=== PATIENT | male | born 1960 | race Caucasian/White ===

== ENCOUNTER 2016-10-03 15:26 | Observation (INO) | payer SELFPAY ==
[~2016-10-03] VITALS: Ht 170.2 cm; Wt 111.1 kg
[~2016-10-03 15:26] MED LIST: ACET160E5 PO; AMIO200T PO; AMIO200T2 PO; ASPI325T11 PO; ASPI325T70 PO; ATEN-56 PO; ATEN25TA PO; ATEN50TA PO; CLON0.1T PO; CYCL10TA2 PO; DIAZ5TAB4 PO; DIGO250T17 PO; DILT120C97 PO; FLUT1DIS IH; HYDR-2666 PO; HYDR-2678 PO; HYDR25TA9 PO; IBUP-1027 PO; LISI10TA PO; LISI20TA PO; METH-37 PO; METO25TA2 PO; NAPR250T2 PO; NITR0.4T6 SL; OXYC-244 PO; OXYC5TAB PO; Oxycodone Hcl/Acetaminophen PO; SAVAYSA; SULF1TAB24 PO; TAMS0.4C97 PO; TIOT18CA IH; VALIUM10 MG PO
[2016-10-03] MEDS ORDERED: IV NORMAL SALINE 1000ML BAG 1,000 ML IV SCH (17:01)
[2016-10-03] MEDS ORDERED: ONDANSETRON PF 4 MG/2 ML VIAL. IV ONE (17:15)
[2016-10-03 17:16] LABS: BASO # 0.1 x10^3/uL (0.0-0.2); BASO % 1 % (0-3); BILIRUBIN,URINE NEGATIVE (NEG); EOS % 3 % (0-3); GLUCOSE,URINE NEGATIVE (NEG); HEMOGLOBIN 15.3 g/dL (13.0-17.5); LYMPH % 35 % (24-48); MEAN CORPUSCULAR HEMOGLOBIN 31 pg (25-35); MEAN CORPUSCULAR HGB CONC 33 g/dL (31-37); MEAN CORPUSCULAR VOLUME 94 fL (79-100); MONO % 13 % (0-9); NEUT % 49 % (31-73); NITRITE,URINE NEGATIVE (NEG); PH,URINE 5.5; PLATELET COUNT 220 x10^3/uL (140-400); PROTEIN,URINE NEGATIVE (NEG-TRACE); RED BLOOD COUNT 4.89 x10^6/uL (4.30-5.70); RED CELL DISTRIBUTION WIDTH 13.7 % (11.5-14.5); UROBILINOGEN,URINE 0.2 mg/dL (0.2 mg/dL); WHITE BLOOD COUNT 8.7 x10^3/uL (4.0-11.0)
--- NOTE | 2016-10-03 17:23 | EKG ---
[facility] [address] [place] [address] Test Date: 2016-10-03 Test Time: 15:56:25 Pat Name: ALYSSA PABLO Department: Room: Gender: M Ems Director: : 1960 Requested By: VINCENT TINOCO Order Number: [id number] Reading MD: Iza Harris Measurements Intervals Howard Rate: 92 P: 53 LA: 214 QRS: 12 QRSD: 176 T: 46 QT: 402 QTc: 503 Interpretive Statements ELECTRONIC PACEMAKER. A SENSE AND V PACED Electronically Signed On 10-09-2016 14:22:34 GREEN [employer] ADDED ASSESSOR by Iza Harris
--- NOTE | 2016-10-03 17:27 | PHYS DOC ---
Past Medical History Past Medical History: A-Fib, Alcoholism, Anxiety, High Cholesterol, Heart Disease, Hypertension, MT, Other Additional Past Medical Histor: Vtach, back pain, HERNIA, HEPATITIS, bradycardia Past Surgical History: Cholecystectomy, Knee Replacement, Pacemaker, Other Additional Past Surgical Histo: intestinal and hernia, lumbar fusion, shoulder , ABLATION , AV pacemaker Alcohol Use: Heavy Drug Use: Heroin, Methamphetamine, Other Adult General Chief Complaint Chief Complaint: DIZZY/LIGHT HEADED HPI HPI Patient is a 55 year old male who presents with complaint of chest pain and lightheadedness. Patient states his symptoms started earlier this morning around 10:00. Patient states his symptoms have been persistent. Patient has history of atrial fibrillation and history of myocardial infarction. The patient was brought to the emergency department by EMS from [facility] after he had presented there for evaluation. Patient denies any fever or cough. Patient states his pain currently is 10 out of 10. Patient states it feels like pressure in his in the middle of his chest. The patient also states that he is having pain associated with chronic left sciatica. The patient has had multiple visits to the hospital in the past and has been known to have history of noncompliance. Patient has followed with Dr. Francis of cardiology in the past but has not seen him in clinic for several months. Patient has not taken any medications to help with his symptoms. Review of Systems Review of Systems Constitutional: Lightheadedness, Denies fever or chills [] Eyes: Denies change in visual acuity, redness, or eye pain [] HENT: Denies nasal congestion or sore throat [] Respiratory: Denies cough or shortness of breath [] Cardiovascular: Chest pain [] GI: Denies abdominal pain, nausea, vomiting, bloody stools or diarrhea [] : Denies dysuria or hematuria [] Musculoskeletal: Left-sided low back pain with radiculopathy [] Integument: Denies rash or skin lesions [] Neurologic: Denies headache, focal weakness or sensory changes [] Current Medications Current Medications Current Medications Medications (Trade) Dose Ordered Sig/Alan Start Time Stop Time Status Last Admin Dose Admin Hydromorphone HCl 1 mg 1 mg PRN Q15MIN PRN 10/03/16 17:15 10/04/16 17:14 10/03/16 19:24 1 MG Ondansetron HCl (Zofran) 4 mg 1X ONCE 10/03/16 17:15 10/03/16 17:16 DC 10/03/16 18:25 4 MG Sodium Chloride (Iv Sodium Chloride 0.9% 1000ml Bag) 1,000 ml @ 1,000 mls/hr Q1H 10/03/16 17:01 10/03/16 18:00 DC 10/03/16 18:22 1,000 MLS/HR Allergies Allergies Allergies Coded Allergies Type Severity Reaction Last Updated Verified alprazolam Allergy Intermediate 07/19/16 Yes diltiazem Allergy Intermediate HIVES, INTERMITTENTLY 07/19/16 Yes lorazepam Allergy Intermediate halucinations 07/19/16 Yes morphine Allergy Intermediate HIVES, INTERMITTENTLY 07/19/16 Yes Haloperidol Lactate Adverse Reaction Intermediate dystonic reaction 07/19/16 Yes haloperidol Adverse Reaction Intermediate dystonic reaction 07/19/16 Yes tramadol Adverse Reaction Intermediate Hallucinationsper nurse 07/19/16 Yes Physical Exam Physical Exam Constitutional: Alert, afebrile, appears in moderate discomfort. [] HENT: Normocephalic, atraumatic, bilateral external ears normal, oropharynx moist, no oral exudates, nose normal. [] Eyes: PERRLA, EOMI, conjunctiva normal, no discharge. [] Neck: Normal range of motion, no tenderness, supple, no stridor. [] Cardiovascular: Tachycardia, irregular rhythm, no murmur [] Lungs & Thorax: Bilateral breath sounds clear to auscultation [] Abdomen: Bowel sounds normal, soft, no tenderness, no masses, no pulsatile masses. [] Skin: Warm, dry, no erythema, no rash. [] Back: Left lower lumbar paraspinous muscle tenderness to palpation, no midline tenderness, positive straight leg test in left lower extremity. [] Extremities: No tenderness, no cyanosis, no clubbing, ROM intact, trace pedal edema bilaterally. [] Neurologic: Alert and oriented X 3, normal motor function, normal sensory function, no focal deficits noted. [] Current Patient Data Vital Signs Vital Signs Date Time Temp Pulse Resp B/P Pulse Ox O2 Delivery O2 Flow Rate FiO2 10/03/16 18:30 92 116/89 96 Room Air 10/03/16 18:28 20 10/03/16 15:30 99.1 99.1 Lab Values Laboratory Tests Test 10/03/16 15:40 10/03/16 18:00 White Blood Count 8.7x10^3/uL (4.0-11.0) Red Blood Count 4.89x10^6/uL (4.30-5.70) Hemoglobin 15.3g/dL (13.0-17.5) Hematocrit 46.0% (39.0-53.0) Mean Corpuscular Volume 94fL (79-100) Mean Corpuscular Hemoglobin 31pg (25-35) Mean Corpuscular Hemoglobin Concent 33g/dL (31-37) Red Cell Distribution Width 13.7% (11.5-14.5) Platelet Count 220x10^3/uL (140-400) Neutrophils (%) (Auto) 49% (31-73) Lymphocytes (%) (Auto) 35% (24-48) Monocytes (%) (Auto) 13% (0-9) H Eosinophils (%) (Auto) 3% (0-3) Basophils (%) (Auto) 1% (0-3) Neutrophils # (Auto) 4.3x10^3uL (1.8-7.7) Lymphocytes # (Auto) 3.0x10^3/uL (1.0-4.8) Monocytes # (Auto) 1.1x10^3/uL (0.0-1.1) Eosinophils # (Auto) 0.2x10^3/uL (0.0-0.7) Basophils # (Auto) 0.1x10^3/uL (0.0-0.2) Urine Collection Type Unknown Urine Color Yellow Urine Clarity Clear Urine pH 5.5 Urine Specific [place] 1.010 Urine Protein Negativemg/dL (NEG-TRACE) Urine Glucose (UA) Negativemg/dL (NEG) Urine Ketones (Stick) Negativemg/dL (NEG) Urine Blood Negative (NEG) Urine Nitrite Negative (NEG) Urine Bilirubin Negative (NEG) Urine Urobilinogen Dipstick 0.2mg/dL (0.2 mg/dL) Urine Leukocyte Esterase Negative (NEG) Urine RBC 0/HPF (0-2) Urine WBC 1-4/HPF (0-4) Urine Squamous Epithelial Cells Occ/LPF Urine Bacteria Few/HPF (0-FEW) Sodium Level 138mmol/L (136-145) Potassium Level 4.0mmol/L (3.5-5.1) Chloride Level 102mmol/L (98-107) Carbon Dioxide Level 24mmol/L (21-32) Anion Gap 12 (6-14) Blood Urea Nitrogen 18mg/dL (8-26) Creatinine 1.4mg/dL (0.7-1.3) H Estimated GFR (Cockcroft-Gault) 52.6 Glucose Level 111mg/dL (70-99) H Calcium Level 9.4mg/dL (8.5-10.1) Magnesium Level 1.7mg/dL (1.8-2.4) L Creatine Kinase 492U/L (39-308) H Creatine Kinase MB (Mass) 9.6ng/mL (0.0-3.6) H Creatine Kinase MB Relative Index 2.0% (0-4) Troponin I Quantitative < 0.017ng/mL (0.000-0.055) NH-Whj-N-Type Natriuretic Peptide 368pg/mL (0-124) H Laboratory Tests 10/03/16 15:40 Laboratory Tests 10/03/16 18:00 EKG EKG Interpreted by me: Heart rate 92, ventricularly paced rhythm, no acute ST elevations or depressions [] Radiology/Procedures Radiology/Procedures [facility] [address] [place] [address] IMAGING REPORT Signed PATIENT: ALYSSA PABLO ACCOUNT: [id number] : 1960 LOCATION: ER AGE: 55 SEX: M EXAM STATUS: PRE ER ORD. PHYSICIAN: VINCENT TINOCO MD REASON: chest pain PROCEDURE: PORTABLE CHEST 1V Portable chest, 10/03/2016: History: Chest pain, shortness of breath Comparison is made to a study from 05/05/2016. A right-sided transvenous pacemaker remains in place with 2 leads extending into the right heart. The heart is at the upper limits of normal in size. There is tortuosity of the thoracic aorta. The pulmonary vascularity is normal. No pulmonary infiltrates are seen. There is no evidence of pleural fluid. IMPRESSION: No acute cardiopulmonary abnormality is detected with no significant change since 05/05/2016. DICTATED and SIGNED BY: DANIELLE CM MD DATE: 10/03/16 3726 CC: VINCENT TINOCO MD; NO PCP ~ [] Course & Med Decision Making Course & Med Decision Making Pertinent Labs and Imaging studies reviewed. (See chart for details) Patient was treated with Dilaudid for pain. Patient given full strength aspirin in the emergency department. Patient's initial cardiac enzymes were negative. Due to cardiac history and risk factors, I spoke with Dr. Francis. He agreed to consult on patient in hospital for rule out of myocardial infarction and will have pacemaker interrogated well in hospital. Patient was admitted to Dr. Harding. Dragon Disclaimer Leonard Disclaimer This electronic medical record was generated, in whole or in part, using a voice recognition dictation system. Departure Departure Impression: Primary Impression: Chest pain Additional Impressions: Essential hypertension Atrial fibrillation Noncompliance with medication regimen Sciatica Disposition: ADMITTED INPATIENT Admitting Physician: Serafin Harding Condition: STABLE Referrals: NO PCP (PCP) Problem Qualifiers Primary Impression: Chest pain Chest pain type: unspecified Qualified Code: R07.9 - Chest pain, unspecified Additional Impressions: Atrial fibrillation Atrial fibrillation type: chronic Qualified Code: I48.2 - Chronic atrial fibrillation Sciatica Laterality: left Qualified Code: M54.32 - Sciatica, left side VINCENT TINOCO MD Oct 03, 2016 17:27
--- NOTE | 2016-10-03 17:43 | RAD ---
Portable chest, 10/03/2016: History: Chest pain, shortness of breath Comparison is made to a study from 05/05/2016. A right-sided transvenous pacemaker remains in place with 2 leads extending into the right heart. The heart is at the upper limits of normal in size. There is tortuosity of the thoracic aorta. The pulmonary vascularity is normal. No pulmonary infiltrates are seen. There is no evidence of pleural fluid. IMPRESSION: No acute cardiopulmonary abnormality is detected with no significant change since 05/05/2016.
[2016-10-03 18:23] LABS: BACTERIA,URINE FEW /HPF (0-FEW); RBC,URINE 0 /HPF (0-2)
[2016-10-03 18:24] LABS: SQUAMOUS EPITHELIAL CELL,UR OCC /LPF
[2016-10-03] MEDS: HYDROMORPHONE 2 MG/ML VIAL. IV/SQ PRN ×2 (18:28→19:24)
[2016-10-03 18:48] LABS: CALCIUM 9.4 mg/dL (8.5-10.1); CREATININE 1.4 mg/dL (0.7-1.3); GFR 52.6; MAGNESIUM 1.7 mg/dL (1.8-2.4)
[2016-10-03 19:13] LABS: CKMB MASS 9.6 ng/mL (0.0-3.6)
[2016-10-03] MEDS: IV NORMAL SALINE 1000ML BAG 1,000 ML IV SCH (19:29)
[2016-10-03] MEDS ORDERED: ONDANSETRON PF 4 MG/2 ML VIAL. IV PRN (19:30)
[2016-10-03] MEDS ORDERED: ASPIRIN 81 MG TAB.CHEW PO ONE (19:30)
[2016-10-03 22:00] VITALS: BP 173/143
[2016-10-03] MEDS: FENTANYL PF 100 MCG/2 ML VIAL. IV PRN (22:21)
[2016-10-03] MEDS ORDERED: LORAZEPAM 1 MG TABLET. PO PRN (22:45)
--- NOTE | 2016-10-04 00:33 | HP ---
ADMIT DATE: 10/03/2016 CHIEF COMPLAINT: Chest pain. HISTORY OF PRESENT ILLNESS: The patient is a pleasant 55-year-old male well known to our service. He is very noncompliant, but has multiple medical issues as well as, presents to the ER today with chest pain, rates it at 9 out 10. He has associated weakness and shortness of breath. He is very anxious. I have discussed the case with the ER physician. We are going to admit the patient and consult Cardiology. PAST MEDICAL HISTORY: AFib, alcohol issues, anxiety, hypertension, hyperlipidemia, noncompliance, myocardial infarction, chronic pain, V-tach, hernia repair, hepatitis, bradycardia, cholecystectomy, knee replacement, pacemaker, intestinal hernia, lumbar fusion, shoulder surgery, ablation and AV pacemaker. ALLERGIES: HALDOL, ALPRAZOLAM, DIAZEPAM, HALOPERIDOL, LORAZEPAM, MORPHINE AND ULTRAM. FAMILY HISTORY: Coronary artery disease. SOCIAL HISTORY: He quit drinking, smoking and doing drugs. MEDICATIONS: Reviewed. Please refer to the MRAD. REVIEW OF SYSTEMS: GENERAL: No history of weight change, weakness or fevers. SKIN: No bruising, hair changes or rashes. EYES: No blurred, double or loss of vision. NOSE AND THROAT: No history of nosebleeds, hoarseness or sore throat. HEART: He complains of chest pain. LUNGS: He complains of shortness of breath. GASTROINTESTINAL: Denies changes in appetite, nausea, vomiting, diarrhea or constipation. GENITOURINARY: No history of frequency, urgency, hesitancy or nocturia. NEUROLOGIC: Denies history of numbness, tingling, tremor or weakness. PSYCHIATRIC: No history of panic, anxiety or depression. ENDOCRINE: No history of heat or cold intolerance, polyuria or polydipsia. EXTREMITIES: Denies muscle weakness, joint pain, pain on walking or stiffness. PHYSICAL EXAMINATION: VITAL SIGNS: Temperature afebrile, pulse 97, respirations 18, blood pressure 114/70, O2 sat 96% on room air. GENERAL: He is alert, cooperative, very anxious, that is his baseline. HEART: Normal S1, S2 with a soft S3. LUNGS: Slight crackles. ABDOMEN: Soft, positive bowel sounds, he has got an umbilical hernia. ENDOCRINE: No thyromegaly. LYMPHATICS: No cervical nodes. HEMATOPOIETIC: No bruising. LABORATORY DATA: Hematology normal. Electrolytes normal other than creatinine of 1.4 and a magnesium 1.7. CPK is little high at 492. Troponin is 0. BNP 368. Urinalysis negative. ASSESSMENT AND PLAN: Chest pain in a middle-aged male with multiple comorbidities including known coronary artery disease. The patient has been admitted. We will check serial enzymes, serial EKGs, cardiac monitoring. Consult Cardiology, daily aspirin. Continue home medicines, p.r.n. benzos for anxiety, p.r.n. Percocet for pain. PROGNOSIS: Guarded. TREVOR BELLE DO DR: YVETTE/shauna JOB#: [id number] / [id number]
[2016-10-04] MEDS: FENTANYL PF 100 MCG/2 ML VIAL. IV PRN (01:16)
[2016-10-04] MEDS: DIPHENHYDRAMINE HCL 25 MG CAPSULE PO PRN ×2 (01:18→08:27)
[2016-10-04] MEDS: DIAZEPAM 5 MG TABLET PO PRN ×5 (01:21→22:57)
[2016-10-04 03:00] VITALS: BP 200/167
[2016-10-04] MEDS ORDERED: ALBUTEROL SULFATE 2.5 MG/3 ML NEBU. NEB PRN (03:45)
[2016-10-04] MEDS: CLONIDINE HCL 0.2 MG TABLET PO SCH ×4 (04:14→20:26)
[2016-10-04] MEDS: OXYCODONE/APAP 5/325 TABLET. PO PRN ×3 (04:14→20:26)
[2016-10-04] MEDS: IV NORMAL SALINE 1000ML BAG 1,000 ML IV SCH ×2 (05:29→15:29)
[2016-10-04 05:30] LABS: BARBITURATES NEG (NEG); BENZODIAZEPINES NEG (NEG); CANNABINOIDS NEG (NEG); COCAINE NEG (NEG); METHADONE NEG (NEG); OPIATES POS (NEG); PHENCYCLIDINE NEG (NEG)
[2016-10-04 05:33] LABS: ETHANOL, URINE NEG (NEG)
[2016-10-04 07:00] VITALS: BP 107/74
[2016-10-04 07:49] LABS: BASO % 0 % (0-3); EOS % 2 % (0-3); HEMATOCRIT 42.1 % (39.0-53.0); HEMOGLOBIN 14.2 g/dL (13.0-17.5); LYMPH # 2.1 x10^3/uL (1.0-4.8); LYMPH % 23 % (24-48); MEAN CORPUSCULAR HEMOGLOBIN 31 pg (25-35); MEAN CORPUSCULAR HGB CONC 34 g/dL (31-37); MEAN CORPUSCULAR VOLUME 94 fL (79-100); MONO % 15 % (0-9); NEUT % 60 % (31-73); PLATELET COUNT 177 x10^3/uL (140-400); RED CELL DISTRIBUTION WIDTH 13.4 % (11.5-14.5); WHITE BLOOD COUNT 9.1 x10^3/uL (4.0-11.0)
[2016-10-04 08:00] LABS: CALCIUM 10.1 mg/dL (8.5-10.1); CREATININE 1.1 mg/dL (0.7-1.3); GFR 69.5; POTASSIUM 4.3 mmol/L (3.5-5.1)
--- NOTE | 2016-10-04 10:11 | PDOC2 ---
CONSULT Date of Consult Date of Consult DATE: 10/04/16 TIME: 09:58 Reason for Consult Reason for Consult: Chest pain Referring Physician Referring Physician: Dr Harding Identification/Chief Complaint Chief Complaint Back pain and chest pain History of Present Illness Reason for Visit: Pt is complaining of back pain and chest pain. Pt stated his back pain is a chronic issue and he rated his pain at a 9 or 10 on a 1-10 scale. Pt described his chest pain as pressure in his chest that is focal and rated the pain at a 6- 7 on a 1-10 scale. Pt stated his chest pain hurts more when he breathes. Pt also complained of shortness of breath. Pt walked back from the restroom and was out of breath. Pt is more worried about his back pain than his chest pain. Pt also stated he has become more confused than normal and is worried about dementia. He stated his children have also noted his memory not be like it used to be. Past Medical History Cardiovascular: AFIB, HTN Pulmonary: Asthma, COPD GI: GERD Heme/Onc: Other Psych: Anxiety, Addictions, Depression Musculoskeletal: low back pain, Osteoarthritis Renal/: Benign prostatic enlarg. Past Surgical History Past Surgical History: Pacemaker, Appendectomy, Cholecystectomy, Hernia Repair , Total knee replacement Family History Family History: Cancer, Heart Disease, Hepatitis, Hypertension Social History ALCOHOL: heavy Drugs: Crystal meth Current Problem List Problem List Problems Medical Problems: (1) Atrial fibrillation Status: Acute (2) Chest pain Status: Acute (3) Chest pain Status: Acute (4) Essential hypertension Status: Acute (5) Noncompliance with medication regimen Status: Acute (6) Sciatica Status: Acute Current Medications Current Medications Current Medications Hydromorphone HCl 1 mg 1 mg PRN Q15MIN PRN IV/SQ PAIN GREATER THAN 3/10 Last administered on 10/03/16 19:24; Start 10/03/16 at 17:15; Stop 10/04/16 at 17:14 Sodium Chloride (Iv Sodium Chloride 0.9% 1000ml Bag) 1,000 ml @ 1,000 mls/hr Q1H IV Last administered on 10/03/16 18:22; Start 10/03/16 at 17:01; Stop at 18:00; Status DC Ondansetron HCl (Zofran) 4 mg 1X ONCE IV Last administered on 10/03/16 18:25; Start 10/03/16 at 17:15; Stop 10/03/16 at 17:16; Status DC Ondansetron HCl (Zofran) 4 mg PRN Q8HRS PRN IV NAUSEA/VOMITING; Start 10/03/16 at 19:30; Stop 10/04/16 at 19:29 Fentanyl Citrate 50 mcg 50 mcg PRN Q2HR PRN IV PAIN Last administered on 01:16; Start 10/03/16 at 19:30; Stop 10/04/16 at 19:29 Sodium Chloride (Iv Sodium Chloride 0.9% 1000ml Bag) 1,000 ml @ 100 mls/hr Q10H IV ; Start 10/03/16 at 19:29; Stop 10/04/16 at 19:28 Aspirin (Children'S Aspirin) 324 mg 1X ONCE PO Last administered on 10/03/16 20:06; Start 10/03/16 at 19:30; Stop 10/03/16 at 19:32; Status DC Oxycodone/ Acetaminophen (Percocet 5/325) 1 tab PRN Q4HRS PRN PO SEVERE PAIN Last administered on 10/04/16 08:28; Start 10/03/16 at 22:45 Lorazepam (Ativan) 1 mg Q4HRS PRN PO ANXIETY / AGITATION; Start 10/03/16 at 22: 45; Status UNV Diazepam (Valium) 5 mg PRN Q4HRS PRN PO ANXIETY Last administered on 10/04/16 08:27; Start 10/03/16 at 23:30 Diphenhydramine HCl (Benadryl) 25 mg PRN Q6HRS PRN PO ITCHING Last administered on 10/04/16 08:27; Start 10/03/16 at 23:30 Albuterol Sulfate (Ventolin Neb Soln) 2.5 mg PRN Q4HRS PRN NEB SHORTNESS OF BREATH; Start 10/04/16 at 03:45 Clonidine HCl (Catapres) 0.2 mg TID PO Last administered on 10/04/16 04:14; Start 10/04/16 at 04:00 Active Scripts Active Clonidine Hcl 0.1 Mg Tablet 0.1 Mg PO BID Hydrochlorothiazide Tablet (Hydrochlorothiazide) 25 Mg Tablet 1 Tab PO DAILY Naproxen 250 Mg Tablet 250 Mg PO BID PRN Cyclobenzaprine Hcl 10 Mg Tablet 10 Mg PO TID PRN Naproxen 250 Mg Tablet 250 Mg PO BID PRN Cyclobenzaprine Hcl 10 Mg Tablet 10 Mg PO TID PRN Diazepam 5 Mg Tablet 5 Mg PO Q6HRS PRN Oxycodone Hcl 5 Mg Tablet 1-2 Tab PO QID PRN Reported NITROGLYCERIN SubLingual (Nitroglycerin) 0.4 Mg Tab.subl 0.4 Mg SL PRN Q5MIN PRN NITROGLYCERIN SubLingual (Nitroglycerin) 0.4 Mg Tab.subl 0.4 Mg SL PRN Q5MIN PRN Allergies Allergies: Coded Allergies: alprazolam (Verified Allergy, Intermediate, 07/19/16) HALUCINATIONS diltiazem (Verified Allergy, Intermediate, HIVES, INTERMITTENTLY, 07/19/16 ) lorazepam (Verified Allergy, Intermediate, halucinations, 07/19/16) patients states has tolerated valium in the past morphine (Verified Allergy, Intermediate, HIVES, INTERMITTENTLY, 07/19/16) takes LORTAB at home, tolerates DILAUDID also. Haloperidol Lactate (Verified Adverse Reaction, Intermediate, dystonic reaction, 07/19/16) "Jaw comes out of socket" haloperidol (Verified Adverse Reaction, Intermediate, dystonic reaction, 07/19/16) "Jaw comes out of socket" tramadol (Verified Adverse Reaction, Intermediate, Hallucinationsper nurse , 07/19/16) Physical Exam General: Alert, No acute distress HEENT: Atraumatic, EOMI Lungs: Normal air movement Heart: Regular rate, Normal S1, Normal S2 Extremities: No clubbing, No cyanosis, No edema Vitals VITALS Vital Signs Date Time Temp Pulse Resp B/P Pulse Ox O2 Delivery O2 Flow Rate FiO2 10/04/16 08:28 98 107/74 10/04/16 08:28 Room Air 10/04/16 07:00 97.9 18 97 97.9 Labs Labs Laboratory Tests Test 10/03/16 15:40 10/03/16 18:00 10/04/16 04:00 10/04/16 07:22 White Blood Count 8.7x10^3/uL (4.0-11.0) Red Blood Count 4.89x10^6/uL (4.30-5.70) Hemoglobin 15.3g/dL (13.0-17.5) Hematocrit 46.0% (39.0-53.0) Mean Corpuscular Volume 94fL (79-100) Mean Corpuscular Hemoglobin 31pg (25-35) Mean Corpuscular Hemoglobin Concent 33g/dL (31-37) Red Cell Distribution Width 13.7% (11.5-14.5) Platelet Count 220x10^3/uL (140-400) Neutrophils (%) (Auto) 49% (31-73) Lymphocytes (%) (Auto) 35% (24-48) Monocytes (%) (Auto) 13% (0-9) Eosinophils (%) (Auto) 3% (0-3) Basophils (%) (Auto) 1% (0-3) Neutrophils # (Auto) 4.3x10^3uL (1.8-7.7) Lymphocytes # (Auto) 3.0x10^3/uL (1.0-4.8) Monocytes # (Auto) 1.1x10^3/uL (0.0-1.1) Eosinophils # (Auto) 0.2x10^3/uL (0.0-0.7) Basophils # (Auto) 0.1x10^3/uL (0.0-0.2) Urine Collection Type Unknown Urine Color Yellow Urine Clarity Clear Urine pH 5.5 Urine Specific [place] 1.010 Urine Protein Negativemg/dL (NEG-TRACE) Urine Glucose (UA) Negativemg/dL (NEG) Urine Ketones (Stick) Negativemg/dL (NEG) Urine Blood Negative (NEG) Urine Nitrite Negative (NEG) Urine Bilirubin Negative (NEG) Urine Urobilinogen Dipstick 0.2mg/dL (0.2 mg/dL) Urine Leukocyte Esterase Negative (NEG) Urine RBC 0/HPF (0-2) Urine WBC 1-4/HPF (0-4) Urine Squamous Epithelial Cells Occ/LPF Urine Bacteria Few/HPF (0-FEW) Sodium Level 138mmol/L (136-145) 136mmol/L (136-145) Potassium Level 4.0mmol/L (3.5-5.1) 4.3mmol/L (3.5-5.1) Chloride Level 102mmol/L (98-107) 103mmol/L (98-107) Carbon Dioxide Level 24mmol/L (21-32) 24mmol/L (21-32) Anion Gap 12 (6-14) 9 (6-14) Blood Urea Nitrogen 18mg/dL (8-26) 23mg/dL (8-26) Creatinine 1.4mg/dL (0.7-1.3) 1.1mg/dL (0.7-1.3) Estimated GFR (Cockcroft-Gault) 52.6 69.5 Glucose Level 111mg/dL (70-99) 125mg/dL (70-99) Calcium Level 9.4mg/dL (8.5-10.1) 10.1mg/dL (8.5-10.1) Magnesium Level 1.7mg/dL (1.8-2.4) Creatine Kinase 492U/L (39-308) Creatine Kinase MB (Mass) 9.6ng/mL (0.0-3.6) Creatine Kinase MB Relative Index 2.0% (0-4) Troponin I Quantitative < 0.017ng/mL (0.000-0.055) 0.021ng/mL (0.000-0.055) SH-Rfi-M-Type Natriuretic Peptide 368pg/mL (0-124) Urine Opiates Screen Pos (NEG) Urine Methadone Screen Neg (NEG) Urine Barbiturates Neg (NEG) Urine Phencyclidine Screen Neg (NEG) Urine Amphetamine/Methamphetamine Neg (NEG) Urine Benzodiazepines Screen Neg (NEG) Urine Cocaine Screen Neg (NEG) Urine Cannabinoids Screen Neg (NEG) Urine Ethyl Alcohol Neg (NEG) Test 10/04/16 07:27 White Blood Count 9.1x10^3/uL (4.0-11.0) Red Blood Count 4.50x10^6/uL (4.30-5.70) Hemoglobin 14.2g/dL (13.0-17.5) Hematocrit 42.1% (39.0-53.0) Mean Corpuscular Volume 94fL (79-100) Mean Corpuscular Hemoglobin 31pg (25-35) Mean Corpuscular Hemoglobin Concent 34g/dL (31-37) Red Cell Distribution Width 13.4% (11.5-14.5) Platelet Count 177x10^3/uL (140-400) Neutrophils (%) (Auto) 60% (31-73) Lymphocytes (%) (Auto) 23% (24-48) Monocytes (%) (Auto) 15% (0-9) Eosinophils (%) (Auto) 2% (0-3) Basophils (%) (Auto) 0% (0-3) Neutrophils # (Auto) 5.5x10^3uL (1.8-7.7) Lymphocytes # (Auto) 2.1x10^3/uL (1.0-4.8) Monocytes # (Auto) 1.4x10^3/uL (0.0-1.1) Eosinophils # (Auto) 0.2x10^3/uL (0.0-0.7) Basophils # (Auto) 0.0x10^3/uL (0.0-0.2) Laboratory Tests Test 10/03/16 15:40 10/03/16 18:00 10/04/16 04:00 10/04/16 07:22 White Blood Count 8.7x10^3/uL (4.0-11.0) Red Blood Count 4.89x10^6/uL (4.30-5.70) Hemoglobin 15.3g/dL (13.0-17.5) Hematocrit 46.0% (39.0-53.0) Mean Corpuscular Volume 94fL (79-100) Mean Corpuscular Hemoglobin 31pg (25-35) Mean Corpuscular Hemoglobin Concent 33g/dL (31-37) Red Cell Distribution Width 13.7% (11.5-14.5) Platelet Count 220x10^3/uL (140-400) Neutrophils (%) (Auto) 49% (31-73) Lymphocytes (%) (Auto) 35% (24-48) Monocytes (%) (Auto) 13% (0-9) Eosinophils (%) (Auto) 3% (0-3) Basophils (%) (Auto) 1% (0-3) Neutrophils # (Auto) 4.3x10^3uL (1.8-7.7) Lymphocytes # (Auto) 3.0x10^3/uL (1.0-4.8) Monocytes # (Auto) 1.1x10^3/uL (0.0-1.1) Eosinophils # (Auto) 0.2x10^3/uL (0.0-0.7) Basophils # (Auto) 0.1x10^3/uL (0.0-0.2) Urine Collection Type Unknown Urine Color Yellow Urine Clarity Clear Urine pH 5.5 Urine Specific [place] 1.010 Urine Protein Negativemg/dL (NEG-TRACE) Urine Glucose (UA) Negativemg/dL (NEG) Urine Ketones (Stick) Negativemg/dL (NEG) Urine Blood Negative (NEG) Urine Nitrite Negative (NEG) Urine Bilirubin Negative (NEG) Urine Urobilinogen Dipstick 0.2mg/dL (0.2 mg/dL) Urine Leukocyte Esterase Negative (NEG) Urine RBC 0/HPF (0-2) Urine WBC 1-4/HPF (0-4) Urine Squamous Epithelial Cells Occ/LPF Urine Bacteria Few/HPF (0-FEW) Sodium Level 138mmol/L (136-145) 136mmol/L (136-145) Potassium Level 4.0mmol/L (3.5-5.1) 4.3mmol/L (3.5-5.1) Chloride Level 102mmol/L (98-107) 103mmol/L (98-107) Carbon Dioxide Level 24mmol/L (21-32) 24mmol/L (21-32) Anion Gap 12 (6-14) 9 (6-14) Blood Urea Nitrogen 18mg/dL (8-26) 23mg/dL (8-26) Creatinine 1.4mg/dL (0.7-1.3) 1.1mg/dL (0.7-1.3) Estimated GFR (Cockcroft-Gault) 52.6 69.5 Glucose Level 111mg/dL (70-99) 125mg/dL (70-99) Calcium Level 9.4mg/dL (8.5-10.1) 10.1mg/dL (8.5-10.1) Magnesium Level 1.7mg/dL (1.8-2.4) Creatine Kinase 492U/L (39-308) Creatine Kinase MB (Mass) 9.6ng/mL (0.0-3.6) Creatine Kinase MB Relative Index 2.0% (0-4) Troponin I Quantitative < 0.017ng/mL (0.000-0.055) 0.021ng/mL (0.000-0.055) GU-Ect-D-Type Natriuretic Peptide 368pg/mL (0-124) Urine Opiates Screen Pos (NEG) Urine Methadone Screen Neg (NEG) Urine Barbiturates Neg (NEG) Urine Phencyclidine Screen Neg (NEG) Urine Amphetamine/Methamphetamine Neg (NEG) Urine Benzodiazepines Screen Neg (NEG) Urine Cocaine Screen Neg (NEG) Urine Cannabinoids Screen Neg (NEG) Urine Ethyl Alcohol Neg (NEG) Test 10/04/16 07:27 White Blood Count 9.1x10^3/uL (4.0-11.0) Red Blood Count 4.50x10^6/uL (4.30-5.70) Hemoglobin 14.2g/dL (13.0-17.5) Hematocrit 42.1% (39.0-53.0) Mean Corpuscular Volume 94fL (79-100) Mean Corpuscular Hemoglobin 31pg (25-35) Mean Corpuscular Hemoglobin Concent 34g/dL (31-37) Red Cell Distribution Width 13.4% (11.5-14.5) Platelet Count 177x10^3/uL (140-400) Neutrophils (%) (Auto) 60% (31-73) Lymphocytes (%) (Auto) 23% (24-48) Monocytes (%) (Auto) 15% (0-9) Eosinophils (%) (Auto) 2% (0-3) Basophils (%) (Auto) 0% (0-3) Neutrophils # (Auto) 5.5x10^3uL (1.8-7.7) Lymphocytes # (Auto) 2.1x10^3/uL (1.0-4.8) Monocytes # (Auto) 1.4x10^3/uL (0.0-1.1) Eosinophils # (Auto) 0.2x10^3/uL (0.0-0.7) Basophils # (Auto) 0.0x10^3/uL (0.0-0.2) Assessment/Plan Assessment/Plan This patient is noncompliant and goes to multiple hospitals as well. He usually comes in complaining of chest pains but by the time that I see him he is complaining of back pain. This is not the first time he has done this. He is complaining of the severe excruciating back pain now. He is noncompliant with treatment as well as follow-up. Since he came in he continues to ask for pain medication. I am concerned that this is mostly a drug-seeking behavior and if he has a problem with his back then may need to consider either a neurosurgery consult or referral back to for further care. He may have coronary artery disease but I do not think that any of the pains that he is having at this time are angina. Thank you very much for asking me to participate in the care of this patient PRISCILLA WILLINGHAM MD Oct 04, 2016 10:11
[2016-10-04 10:59] VITALS: BP 125/99
[2016-10-04] MEDS ORDERED: KETOROLAC 15 MG/ML VIAL. IV PRN (12:15)
[2016-10-04] MEDS ORDERED: MORPHINE ER 15 MG TABLET.ER PO SCH (12:15)
[2016-10-04] MEDS: HYDROMORPHONE 2 MG TABLET. PO PRN ×3 (12:43→22:57)
[2016-10-04] MEDS ORDERED: DIPHENHYDRAMINE 50 MG/ML VIAL IVP PRN (12:45)
[2016-10-04] MEDS: LIDO:MAALOX:DONNATAL 1:1:1 15 ML SINGLE DOSE SWSW PRN ×2 (12:58→18:02)
[2016-10-04] MEDS ORDERED: DOCUSATE SODIUM 100 MG CAPSULE PO PRN (13:00)
[2016-10-04] MEDS ORDERED: POLYETHYLENE GLYCOL 3350 17 GM PACKET. PO PRN (13:00)
[2016-10-04 15:00] VITALS: BP 144/92
--- NOTE | 2016-10-04 15:28 | PDOC ---
PROGRESS NOTES Chief Complaint Chief Complaint back pain chest pain, acute on chronic, costochondritis, subsatnce abuse, prior sciatica throat pain, dysphagia, History of Present Illness History of Present Illness [place] neg well known to this service symptom management r.o ACS resume home meds as able try to DC soon Vitals Vitals Vital Signs Date Time Temp Pulse Resp B/P Pulse Ox O2 Delivery O2 Flow Rate FiO2 10/04/16 14:00 86 125/99 10/04/16 13:43 Room Air 10/04/16 10:59 97.8 18 94 97.8 Physical Exam General: Alert, No acute distress Heart: Regular rate, Normal S1, Normal S2 Lungs: Clear Extremities: No clubbing, No cyanosis, No edema Labs LABS Laboratory Tests Test 10/03/16 15:40 10/03/16 18:00 10/04/16 04:00 10/04/16 07:22 White Blood Count 8.7x10^3/uL (4.0-11.0) Red Blood Count 4.89x10^6/uL (4.30-5.70) Hemoglobin 15.3g/dL (13.0-17.5) Hematocrit 46.0% (39.0-53.0) Mean Corpuscular Volume 94fL (79-100) Mean Corpuscular Hemoglobin 31pg (25-35) Mean Corpuscular Hemoglobin Concent 33g/dL (31-37) Red Cell Distribution Width 13.7% (11.5-14.5) Platelet Count 220x10^3/uL (140-400) Neutrophils (%) (Auto) 49% (31-73) Lymphocytes (%) (Auto) 35% (24-48) Monocytes (%) (Auto) 13% (0-9) Eosinophils (%) (Auto) 3% (0-3) Basophils (%) (Auto) 1% (0-3) Neutrophils # (Auto) 4.3x10^3uL (1.8-7.7) Lymphocytes # (Auto) 3.0x10^3/uL (1.0-4.8) Monocytes # (Auto) 1.1x10^3/uL (0.0-1.1) Eosinophils # (Auto) 0.2x10^3/uL (0.0-0.7) Basophils # (Auto) 0.1x10^3/uL (0.0-0.2) Urine Collection Type Unknown Urine Color Yellow Urine Clarity Clear Urine pH 5.5 Urine Specific [place] 1.010 Urine Protein Negativemg/dL (NEG-TRACE) Urine Glucose (UA) Negativemg/dL (NEG) Urine Ketones (Stick) Negativemg/dL (NEG) Urine Blood Negative (NEG) Urine Nitrite Negative (NEG) Urine Bilirubin Negative (NEG) Urine Urobilinogen Dipstick 0.2mg/dL (0.2 mg/dL) Urine Leukocyte Esterase Negative (NEG) Urine RBC 0/HPF (0-2) Urine WBC 1-4/HPF (0-4) Urine Squamous Epithelial Cells Occ/LPF Urine Bacteria Few/HPF (0-FEW) Sodium Level 138mmol/L (136-145) 136mmol/L (136-145) Potassium Level 4.0mmol/L (3.5-5.1) 4.3mmol/L (3.5-5.1) Chloride Level 102mmol/L (98-107) 103mmol/L (98-107) Carbon Dioxide Level 24mmol/L (21-32) 24mmol/L (21-32) Anion Gap 12 (6-14) 9 (6-14) Blood Urea Nitrogen 18mg/dL (8-26) 23mg/dL (8-26) Creatinine 1.4mg/dL (0.7-1.3) 1.1mg/dL (0.7-1.3) Estimated GFR (Cockcroft-Gault) 52.6 69.5 Glucose Level 111mg/dL (70-99) 125mg/dL (70-99) Calcium Level 9.4mg/dL (8.5-10.1) 10.1mg/dL (8.5-10.1) Magnesium Level 1.7mg/dL (1.8-2.4) Creatine Kinase 492U/L (39-308) Creatine Kinase MB (Mass) 9.6ng/mL (0.0-3.6) Creatine Kinase MB Relative Index 2.0% (0-4) Troponin I Quantitative < 0.017ng/mL (0.000-0.055) 0.021ng/mL (0.000-0.055) ZM-[id number]-Type Natriuretic Peptide 368pg/mL (0-124) Urine Opiates Screen Pos (NEG) Urine Methadone Screen Neg (NEG) Urine Barbiturates Neg (NEG) Urine Phencyclidine Screen Neg (NEG) Urine Amphetamine/Methamphetamine Neg (NEG) Urine Benzodiazepines Screen Neg (NEG) Urine Cocaine Screen Neg (NEG) Urine Cannabinoids Screen Neg (NEG) Urine Ethyl Alcohol Neg (NEG) Test 10/04/16 07:27 White Blood Count 9.1x10^3/uL (4.0-11.0) Red Blood Count 4.50x10^6/uL (4.30-5.70) Hemoglobin 14.2g/dL (13.0-17.5) Hematocrit 42.1% (39.0-53.0) Mean Corpuscular Volume 94fL (79-100) Mean Corpuscular Hemoglobin 31pg (25-35) Mean Corpuscular Hemoglobin Concent 34g/dL (31-37) Red Cell Distribution Width 13.4% (11.5-14.5) Platelet Count 177x10^3/uL (140-400) Neutrophils (%) (Auto) 60% (31-73) Lymphocytes (%) (Auto) 23% (24-48) Monocytes (%) (Auto) 15% (0-9) Eosinophils (%) (Auto) 2% (0-3) Basophils (%) (Auto) 0% (0-3) Neutrophils # (Auto) 5.5x10^3uL (1.8-7.7) Lymphocytes # (Auto) 2.1x10^3/uL (1.0-4.8) Monocytes # (Auto) 1.4x10^3/uL (0.0-1.1) Eosinophils # (Auto) 0.2x10^3/uL (0.0-0.7) Basophils # (Auto) 0.0x10^3/uL (0.0-0.2) Assessment and Plan Assessmemt and Plan Problems Medical Problems: (1) Atrial fibrillation Status: Acute (2) Chest pain Status: Acute (3) Chest pain Status: Acute (4) Essential hypertension Status: Acute (5) Noncompliance with medication regimen Status: Acute (6) Sciatica Status: Acute Problems: Comment Review of Relevant I have reviewed the following items mercedez (where applicable) has been applied. Labs Laboratory Tests Test 10/03/16 15:40 10/03/16 18:00 10/04/16 04:00 10/04/16 07:22 White Blood Count 8.7x10^3/uL (4.0-11.0) Red Blood Count 4.89x10^6/uL (4.30-5.70) Hemoglobin 15.3g/dL (13.0-17.5) Hematocrit 46.0% (39.0-53.0) Mean Corpuscular Volume 94fL (79-100) Mean Corpuscular Hemoglobin 31pg (25-35) Mean Corpuscular Hemoglobin Concent 33g/dL (31-37) Red Cell Distribution Width 13.7% (11.5-14.5) Platelet Count 220x10^3/uL (140-400) Neutrophils (%) (Auto) 49% (31-73) Lymphocytes (%) (Auto) 35% (24-48) Monocytes (%) (Auto) 13% (0-9) Eosinophils (%) (Auto) 3% (0-3) Basophils (%) (Auto) 1% (0-3) Neutrophils # (Auto) 4.3x10^3uL (1.8-7.7) Lymphocytes # (Auto) 3.0x10^3/uL (1.0-4.8) Monocytes # (Auto) 1.1x10^3/uL (0.0-1.1) Eosinophils # (Auto) 0.2x10^3/uL (0.0-0.7) Basophils # (Auto) 0.1x10^3/uL (0.0-0.2) Urine Collection Type Unknown Urine Color Yellow Urine Clarity Clear Urine pH 5.5 Urine Specific [place] 1.010 Urine Protein Negativemg/dL (NEG-TRACE) Urine Glucose (UA) Negativemg/dL (NEG) Urine Ketones (Stick) Negativemg/dL (NEG) Urine Blood Negative (NEG) Urine Nitrite Negative (NEG) Urine Bilirubin Negative (NEG) Urine Urobilinogen Dipstick 0.2mg/dL (0.2 mg/dL) Urine Leukocyte Esterase Negative (NEG) Urine RBC 0/HPF (0-2) Urine WBC 1-4/HPF (0-4) Urine Squamous Epithelial Cells Occ/LPF Urine Bacteria Few/HPF (0-FEW) Sodium Level 138mmol/L (136-145) 136mmol/L (136-145) Potassium Level 4.0mmol/L (3.5-5.1) 4.3mmol/L (3.5-5.1) Chloride Level 102mmol/L (98-107) 103mmol/L (98-107) Carbon Dioxide Level 24mmol/L (21-32) 24mmol/L (21-32) Anion Gap 12 (6-14) 9 (6-14) Blood Urea Nitrogen 18mg/dL (8-26) 23mg/dL (8-26) Creatinine 1.4mg/dL (0.7-1.3) 1.1mg/dL (0.7-1.3) Estimated GFR (Cockcroft-Gault) 52.6 69.5 Glucose Level 111mg/dL (70-99) 125mg/dL (70-99) Calcium Level 9.4mg/dL (8.5-10.1) 10.1mg/dL (8.5-10.1) Magnesium Level 1.7mg/dL (1.8-2.4) Creatine Kinase 492U/L (39-308) Creatine Kinase MB (Mass) 9.6ng/mL (0.0-3.6) Creatine Kinase MB Relative Index 2.0% (0-4) Troponin I Quantitative < 0.017ng/mL (0.000-0.055) 0.021ng/mL (0.000-0.055) HA-Bpz-B-Type Natriuretic Peptide 368pg/mL (0-124) Urine Opiates Screen Pos (NEG) Urine Methadone Screen Neg (NEG) Urine Barbiturates Neg (NEG) Urine Phencyclidine Screen Neg (NEG) Urine Amphetamine/Methamphetamine Neg (NEG) Urine Benzodiazepines Screen Neg (NEG) Urine Cocaine Screen Neg (NEG) Urine Cannabinoids Screen Neg (NEG) Urine Ethyl Alcohol Neg (NEG) Test 10/04/16 07:27 White Blood Count 9.1x10^3/uL (4.0-11.0) Red Blood Count 4.50x10^6/uL (4.30-5.70) Hemoglobin 14.2g/dL (13.0-17.5) Hematocrit 42.1% (39.0-53.0) Mean Corpuscular Volume 94fL (79-100) Mean Corpuscular Hemoglobin 31pg (25-35) Mean Corpuscular Hemoglobin Concent 34g/dL (31-37) Red Cell Distribution Width 13.4% (11.5-14.5) Platelet Count 177x10^3/uL (140-400) Neutrophils (%) (Auto) 60% (31-73) Lymphocytes (%) (Auto) 23% (24-48) Monocytes (%) (Auto) 15% (0-9) Eosinophils (%) (Auto) 2% (0-3) Basophils (%) (Auto) 0% (0-3) Neutrophils # (Auto) 5.5x10^3uL (1.8-7.7) Lymphocytes # (Auto) 2.1x10^3/uL (1.0-4.8) Monocytes # (Auto) 1.4x10^3/uL (0.0-1.1) Eosinophils # (Auto) 0.2x10^3/uL (0.0-0.7) Basophils # (Auto) 0.0x10^3/uL (0.0-0.2) Laboratory Tests Test 10/03/16 15:40 10/03/16 18:00 10/04/16 04:00 10/04/16 07:22 White Blood Count 8.7x10^3/uL (4.0-11.0) Red Blood Count 4.89x10^6/uL (4.30-5.70) Hemoglobin 15.3g/dL (13.0-17.5) Hematocrit 46.0% (39.0-53.0) Mean Corpuscular Volume 94fL (79-100) Mean Corpuscular Hemoglobin 31pg (25-35) Mean Corpuscular Hemoglobin Concent 33g/dL (31-37) Red Cell Distribution Width 13.7% (11.5-14.5) Platelet Count 220x10^3/uL (140-400) Neutrophils (%) (Auto) 49% (31-73) Lymphocytes (%) (Auto) 35% (24-48) Monocytes (%) (Auto) 13% (0-9) Eosinophils (%) (Auto) 3% (0-3) Basophils (%) (Auto) 1% (0-3) Neutrophils # (Auto) 4.3x10^3uL (1.8-7.7) Lymphocytes # (Auto) 3.0x10^3/uL (1.0-4.8) Monocytes # (Auto) 1.1x10^3/uL (0.0-1.1) Eosinophils # (Auto) 0.2x10^3/uL (0.0-0.7) Basophils # (Auto) 0.1x10^3/uL (0.0-0.2) Urine Collection Type Unknown Urine Color Yellow Urine Clarity Clear Urine pH 5.5 Urine Specific [place] 1.010 Urine Protein Negativemg/dL (NEG-TRACE) Urine Glucose (UA) Negativemg/dL (NEG) Urine Ketones (Stick) Negativemg/dL (NEG) Urine Blood Negative (NEG) Urine Nitrite Negative (NEG) Urine Bilirubin Negative (NEG) Urine Urobilinogen Dipstick 0.2mg/dL (0.2 mg/dL) Urine Leukocyte Esterase Negative (NEG) Urine RBC 0/HPF (0-2) Urine WBC 1-4/HPF (0-4) Urine Squamous Epithelial Cells Occ/LPF Urine Bacteria Few/HPF (0-FEW) Sodium Level 138mmol/L (136-145) 136mmol/L (136-145) Potassium Level 4.0mmol/L (3.5-5.1) 4.3mmol/L (3.5-5.1) Chloride Level 102mmol/L (98-107) 103mmol/L (98-107) Carbon Dioxide Level 24mmol/L (21-32) 24mmol/L (21-32) Anion Gap 12 (6-14) 9 (6-14) Blood Urea Nitrogen 18mg/dL (8-26) 23mg/dL (8-26) Creatinine 1.4mg/dL (0.7-1.3) 1.1mg/dL (0.7-1.3) Estimated GFR (Cockcroft-Gault) 52.6 69.5 Glucose Level 111mg/dL (70-99) 125mg/dL (70-99) Calcium Level 9.4mg/dL (8.5-10.1) 10.1mg/dL (8.5-10.1) Magnesium Level 1.7mg/dL (1.8-2.4) Creatine Kinase 492U/L (39-308) Creatine Kinase MB (Mass) 9.6ng/mL (0.0-3.6) Creatine Kinase MB Relative Index 2.0% (0-4) Troponin I Quantitative < 0.017ng/mL (0.000-0.055) 0.021ng/mL (0.000-0.055) KH-Vpq-V-Type Natriuretic Peptide 368pg/mL (0-124) Urine Opiates Screen Pos (NEG) Urine Methadone Screen Neg (NEG) Urine Barbiturates Neg (NEG) Urine Phencyclidine Screen Neg (NEG) Urine Amphetamine/Methamphetamine Neg (NEG) Urine Benzodiazepines Screen Neg (NEG) Urine Cocaine Screen Neg (NEG) Urine Cannabinoids Screen Neg (NEG) Urine Ethyl Alcohol Neg (NEG) Test 10/04/16 07:27 White Blood Count 9.1x10^3/uL (4.0-11.0) Red Blood Count 4.50x10^6/uL (4.30-5.70) Hemoglobin 14.2g/dL (13.0-17.5) Hematocrit 42.1% (39.0-53.0) Mean Corpuscular Volume 94fL (79-100) Mean Corpuscular Hemoglobin 31pg (25-35) Mean Corpuscular Hemoglobin Concent 34g/dL (31-37) Red Cell Distribution Width 13.4% (11.5-14.5) Platelet Count 177x10^3/uL (140-400) Neutrophils (%) (Auto) 60% (31-73) Lymphocytes (%) (Auto) 23% (24-48) Monocytes (%) (Auto) 15% (0-9) Eosinophils (%) (Auto) 2% (0-3) Basophils (%) (Auto) 0% (0-3) Neutrophils # (Auto) 5.5x10^3uL (1.8-7.7) Lymphocytes # (Auto) 2.1x10^3/uL (1.0-4.8) Monocytes # (Auto) 1.4x10^3/uL (0.0-1.1) Eosinophils # (Auto) 0.2x10^3/uL (0.0-0.7) Basophils # (Auto) 0.0x10^3/uL (0.0-0.2) Medications Current Medications Hydromorphone HCl 1 mg 1 mg PRN Q15MIN PRN IV/SQ PAIN GREATER THAN 3/10 Last administered on 10/03/16 19:24; Start 10/03/16 at 17:15; Stop 10/04/16 at 17:14 Sodium Chloride (Iv Sodium Chloride 0.9% 1000ml Bag) 1,000 ml @ 1,000 mls/hr Q1H IV Last administered on 10/03/16 18:22; Start 10/03/16 at 17:01; Stop at 18:00; Status DC Ondansetron HCl (Zofran) 4 mg 1X ONCE IV Last administered on 10/03/16 18:25; Start 10/03/16 at 17:15; Stop 10/03/16 at 17:16; Status DC Ondansetron HCl (Zofran) 4 mg PRN Q8HRS PRN IV NAUSEA/VOMITING; Start 10/03/16 at 19:30; Stop 10/04/16 at 19:29 Fentanyl Citrate 50 mcg 50 mcg PRN Q2HR PRN IV PAIN Last administered on 01:16; Start 10/03/16 at 19:30; Stop 10/04/16 at 19:29 Sodium Chloride (Iv Sodium Chloride 0.9% 1000ml Bag) 1,000 ml @ 100 mls/hr Q10H IV ; Start 10/03/16 at 19:29; Stop 10/04/16 at 19:28 Aspirin (Children'S Aspirin) 324 mg 1X ONCE PO Last administered on 10/03/16 20:06; Start 10/03/16 at 19:30; Stop 10/03/16 at 19:32; Status DC Oxycodone/ Acetaminophen (Percocet 5/325) 1 tab PRN Q4HRS PRN PO SEVERE PAIN Last administered on 10/04/16 08:28; Start 10/03/16 at 22:45 Lorazepam (Ativan) 1 mg Q4HRS PRN PO ANXIETY / AGITATION; Start 10/03/16 at 22: 45; Status UNV Diazepam (Valium) 5 mg PRN Q4HRS PRN PO ANXIETY Last administered on 10/04/16 12:58; Start 10/03/16 at 23:30 Diphenhydramine HCl (Benadryl) 25 mg PRN Q6HRS PRN PO ITCHING Last administered on 10/04/16 08:27; Start 10/03/16 at 23:30 Albuterol Sulfate (Ventolin Neb Soln) 2.5 mg PRN Q4HRS PRN NEB SHORTNESS OF BREATH; Start 10/04/16 at 03:45 Clonidine HCl (Catapres) 0.2 mg TID PO Last administered on 10/04/16 14:00; Start 10/04/16 at 04:00 Hydromorphone HCl (Dilaudid) 2 mg PRN Q4HRS PRN PO PAIN Last administered on 12:43; Start 10/04/16 at 12:15 Morphine Sulfate (Ms Contin) 15 mg BID PO ; Start 10/04/16 at 12:15; Stop at 13:38; Status DC Ketorolac Tromethamine (Toradol) 15 mg PRN Q6HRS PRN IV PAIN; Start 10/04/16 at 12:15; Stop 10/09/16 at 12:14 Diphenhydramine HCl (Benadryl) 25 mg PRN Q6HRS PRN IVP ITCHING; Start 10/04/16 at 12:45 Multi-Ingredient Mouthwash/Gargle (Gi Cocktail Single Dose) 15 ml PRN 1X PRN SWSW CHEST PAIN Last administered on 10/04/16 12:58; Start 10/04/16 at 12:45 Nicotine (Nicoderm Cq 14mg) 1 patch PRN DAILY PRN TD SMOKING CESSATION; Start 10/04/16 at 13:00 Nicotine Polacrilex (Nicorette Gum) 1 each PRN Q1HR PRN BC SMOKING CESSATION; Start 10/04/16 at 13:00 Polyethylene Glycol (miraLAX PACKET) 17 gm PRN DAILY PRN PO CONSTIPATION; Start 10/04/16 at 13:00 Docusate Sodium (Colace) 100 mg PRN DAILY PRN PO CONSTIPATION; Start 10/04/16 at 13:00 Docusate Sodium (Colace) 100 mg DAILY PO ; Start 10/05/16 at 09:00 Active Scripts Active Clonidine Hcl 0.1 Mg Tablet 0.1 Mg PO BID Hydrochlorothiazide Tablet (Hydrochlorothiazide) 25 Mg Tablet 1 Tab PO DAILY Naproxen 250 Mg Tablet 250 Mg PO BID PRN Cyclobenzaprine Hcl 10 Mg Tablet 10 Mg PO TID PRN Naproxen 250 Mg Tablet 250 Mg PO BID PRN Cyclobenzaprine Hcl 10 Mg Tablet 10 Mg PO TID PRN Diazepam 5 Mg Tablet 5 Mg PO Q6HRS PRN Oxycodone Hcl 5 Mg Tablet 1-2 Tab PO QID PRN Reported NITROGLYCERIN SubLingual (Nitroglycerin) 0.4 Mg Tab.subl 0.4 Mg SL PRN Q5MIN PRN NITROGLYCERIN SubLingual (Nitroglycerin) 0.4 Mg Tab.subl 0.4 Mg SL PRN Q5MIN PRN Vitals/I & O Vital Sign - Last 24 Hours 10/03/16 10/03/16 10/03/16 10/03/16 15:30 16:30 17:00 17:30 Temp 99.1 99.1 Pulse 91 86 86 100 Resp 14 19 55 B/P 134/100 134/91 109/95 114/104 Pulse Ox 97 95 95 96 O2 Delivery Room Air Room Air Room Air Room Air 10/03/16 10/03/16 10/03/16 10/03/16 18:28 18:30 21:00 22:00 Temp 99.0 99.0 Pulse 92 93 100 Resp 20 24 B/P 116/89 139/84 173/143 Pulse Ox 96 96 90 O2 Delivery Room Air Room Air Room Air 10/04/16 10/04/16 10/04/16 10/04/16 01:16 01:46 03:00 04:07 Temp 97.4 97.4 Pulse 98 Resp 18 B/P 200/167 Pulse Ox 95 95 O2 Delivery Room Air Room Air Room Air Room Air 10/04/16 10/04/16 10/04/16 10/04/16 04:14 04:14 06:27 07:00 Temp 97.9 97.9 Pulse 100 57 Resp 18 B/P 173/143 107/74 Pulse Ox 97 O2 Delivery Room Air Room Air Room Air 10/04/16 10/04/16 10/04/16 10/04/16 08:00 08:28 08:28 09:28 Pulse 98 B/P 107/74 O2 Delivery Room Air Room Air Room Air 10/04/16 10/04/16 10/04/16 10/04/16 10:59 12:43 13:43 14:00 Temp 97.8 97.8 Pulse 86 86 Resp 18 B/P 125/99 125/99 Pulse Ox 94 O2 Delivery Room Air Room Air Room Air Intake and Output 10/03/16 10/03/16 10/04/16 15:00 23:00 07:00 Intake Total 1000 ml Balance 1000 ml DUDLEY BELLAMY MD Oct 04, 2016 15:28
[2016-10-04] MEDS ORDERED: LIDO:MAALOX:DONNATAL 1:1:1 15 ML SINGLE DOSE SWSW PRN (16:15)
[2016-10-04] MEDS: NICOTINE 14MG PATCH. TD PRN (18:03)
[2016-10-04] MEDS: NICOTINE POLACRILEX 2MG GUM PACKAGE of 12. BC PRN ×2 (18:24→23:07)
[2016-10-04 19:00] VITALS: BP 155/83
[2016-10-04 23:00] VITALS: BP 148/93
[2016-10-05] MEDS: LIDO:MAALOX:DONNATAL 1:1:1 15 ML SINGLE DOSE SWSW PRN (00:21)
[2016-10-05 03:00] VITALS: BP 135/114
[2016-10-05] MEDS: HYDROMORPHONE 2 MG TABLET. PO PRN ×3 (03:04→12:36)
[2016-10-05] MEDS: NICOTINE POLACRILEX 2MG GUM PACKAGE of 12. BC PRN ×4 (03:05→14:13)
[2016-10-05] MEDS: OXYCODONE/APAP 5/325 TABLET. PO PRN ×2 (05:39→11:02)
[2016-10-05 07:00] VITALS: BP 141/102
[2016-10-05] MEDS: CLONIDINE HCL 0.2 MG TABLET PO SCH ×2 (08:32→14:13)
[2016-10-05] MEDS: DIAZEPAM 5 MG TABLET PO PRN ×2 (08:33→12:36)
[2016-10-05] MEDS: NICOTINE 14MG PATCH. TD PRN (08:34)
[2016-10-05] MEDS: DIPHENHYDRAMINE HCL 25 MG CAPSULE PO PRN (08:36)
[2016-10-05] MEDS ORDERED: DOCUSATE SODIUM 100 MG CAPSULE PO SCH (09:00)
[2016-10-05] MEDS ORDERED: OXYC5TAB PO (09:48)
--- NOTE | 2016-10-05 10:02 | PDOC ---
PROGRESS NOTES Subjective Subjective Pt resting comfortably in bed this morning. Pt denied chest pain, n/v, diaphoresis. Pt did complain of SOB with exertion and dizziness with exertion. Objective Objective No change in cardiac exam Vital Signs Date Time Temp Pulse Resp B/P Pulse Ox O2 Delivery O2 Flow Rate FiO2 10/05/16 08:32 74 135/114 10/05/16 07:46 95 Room Air 10/05/16 07:00 97.5 18 97.5 Intake and Output 10/05/16 07:00 Intake Total 2500 ml Balance 2500 ml Intake Oral 2500 ml # Voids 3 Physical Exam Heart: Regular rate, Normal S1, Normal S2 Extremities: No cyanosis, No edema General: Alert, No acute distress HEENT: Atraumatic, EOMI Lungs: Normal air movement Assessment Assessment Problems Medical Problems: (1) Atrial fibrillation Status: Acute (2) Chest pain Status: Acute (3) Chest pain Status: Acute (4) Essential hypertension Status: Acute (5) Noncompliance with medication regimen Status: Acute (6) Sciatica Status: Acute Plan Plan of Care Noncompliant patient Continue current treatment plan Stable from cardiac perspective Comment Review of Relevant I have reviewed the following items mercedez (where applicable) has been applied. Labs Laboratory Tests Test 10/03/16 15:40 10/03/16 18:00 10/04/16 02:27 10/04/16 04:00 White Blood Count 8.7x10^3/uL (4.0-11.0) Red Blood Count 4.89x10^6/uL (4.30-5.70) Hemoglobin 15.3g/dL (13.0-17.5) Hematocrit 46.0% (39.0-53.0) Mean Corpuscular Volume 94fL (79-100) Mean Corpuscular Hemoglobin 31pg (25-35) Mean Corpuscular Hemoglobin Concent 33g/dL (31-37) Red Cell Distribution Width 13.7% (11.5-14.5) Platelet Count 220x10^3/uL (140-400) Neutrophils (%) (Auto) 49% (31-73) Lymphocytes (%) (Auto) 35% (24-48) Monocytes (%) (Auto) 13% (0-9) Eosinophils (%) (Auto) 3% (0-3) Basophils (%) (Auto) 1% (0-3) Neutrophils # (Auto) 4.3x10^3uL (1.8-7.7) Lymphocytes # (Auto) 3.0x10^3/uL (1.0-4.8) Monocytes # (Auto) 1.1x10^3/uL (0.0-1.1) Eosinophils # (Auto) 0.2x10^3/uL (0.0-0.7) Basophils # (Auto) 0.1x10^3/uL (0.0-0.2) Urine Collection Type Unknown Urine Color Yellow Urine Clarity Clear Urine pH 5.5 Urine Specific [place] 1.010 Urine Protein Negativemg/dL (NEG-TRACE) Urine Glucose (UA) Negativemg/dL (NEG) Urine Ketones (Stick) Negativemg/dL (NEG) Urine Blood Negative (NEG) Urine Nitrite Negative (NEG) Urine Bilirubin Negative (NEG) Urine Urobilinogen Dipstick 0.2mg/dL (0.2 mg/dL) Urine Leukocyte Esterase Negative (NEG) Urine RBC 0/HPF (0-2) Urine WBC 1-4/HPF (0-4) Urine Squamous Epithelial Cells Occ/LPF Urine Bacteria Few/HPF (0-FEW) Sodium Level 138mmol/L (136-145) Potassium Level 4.0mmol/L (3.5-5.1) Chloride Level 102mmol/L (98-107) Carbon Dioxide Level 24mmol/L (21-32) Anion Gap 12 (6-14) Blood Urea Nitrogen 18mg/dL (8-26) Creatinine 1.4mg/dL (0.7-1.3) Estimated GFR (Cockcroft-Gault) 52.6 Glucose Level 111mg/dL (70-99) Calcium Level 9.4mg/dL (8.5-10.1) Magnesium Level 1.7mg/dL (1.8-2.4) Creatine Kinase 492U/L (39-308) Creatine Kinase MB (Mass) 9.6ng/mL (0.0-3.6) Creatine Kinase MB Relative Index 2.0% (0-4) Troponin I Quantitative < 0.017ng/mL (0.000-0.055) RM-Ifx-S-Type Natriuretic Peptide 368pg/mL (0-124) Nasal Screen MRSA (PCR) Negative (Negative) Urine Opiates Screen Pos (NEG) Urine Methadone Screen Neg (NEG) Urine Barbiturates Neg (NEG) Urine Phencyclidine Screen Neg (NEG) Urine Amphetamine/Methamphetamine Neg (NEG) Urine Benzodiazepines Screen Neg (NEG) Urine Cocaine Screen Neg (NEG) Urine Cannabinoids Screen Neg (NEG) Urine Ethyl Alcohol Neg (NEG) Test 10/04/16 07:22 10/04/16 07:27 Sodium Level 136mmol/L (136-145) Potassium Level 4.3mmol/L (3.5-5.1) Chloride Level 103mmol/L (98-107) Carbon Dioxide Level 24mmol/L (21-32) Anion Gap 9 (6-14) Blood Urea Nitrogen 23mg/dL (8-26) Creatinine 1.1mg/dL (0.7-1.3) Estimated GFR (Cockcroft-Gault) 69.5 Glucose Level 125mg/dL (70-99) Calcium Level 10.1mg/dL (8.5-10.1) Troponin I Quantitative 0.021ng/mL (0.000-0.055) White Blood Count 9.1x10^3/uL (4.0-11.0) Red Blood Count 4.50x10^6/uL (4.30-5.70) Hemoglobin 14.2g/dL (13.0-17.5) Hematocrit 42.1% (39.0-53.0) Mean Corpuscular Volume 94fL (79-100) Mean Corpuscular Hemoglobin 31pg (25-35) Mean Corpuscular Hemoglobin Concent 34g/dL (31-37) Red Cell Distribution Width 13.4% (11.5-14.5) Platelet Count 177x10^3/uL (140-400) Neutrophils (%) (Auto) 60% (31-73) Lymphocytes (%) (Auto) 23% (24-48) Monocytes (%) (Auto) 15% (0-9) Eosinophils (%) (Auto) 2% (0-3) Basophils (%) (Auto) 0% (0-3) Neutrophils # (Auto) 5.5x10^3uL (1.8-7.7) Lymphocytes # (Auto) 2.1x10^3/uL (1.0-4.8) Monocytes # (Auto) 1.4x10^3/uL (0.0-1.1) Eosinophils # (Auto) 0.2x10^3/uL (0.0-0.7) Basophils # (Auto) 0.0x10^3/uL (0.0-0.2) Medications Current Medications Hydromorphone HCl 1 mg 1 mg PRN Q15MIN PRN IV/SQ PAIN GREATER THAN 3/10 Last administered on 10/03/16 19:24; Start 10/03/16 at 17:15; Stop 10/04/16 at 17:14; Status DC Sodium Chloride (Iv Sodium Chloride 0.9% 1000ml Bag) 1,000 ml @ 1,000 mls/hr Q1H IV Last administered on 10/03/16 18:22; Start 10/03/16 at 17:01; Stop at 18:00; Status DC Ondansetron HCl (Zofran) 4 mg 1X ONCE IV Last administered on 10/03/16 18:25; Start 10/03/16 at 17:15; Stop 10/03/16 at 17:16; Status DC Ondansetron HCl (Zofran) 4 mg PRN Q8HRS PRN IV NAUSEA/VOMITING; Start 10/03/16 at 19:30; Stop 10/04/16 at 19:29; Status DC Fentanyl Citrate 50 mcg 50 mcg PRN Q2HR PRN IV PAIN Last administered on 01:16; Start 10/03/16 at 19:30; Stop 10/04/16 at 19:29; Status DC Sodium Chloride (Iv Sodium Chloride 0.9% 1000ml Bag) 1,000 ml @ 100 mls/hr Q10H IV ; Start 10/03/16 at 19:29; Stop 10/04/16 at 19:28; Status DC Aspirin (Children'S Aspirin) 324 mg 1X ONCE PO Last administered on 10/03/16 20:06; Start 10/03/16 at 19:30; Stop 10/03/16 at 19:32; Status DC Oxycodone/ Acetaminophen (Percocet 5/325) 1 tab PRN Q4HRS PRN PO SEVERE PAIN Last administered on 10/05/16 05:39; Start 10/03/16 at 22:45 Lorazepam (Ativan) 1 mg Q4HRS PRN PO ANXIETY / AGITATION; Start 10/03/16 at 22: 45; Status UNV Diazepam (Valium) 5 mg PRN Q4HRS PRN PO ANXIETY Last administered on 10/05/16 08:33; Start 10/03/16 at 23:30 Diphenhydramine HCl (Benadryl) 25 mg PRN Q6HRS PRN PO ITCHING Last administered on 10/05/16 08:36; Start 10/03/16 at 23:30 Albuterol Sulfate (Ventolin Neb Soln) 2.5 mg PRN Q4HRS PRN NEB SHORTNESS OF BREATH Last administered on 10/05/16 07:45; Start 10/04/16 at 03:45 Clonidine HCl (Catapres) 0.2 mg TID PO Last administered on 10/05/16 08:32; Start 10/04/16 at 04:00 Hydromorphone HCl (Dilaudid) 2 mg PRN Q4HRS PRN PO PAIN Last administered on 08:33; Start 10/04/16 at 12:15 Morphine Sulfate (Ms Contin) 15 mg BID PO ; Start 10/04/16 at 12:15; Stop at 13:38; Status DC Ketorolac Tromethamine (Toradol) 15 mg PRN Q6HRS PRN IV PAIN; Start 10/04/16 at 12:15; Stop 10/09/16 at 12:14 Diphenhydramine HCl (Benadryl) 25 mg PRN Q6HRS PRN IVP ITCHING; Start 10/04/16 at 12:45 Multi-Ingredient Mouthwash/Gargle (Gi Cocktail Single Dose) 15 ml PRN 1X PRN SWSW CHEST PAIN Last administered on 10/05/16 00:21; Start 10/04/16 at 12:45 Nicotine (Nicoderm Cq 14mg) 1 patch PRN DAILY PRN TD SMOKING CESSATION Last administered on 10/05/16 08:34; Start 10/04/16 at 13:00 Nicotine Polacrilex (Nicorette Gum) 1 each PRN Q1HR PRN BC SMOKING CESSATION Last administered on 10/05/16 03:05; Start 10/04/16 at 13:00 Polyethylene Glycol (miraLAX PACKET) 17 gm PRN DAILY PRN PO CONSTIPATION; Start 10/04/16 at 13:00 Docusate Sodium (Colace) 100 mg PRN DAILY PRN PO CONSTIPATION; Start 10/04/16 at 13:00 Docusate Sodium (Colace) 100 mg DAILY PO Last administered on 10/05/16 08:32; Start 10/05/16 at 09:00 Multi-Ingredient Mouthwash/Gargle (Gi Cocktail Single Dose) 15 ml PRN Q6HRS PRN SWSW CHEST PAIN; Start 10/04/16 at 16:15 Active Scripts Active Oxycodone Hcl 5 Mg Tablet 1 Tab PO QID PRN Clonidine Hcl 0.1 Mg Tablet 0.1 Mg PO BID Hydrochlorothiazide Tablet (Hydrochlorothiazide) 25 Mg Tablet 1 Tab PO DAILY Naproxen 250 Mg Tablet 250 Mg PO BID PRN Cyclobenzaprine Hcl 10 Mg Tablet 10 Mg PO TID PRN Naproxen 250 Mg Tablet 250 Mg PO BID PRN Cyclobenzaprine Hcl 10 Mg Tablet 10 Mg PO TID PRN Diazepam 5 Mg Tablet 5 Mg PO Q6HRS PRN Reported NITROGLYCERIN SubLingual (Nitroglycerin) 0.4 Mg Tab.subl 0.4 Mg SL PRN Q5MIN PRN NITROGLYCERIN SubLingual (Nitroglycerin) 0.4 Mg Tab.subl 0.4 Mg SL PRN Q5MIN PRN Vitals/I & O Vital Sign - Last 24 Hours 10/04/16 10/04/16 10/04/16 10/04/16 10:59 12:43 14:00 15:00 Temp 97.8 97.6 97.8 97.6 Pulse 86 86 78 Resp 18 18 B/P 125/99 125/99 144/92 Pulse Ox 94 96 O2 Delivery Room Air Room Air Room Air 10/04/16 10/04/16 10/04/16 10/04/16 19:00 20:00 20:26 20:26 Temp 99.3 99.3 Pulse 75 75 Resp 20 B/P 155/83 155/83 Pulse Ox 95 96 O2 Delivery Room Air Room Air Room Air 10/04/16 10/04/16 10/05/16 10/05/16 22:57 23:00 03:00 03:04 Temp 96.1 97.9 96.1 97.9 Pulse 82 74 Resp 20 20 B/P 148/93 135/114 Pulse Ox 96 92 97 92 O2 Delivery Room Air Room Air Room Air Room Air 10/05/16 10/05/16 10/05/16 10/05/16 04:04 06:39 07:00 07:46 Temp 97.5 97.5 Pulse 78 Resp 18 B/P 141/102 Pulse Ox 92 92 94 95 O2 Delivery Room Air Room Air Room Air Room Air 10/05/16 08:32 Pulse 74 B/P 135/114 Intake and Output 10/04/16 10/04/16 10/05/16 15:00 23:00 07:00 Intake Total 550 ml 1250 ml 700 ml Balance 550 ml 1250 ml 700 ml PRISCILLA WILLINGHAM MD Oct 05, 2016 10:01
[2016-10-05 11:32] VITALS: BP 163/100
[2016-10-05 14:13] VITALS: BP 163/100
== END 2016-10-05 15:40 | disposition home or self-care (01) ==
LOC: ER 15:26 → 5 NORTH 19:26
PROVIDERS: ADMIT Internal Medicine; ATTEND Internal Medicine
DX: I25.10 Atherosclerotic heart disease of native coronary artery without angina pectoris (principal); F41.9 Anxiety disorder, unspecified; E78.00 Pure hypercholesterolemia, unspecified; E78.5 Hyperlipidemia, unspecified; G89.29 Other chronic pain; I25.2 Old myocardial infarction; I48.91 Unspecified atrial fibrillation; J44.9 Chronic obstructive pulmonary disease, unspecified; I11.9 Hypertensive heart disease without heart failure; J45.909 Unspecified asthma, uncomplicated; K21.9 Gastro-esophageal reflux disease without esophagitis; M54.30 Sciatica, unspecified side; M94.0 Chondrocostal junction syndrome [Tietze]; R13.10 Dysphagia, unspecified; Z91.14 Patient's other noncompliance with medication regimen; Z91.19 Patient's noncompliance with other medical treatment and regimen; Z96.659 Presence of unspecified artificial knee joint
CPT/HCPCS: 36415; 71010; 80048; 81001; 82553; 83735; 83880; 84484; 85027; 87641; 93005; 94640; 96361; 96374; 96375; 96376; 99285; G0378; G0481; J1170; J2405; J3010; J7030; Q0163; G0379

== ENCOUNTER 2016-10-06 15:03 | Emergency (ER) | payer SELFPAY ==
[2016-10-06] MEDS ORDERED: NITROGLYCERIN SUBLINGUAL 0.4 MG BOTTLE OF 25. SL PRN (15:45)
--- NOTE | 2016-10-06 16:05 | RAD ---
Indication inhaled toxic agent. Chest pain and shortness of air. A single view of the chest was obtained. Comparison is made to a study 3 days earlier. Heart size and pulmonary vessels are normal. The lungs are clear of acute infiltrates. Somewhat tortuous thoracic aorta is noted. A significant change in the appearance of the chest is not seen. Bipolar cardiac pacing device is noted. IMPRESSION: No acute finding. No significant change
[2016-10-06] MEDS ORDERED: DIPHENHYDRAMINE HCL 25 MG CAPSULE PO ONE (16:15)
[2016-10-06 16:21] VITALS: BP 210/150
[2016-10-06] MEDS ORDERED: NAPROXEN 250 MG TABLET PO ONE (16:30)
[2016-10-06] MEDS ORDERED: DEXAMETHASONE SOD PHOS 4 MG/ML VIAL PO ONE (16:30)
--- NOTE | 2016-10-06 18:48 | EKG ---
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
--- NOTE | 2016-10-06 23:23 | ED.ADGEN ---
Past Medical History Past Medical History: A-Fib, Alcoholism, Anxiety, High Cholesterol, Heart Disease, Hypertension, [place], Other Additional Past Medical Histor: Vtach, back pain, HERNIA, HEPATITIS, bradycardia Past Surgical History: Cholecystectomy, Knee Replacement, Pacemaker, Other Additional Past Surgical Histo: intestinal and hernia, lumbar fusion, shoulder , ABLATION , AV pacemaker Alcohol Use: Heavy Drug Use: Heroin, Methamphetamine, Other Adult General Chief Complaint Chief Complaint: CHEST PAIN HPI HPI Patient is a 55 year old man, with history of CAD, hypertension, atrial fibrillation, who presents the emergency department with a complaint of all over body itching. Patient states that he saw roaches in his home, and did release a yi bomb in his house earlier today, he states that he was present when the yi spray and bomb is released. He denies any shortness of breath, did initially complain of chest pain denying chest pain at this time. Patient is scratching vigorously in the emergency department, has excoriations noted on his arms and legs. He is not cooperating with the nurses attempts to obtain an EKG or other studies at this time. He states that he has been taking Benadryl home today, without relief. Denies any fevers or chills, any other rashes, any weakness, numbness or tingling, is complaining of his chronic lower back pain. Review of Systems Review of Systems Constitutional: Denies fever or chills. [] Eyes: Denies change in visual acuity. [] HENT: Denies nasal congestion or sore throat. [] Respiratory: Denies cough or shortness of breath. [] Cardiovascular: Denies chest pain or edema. [] GI: Denies abdominal pain, nausea, vomiting, bloody stools or diarrhea. [] : Denies dysuria. [] Musculoskeletal: Chronic low back pain. Integument: All over itching, with urticaria. Neurologic: Denies headache, focal weakness or sensory changes. [] Endocrine: Denies polyuria or polydipsia. [] Lymphatic: Denies swollen glands. [] Psychiatric: Denies depression or anxiety. [] Current Medications Current Medications Current Medications Medications (Trade) Dose Ordered Sig/Alan Start Time Stop Time Status Last Admin Dose Admin Dexamethasone Sodium Phosphate (Decadron) 6 mg 1X ONCE 10/06/16 16:30 10/06/16 16:31 DC 10/06/16 16:54 6 MG Diphenhydramine HCl (Benadryl) 50 mg 1X ONCE 10/06/16 16:15 10/06/16 16:17 DC 10/06/16 16:22 50 MG Naproxen (Naprosyn) 250 mg 1X ONCE 10/06/16 16:30 10/06/16 16:31 DC 10/06/16 16:53 250 MG Nitroglycerin (Nitrostat) 0.4 mg PRN Q5MIN PRN 10/06/16 15:45 10/07/16 15:44 10/06/16 16:21 0.4 MG Allergies Allergies Allergies Coded Allergies Type Severity Reaction Last Updated Verified alprazolam Allergy Intermediate 07/19/16 Yes diltiazem Allergy Intermediate HIVES, INTERMITTENTLY 07/19/16 Yes lorazepam Allergy Intermediate halucinations 07/19/16 Yes morphine Allergy Intermediate HIVES, INTERMITTENTLY 07/19/16 Yes Haloperidol Lactate Adverse Reaction Intermediate dystonic reaction 07/19/16 Yes haloperidol Adverse Reaction Intermediate dystonic reaction 07/19/16 Yes tramadol Adverse Reaction Intermediate Hallucinationsper nurse 07/19/16 Yes Physical Exam Physical Exam Constitutional: Well developed, well nourished, no acute distress, non-toxic appearance. [] HENT: Normocephalic, atraumatic, bilateral external ears normal, oropharynx moist, no oral exudates, nose normal. [] Eyes: PERRLA, EOMI, conjunctiva normal, no discharge. [] Neck: Normal range of motion, no tenderness, supple, no stridor. [] Cardiovascular:Heart rate regular rhythm, no murmur [] Lungs & Thorax: Bilateral breath sounds clear to auscultation [] Abdomen: Bowel sounds normal, soft, no tenderness, no masses, no pulsatile masses. [] Skin: Warm, dry, patient with diffuse red rash noted across his extremities trunk and back, no urticaria noted, excoriations noted on forearms and shins, with some bleeding, no evidence of infection or induration, no evidence of scabies or other rash. Back: No tenderness, no CVA tenderness. [] Extremities: No tenderness, no cyanosis, no clubbing, ROM intact, no edema. [] Neurologic: Alert and oriented X 3, normal motor function, normal sensory function, no focal deficits noted. [] Psychologic: Affect normal, judgement normal, mood normal. [] Current Patient Data Vital Signs Vital Signs Date Time Temp Pulse Resp B/P Pulse Ox O2 Delivery O2 Flow Rate FiO2 10/06/16 16:21 210/150 10/06/16 15:17 99.1 62 22 89 Room Air 99.1 Lab Values Laboratory Tests Test 10/06/16 16:45 Troponin I Quantitative < 0.017ng/mL (0.000-0.055) RA-Nfl-T-Type Natriuretic Peptide 972pg/mL (0-124) H Lipase 65U/L (73-393) L EKG EKG ECG: Attempted to obtain several times, unable to obtain secondary to patient motion. [] Radiology/Procedures Radiology/Procedures [] [facility] [address] [place] [address] IMAGING REPORT Signed PATIENT: ALYSSA PABLO ACCOUNT: [id number] : 1960 LOCATION: ER AGE: 55 SEX: M EXAM STATUS: PRE ER ORD. PHYSICIAN: MARCUS VALLES DO REASON: CP PROCEDURE: PORTABLE CHEST 1V Indication inhaled toxic agent. Chest pain and shortness of air. A single view of the chest was obtained. Comparison is made to a study 3 days earlier. Heart size and pulmonary vessels are normal. The lungs are clear of acute infiltrates. Somewhat tortuous thoracic aorta is noted. A significant change in the appearance of the chest is not seen. Bipolar cardiac pacing device is noted. IMPRESSION: No acute finding. No significant change DICTATED and SIGNED BY: MIRYAM SNOWDEN MD DATE: 10/06/16 1601 CC: MARCUS VALLES DO; NO PCP ~ Course & Med Decision Making Course & Med Decision Making Pertinent Labs and Imaging studies reviewed. (See chart for details) Patient initially complaining of chest pain, during my evaluation the patient denied chest pain, was complaining of all over body itching, had a recent exposure to Yi spray. He denies any other exposures or contacts, is noted to have a red blanching rash across his entire abdomen trunk and extremities, with excoriations on his arms and legs, also in his back. Denies any new injuries, or change in his chronic lower back pain. Unable to obtain ECG due to patient motion, he states he has taken Benadryl at home, he is noted to be in sinus rhythm on the monitor in the 80s. Patient received a dose of oral Decadron in the ED, also an additional dose of Benadryl, and naproxen for his chronic back pain. Was given a shower in the emergency department, as stated has no signs of scabies, or other concerning examination abnormality, no airway involvement, no shortness of breath, breath sounds are clear bilaterally. Patient did decline additional laboratory studies and evaluation in the ED based on his initial complaints, after discussion with nursing staff and myself, patient signed out AGAINST MEDICAL ADVICE stating that he "needed to catch my bus". Patient ambulating without difficulty upon exiting the ED. Dragon Disclaimer Dragon Disclaimer This electronic medical record was generated, in whole or in part, using a voice recognition dictation system. Departure Impression: Primary Impression: Generalized pruritus Additional Impression: Left against medical advice Disposition: 07 AGAINST MEDICAL ADVICE Condition: STABLE Problem Qualifiers MARCUS VALLES DO Oct 06, 2016 23:24
== END 2016-10-06 18:20 | disposition left against medical advice (07) ==
LOC: ER 15:03
DX: L29.8 Other pruritus (principal); F42.4 Excoriation (skin-picking) disorder; I48.91 Unspecified atrial fibrillation; E78.00 Pure hypercholesterolemia, unspecified; I11.9 Hypertensive heart disease without heart failure; I25.2 Old myocardial infarction; Z86.19 Personal history of other infectious and parasitic diseases; Z95.0 Presence of cardiac pacemaker; Z96.659 Presence of unspecified artificial knee joint; F11.10 Opioid abuse, uncomplicated; F10.10 Alcohol abuse, uncomplicated; F15.10 Other stimulant abuse, uncomplicated; Z88.6 Allergy status to analgesic agent; Z88.8 Allergy status to other drugs, medicaments and biological substances; Z88.5 Allergy status to narcotic agent
CPT/HCPCS: 36415; 71010; 83690; 83880; 84484; 93005; 99285; J1100; Q0163

== ENCOUNTER 2017-01-06 05:08 | Emergency (ER) | payer SELFPAY ==
[~2017-01-06] VITALS: Ht 170.2 cm; Wt 122.5 kg
[2017-01-06] MEDS ORDERED: IV NORMAL SALINE 1000ML BAG 1,000 ML IV ONE (06:00)
[2017-01-06] MEDS ORDERED: fentaNYL PF VIAL 100 MCG/2 ML VIAL IV ONE (06:00)
--- NOTE | 2017-01-06 06:07 | EKG ---
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
--- NOTE | 2017-01-06 06:11 | PHYS DOC ---
Past Medical History Past Medical History: A-Fib, Alcoholism, Anxiety, High Cholesterol, Heart Disease, Hypertension, [place], Other Additional Past Medical Histor: Vtach, back pain, HERNIA, HEPATITIS, bradycardia Past Surgical History: Cholecystectomy, Knee Replacement, Pacemaker, Other Additional Past Surgical Histo: intestinal and hernia, lumbar fusion, shoulder , ABLATION , AV pacemaker Alcohol Use: Heavy Drug Use: Heroin, Methamphetamine, Other Adult General Chief Complaint Chief Complaint: BACK PAIN - NO INJURY HPI HPI 56-year-old male who is presenting with acute onset of low lumbar back pain that he states occurred yesterday while trying to sit forward in his bed. He denies any significant fever or chills. He does state he has some mild dysuria type symptoms. 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 He is in significant pain upon my initial evaluation. He is nontoxic and afebrile in appearance. He denies any abdominal pain. He denies any nausea or vomiting. He states he has history of lumbar fusion but states this is different than his usual low back pain. Review of Systems Review of Systems Constitutional: Denies fever or chills [] Eyes: Denies change in visual acuity, redness, or eye pain [] HENT: Denies nasal congestion or sore throat [] Respiratory: Denies cough or shortness of breath [] Cardiovascular: No additional information not addressed in HPI [] GI: Denies abdominal pain, nausea, vomiting, bloody stools or diarrhea [] : Denies dysuria or hematuria [] Musculoskeletal: Has back pain, denies joint pain [] Integument: Denies rash or skin lesions [] Neurologic: Denies headache, focal weakness or sensory changes [] Endocrine: Denies polyuria or polydipsia [] Current Medications Current Medications Current Medications Medications (Trade) Dose Ordered Sig/[facility] Start Time Stop Time Status Last Admin Dose Admin Fentanyl Citrate (Fentanyl 2ml Vial) 50 mcg 1X ONCE 01/06/17 06:00 01/06/17 06:01 DC 01/06/17 05:46 50 MCG Hydromorphone HCl (Dilaudid) 1 mg 1X ONCE 01/06/17 06:30 01/06/17 06:31 01/06/17 06:11 1 MG Sodium Chloride 1,000 ml @ 1,000 mls/hr 1X ONCE 01/06/17 06:00 01/06/17 06:59 01/06/17 05:46 1,000 MLS/HR Allergies Allergies Allergies Coded Allergies Type Severity Reaction Last Updated Verified alprazolam Allergy Intermediate 07/19/16 Yes diltiazem Allergy Intermediate HIVES, INTERMITTENTLY 07/19/16 Yes lorazepam Allergy Intermediate halucinations 07/19/16 Yes morphine Allergy Intermediate HIVES, INTERMITTENTLY 07/19/16 Yes Haloperidol Lactate Adverse Reaction Intermediate dystonic reaction 07/19/16 Yes haloperidol Adverse Reaction Intermediate dystonic reaction 07/19/16 Yes tramadol Adverse Reaction Intermediate Hallucinationsper nurse 07/19/16 Yes Physical Exam Physical Exam Constitutional: Well developed, well nourished, mild distress, non-toxic appearance. [] HENT: Normocephalic, atraumatic, bilateral external ears normal, oropharynx moist, no oral exudates, nose normal. [] Eyes: PERRLA, EOMI, conjunctiva normal, no discharge. [] Neck: Normal range of motion, no tenderness, supple, no stridor. [] Cardiovascular:Heart rate regular rhythm, no murmur [] Lungs & Thorax: Bilateral breath sounds clear to auscultation [] Abdomen: Bowel sounds normal, soft, no tenderness, no masses, no pulsatile masses. [] Skin: Warm, dry, no erythema, no rash. [] Back: Moderate lumbar tenderness, right CVA tenderness. [] Extremities: No tenderness, no cyanosis, no clubbing, ROM intact, no edema. [] Neurologic: Alert and oriented X 3, normal motor function, normal sensory function, no focal deficits noted. [] Psychologic: Affect normal, judgement normal, mood normal. [] Current Patient Data Vital Signs Vital Signs Date Time Temp Pulse Resp B/P (MAP) Pulse Ox O2 Delivery O2 Flow Rate FiO2 01/06/17 05:14 99.5 92 22 170/79 (109) 100 Room Air 99.5 EKG EKG [] Radiology/Procedures Radiology/Procedures [] Course & Med Decision Making Course & Med Decision Making Pertinent Labs and Imaging studies reviewed. (See chart for details) This 56-year-old male with acute onset of atraumatic low back pain will have CT imaging performed to rule out any acute cause to his symptoms. Laboratory workup is pending at this time. IV dose of fentanyl was unsuccessful treatment patient's pain. I will order the patient a dose of IV Dilaudid. I will be signing out care to this patient to Dr. Milligan. If his imaging is negative, his symptoms are likely musculoskeletal in etiology. Dragon Disclaimer Dragon Disclaimer This electronic medical record was generated, in whole or in part, using a voice recognition dictation system. Departure Departure Impression: Primary Impression: Acute exacerbation of chronic low back pain Referrals: NO PCP (PCP) JD JARAMILLO DO January 06, 2017 06:11
[2017-01-06 06:16] LABS: BASO % 0 % (0-3); EOS % 1 % (0-3); HEMATOCRIT 49.5 % (39.0-53.0); LYMPH # 2.1 x10^3/uL (1.0-4.8); LYMPH % 22 % (24-48); MEAN CORPUSCULAR HEMOGLOBIN 33 pg (25-35); MEAN CORPUSCULAR HGB CONC 34 g/dL (31-37); MEAN CORPUSCULAR VOLUME 97 fL (79-100); MONO % 10 % (0-9); NEUT % 67 % (31-73); PLATELET COUNT 186 x10^3/uL (140-400); WHITE BLOOD COUNT 9.7 x10^3/uL (4.0-11.0)
[2017-01-06 06:24] LABS: CALCIUM 9.3 mg/dL (8.5-10.1); GFR 77.3; POTASSIUM 3.8 mmol/L (3.5-5.1)
[2017-01-06] MEDS ORDERED: HYDROmorphone 2 MG/ML VIAL IV ONE (06:30)
[2017-01-06] MEDS ORDERED: CONTRAST GIVEN MC PRN (07:00)
[2017-01-06] MEDS ORDERED: IOHEXOL 350 MG/ML 100 ML VIAL. IV ONE (07:30)
[2017-01-06] MEDS ORDERED: IOHEXOL 300 MG/ML 75 ML VIAL IV ONE (07:30)
--- NOTE | 2017-01-06 08:56 | RAD ---
Exam performed: CT angiogram abdomen and pelvis. History: Low back pain radiating to the sides, difficulty urinating. Date of service: 01/06/17. Comparison: CT abdomen pelvis from 01/13/16. Technique: Contiguous helical acquisitions are obtained through the abdomen and pelvis during intravenous administration of 90 cc of Omnipaque 350 using the angiogram protocol. Sagittal and coronal MIP images are obtained and reviewed. Findings: Ectatic tortuous aorta with mild atheromatous calcification. No aneurysm. Normal origin of the celiac axis demonstrating minimal calcification at the origin, no stenosis. Normal origin of the superior and inferior mesenteric artery. Normal bilateral renal arteries. Normal aortic bifurcation into both common iliac arteries demonstrating scattered atheromatous plaquing. Normal external iliac artery courses towards the groin without areas of focal stenosis. The lung bases are essentially clear. The visualized heart appears grossly normal. Although the study is not protocoled for evaluation of abdominal viscera, however the liver, spleen appear normal. Diffuse steatosis of the pancreas. Cholecystectomy. Both adrenal glands and bilateral kidneys are normal in size with symmetric excretion of contrast via both kidneys. There is a tiny 2 mm nonobstructing right inferior renal pole calculus. No retroperitoneal or mesenteric lymphadenopathy seen. The small and large bowel loops are nondilated and unremarkable. Small ventral abdominal wall defect measuring 2.0 cm containing omental fat. The urinary bladder is partially decompressed. The prostate gland, seminal vesicles and the rectum appear normal. Sigmoid diverticulosis without acute diverticulitis. Interrogation of bone windows demonstrates spondylotic changes. Posterior spinal fusion involving L3-L5 with mild spondylotic changes. Impression: 1. No convincing evidence of aortic aneurysm or dissection seen. No evidence of significant vascular stenosis seen in the visceral or renal vessels. 2. Nonobstructing 2 mm right inferior renal pole calculus 3. Status post cholecystectomy. 4. Sigmoid diverticulosis without acute diverticulitis. 5. Ventral abdominal wall hernia containing omental fat. PQRS Compliance Statement: One or more of the following individualized dose reduction techniques were utilized for this examination: 1. Automated exposure control 2. Adjustment of the mA and/or kV according to patient size 3. Use of iterative reconstruction technique
[2017-01-06 08:58] LABS: BILIRUBIN,URINE SMALL (NEG); GLUCOSE,URINE NEGATIVE (NEG); NITRITE,URINE NEGATIVE (NEG); PH,URINE 5.5; PROTEIN,URINE NEGATIVE (NEG-TRACE)
[2017-01-06] MEDS ORDERED: MORPHINE IR 15 MG TABLET PO ONE (09:00)
[2017-01-06 09:04] LABS: BACTERIA,URINE 0 /HPF (0-FEW); RBC,URINE 0 /HPF (0-2); SQUAMOUS EPITHELIAL CELL,UR MANY /LPF; WBC,URINE 0 /HPF (0-4)
[2017-01-06] MEDS ORDERED: MORP15TA PO (09:19)
[2017-01-06 09:40] VITALS: BP 147/81
== END 2017-01-06 09:55 | disposition home or self-care (01) ==
LOC: ER 05:08
DX: G89.29 Other chronic pain (principal); M54.5 Low back pain; I10 Essential (primary) hypertension; E78.00 Pure hypercholesterolemia, unspecified; I25.2 Old myocardial infarction; Z90.49 Acquired absence of other specified parts of digestive tract; Z95.0 Presence of cardiac pacemaker; F15.10 Other stimulant abuse, uncomplicated; F11.10 Opioid abuse, uncomplicated; F41.9 Anxiety disorder, unspecified; Z88.5 Allergy status to narcotic agent; Z88.6 Allergy status to analgesic agent; Z88.8 Allergy status to other drugs, medicaments and biological substances
CPT/HCPCS: 36415; 74174; 80048; 81001; 85027; 93005; 96361; 96374; 96375; 99285; J1170; J2060; J3010; J7030; Q9967

== ENCOUNTER 2017-04-07 12:18 | Inpatient (IN) | payer SELFPAY ==
[~2017-04-07] VITALS: Ht 170.2 cm; Wt 113.9 kg
[~2017-04-07 12:18] MED LIST changes: +ATORVASTATIN CA80 MG PO; +CARV25TA PO; +DILT120C80 PO; -DILT120C97 PO; -HYDR-2666 PO; +HYDR-2758 PO; +LOSA50TA6 PO; +MORP15TA PO; +NITR0.4T22 SL; -NITR0.4T6 SL; -OXYC-244 PO; +OXYC-327 PO
[2017-04-07] MEDS: NITROGLYCERIN SUBLINGUAL 0.4 MG BOTTLE OF 25. SL PRN ×3 (13:36→15:17)
[2017-04-07 13:47] LABS: BILIRUBIN,URINE NEGATIVE (NEG); GLUCOSE,URINE NEGATIVE (NEG); NITRITE,URINE NEGATIVE (NEG); PH,URINE 5.5; PROTEIN,URINE NEGATIVE (NEG-TRACE); UROBILINOGEN,URINE 0.2 mg/dL (0.2 mg/dL)
[2017-04-07 13:53] LABS: BACTERIA,URINE 0 /HPF (0-FEW); RBC,URINE 0 /HPF (0-2); SQUAMOUS EPITHELIAL CELL,UR FEW /LPF
[2017-04-07 13:54] LABS: BARBITURATES NEG (NEG); BENZODIAZEPINES NEG (NEG); CANNABINOIDS NEG (NEG); COCAINE NEG (NEG); METHADONE NEG (NEG); OPIATES NEG (NEG); PHENCYCLIDINE NEG (NEG); WBC,URINE OCC /HPF (0-4)
--- NOTE | 2017-04-07 14:14 | RAD ---
Indication pain and burning in the chest. A single view chest was obtained and is compared to an examination 03/01/2017. There is possible parenchymal abnormality in the right upper lobe. This could be artifactual representing a confluence of shadows but again parenchymal pathology is not entirely excluded. A two-view examination of the chest, in the department, is suggested as an initial step in further evaluation. The left lung is clear. Heart and pulmonary vessels are similar. There is no pleural fluid or pneumothorax. Bipolar cardiac pacing device is noted. IMPRESSION: Possible pathology in the right upper lobe. The finding is not certain. A two-view examination of the chest in the department is suggested as an initial step in further evaluation
[2017-04-07 14:20] LABS: BASO # 0.1 x10^3/uL (0.0-0.2); BASO % 1 % (0-3); EOS % 1 % (0-3); HEMATOCRIT 44.5 % (39.0-53.0); HEMOGLOBIN 15.2 g/dL (13.0-17.5); LYMPH # 2.6 x10^3/uL (1.0-4.8); LYMPH % 30 % (24-48); MEAN CORPUSCULAR HEMOGLOBIN 33 pg (25-35); MEAN CORPUSCULAR HGB CONC 34 g/dL (31-37); MEAN CORPUSCULAR VOLUME 95 fL (79-100); MONO % 9 % (0-9); NEUT % 59 % (31-73); PLATELET COUNT 189 x10^3/uL (140-400); RED BLOOD COUNT 4.66 x10^6/uL (4.30-5.70); RED CELL DISTRIBUTION WIDTH 13.9 % (11.5-14.5); WHITE BLOOD COUNT 8.8 x10^3/uL (4.0-11.0)
--- NOTE | 2017-04-07 14:32 | EKG ---
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
[2017-04-07 14:34] LABS: CALCIUM 8.6 mg/dL (8.5-10.1); GFR 77.3; POTASSIUM 3.8 mmol/L (3.5-5.1)
[2017-04-07 14:40] LABS: DIRECT BILIRUBIN 0.1 mg/dL (0.0-0.2); TOTAL BILIRUBIN 0.3 mg/dL (0.2-1.0); TOTAL PROTEIN 7.3 g/dL (6.4-8.2)
--- NOTE | 2017-04-07 14:41 | ED.ADGEN ---
Past Medical History Past Medical History: A-Fib, Alcoholism, Anxiety, High Cholesterol, Heart Disease, Hypertension, VA, Other Additional Past Medical Histor: Vtach, back pain, HERNIA, HEPATITIS, bradycardia Past Surgical History: Cholecystectomy, Knee Replacement, Pacemaker, Other Additional Past Surgical Histo: intestinal and hernia, lumbar fusion, shoulder , ABLATION , AV pacemaker Alcohol Use: Heavy Drug Use: Heroin, Methamphetamine, Other Adult General Chief Complaint Chief Complaint: CHEST PAIN HPI HPI Patient is a 56 year old and, history of atrial fibrillation, is not compliant with medications, CAD, hypertension, hyperlipidemia, chronic back pain, alcoholism, and narcotic abuse, who presents to the emergency department with complaint of chest and back pain. Patient states the chest pain began around 9: 30 this morning, states isn't coming going since that time. Describes it as a pressure and a burning tearing sensation across anterior portion of his chest. It is not radiating, denies any nausea or vomiting, states he is expressing his typical shortness of breath, denies any emesis, denies any focal weakness, numbness or tingling. Patient was seen at the [facility] today, and was sent to the emergency department via EMS for additional evaluation due to his complaints of chest pain. No swelling extremities, history of DVT or PE, no recent travel or surgery, no rashes, no or other GI complaints. Currently patient states the pain is about a 7 out of 10. He states he was given nitroglycerin and aspirin at the clinic without any change in symptoms. Review of Systems Review of Systems Constitutional: Denies fever or chills. [] Eyes: Denies change in visual acuity. [] HENT: Denies nasal congestion or sore throat. [] Respiratory: Denies cough or shortness of breath. [] Cardiovascular: Chest pain, located in the anterior portion of his chest. No edema. GI: Denies abdominal pain, nausea, vomiting, bloody stools or diarrhea. [] : Denies dysuria. [] Musculoskeletal: Denies back pain or joint pain. [] Integument: Denies rash. [] Neurologic: Denies headache, focal weakness or sensory changes. [] Endocrine: Denies polyuria or polydipsia. [] Lymphatic: Denies swollen glands. [] Psychiatric: Denies depression or anxiety. [] Current Medications Current Medications Current Medications Medications (Trade) Dose Ordered Sig/Alan Start Time Stop Time Status Last Admin Dose Admin Acetaminophen (Tylenol) 1,000 mg 1X ONCE 04/07/17 15:00 04/07/17 15:01 DC 04/07/17 15:18 1,000 MG Albuterol/ Ipratropium (Duoneb) 3 ml 1X ONCE 04/07/17 16:30 04/07/17 16:31 DC 04/07/17 17:16 3 ML Info (Do NOT chart on this entry -- for MONITORING) 1 each PRN DAILY PRN 04/07/17 15:00 04/09/17 14:59 Iohexol (Omnipaque 350 Mg/ml) 100 ml 1X ONCE 04/07/17 15:00 04/07/17 15:01 DC 04/07/17 16:28 100 ML Nitroglycerin (Nitrostat) 0.4 mg PRN Q5MIN PRN 04/07/17 13:30 04/08/17 13:29 04/07/17 15:17 0.4 MG Allergies Allergies Allergies Coded Allergies Type Severity Reaction Last Updated Verified alprazolam Allergy Intermediate 07/19/16 Yes diltiazem Allergy Intermediate HIVES, INTERMITTENTLY 07/19/16 Yes lorazepam Allergy Intermediate halucinations 07/19/16 Yes morphine Allergy Intermediate HIVES, INTERMITTENTLY 07/19/16 Yes Haloperidol Lactate Adverse Reaction Intermediate dystonic reaction 07/19/16 Yes haloperidol Adverse Reaction Intermediate dystonic reaction 07/19/16 Yes tramadol Adverse Reaction Intermediate Hallucinationsper nurse 07/19/16 Yes Physical Exam Physical Exam Constitutional: Well developed, well nourished, no acute distress, non-toxic appearance. [] HENT: Normocephalic, atraumatic, bilateral external ears normal, oropharynx moist, no oral exudates, nose normal. [] Eyes: PERRLA, EOMI, conjunctiva normal, no discharge. [] Neck: Normal range of motion, no tenderness, supple, no stridor. [] Cardiovascular:Heart rate regular rhythm, no murmur, S1, S2, no rubs or gallops. Patient with tenderness palpation across the anterior portion of the chest, states does not reproduce symptoms. [] Lungs & Thorax: Diminished breath sounds at bases bilaterally, no wheezing, rhonchi, rales. No chest wall crepitus or tenderness. [] Abdomen: Bowel sounds normal, soft, no tenderness, no masses, no pulsatile masses. [] Skin: Warm, dry, no erythema, no rash. [] Back: No tenderness, no CVA tenderness. [] Extremities: No tenderness, no cyanosis, no clubbing, ROM intact, no edema. Negative Homans sign. [] Neurologic: Alert and oriented X 3, normal motor function, normal sensory function, no focal deficits noted. [] Psychologic: Affect normal, judgement normal, mood normal. [] Current Patient Data Vital Signs Vital Signs Date Time Temp Pulse Resp B/P (MAP) Pulse Ox O2 Delivery O2 Flow Rate FiO2 04/07/17 17:39 80 20 172/98 (122) 95 Room Air 04/07/17 12:20 98.0 98.0 Lab Values Laboratory Tests Test 04/07/17 13:29 04/07/17 14:10 Urine Collection Type Unknown Urine Color Yellow Urine Clarity Clear Urine pH 5.5 Urine Specific [place] 1.010 Urine Protein Negative mg/dL (NEG-TRACE) Urine Glucose (UA) Negative mg/dL (NEG) Urine Ketones (Stick) Negative mg/dL (NEG) Urine Blood Negative (NEG) Urine Nitrite Negative (NEG) Urine Bilirubin Negative (NEG) Urine Urobilinogen Dipstick 0.2 mg/dL (0.2 mg/dL) Urine Leukocyte Esterase Trace (NEG) Urine RBC 0 /HPF (0-2) Urine WBC Occ /HPF (0-4) Urine Squamous Epithelial Cells Few /LPF Urine Bacteria 0 /HPF (0-FEW) Urine Mucus Mod /LPF Urine Opiates Screen Neg (NEG) Urine Methadone Screen Neg (NEG) Urine Barbiturates Neg (NEG) Urine Phencyclidine Screen Neg (NEG) Urine Amphetamine/Methamphetamine Neg (NEG) Urine Benzodiazepines Screen Neg (NEG) Urine Cocaine Screen Neg (NEG) Urine Cannabinoids Screen Neg (NEG) Urine Ethyl Alcohol Neg (NEG) White Blood Count 8.8 x10^3/uL (4.0-11.0) Red Blood Count 4.66 x10^6/uL (4.30-5.70) Hemoglobin 15.2 g/dL (13.0-17.5) Hematocrit 44.5 % (39.0-53.0) Mean Corpuscular Volume 95 fL (79-100) Mean Corpuscular Hemoglobin 33 pg (25-35) Mean Corpuscular Hemoglobin Concent 34 g/dL (31-37) Red Cell Distribution Width 13.9 % (11.5-14.5) Platelet Count 189 x10^3/uL (140-400) Neutrophils (%) (Auto) 59 % (31-73) Lymphocytes (%) (Auto) 30 % (24-48) Monocytes (%) (Auto) 9 % (0-9) Eosinophils (%) (Auto) 1 % (0-3) Basophils (%) (Auto) 1 % (0-3) Neutrophils # (Auto) 5.2 x10^3uL (1.8-7.7) Lymphocytes # (Auto) 2.6 x10^3/uL (1.0-4.8) Monocytes # (Auto) 0.8 x10^3/uL (0.0-1.1) Eosinophils # (Auto) 0.1 x10^3/uL (0.0-0.7) Basophils # (Auto) 0.1 x10^3/uL (0.0-0.2) Sodium Level 144 mmol/L (136-145) Potassium Level 3.8 mmol/L (3.5-5.1) Chloride Level 107 mmol/L (98-107) Carbon Dioxide Level 24 mmol/L (21-32) Anion Gap 13 (6-14) Blood Urea Nitrogen 15 mg/dL (8-26) Creatinine 1.0 mg/dL (0.7-1.3) Estimated GFR (Cockcroft-Gault) 77.3 Glucose Level 109 mg/dL (70-99) H Calcium Level 8.6 mg/dL (8.5-10.1) Total Bilirubin 0.3 mg/dL (0.2-1.0) Direct Bilirubin 0.1 mg/dL (0.0-0.2) Aspartate Amino Transferase (AST) 31 U/L (15-37) Alanine Aminotransferase (ALT) 44 U/L (16-63) Alkaline Phosphatase 100 U/L (46-116) Troponin I Quantitative < 0.017 ng/mL (0.000-0.055) HZ-Xck-L-Type Natriuretic Peptide 1971 pg/mL (0-124) H Total Protein 7.3 g/dL (6.4-8.2) Albumin 4.0 g/dL (3.4-5.0) Lipase 273 U/L (73-393) Laboratory Tests 04/07/17 14:10 Laboratory Tests 04/07/17 14:10 EKG EKG EC: Paced rhythm, heart rate 73 beats minute, QTC of 502, NC of 92, QRS of 176, abnormal ECG, with compared to previous ECG from 03/01/2017, no significant morphologic changes noted. As interpreted by me. [] Radiology/Procedures Radiology/Procedures [facility] [address] [place] [address] IMAGING REPORT Signed PATIENT: ALYSSA PABLO ACCOUNT: [id number] : 1960 LOCATION: ER AGE: 56 SEX: M EXAM STATUS: PRE ER ORD. PHYSICIAN: MARCUS VALLES DO REASON: CP PROCEDURE: PORTABLE CHEST 1V Indication pain and burning in the chest. A single view chest was obtained and is compared to an examination 03/01/2017. There is possible parenchymal abnormality in the right upper lobe. This could be artifactual representing a confluence of shadows but again parenchymal pathology is not entirely excluded. A two-view examination of the chest, in the department, is suggested as an initial step in further evaluation. The left lung is clear. Heart and pulmonary vessels are similar. There is no pleural fluid or pneumothorax. Bipolar cardiac pacing device is noted. IMPRESSION: Possible pathology in the right upper lobe. The finding is not certain. A two-view examination of the chest in the department is suggested as an initial step in further evaluation DICTATED and SIGNED BY: MIRYAM SNOWDEN MD DATE: 04/07/17 1408 CC: MARCUS VALLES DO; NO PCP ~ Course & Med Decision Making Course & Med Decision Making Pertinent Labs and Imaging studies reviewed. (See chart for details) Patient evaluated in the emergency department, ECG does not show any significant changes from prior, patient is complaining of shortness breath and chest pain as stated, noted to be wheezing. Chest x-ray obtained, along with laboratory studies, due to patient's complaints, and limited x-ray, patient initially agreeable to receiving CT of the chest. However, after IV line blew, and several attempts weren't successful, patient stated that "I want to put anymore", and after discussion decided to sign AGAINST MEDICAL ADVICE. Patient however then changed his mind, and subsequent IV attempt was successful, CT of the chest was obtained that revealed no evidence of acute abnormality. Patient received nebulizer treatment in the ED, on reevaluation he states that he still experiencing dizziness, shortness of breath, and chest pain, therefore will admit to the hospital for additional evaluation. Findings as above discussed with Dr. Moreno of internal medicine, who is familiar with the patient previously admissions. Patient accepted to her service as an observation admission to the medical telemetry floor. Bridge orders entered per discussion. Dragon Disclaimer Dragon Disclaimer This electronic medical record was generated, in whole or in part, using a voice recognition dictation system. Departure Impression: Primary Impression: Chest pain Disposition: ADMITTED INPATIENT Admitting Physician: Evans Khoury Condition: STABLE MARCUS VALLES DO Apr 07, 2017 14:41
[2017-04-07] MEDS ORDERED: ACETAMINOPHEN 500 MG TABLET PO ONE (15:00)
[2017-04-07] MEDS ORDERED: CONTRAST GIVEN MC PRN (15:00)
[2017-04-07] MEDS ORDERED: IOHEXOL 350 MG/ML 100 ML VIAL. IV ONE (15:00)
[2017-04-07] MEDS ORDERED: IPRATRPIUM/ALBUTEROL 0.5/2.5MG 3 ML NEBU. NEB ONE (16:30)
--- NOTE | 2017-04-07 17:06 | RAD ---
CTA of the chest with contrast (pulmonary embolism protocol) April 07, 2017 Clinical History: Chest pain and shortness of breath. Technique: After the intravenous administration of 75 mL of Isovue-370, contiguous, 0.625 mm axial sections were obtained through the chest. 3-D MIP coronal and sagittal reconstructed images were obtained. One or more of the following individualized dose reduction techniques were utilized for this study: 1. Automated exposure control. 2. Adjustment of the mA and/or kV according to patient size. 3. Use of iterative reconstruction technique. Findings: Comparison study is dated 04/22/2015. No filling defects are seen within the major branches of either pulmonary artery. There is no CT evidence of pulmonary embolism. A pacemaker is unchanged in position. Prominent mediastinal lymph nodes are seen which measure 1 to 2.1 cm in size the heart is normal in size. The thoracic aorta tapers normally. No area of consolidation is seen. No pneumothorax or pleural effusion is noted. Impression: There is no CT evidence of pulmonary embolism.
[2017-04-07] MEDS ORDERED: ONDANSETRON PF 4 MG/2 ML VIAL. IV PRN (18:00)
[2017-04-07] MEDS ORDERED: PROCHLORPERAZINE 25 MG SUPP.RECT. PR PRN (18:00)
[2017-04-07] MEDS ORDERED: CALCIUM CARBONATE 500 MG TAB.CHEW PO PRN (18:00)
[2017-04-07] MEDS ORDERED: ZOLPIDEM 5 MG TABLET. PO PRN (18:00)
[2017-04-07] MEDS ORDERED: ACETAMINOPHEN 325 MG TABLET. PO PRN (18:00)
[2017-04-07] MEDS ORDERED: MAGNESIUM HYDROXIDE 2,400 MG/30 ML ORAL.SUSP. PO PRN (18:00)
[2017-04-07] MEDS ORDERED: LABETALOL 20 MG/4 ML DISP.SYRIN. IVP PRN (18:00)
[2017-04-07] MEDS ORDERED: BISACODYL 10 MG SUPP.RECT. PR PRN (18:00)
[2017-04-07] MEDS ORDERED: PROCHLORPERAZINE 10 MG/2 ML VIAL. IV PRN (18:00)
[2017-04-07] MEDS ORDERED: MAG HYDROX/ALUMINUM HYD/SIMETH 30 ML ORAL.SUSP PO PRN (18:00)
[2017-04-07] MEDS ORDERED: KETOROLAC 15 MG/ML VIAL. IV PRN (18:00)
[2017-04-07] MEDS ORDERED: IBUPROFEN 400 MG TABLET. PO PRN (18:00)
--- NOTE | 2017-04-07 18:25 | PDOC1 ---
History and Physical Date of Admission Date of Admission DATE: 04/07/17 TIME: 18:19 Identification/Chief Complaint Chief Complaint dizzy, back pain Problems: Source Source: Caregiver, Chart review, Patient History of Present Illness History of Present Illness 56 y.o male, known to us, kia jay, narc seeking, admitted bec of high BP (able to tell me his 2 BP meds actually), dizzy when attempted to ambulate and dc from ER, and acute exacerbation of back pain, Initially was complaining of sharp CP and high BP so CTA chest done which was normal. LAbs normal,. Lots of requests, wanted heather heck for hEp C bec he claims he has a girlfriend, LFTS ok, told him no need, Wanted to check CT head, I refused,. Admitted oBS, control BP, control back pain, get pt.ot and physiatry Dw ER MD Sinclair LAst here :Date of Admission: Mar 02, 2017 Date of Discharge: Mar 03, 2017 Admitting Diagnosis Comment: Otitis externa, AD NO Aspirin toxicity Chest pain Chronci Afib with indwelling pacer CHF systolic EF 25 % Per pt Non compliance COPD,s table Past Medical History Cardiovascular: AFIB, HTN Pulmonary: Asthma, COPD GI: GERD Heme/Onc: Other Psych: Anxiety, Addictions, Depression Musculoskeletal: low back pain, Osteoarthritis Renal/: Benign prostatic enlarg. Past Surgical History Past Surgical History: Pacemaker, Appendectomy, Cholecystectomy, Hernia Repair , Total knee replacement Family History Family History: Cancer, Heart Disease, Hepatitis, Hypertension Social History Smoke: No ALCOHOL: none Drugs: Crystal meth Current Medications Current Medications Current Medications Nitroglycerin (Nitrostat) 0.4 mg PRN Q5MIN PRN SL CP RATING > 1/10 Last administered on 04/07/17 15:17; Start 04/07/17 at 13:30; Stop 04/08/17 at 13:29 Iohexol (Omnipaque 350 Mg/ml) 100 ml 1X ONCE IV Last administered on 16:28; Start 04/07/17 at 15:00; Stop 04/07/17 at 15:01; Status DC Acetaminophen (Tylenol) 1,000 mg 1X ONCE PO Last administered on 04/07/17 15: 18; Start 04/07/17 at 15:00; Stop 04/07/17 at 15:01; Status DC Info (Do NOT chart on this entry -- for MONITORING) 1 each PRN DAILY PRN MC SEE COMMENTS; Start 04/07/17 at 15:00; Stop 04/09/17 at 14:59 Albuterol/ Ipratropium (Duoneb) 3 ml 1X ONCE NEB Last administered on t 17:16; Start 04/07/17 at 16:30; Stop 04/07/17 at 16:31; Status DC Active Scripts Active Reported Atorvastatin Calcium 80 Mg Tablet 1 Tab PO DAILY Coreg (Carvedilol) 25 Mg Tablet 1 Tab PO DAILY Losartan Potassium 50 Mg Tablet 50 Mg PO DAILY Allergies Allergies: Coded Allergies: alprazolam (Verified Allergy, Intermediate, 07/19/16) HALUCINATIONS diltiazem (Verified Allergy, Intermediate, HIVES, INTERMITTENTLY, 07/19/16 ) lorazepam (Verified Allergy, Intermediate, halucinations, 07/19/16) patients states has tolerated valium in the past morphine (Verified Allergy, Intermediate, HIVES, INTERMITTENTLY, 07/19/16) takes LORTAB at home, tolerates DILAUDID also. Haloperidol Lactate (Verified Adverse Reaction, Intermediate, dystonic reaction, 07/19/16) "Jaw comes out of socket" haloperidol (Verified Adverse Reaction, Intermediate, dystonic reaction, 07/19/16) "Jaw comes out of socket" tramadol (Verified Adverse Reaction, Intermediate, Hallucinationsper nurse , 07/19/16) ROS Review of System as per HPI, all else is neg Physical Exam General: Alert, Oriented X3, Cooperative, No acute distress HEENT: Atraumatic, PERRLA, EOMI Lungs: Clear to auscultation, Normal air movement Heart: S1S2, RRR, no thrills, no rubs, no gallops, no murmurs Breasts: Normal, Rt breast nml w/o mass, Lt breast nml w/o mass, Nipples normal Abdomen: Normal bowel sounds, Soft, No tenderness, No hepatosplenomegaly, No masses Male Genitals Exam: normal genitalia, normal prostate Rectal Exam: not examined PELVIC: Nml ext genitalia Extremities: No clubbing, No cyanosis, No edema, Normal pulses, No tenderness/ swelling Skin: No rashes, No breakdown, No significant lesion Neuro: Normal gait, Normal speech, Strength at 5/5 X4 ext, Normal tone, Sensation intact, Cranial nerves 3-12 NL, Reflexes 2+ Psych/Mental Status: Mental status NL, Mood NL Vitals Vitals Vital Signs Date Time Temp Pulse Resp B/P (MAP) Pulse Ox O2 Delivery O2 Flow Rate FiO2 04/07/17 17:16 Room Air 04/07/17 16:56 74 24 193/106 (135) 98 04/07/17 12:20 98.0 98.0 Labs Labs Laboratory Tests Test 04/07/17 13:29 04/07/17 14:10 Urine Collection Type Unknown Urine Color Yellow Urine Clarity Clear Urine pH 5.5 Urine Specific [place] 1.010 Urine Protein Negative mg/dL (NEG-TRACE) Urine Glucose (UA) Negative mg/dL (NEG) Urine Ketones (Stick) Negative mg/dL (NEG) Urine Blood Negative (NEG) Urine Nitrite Negative (NEG) Urine Bilirubin Negative (NEG) Urine Urobilinogen Dipstick 0.2 mg/dL (0.2 mg/dL) Urine Leukocyte Esterase Trace (NEG) Urine RBC 0 /HPF (0-2) Urine WBC Occ /HPF (0-4) Urine Squamous Epithelial Cells Few /LPF Urine Bacteria 0 /HPF (0-FEW) Urine Mucus Mod /LPF Urine Opiates Screen Neg (NEG) Urine Methadone Screen Neg (NEG) Urine Barbiturates Neg (NEG) Urine Phencyclidine Screen Neg (NEG) Urine Amphetamine/Methamphetamine Neg (NEG) Urine Benzodiazepines Screen Neg (NEG) Urine Cocaine Screen Neg (NEG) Urine Cannabinoids Screen Neg (NEG) Urine Ethyl Alcohol Neg (NEG) White Blood Count 8.8 x10^3/uL (4.0-11.0) Red Blood Count 4.66 x10^6/uL (4.30-5.70) Hemoglobin 15.2 g/dL (13.0-17.5) Hematocrit 44.5 % (39.0-53.0) Mean Corpuscular Volume 95 fL (79-100) Mean Corpuscular Hemoglobin 33 pg (25-35) Mean Corpuscular Hemoglobin Concent 34 g/dL (31-37) Red Cell Distribution Width 13.9 % (11.5-14.5) Platelet Count 189 x10^3/uL (140-400) Neutrophils (%) (Auto) 59 % (31-73) Lymphocytes (%) (Auto) 30 % (24-48) Monocytes (%) (Auto) 9 % (0-9) Eosinophils (%) (Auto) 1 % (0-3) Basophils (%) (Auto) 1 % (0-3) Neutrophils # (Auto) 5.2 x10^3uL (1.8-7.7) Lymphocytes # (Auto) 2.6 x10^3/uL (1.0-4.8) Monocytes # (Auto) 0.8 x10^3/uL (0.0-1.1) Eosinophils # (Auto) 0.1 x10^3/uL (0.0-0.7) Basophils # (Auto) 0.1 x10^3/uL (0.0-0.2) Sodium Level 144 mmol/L (136-145) Potassium Level 3.8 mmol/L (3.5-5.1) Chloride Level 107 mmol/L (98-107) Carbon Dioxide Level 24 mmol/L (21-32) Anion Gap 13 (6-14) Blood Urea Nitrogen 15 mg/dL (8-26) Creatinine 1.0 mg/dL (0.7-1.3) Estimated GFR (Cockcroft-Gault) 77.3 Glucose Level 109 mg/dL (70-99) Calcium Level 8.6 mg/dL (8.5-10.1) Total Bilirubin 0.3 mg/dL (0.2-1.0) Direct Bilirubin 0.1 mg/dL (0.0-0.2) Aspartate Amino Transf (AST/SGOT) 31 U/L (15-37) Alanine Aminotransferase (ALT/SGPT) 44 U/L (16-63) Alkaline Phosphatase 100 U/L (46-116) Troponin I Quantitative < 0.017 ng/mL (0.000-0.055) SW-Ahp-C-Type Natriuretic Peptide 1971 pg/mL (0-124) Total Protein 7.3 g/dL (6.4-8.2) Albumin 4.0 g/dL (3.4-5.0) Lipase 273 U/L (73-393) Laboratory Tests Test 04/07/17 13:29 04/07/17 14:10 Urine Collection Type Unknown Urine Color Yellow Urine Clarity Clear Urine pH 5.5 Urine Specific [place] 1.010 Urine Protein Negative mg/dL (NEG-TRACE) Urine Glucose (UA) Negative mg/dL (NEG) Urine Ketones (Stick) Negative mg/dL (NEG) Urine Blood Negative (NEG) Urine Nitrite Negative (NEG) Urine Bilirubin Negative (NEG) Urine Urobilinogen Dipstick 0.2 mg/dL (0.2 mg/dL) Urine Leukocyte Esterase Trace (NEG) Urine RBC 0 /HPF (0-2) Urine WBC Occ /HPF (0-4) Urine Squamous Epithelial Cells Few /LPF Urine Bacteria 0 /HPF (0-FEW) Urine Mucus Mod /LPF Urine Opiates Screen Neg (NEG) Urine Methadone Screen Neg (NEG) Urine Barbiturates Neg (NEG) Urine Phencyclidine Screen Neg (NEG) Urine Amphetamine/Methamphetamine Neg (NEG) Urine Benzodiazepines Screen Neg (NEG) Urine Cocaine Screen Neg (NEG) Urine Cannabinoids Screen Neg (NEG) Urine Ethyl Alcohol Neg (NEG) White Blood Count 8.8 x10^3/uL (4.0-11.0) Red Blood Count 4.66 x10^6/uL (4.30-5.70) Hemoglobin 15.2 g/dL (13.0-17.5) Hematocrit 44.5 % (39.0-53.0) Mean Corpuscular Volume 95 fL (79-100) Mean Corpuscular Hemoglobin 33 pg (25-35) Mean Corpuscular Hemoglobin Concent 34 g/dL (31-37) Red Cell Distribution Width 13.9 % (11.5-14.5) Platelet Count 189 x10^3/uL (140-400) Neutrophils (%) (Auto) 59 % (31-73) Lymphocytes (%) (Auto) 30 % (24-48) Monocytes (%) (Auto) 9 % (0-9) Eosinophils (%) (Auto) 1 % (0-3) Basophils (%) (Auto) 1 % (0-3) Neutrophils # (Auto) 5.2 x10^3uL (1.8-7.7) Lymphocytes # (Auto) 2.6 x10^3/uL (1.0-4.8) Monocytes # (Auto) 0.8 x10^3/uL (0.0-1.1) Eosinophils # (Auto) 0.1 x10^3/uL (0.0-0.7) Basophils # (Auto) 0.1 x10^3/uL (0.0-0.2) Sodium Level 144 mmol/L (136-145) Potassium Level 3.8 mmol/L (3.5-5.1) Chloride Level 107 mmol/L (98-107) Carbon Dioxide Level 24 mmol/L (21-32) Anion Gap 13 (6-14) Blood Urea Nitrogen 15 mg/dL (8-26) Creatinine 1.0 mg/dL (0.7-1.3) Estimated GFR (Cockcroft-Gault) 77.3 Glucose Level 109 mg/dL (70-99) Calcium Level 8.6 mg/dL (8.5-10.1) Total Bilirubin 0.3 mg/dL (0.2-1.0) Direct Bilirubin 0.1 mg/dL (0.0-0.2) Aspartate Amino Transf (AST/SGOT) 31 U/L (15-37) Alanine Aminotransferase (ALT/SGPT) 44 U/L (16-63) Alkaline Phosphatase 100 U/L (46-116) Troponin I Quantitative < 0.017 ng/mL (0.000-0.055) FN-Rio-C-Type Natriuretic Peptide 1971 pg/mL (0-124) Total Protein 7.3 g/dL (6.4-8.2) Albumin 4.0 g/dL (3.4-5.0) Lipase 273 U/L (73-393) VTE Prophylaxis Ordered VTE Prophylaxis Devices: Yes VTE Pharmacological Prophylaxi: Yes Assessment/Plan Assessment/Plan 1. Accelerated HTN POA 2. NArc seeking 3. Dyslipidemia on statin\\ 4. Obesity BMI 39 5. Dizziness in the background of accelerated HTN 6. COPD, stable 7. Chronic Afib with indwelling pacer CHF systolic EF 25 % Per pt 8. ACUTE on chronic lumbago PLAN: Admit OBS LAbetolol prn REsume BP home meds COntrol back pain, lidoderm patch PT./OT, consult physiatry Intermittent self caths prn Stool regimen while on narcs Seen at [facility] MD Apr 07, 2017 18:25
[2017-04-07] MEDS: HYDROmorphone 2 MG/ML VIAL IV PRN ×2 (19:01→23:00)
[2017-04-07 20:25] VITALS: BP 165/117
[2017-04-07] MEDS: DOCUSATE SODIUM 100 MG CAPSULE. PO SCH (20:37)
[2017-04-07] MEDS: oxyCODONE IR 5 MG TABLET PO PRN (20:37)
[2017-04-07] MEDS ORDERED: ATORVASTATIN CALCIUM 40 MG TABLET. PO SCH (21:00)
[2017-04-07] MEDS ORDERED: ENOXAPARIN 40 MG/0.4 ML SYRINGE. SQ SCH (21:00)
[2017-04-07 22:00] VITALS: BP 167/117
[2017-04-07 23:00] VITALS: BP 143/70
[2017-04-08] MEDS: NICOTINE POLACRILEX 2MG GUM PACKAGE of 12. BC PRN ×3 (00:08→05:14)
[2017-04-08] MEDS: oxyCODONE IR 5 MG TABLET PO PRN ×3 (00:26→07:44)
--- NOTE | 2017-04-08 00:52 | ACF ---
Admission Forms Criteria CARDIOLOGY GRG Clinical Indications for Admission to Inpatient Care ( [place]/check or initial the applicable condition/criteria) Hospital admission is needed for appropriate care of the patient because of ANY ONE of the following: [ ] I. Hemodynamic instability as indicated by ALL of the following (1)(2)(3) (4)(5)(6)(7)(8)(9)(10) [ ]a) Vital sign abnormality not readily corrected by appropriate treatment with 12-24 hours for ANY ONE: [ ]i) Hypotension that persists despite appropriate treatment (eg, volume repletion) [ ]ii) Tachycardiathat persists despite appropriate tx ( e.g., analgesia, fluids, sedation as indicated [ ]iii) Orthostatic vital sign changes that persists despite appropriate treatment (eg, volume repletion) [ ]b) Vital sign abnormailty that is severe indicated by ANY ONE of the following: [ ]i) Inadequate perfusion indicated by ANY ONE of the following: [ ] 1) Lactic acidosis (> 2 mmol/L) [ ] 2) New abnormal capillary refill (> 3 seconds) [ ] 3) Reduced urine output [ ] 4) New altered mental status [ ] 5) Myocardial Ischemia [ ] 6) Other metabolic acidosis (arterial pH <7.35 ) not otherwise explained. [ ]ii) Mean arterial pressure[A] less than 60 mm Hg [ ]iii) Mean arterial pressure[A] less than 70 mm Hg after 30 minutes of appropriate treatment (eg, fluid resuscitation) [ ]iv) Sustained heart rate greater than 120 beats per minute in adult or child 6 years or older[B] [ ]v) IV inotropic or vasopressor medication required to maintain adequate blood pressure or perfusion [ ] II. Severe heart failure as indicated by ANY ONE of the following(17)(18) [ ]a) Respiratory distress [ ]b) Hypotension [ ]c) Debilitating anasarca refractory to therapy (eg, tissue breakdown with infection)[C](19) [ ]d) Cardiac arrhythmias of immediate concern [ ]e) Myocardial ischemia [ ] III. Cardiac arrhythmias or findings of immediate concern indicated by ANY ONE of the following (21)(22): [ ] a) Heart rhythms that are inherently dangerous or unstable indicated by ANY ONE of the following (23)(24)(25): [ ] i) Resuscitated ventricular fibrillation or cardiac arrest [ ] ii) Ventricular escape rhythm [ ] iii) Sustained ventricular tachycardia (30 seconds or more of ventricular rhythm at greater than 100 beats per minute) [ ] iv) Nonsustained ventricular tachycardia and ANY ONE of the following: [ ] 1) Suspected cardiac ischemia as cause or consequence of ventricular tachycardia [ ] 2) Acute myocarditis [ ] b) Unstable cardiac conduction defects indicated by ANY ONE of the following(25)(26)(27) [ ] i) Type II second-degree atrioventricular block [ ]ii) Third-degree atrioventricular block [ ]iii) New-onset left bundle branch block with suspected myocardial ischemia [ ]c) Any heart rhythm and ANY ONE of the following (23)(24)(28)(29) (30) [ ] i) Continuous long-term ECG monitoring needed (e.g., initiation of drug requiring monitoring for more than 24 hours) [ ] ii) Patient has automatic implanted cardioverter defibrillator that is repeatedly firing, malfunctioning, or in need of immediate adjustment of settings beyond the scope of ambulatory or observation care [ ]d) Heart rhythms of concern due to ANY ONE of the following: [ ] i) Hypotension [ ] ii) Respiratory distress [ ] iii) Association with other significant symptoms (e.g., bradycardia with syncope or ongoing dizziness, supraventricular tachycardia with chest pain (28)(29)(31) [ ] IV. Monitoring for cardiac contusion beyond the scope of observation care needed [A](32)(33)(34) [ ] V. Surgical or device complication (e.g., valve replacement complication , ICD disfunction or pacemaker dysfunction) (49)(50)(51)(52)(53)(54) [ ] . Inpatient palliative care needed. [F](51)(52) Also use Inpatient Palliative Care Criteria [ ] VII. Nonbacterial thrombotic (marantic) endocarditis(43)(44)(55)(56)(57) [X] VIII. Cardiology condition, symptom, or finding for which emergency and observation care has failed or are not considered appropriate. [ ] IX. Acute valvular disease requiring inpatient as indicated by ANY ONE of the following (40)(41) [ ]a) Acute valvular regurgitation (42) [ ]b) Noninfectious valvulitis (43)(44) [ ]c) Obstructive valve thrombosis (45)(46) [ ]d) Paravalvular leak(47)(48) [ ]e) Other significant valvular disorder remaining after emergency or observation level of care (as appropriate) [ ]X. Pericardial disease requiring inpatient treatment as indicated by ANY ONE of the following (35)(36)(37)(38) [ ]a) Suspected tamponade [ ]b) Hemopericardium [ ]c) Other significant pericardial disorder remaining after emergency or observation level of care (as appropriate)(39) [ ] XI. Cardiac ischemia beyond scope of emergency and observation care. [ ] XII. Cyanotic heart disease requiring inpatient care as indicated by 1 or more of the following(58)(59)(60): [ ]a) Acute onset of hypoxemia [ ]b) Exacerbation [ ] XIII. Hypertension requiring inpatient treatment as indicated by ANYONE of the following(11)(12)(13)(14): [ ]a) Severe hypertension (SBP greater than 180 mm Hg or DBP greater than 110 mm Hg, or greater than the 95th percentile for age, gender, and height in pediatric patients) that cannot be controlled (eg, to SBP less than 160 mm Hg and DBP less than 100 mm Hg) by emergency department or observation care treatment(15) [ ]b) Acute end organ damage secondary to hypertension (SBP greater than 140 mm Hg or DBP greater than 90 mm Hg) as indicated by ANYONE of the following: [ ] i) Hypertensive encephalopathy (eg, Altered mental status)(16) [ ] ii) Cerebral infarction [ ] iii) Intracranial hemorrhage [ ] iv) Myocardial ischemia or infarction [ ] v) Heart failure (eg, pulmonary edema) [ ] vi) Aortic dissection [ ] vii) Increased creatinine (new) with reduction of more than 50% in estimated glomerular filtration rate from baseline [ ] viii) Papilledema [ ] ix) Retinal hemorrhage [ ] x) Microangiopathic hemolytic anemia [ ] xi) Seizure [ ] xii) Other significant finding secondary to hypertension [ ] XIV. Complications of transplanted heart indicated by ANY ONE of the following(61): [ ]a) Acute graft rejection requiring inpatient management (eg, intravenous imunosuppression)(62)(63) [ ]b) Acute graft heart failure indicated by ANY ONE of the following(64): [ ] i) Hemodynamic instability [ ] ii) Cardiac arrhythmias of immediate concern [ ] iii) Pulmonary edema that is very severe (eg, mechanical ventilation needed, imminent or likely, need for 100% oxygen to keep oxygen saturation above 90%) [ ] iv) Pulmonary edema that is persistent as indicated by ALL of the following: [ ] 1) New need for oxygen therapy to keep oxygen saturation above 90 % (or increased FiO2 need from baseline) [ ] 2) Has not improved sufficiently with emergency department or observation care IV diuretics or other heart failure treatments[E]. [ ] iv) Altered mental status that is severe or persistent [ ] iv) Increased creatinine (new on laboratory test) with reduction of more than 50% in estimated glomerular filtration rate from baseline [ ] iv) Progressively (ongoing) rising creatinine (known from past laboratory test) with reduction of more than 25% in estimated glomerular filtration rate from baseline [ ] iv) Acute renal failure [ ] iv) Acute peripheral ischemia (eg, examination shows pulseless, cool, mottled, or cyanotic extremity) [ ] iv) Pulmonary artery catheter monitoring needed [ ] iv) Other sign or symptom of heart failure requiring inpatient treatment (ie, too severe or not responsive to outpatient and observation care treatment) [ ]c) Infection requiring inpatient management (eg, Hemodynamic instability, need for intravenous antimicrobial treatment)(66)(67)(68)(69)(70) [ ]d) Cardiac allograft vasculopathy requiring inpatient management (eg evidence of cardiacischemia)(71) [ ]e) Other complication of transplanted heart (eg, stroke, severe pulmonary hypertension, severe valvular dysfunction) requiring inpatient management(72) The original [employer] [facility] content created by [employer] [facility] has been revised. The portions of the content which have been revised are identified through the use of italic text, and [facility] has neither reviewed nor approved the modified material. All other unmodified content is copyright [facility] [facility]. Please see references footnoted in the original [employer] [facility] edition 2014 Admission Criteria Met?: Yes ALANIS PETERSON Apr 08, 2017 00:52
[2017-04-08] MEDS: HYDROmorphone 2 MG/ML VIAL IV PRN ×2 (03:14→08:29)
[2017-04-08 03:27] VITALS: BP 163/100
[2017-04-08 07:00] VITALS: BP 132/106
[2017-04-08] MEDS ORDERED: IPRATRPIUM/ALBUTEROL 0.5/2.5MG 3 ML NEBU. NEB SCH (08:00)
[2017-04-08] MEDS ORDERED: CARVEDILOL 12.5 MG TABLET. PO SCH (08:00)
[2017-04-08] MEDS ORDERED: LIDOCAINE (700MG/PATCH) PATCH. TD SCH (09:00)
[2017-04-08] MEDS: DOCUSATE SODIUM 100 MG CAPSULE. PO SCH (09:00)
[2017-04-08] MEDS ORDERED: LOSARTAN POTASSIUM 50 MG TABLET. PO SCH (09:00)
[2017-04-08 09:47] VITALS: BP 132/106
--- NOTE | 2017-04-08 10:05 | PDOC3 ---
Discharge Summary Visit Information Date of Admission: Apr 07, 2017 Date of Discharge: Apr 08, 2017 Admitting Diagnosis Comment: 1. Accelerated HTN POA 2. NArc seeking 3. Dyslipidemia on statin\ 4. Obesity BMI 39 5. Dizziness in the background of accelerated HTN 6. COPD, stable 7. Chronic Afib with indwelling pacer CHF systolic EF 25 % Per pt 8. ACUTE on chronic lumbago Final Diagnosis Problems Medical Problems: (1) Chest pain Status: Acute Brief Hospital Course Allergies Allergies Coded Allergies Type Severity Reaction Last Updated Verified alprazolam Allergy Intermediate 07/19/16 Yes diltiazem Allergy Intermediate HIVES, INTERMITTENTLY 07/19/16 Yes lorazepam Allergy Intermediate halucinations 07/19/16 Yes morphine Allergy Intermediate HIVES, INTERMITTENTLY 07/19/16 Yes Haloperidol Lactate Adverse Reaction Intermediate dystonic reaction 07/19/16 Yes haloperidol Adverse Reaction Intermediate dystonic reaction 07/19/16 Yes tramadol Adverse Reaction Intermediate Hallucinationsper nurse 07/19/16 Yes Vital Signs Vital Signs Date Time Temp Pulse Resp B/P (MAP) Pulse Ox O2 Delivery O2 Flow Rate FiO2 04/08/17 09:47 78 132/106 04/08/17 09:00 Room Air 04/08/17 08:14 98 2.0 04/08/17 07:00 97.7 20 97.7 Lab Results Laboratory Tests Test 04/07/17 13:29 04/07/17 14:10 Urine Collection Type Unknown Urine Color Yellow Urine Clarity Clear Urine pH 5.5 Urine Specific [place] 1.010 Urine Protein Negative mg/dL (NEG-TRACE) Urine Glucose (UA) Negative mg/dL (NEG) Urine Ketones (Stick) Negative mg/dL (NEG) Urine Blood Negative (NEG) Urine Nitrite Negative (NEG) Urine Bilirubin Negative (NEG) Urine Urobilinogen Dipstick 0.2 mg/dL (0.2 mg/dL) Urine Leukocyte Esterase Trace (NEG) Urine RBC 0 /HPF (0-2) Urine WBC Occ /HPF (0-4) Urine Squamous Epithelial Cells Few /LPF Urine Bacteria 0 /HPF (0-FEW) Urine Mucus Mod /LPF Urine Opiates Screen Neg (NEG) Urine Methadone Screen Neg (NEG) Urine Barbiturates Neg (NEG) Urine Phencyclidine Screen Neg (NEG) Urine Amphetamine/Methamphetamine Neg (NEG) Urine Benzodiazepines Screen Neg (NEG) Urine Cocaine Screen Neg (NEG) Urine Cannabinoids Screen Neg (NEG) Urine Ethyl Alcohol Neg (NEG) White Blood Count 8.8 x10^3/uL (4.0-11.0) Red Blood Count 4.66 x10^6/uL (4.30-5.70) Hemoglobin 15.2 g/dL (13.0-17.5) Hematocrit 44.5 % (39.0-53.0) Mean Corpuscular Volume 95 fL (79-100) Mean Corpuscular Hemoglobin 33 pg (25-35) Mean Corpuscular Hemoglobin Concent 34 g/dL (31-37) Red Cell Distribution Width 13.9 % (11.5-14.5) Platelet Count 189 x10^3/uL (140-400) Neutrophils (%) (Auto) 59 % (31-73) Lymphocytes (%) (Auto) 30 % (24-48) Monocytes (%) (Auto) 9 % (0-9) Eosinophils (%) (Auto) 1 % (0-3) Basophils (%) (Auto) 1 % (0-3) Neutrophils # (Auto) 5.2 x10^3uL (1.8-7.7) Lymphocytes # (Auto) 2.6 x10^3/uL (1.0-4.8) Monocytes # (Auto) 0.8 x10^3/uL (0.0-1.1) Eosinophils # (Auto) 0.1 x10^3/uL (0.0-0.7) Basophils # (Auto) 0.1 x10^3/uL (0.0-0.2) Sodium Level 144 mmol/L (136-145) Potassium Level 3.8 mmol/L (3.5-5.1) Chloride Level 107 mmol/L (98-107) Carbon Dioxide Level 24 mmol/L (21-32) Anion Gap 13 (6-14) Blood Urea Nitrogen 15 mg/dL (8-26) Creatinine 1.0 mg/dL (0.7-1.3) Estimated GFR (Cockcroft-Gault) 77.3 Glucose Level 109 mg/dL (70-99) Calcium Level 8.6 mg/dL (8.5-10.1) Total Bilirubin 0.3 mg/dL (0.2-1.0) Direct Bilirubin 0.1 mg/dL (0.0-0.2) Aspartate Amino Transf (AST/SGOT) 31 U/L (15-37) Alanine Aminotransferase (ALT/SGPT) 44 U/L (16-63) Alkaline Phosphatase 100 U/L (46-116) Troponin I Quantitative < 0.017 ng/mL (0.000-0.055) RF-Eyp-B-Type Natriuretic Peptide 1971 pg/mL (0-124) Total Protein 7.3 g/dL (6.4-8.2) Albumin 4.0 g/dL (3.4-5.0) Lipase 273 U/L (73-393) Laboratory Tests Test 04/07/17 13:29 04/07/17 14:10 Urine Collection Type Unknown Urine Color Yellow Urine Clarity Clear Urine pH 5.5 Urine Specific [place] 1.010 Urine Protein Negative mg/dL (NEG-TRACE) Urine Glucose (UA) Negative mg/dL (NEG) Urine Ketones (Stick) Negative mg/dL (NEG) Urine Blood Negative (NEG) Urine Nitrite Negative (NEG) Urine Bilirubin Negative (NEG) Urine Urobilinogen Dipstick 0.2 mg/dL (0.2 mg/dL) Urine Leukocyte Esterase Trace (NEG) Urine RBC 0 /HPF (0-2) Urine WBC Occ /HPF (0-4) Urine Squamous Epithelial Cells Few /LPF Urine Bacteria 0 /HPF (0-FEW) Urine Mucus Mod /LPF Urine Opiates Screen Neg (NEG) Urine Methadone Screen Neg (NEG) Urine Barbiturates Neg (NEG) Urine Phencyclidine Screen Neg (NEG) Urine Amphetamine/Methamphetamine Neg (NEG) Urine Benzodiazepines Screen Neg (NEG) Urine Cocaine Screen Neg (NEG) Urine Cannabinoids Screen Neg (NEG) Urine Ethyl Alcohol Neg (NEG) White Blood Count 8.8 x10^3/uL (4.0-11.0) Red Blood Count 4.66 x10^6/uL (4.30-5.70) Hemoglobin 15.2 g/dL (13.0-17.5) Hematocrit 44.5 % (39.0-53.0) Mean Corpuscular Volume 95 fL (79-100) Mean Corpuscular Hemoglobin 33 pg (25-35) Mean Corpuscular Hemoglobin Concent 34 g/dL (31-37) Red Cell Distribution Width 13.9 % (11.5-14.5) Platelet Count 189 x10^3/uL (140-400) Neutrophils (%) (Auto) 59 % (31-73) Lymphocytes (%) (Auto) 30 % (24-48) Monocytes (%) (Auto) 9 % (0-9) Eosinophils (%) (Auto) 1 % (0-3) Basophils (%) (Auto) 1 % (0-3) Neutrophils # (Auto) 5.2 x10^3uL (1.8-7.7) Lymphocytes # (Auto) 2.6 x10^3/uL (1.0-4.8) Monocytes # (Auto) 0.8 x10^3/uL (0.0-1.1) Eosinophils # (Auto) 0.1 x10^3/uL (0.0-0.7) Basophils # (Auto) 0.1 x10^3/uL (0.0-0.2) Sodium Level 144 mmol/L (136-145) Potassium Level 3.8 mmol/L (3.5-5.1) Chloride Level 107 mmol/L (98-107) Carbon Dioxide Level 24 mmol/L (21-32) Anion Gap 13 (6-14) Blood Urea Nitrogen 15 mg/dL (8-26) Creatinine 1.0 mg/dL (0.7-1.3) Estimated GFR (Cockcroft-Gault) 77.3 Glucose Level 109 mg/dL (70-99) Calcium Level 8.6 mg/dL (8.5-10.1) Total Bilirubin 0.3 mg/dL (0.2-1.0) Direct Bilirubin 0.1 mg/dL (0.0-0.2) Aspartate Amino Transf (AST/SGOT) 31 U/L (15-37) Alanine Aminotransferase (ALT/SGPT) 44 U/L (16-63) Alkaline Phosphatase 100 U/L (46-116) Troponin I Quantitative < 0.017 ng/mL (0.000-0.055) RB-Nrg-X-Type Natriuretic Peptide 1971 pg/mL (0-124) Total Protein 7.3 g/dL (6.4-8.2) Albumin 4.0 g/dL (3.4-5.0) Lipase 273 U/L (73-393) Brief Hospital Course Mr. Porter is a 56 old [sex] who presented with [ ]56 y.o male, known to us, kia jay, narc seeking, admitted bec of high BP (able to tell me his 2 BP meds actually), dizzy when attempted to ambulate and dc from ER, and acute exacerbation of back pain, Initially was complaining of sharp CP and high BP so CTA chest done which was normal. LAbs normal,. Lots of requests, wanted heather heck for hEp C bec he claims he has a girlfriend, LFTS ok, told him no need, Wanted to check CT head, I refused,. Admitted oBS, control BP, control back pain, get pt.ot and physiatry Dw ER MD Sinclair COURSE; Admitted overnight, HOme BP meds resumed, BP better, Requests oxycodone 20 mg s q8 for RX GAve it to him NO need for physiatry to see PT seen and examined Discharge Information Condition at Discharge: Improved, Stable Disposition/Orders: D/C to Home Scheduled Atorvastatin Calcium (Atorvastatin Calcium), 1 TAB PO DAILY, (Reported) Carvedilol (Coreg), 1 TAB PO DAILY, (Reported) Losartan Potassium (Losartan Potassium), 50 MG PO DAILY, (Reported) VALERIE ORTIZ MD Apr 08, 2017 10:05
== END 2017-04-08 11:30 | disposition home or self-care (01) | DRG 305 ==
LOC: ER 12:18 → 5 SOUTH 17:53
PROVIDERS: ADMIT Internal Medicine; ATTEND Internal Medicine
DX: I11.9 Hypertensive heart disease without heart failure (principal); I50.20 Unspecified systolic (congestive) heart failure; E66.9 Obesity, unspecified; H60.90 Unspecified otitis externa, unspecified ear; M54.5 Low back pain; G89.29 Other chronic pain; E78.5 Hyperlipidemia, unspecified; E78.00 Pure hypercholesterolemia, unspecified; I48.2 Chronic atrial fibrillation; J44.9 Chronic obstructive pulmonary disease, unspecified; F15.90 Other stimulant use, unspecified, uncomplicated; M19.90 Unspecified osteoarthritis, unspecified site; K21.9 Gastro-esophageal reflux disease without esophagitis; Z96.659 Presence of unspecified artificial knee joint; F10.20 Alcohol dependence, uncomplicated; F11.90 Opioid use, unspecified, uncomplicated; F32.9 Major depressive disorder, single episode, unspecified; F41.9 Anxiety disorder, unspecified; I25.2 Old myocardial infarction; Z86.19 Personal history of other infectious and parasitic diseases; Z68.39 Body mass index [BMI] 39.0-39.9, adult; Z90.49 Acquired absence of other specified parts of digestive tract; Z95.0 Presence of cardiac pacemaker; Z88.6 Allergy status to analgesic agent; Z82.49 Family history of ischemic heart disease and other diseases of the circulatory system; Z91.19 Patient's noncompliance with other medical treatment and regimen; Z88.1 Allergy status to other antibiotic agents; Z88.8 Allergy status to other drugs, medicaments and biological substances
CPT/HCPCS: 36415; 71010; 71275; 80048; 80076; 80307; 81001; 83690; 83880; 84484; 85025; 87086; 93005; 94250; 94640; 94760; J1170; J1650; J2405; J3490; J7620; Q9967; 99285-25; G0479

== ENCOUNTER 2017-06-09 19:55 | Emergency (ER) | payer SELFPAY ==
[~2017-06-09] VITALS: Ht 182.9 cm; Wt 108.9 kg
[~2017-06-09 19:55] MED LIST changes: -NAPR250T2 PO; +NAPR250T6 PO; +OXYC10TA PO; -OXYC5TAB PO; +OXYC5TAB95 PO
[2017-06-09] MEDS ORDERED: fentaNYL PF VIAL 100 MCG/2 ML VIAL IV ONE ×2 (20:15→22:30)
[2017-06-09] MEDS ORDERED: FAMOTIDINE 20 MG/2 ML VIAL IVP ONE (20:15)
[2017-06-09] MEDS ORDERED: IV NORMAL SALINE 1000ML BAG 1,000 ML IV ONE (20:15)
--- NOTE | 2017-06-09 20:20 | PHYS DOC ---
Past Medical History Past Medical History: A-Fib, Alcoholism, Anxiety, High Cholesterol, Heart Disease, Hypertension, MO, Other Additional Past Medical Histor: Vtach, back pain, HERNIA, HEPATITIS, bradycardia Past Surgical History: Cholecystectomy, Knee Replacement, Pacemaker, Other Additional Past Surgical Histo: intestinal and hernia, lumbar fusion, shoulder , ABLATION , AV pacemaker Alcohol Use: Heavy Drug Use: Heroin, Methamphetamine, Other Adult General Chief Complaint Chief Complaint: NAUSEA/VOMITING/DIARRHA HPI HPI Patient is a 56 year old male with history of A. fib, alcoholism, hypertension , who presents today complaining of diarrhea that began last night and dizziness that began this morning. Patient denies anything making the dizziness worse or better. Patient states he has slight left lower quadrant abdominal pain. Denies any melena. Denies any nausea vomiting. He states he had similar symptoms a month ago and was admitted in the hospital. Review of Systems Review of Systems Constitutional: Denies fever or chills [] Eyes: Denies change in visual acuity, redness, or eye pain [] HENT: Denies nasal congestion or sore throat [] Respiratory: Denies cough or shortness of breath [] Cardiovascular: No additional information not addressed in HPI [] GI: Left lower quadrant abdominal pain, diarrhea, denies nausea, vomiting, bloody stools : Denies dysuria or hematuria [] Musculoskeletal: Denies back pain or joint pain [] Integument: Denies rash or skin lesions [] Neurologic: Reports dizziness. Denies headache, focal weakness or sensory changes [] Endocrine: Denies polyuria or polydipsia [] Current Medications Current Medications Current Medications Medications (Trade) Dose Ordered Sig/Alan Start Time Stop Time Status Last Admin Dose Admin Dicyclomine HCl (Bentyl) 20 mg 1X ONCE 06/09/17 20:30 06/09/17 20:31 DC 06/09/17 20:49 20 MG Famotidine (Pepcid) 20 mg 1X ONCE 06/09/17 20:15 06/09/17 20:20 DC 06/09/17 20:50 20 MG Fentanyl Citrate (Fentanyl 2ml Vial) 50 mcg 1X ONCE 06/09/17 22:30 06/09/17 22:31 06/09/17 22:17 50 MCG Ondansetron HCl (Zofran) 4 mg 1X ONCE 06/09/17 20:30 06/09/17 20:31 DC 06/09/17 20:49 4 MG Sodium Chloride 1,000 ml @ 1,000 mls/hr 1X ONCE 06/09/17 20:15 06/09/17 21:14 DC 06/09/17 20:58 1,000 MLS/HR Allergies Allergies Allergies Coded Allergies Type Severity Reaction Last Updated Verified alprazolam Allergy Intermediate 07/19/16 Yes diltiazem Allergy Intermediate HIVES, INTERMITTENTLY 07/19/16 Yes lorazepam Allergy Intermediate halucinations 07/19/16 Yes morphine Allergy Intermediate HIVES, INTERMITTENTLY 07/19/16 Yes Haloperidol Lactate Adverse Reaction Intermediate dystonic reaction 07/19/16 Yes haloperidol Adverse Reaction Intermediate dystonic reaction 07/19/16 Yes tramadol Adverse Reaction Intermediate Hallucinationsper nurse 07/19/16 Yes Physical Exam Physical Exam Constitutional: Well developed, well nourished, no acute distress, non-toxic appearance. [] HENT: Normocephalic, atraumatic, bilateral external ears normal, oropharynx moist, no oral exudates, nose normal. [] Eyes: PERRLA, EOMI, conjunctiva normal, no discharge. [] Neck: Normal range of motion, no tenderness, supple, no stridor. [] Cardiovascular:Heart rate regular rhythm, no murmur [] Lungs & Thorax: Bilateral breath sounds clear to auscultation [] Abdomen: Bowel sounds normal, soft, no tenderness, no masses, no pulsatile masses. [] Skin: Warm, dry, no erythema, no rash. [] Back: No tenderness, no CVA tenderness. [] Extremities: No tenderness, no cyanosis, no clubbing, ROM intact, no edema. [] Neurologic: Alert and oriented X 3, normal motor function, normal sensory function, no focal deficits noted. [] Psychologic: Affect normal, judgement normal, mood normal. [] Current Patient Data Vital Signs Vital Signs Date Time Temp Pulse Resp B/P (MAP) Pulse Ox O2 Delivery O2 Flow Rate FiO2 06/09/17 22:17 20 06/09/17 20:50 Room Air 06/09/17 20:15 97.8 76 124/78 (93) 95 97.8 Lab Values Laboratory Tests Test 06/09/17 20:42 06/09/17 21:40 White Blood Count 8.6 x10^3/uL (4.0-11.0) Red Blood Count 5.04 x10^6/uL (4.30-5.70) Hemoglobin 16.4 g/dL (13.0-17.5) Hematocrit 47.7 % (39.0-53.0) Mean Corpuscular Volume 95 fL (79-100) Mean Corpuscular Hemoglobin 33 pg (25-35) Mean Corpuscular Hemoglobin Concent 34 g/dL (31-37) Red Cell Distribution Width 14.2 % (11.5-14.5) Platelet Count 233 x10^3/uL (140-400) Neutrophils (%) (Auto) 62 % (31-73) Lymphocytes (%) (Auto) 28 % (24-48) Monocytes (%) (Auto) 9 % (0-9) Eosinophils (%) (Auto) 1 % (0-3) Basophils (%) (Auto) 1 % (0-3) Neutrophils # (Auto) 5.3 x10^3uL (1.8-7.7) Lymphocytes # (Auto) 2.4 x10^3/uL (1.0-4.8) Monocytes # (Auto) 0.7 x10^3/uL (0.0-1.1) Eosinophils # (Auto) 0.1 x10^3/uL (0.0-0.7) Basophils # (Auto) 0.1 x10^3/uL (0.0-0.2) Sodium Level 137 mmol/L (136-145) Potassium Level 4.0 mmol/L (3.5-5.1) Chloride Level 103 mmol/L (98-107) Carbon Dioxide Level 23 mmol/L (21-32) Anion Gap 11 (6-14) Blood Urea Nitrogen 20 mg/dL (8-26) Creatinine 1.0 mg/dL (0.7-1.3) Estimated GFR (Cockcroft-Gault) 77.3 BUN/Creatinine Ratio 20 (6-20) Glucose Level 129 mg/dL (70-99) H Calcium Level 9.3 mg/dL (8.5-10.1) Total Bilirubin 0.6 mg/dL (0.2-1.0) Aspartate Amino Transferase (AST) 47 U/L (15-37) H Alanine Aminotransferase (ALT) 64 U/L (16-63) H Alkaline Phosphatase 101 U/L (46-116) Creatine Kinase 72 U/L (39-308) Creatine Kinase MB (Mass) 0.8 ng/mL (0.0-3.6) Creatine Kinase MB Relative Index 1.1 % (0-4) Troponin I Quantitative < 0.017 ng/mL (0.000-0.055) Total Protein 7.5 g/dL (6.4-8.2) Albumin 3.6 g/dL (3.4-5.0) Albumin/Globulin Ratio 0.9 (1.0-1.7) L Lipase 115 U/L (73-393) Ethyl Alcohol Level < 10 mg/dL (0-10) Prothrombin Time 13.3 SEC (11.7-14.0) Prothrombin Time INR 1.1 (0.8-1.1) PTT 30 SEC (24-38) Laboratory Tests 06/09/17 20:42 Laboratory Tests 06/09/17 20:42 EKG EKG 20:[address] Sinclair sinus rhythm, heart rate 72, no STEMI.[] Radiology/Procedures Radiology/Procedures []PROCEDURE: ABDOMEN COMPLETE Ultrasound of the abdomen 06/09/2017 CLINICAL HISTORY: Diarrhea for one day. TECHNIQUE: A real-time ultrasound examination of the abdomen was performed. Multiple images were obtained. FINDINGS: Comparison is made to the patient's CT scan of the abdomen dated 05/09/2017. The gallbladder is not visualized consistent with a cholecystectomy. The common bile duct measures 3 mm in diameter which is within normal limits. The liver is normal in size measuring 15.1 cm in length. No focal abnormality of the liver is seen. The spleen, visualized portions of pancreas and kidneys are within normal limits. The abdominal aorta tapers normally.The inferior vena cava is within normal limits. No free fluid is seen. IMPRESSION: Status post cholecystectomy. Otherwise negative study. 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 Sinclair was negative for any acute findings. Course & Med Decision Making Course & Med Decision Making Pertinent Labs and Imaging studies reviewed. (See chart for details) This is a 56-year-old male patient presented to the ED today with left lower quadrant abdominal pain, diarrhea that began last night and dizziness this morning. Patient is well known to this ED for dizziness complain as well as pain related complaints. CBC with no acute findings, CMP with AST of 47 and ALT of 64. He was given a liter fluid, fentanyl and dicyclomine. He did not have any diarrhea in the ED. Informed patient he is going to be discharged. He stated he does not want to go home. Informed patient I do not have any criteria for keeping him in the hospital. He requested a ride home. We provided a cab voucher. Dragon Disclaimer [employer] Disclaimer This electronic medical record was generated, in whole or in part, using a voice recognition dictation system. Departure Departure Impression: Primary Impression: Diarrhea Additional Impression: Abdominal pain, left lower quadrant Disposition: HOME, SELF-CARE Condition: STABLE Referrals: NO PCP (PCP) follow up with your doctor in one week Patient Instructions: Abdominal Pain, Diarrhea, [id number] Additional Instructions: You were seen for diarrhea and left lower quadrant pain. This could be a viral illness. Push fluids maintain good hand hygiene. Follow-up with your doctor next week or the provided doctor. Scripts Ondansetron (ZOFRAN ODT) 4 Mg Tab.rapdis 1 TAB SL Q8HRS, #15 TAB Prov: MARC SHAFER APRN 06/09/17 Dicyclomine Hcl (DICYCLOMINE HCL) 20 Mg Tablet 1 TAB PO TID, #30 TAB 1 Refill Prov: MARC SHAFER APRN 06/09/17 Diphenoxylate Hcl/Atropine (LOMOTIL TABLET) 1 Each Tablet 1 TAB PO TID, #30 TAB Prov: MARC SHAFER APRN 06/09/17 Problem Qualifiers Primary Impression: Diarrhea Diarrhea type: unspecified type Qualified Codes: R19.7 - Diarrhea, unspecified MARC SHAFER APRN Jun 09, 2017 20:20
[2017-06-09] MEDS ORDERED: DICYCLOMINE HCL 10 MG CAPSULE PO ONE (20:30)
[2017-06-09] MEDS ORDERED: ONDANSETRON PF 4 MG/2 ML VIAL. IV ONE (20:30)
[2017-06-09 20:51] LABS: BASO # 0.1 x10^3/uL (0.0-0.2); BASO % 1 % (0-3); EOS % 1 % (0-3); HEMATOCRIT 47.7 % (39.0-53.0); HEMOGLOBIN 16.4 g/dL (13.0-17.5); LYMPH # 2.4 x10^3/uL (1.0-4.8); LYMPH % 28 % (24-48); MEAN CORPUSCULAR HEMOGLOBIN 33 pg (25-35); MEAN CORPUSCULAR HGB CONC 34 g/dL (31-37); MEAN CORPUSCULAR VOLUME 95 fL (79-100); MONO % 9 % (0-9); NEUT % 62 % (31-73); PLATELET COUNT 233 x10^3/uL (140-400); RED BLOOD COUNT 5.04 x10^6/uL (4.30-5.70); RED CELL DISTRIBUTION WIDTH 14.2 % (11.5-14.5); WHITE BLOOD COUNT 8.6 x10^3/uL (4.0-11.0)
[2017-06-09 21:07] LABS: CALCIUM 9.3 mg/dL (8.5-10.1); GFR 77.3
[2017-06-09 21:21] LABS: CKMB MASS 0.8 ng/mL (0.0-3.6)
--- NOTE | 2017-06-09 21:52 | RAD ---
Ultrasound of the abdomen 06/09/2017 CLINICAL HISTORY: Diarrhea for one day. TECHNIQUE: A real-time ultrasound examination of the abdomen was performed. Multiple images were obtained. FINDINGS: Comparison is made to the patient's CT scan of the abdomen dated 05/09/2017. The gallbladder is not visualized consistent with a cholecystectomy. The common bile duct measures 3 mm in diameter which is within normal limits. The liver is normal in size measuring 15.1 cm in length. No focal abnormality of the liver is seen. The spleen, visualized portions of pancreas and kidneys are within normal limits. The abdominal aorta tapers normally.The inferior vena cava is within normal limits. No free fluid is seen. IMPRESSION: Status post cholecystectomy. Otherwise negative study. Electronically signed by: Yao Arcos MD (06/09/2017 9:49 PM) [facility]
[2017-06-09 22:03] LABS: ALBUMIN 3.6 g/dL (3.4-5.0); ALBUMIN/GLOBULIN RATIO 0.9 (1.0-1.7); TOTAL BILIRUBIN 0.6 mg/dL (0.2-1.0); TOTAL PROTEIN 7.5 g/dL (6.4-8.2)
[2017-06-09 22:04] LABS: INR 1.1 (0.8-1.1); PROTHROMBIN TIME PATIENT 13.3 SEC (11.7-14.0)
[2017-06-09 22:30] VITALS: BP 160/82
[2017-06-09] MEDS ORDERED: ONDA4TAB10 SL (22:38)
[2017-06-09] MEDS ORDERED: DIPH1TAB PO (22:38)
[2017-06-09] MEDS ORDERED: DICY20TA3 PO (22:38)
--- NOTE | 2017-06-10 07:27 | EKG ---
[facility] [address] [place] [address] Test Date: 2017-06-09 Test Time: 20:30:28 Pat Name: ALYSSA PABLO Department: Room: Gender: M Clinical Sociologist: : 1960 Requested By: MARC SHAFER Order Number: [id number] Reading MD: Iza Harris Measurements Intervals [place] Rate: 72 P: -12 SC: 128 QRS: -22 QRSD: 170 T: 116 QT: 478 QTc: 525 Interpretive Statements SINUS RHYTHM ELECTRONIC PACEMAKER ABNORMAL ECG Electronically Signed On 06-11-2017 19:20:44 CDT by Iza Harris
--- NOTE | 2017-06-10 08:41 | RAD ---
Portable AP upright view CXR: Clinical indications: Dizziness and shortness of breath today. Comparison: May 09, 2017. Findings: No acute lung infiltrate or pleural effusion or pulmonary edema or lung mass or pneumothorax is seen. The heart size, pulmonary vasculature, mediastinum and both kathleen are unremarkable. Impression: No acute radiographic abnormality is seen.
== END 2017-06-09 22:58 | disposition home or self-care (01) ==
LOC: ER 19:55
DX: R19.7 Diarrhea, unspecified (principal); R10.32 Left lower quadrant pain; R42 Dizziness and giddiness; I48.91 Unspecified atrial fibrillation; F10.20 Alcohol dependence, uncomplicated; F41.9 Anxiety disorder, unspecified; E78.00 Pure hypercholesterolemia, unspecified; I11.9 Hypertensive heart disease without heart failure; I25.2 Old myocardial infarction; Y90.0 Blood alcohol level of less than 20 mg/100 ml; Z86.19 Personal history of other infectious and parasitic diseases; Z88.5 Allergy status to narcotic agent; Z88.8 Allergy status to other drugs, medicaments and biological substances
CPT/HCPCS: 36415; 71010; 76700; 80053; 82553; 83690; 84484; 85025; 85610; 85730; 93005; 96361; 96374; 96375; 96376; 99285; G0480; J2405; J3010; J7030; S0028

== ENCOUNTER 2017-06-13 01:23 | Inpatient (IN) | payer SELFPAY ==
[~2017-06-13] VITALS: Ht 167.6 cm; Wt 105.2 kg
[~2017-06-13 01:23] MED LIST changes: +DICY20TA3 PO; +DIPH1TAB PO; +ONDA4TAB10 SL
--- NOTE | 2017-06-13 01:47 | PHYS DOC ---
Past Medical History Past Medical History: A-Fib, Alcoholism, Anxiety, CVA, High Cholesterol, Heart Disease, Hypertension, MD, Other Additional Past Medical Histor: Vtach, back pain, HERNIA, HEPATITIS, bradycardia Past Surgical History: Cholecystectomy, Knee Replacement, Pacemaker, Other Additional Past Surgical Histo: intestinal and hernia, lumbar fusion, shoulder , ABLATION , AV pacemaker Smoking: Cigarettes Alcohol Use: Occasionally Drug Use: Heroin, Methamphetamine, Other Social History Narrative: Pt. currently denies any drug use (06/13) Adult General Chief Complaint Chief Complaint: SWALLOWED FORIEGN BODY HPI HPI Patient is a 56 year old male who presents with "I swallowed a razor blade." He states he did this at 2300 PM "because they dared me to." He states "I swallowed a lot of stuff in the past, gasoline, rat poisoning." He thought maybe stomach acid wound dissolve it. He has no difficulty breathing or talking. No bleeding from his mouth. No hemoptysis. He states that he has mild abdominal pain " but my hip pain is the worse." He has chronic back and hip pain. He does drink daily "when I can get it" and had a pint of vodka today. Review of Systems Review of Systems Constitutional: Denies fever or chills Eyes: Denies change in visual acuity, redness, or eye pain HENT: Denies nasal congestion or sore throat Respiratory: Denies cough or shortness of breath Cardiovascular: No chest pain GI: POS abdominal pain, Denies nausea, vomiting, bloody stools or diarrhea : Denies dysuria or hematuria Musculoskeletal: CHRONIC back pain; denies joint pain Integument: Denies rash or skin lesions Neurologic: Denies headache, focal weakness or sensory changes Current Medications Current Medications Current Medications Medications (Trade) Dose Ordered Sig/Alan Start Time Stop Time Status Last Admin Dose Admin Sodium Chloride 1,000 ml @ 1,000 mls/hr Q1H 06/13/17 02:00 06/13/17 02:59 DC 06/13/17 02:23 1,000 MLS/HR Allergies Allergies Allergies Coded Allergies Type Severity Reaction Last Updated Verified alprazolam Allergy Intermediate 07/19/16 Yes diltiazem Allergy Intermediate HIVES, INTERMITTENTLY 07/19/16 Yes lorazepam Allergy Intermediate halucinations 07/19/16 Yes morphine Allergy Intermediate HIVES, INTERMITTENTLY 07/19/16 Yes Haloperidol Lactate Adverse Reaction Intermediate dystonic reaction 07/19/16 Yes haloperidol Adverse Reaction Intermediate dystonic reaction 07/19/16 Yes tramadol Adverse Reaction Intermediate Hallucinationsper nurse 07/19/16 Yes Physical Exam Physical Exam Constitutional: Well developed, well nourished, no acute distress, non-toxic appearance. HENT: Normocephalic, atraumatic, bilateral external ears normal, oropharynx moist, no oral exudates, nose normal. Eyes: PERRLA, EOMI, conjunctiva normal, no discharge. Neck: Normal range of motion, no tenderness, supple, no stridor. Cardiovascular:Heart rate regular rhythm, no murmur Lungs & Thorax: Bilateral breath sounds clear to auscultation Abdomen: Bowel sounds normal, soft, minimal tenderness to lower quadrant; no rebound or guarding, no masses, no pulsatile masses. Skin: Warm, dry, no erythema, no rash. Back: No tenderness, no CVA tenderness. Extremities: No tenderness, no cyanosis, no clubbing, ROM intact, no edema. Neurologic: Alert and oriented X 3, normal motor function, normal sensory function, no focal deficits noted. Current Patient Data Vital Signs Vital Signs Date Time Temp Pulse Resp B/P (MAP) Pulse Ox O2 Delivery O2 Flow Rate FiO2 06/13/17 01:33 98.8 88 20 128/96 (107) 98 Room Air 98.8 Lab Values Laboratory Tests Test 06/13/17 02:00 White Blood Count 8.9 x10^3/uL (4.0-11.0) Red Blood Count 4.71 x10^6/uL (4.30-5.70) Hemoglobin 15.5 g/dL (13.0-17.5) Hematocrit 44.7 % (39.0-53.0) Mean Corpuscular Volume 95 fL (79-100) Mean Corpuscular Hemoglobin 33 pg (25-35) Mean Corpuscular Hemoglobin Concent 35 g/dL (31-37) Red Cell Distribution Width 13.9 % (11.5-14.5) Platelet Count 208 x10^3/uL (140-400) Neutrophils (%) (Auto) 52 % (31-73) Lymphocytes (%) (Auto) 35 % (24-48) Monocytes (%) (Auto) 10 % (0-9) H Eosinophils (%) (Auto) 3 % (0-3) Basophils (%) (Auto) 1 % (0-3) Neutrophils # (Auto) 4.6 x10^3uL (1.8-7.7) Lymphocytes # (Auto) 3.0 x10^3/uL (1.0-4.8) Monocytes # (Auto) 0.9 x10^3/uL (0.0-1.1) Eosinophils # (Auto) 0.2 x10^3/uL (0.0-0.7) Basophils # (Auto) 0.0 x10^3/uL (0.0-0.2) Prothrombin Time 12.4 SEC (11.7-14.0) Prothrombin Time INR 1.0 (0.8-1.1) PTT 30 SEC (24-38) Sodium Level 144 mmol/L (136-145) Potassium Level 3.3 mmol/L (3.5-5.1) L Chloride Level 106 mmol/L (98-107) Carbon Dioxide Level 24 mmol/L (21-32) Anion Gap 14 (6-14) Blood Urea Nitrogen 20 mg/dL (8-26) Creatinine 1.2 mg/dL (0.7-1.3) Estimated GFR (Cockcroft-Gault) 62.6 BUN/Creatinine Ratio 17 (6-20) Glucose Level 105 mg/dL (70-99) H Calcium Level 9.2 mg/dL (8.5-10.1) Total Bilirubin 0.4 mg/dL (0.2-1.0) Aspartate Amino Transferase (AST) 37 U/L (15-37) Alanine Aminotransferase (ALT) 57 U/L (16-63) Alkaline Phosphatase 112 U/L (46-116) Total Protein 7.9 g/dL (6.4-8.2) Albumin 3.9 g/dL (3.4-5.0) Albumin/Globulin Ratio 1.0 (1.0-1.7) Laboratory Tests 06/13/17 02:00 Laboratory Tests 06/13/17 02:00 Radiology/Procedures Radiology/Procedures Acute abdominal series (3 views) interpreted by myself at 0140 AM shows metallic foreign body in the shape of a razor blade in the stomach. No free air noted. [facility] [address] [place] [address] IMAGING REPORT Signed PATIENT: ALYSSA PABLO ACCOUNT: [id number] : 1960 LOCATION: [facility] AGE: 56 SEX: M EXAM STATUS: ADM IN ORD. PHYSICIAN: BEATA ARREOLA MD REASON: ingested a razor blade PROCEDURE: CT ABDOMEN WO CONTRAST CT abdomen without contrast HISTORY: Ingested a razor blade foreign body COMPARISON: CT abdomen and pelvis of May 09, 2017. TECHNIQUE: Helical noncontrast imaging of the abdomen was acquired. FINDINGS: Abdomen demonstrates no pneumoperitoneum. Lung bases unremarkable. Cardiac pacemaker. Metallic foreign body within the stomach. 3 cm duodenal diverticulum at the head of the pancreas. Upper GI tract demonstrates no obstruction or inflammatory changes. Fatty pancreas. Cholecystectomy. Nephrolithiasis bilaterally 3 mm right renal lower pole dominant calculus no hydronephrosis. Adrenals, spleen, liver unremarkable. Calcified plaque aorta and iliac arteries. No abdominal fluid. 3 cm fatty umbilical abdominal wall hernia. Multilevel thoracic and lumbar disc disease and facet arthritis with spinal canal and neural foraminal stenoses and post surgical changes lower lumbar spine. Mild fat groundglass density likely due to disc bulge anteriorly at T10-T11. IMPRESSION: Ingested razor blade metallic foreign body within the stomach. No pneumoperitoneum. No abdominal fluid. Nephrolithiasis. Exposure: One or more of the following individualized dose reduction techniques were utilized for this examination: 1. Automated exposure control 2. Adjustment of the mA and/or kV according to patient size 3. Use of iterative reconstruction technique Electronically signed by: Rajesh Bailey MD (06/13/2017 2:59 AM) [facility] DICTATED and SIGNED BY: RAJESH BAILEY MD DATE: 06/13/17 0240 CC: BEATA ARREOLA MD; DUDLEY BELLAMY MD; NO PCP ~ Course & Med Decision Making Course & Med Decision Making Met patient upon arrival to room 21. Xrays immediately taken and confirmed an ingested razor. IV established. Kept NPO. GI contacted (Dr Morgan) at 0146 am: Leonard Disclaimer Leonard Disclaimer This electronic medical record was generated, in whole or in part, using a voice recognition dictation system. Departure Departure Impression: Primary Impression: Foreign body ingestion Disposition: 09 ADMITTED INPATIENT Condition: STABLE Referrals: NO PCP (PCP) Problem Qualifiers Primary Impression: Foreign body ingestion Encounter type: initial encounter Qualified Codes: T18.9XXA - Foreign body of alimentary tract, part unspecified, initial encounter BEATA ARREOLA MD Jun 13, 2017 01:47
[2017-06-13] MEDS ORDERED: IV NORMAL SALINE 1000ML BAG 1,000 ML IV SCH (02:00)
[2017-06-13] MEDS ORDERED: MORPHINE SULFATE 2 MG/ML DISP.SYRIN. IV PRN (02:15)
[2017-06-13] MEDS ORDERED: ONDANSETRON PF 4 MG/2 ML VIAL. IV PRN (02:15)
[2017-06-13 02:19] LABS: CALCIUM 9.2 mg/dL (8.5-10.1); CREATININE 1.2 mg/dL (0.7-1.3); GFR 62.6; POTASSIUM 3.3 mmol/L (3.5-5.1)
[2017-06-13 02:26] LABS: ALBUMIN 3.9 g/dL (3.4-5.0); BASO % 1 % (0-3); EOS % 3 % (0-3); HEMATOCRIT 44.7 % (39.0-53.0); HEMOGLOBIN 15.5 g/dL (13.0-17.5); LYMPH % 35 % (24-48); MEAN CORPUSCULAR HEMOGLOBIN 33 pg (25-35); MEAN CORPUSCULAR HGB CONC 35 g/dL (31-37); MEAN CORPUSCULAR VOLUME 95 fL (79-100); MONO % 10 % (0-9); NEUT % 52 % (31-73); PLATELET COUNT 208 x10^3/uL (140-400); RED BLOOD COUNT 4.71 x10^6/uL (4.30-5.70); RED CELL DISTRIBUTION WIDTH 13.9 % (11.5-14.5); TOTAL BILIRUBIN 0.4 mg/dL (0.2-1.0); TOTAL PROTEIN 7.9 g/dL (6.4-8.2); WHITE BLOOD COUNT 8.9 x10^3/uL (4.0-11.0)
[2017-06-13] MEDS ORDERED: POTASSIUM CL 20MEQ D5-0.45NACL 1,000 ML IV ONE (02:30)
[2017-06-13] MEDS ORDERED: ONDANSETRON PF 4 MG/2 ML VIAL. IV ONE (02:30)
[2017-06-13] MEDS ORDERED: HYDROmorphone 2 MG/ML VIAL IV ONE (02:30)
[2017-06-13 02:32] LABS: PROTHROMBIN TIME PATIENT 12.4 SEC (11.7-14.0)
[2017-06-13 02:50] VITALS: BP 144/76
--- NOTE | 2017-06-13 03:02 | RAD ---
CT abdomen without contrast HISTORY: Ingested a razor blade foreign body COMPARISON: CT abdomen and pelvis of May 09, 2017. TECHNIQUE: Helical noncontrast imaging of the abdomen was acquired. FINDINGS: Abdomen demonstrates no pneumoperitoneum. Lung bases unremarkable. Cardiac pacemaker. Metallic foreign body within the stomach. 3 cm duodenal diverticulum at the head of the pancreas. Upper GI tract demonstrates no obstruction or inflammatory changes. Fatty pancreas. Cholecystectomy. Nephrolithiasis bilaterally 3 mm right renal lower pole dominant calculus no hydronephrosis. Adrenals, spleen, liver unremarkable. Calcified plaque aorta and iliac arteries. No abdominal fluid. 3 cm fatty umbilical abdominal wall hernia. Multilevel thoracic and lumbar disc disease and facet arthritis with spinal canal and neural foraminal stenoses and post surgical changes lower lumbar spine. Mild fat groundglass density likely due to disc bulge anteriorly at T10-T11. IMPRESSION: Ingested razor blade metallic foreign body within the stomach. No pneumoperitoneum. No abdominal fluid. Nephrolithiasis. Exposure: One or more of the following individualized dose reduction techniques were utilized for this examination: 1. Automated exposure control 2. Adjustment of the mA and/or kV according to patient size 3. Use of iterative reconstruction technique Electronically signed by: Tenzin Bailey MD (06/13/2017 2:59 AM) [facility]
[2017-06-13] MEDS: fentaNYL PF VIAL 100 MCG/2 ML VIAL IV PRN ×5 (04:03→21:08)
[2017-06-13] MEDS ORDERED: INFLUENZA VAX SCREEN BY RX. MC STA (05:03)
--- NOTE | 2017-06-13 07:11 | RAD ---
Indication: Ingested a razor blade. Technique: Upright and supine abdomen contains [address] is from May 09, 2017. Findings: Bowel gas pattern is nonobstructive. There is no free air. There are 2 clips in the right upper quadrant, compatible with cholecystectomy and stable. There are postsurgical changes in the lumbar spine, stable. There is no radiopaque foreign body that is a change from prior CT. Impression: Negative for radiopaque foreign body.
--- NOTE | 2017-06-13 07:14 | RAD ---
Indication: Swallowed a razor blade. Technique: Abdominal series with PA chest radiograph contains 4 images. Findings: The lungs are clear. The heart is not enlarged. There is no heart failure. Pacemaker is noted. There is no free air. There is no dilated bowel loop. There is a metallic density in the left upper quadrant measuring about 2.5 cm in size compatible with ingested foreign body. Impression: Foreign body in the left upper quadrant, most likely in the stomach.
[2017-06-13] MEDS ORDERED: PROPOFOL 40 ML IV ONE (07:19)
[2017-06-13] MEDS ORDERED: fentaNYL PF VIAL 100 MCG/2 ML VIAL ONE (07:22)
--- NOTE | 2017-06-13 07:28 | PDOC2 ---
GI CONSULT Reason For Consult: Ingested foreign body. HPI: HPI: 56 y/o male who ingested by his history a double-edged razor blade ~2300 last evening wrapped in bread. CT early this morning shows in stomach. Abd series this morning pending, but I can't see anywhere in abdomen, so assume still in stomach. Denies abdominal pain. No h/o typical reflux symptoms or PUD. S/p yvette. Abnormal LFT's in past related to ETOH w/o documented cirrhosis, etc. No h/o pancreatitis. Smokes and drinks some. No major NSAID use. Usually no major bowel issues. H/o colonoscopy at in past couple of years. Tics on CT. Prior "intestinal surgery" for vomiting as child (pyloric stenosis?). PMH: PMH: ASHD/WV, PPM, HTN, anxiety. S/p yvette, right TKR, surgery as above, back /left shoulder, eye surgeries. FH: Family History: Cancer Social History: ALCOHOL: occassional Drugs: Crystal meth ROS: GEN: Denies fevers, chills, sweats HEENT: Denies blurred vision, sore throat CV: Denies chest pain RESP: Denies shortness of air, cough GI: Per HPI : Denies hematuria, dysuria ENDO: Denies weight changes NEURO: Denies confusion, dizziness MSK: Denies weakness, joint pain/swelling, back pain SKIN: Denies jaundice, pruritus Vitals: Vitals: Vital Signs Date Time Temp Pulse Resp B/P (MAP) Pulse Ox O2 Delivery O2 Flow Rate FiO2 06/13/17 07:07 90 18 93 06/13/17 04:33 Room Air 06/13/17 02:50 99.3 144/76 (98) 99.3 Labs: Labs: Laboratory Tests Test 06/13/17 02:00 White Blood Count 8.9 x10^3/uL (4.0-11.0) Red Blood Count 4.71 x10^6/uL (4.30-5.70) Hemoglobin 15.5 g/dL (13.0-17.5) Hematocrit 44.7 % (39.0-53.0) Mean Corpuscular Volume 95 fL (79-100) Mean Corpuscular Hemoglobin 33 pg (25-35) Mean Corpuscular Hemoglobin Concent 35 g/dL (31-37) Red Cell Distribution Width 13.9 % (11.5-14.5) Platelet Count 208 x10^3/uL (140-400) Neutrophils (%) (Auto) 52 % (31-73) Lymphocytes (%) (Auto) 35 % (24-48) Monocytes (%) (Auto) 10 % (0-9) Eosinophils (%) (Auto) 3 % (0-3) Basophils (%) (Auto) 1 % (0-3) Neutrophils # (Auto) 4.6 x10^3uL (1.8-7.7) Lymphocytes # (Auto) 3.0 x10^3/uL (1.0-4.8) Monocytes # (Auto) 0.9 x10^3/uL (0.0-1.1) Eosinophils # (Auto) 0.2 x10^3/uL (0.0-0.7) Basophils # (Auto) 0.0 x10^3/uL (0.0-0.2) Prothrombin Time 12.4 SEC (11.7-14.0) Prothromb Time International Ratio 1.0 (0.8-1.1) Activated Partial Thromboplast Time 30 SEC (24-38) Sodium Level 144 mmol/L (136-145) Potassium Level 3.3 mmol/L (3.5-5.1) Chloride Level 106 mmol/L (98-107) Carbon Dioxide Level 24 mmol/L (21-32) Anion Gap 14 (6-14) Blood Urea Nitrogen 20 mg/dL (8-26) Creatinine 1.2 mg/dL (0.7-1.3) Estimated GFR (Cockcroft-Gault) 62.6 BUN/Creatinine Ratio 17 (6-20) Glucose Level 105 mg/dL (70-99) Calcium Level 9.2 mg/dL (8.5-10.1) Total Bilirubin 0.4 mg/dL (0.2-1.0) Aspartate Amino Transf (AST/SGOT) 37 U/L (15-37) Alanine Aminotransferase (ALT/SGPT) 57 U/L (16-63) Alkaline Phosphatase 112 U/L (46-116) Total Protein 7.9 g/dL (6.4-8.2) Albumin 3.9 g/dL (3.4-5.0) Albumin/Globulin Ratio 1.0 (1.0-1.7) Allergies: Coded Allergies: alprazolam (Verified Allergy, Intermediate, 07/19/16) HALUCINATIONS diltiazem (Verified Allergy, Intermediate, HIVES, INTERMITTENTLY, 07/19/16 ) lorazepam (Verified Allergy, Intermediate, halucinations, 07/19/16) patients states has tolerated valium in the past morphine (Verified Allergy, Intermediate, HIVES, INTERMITTENTLY, 07/19/16) takes LORTAB at home, tolerates DILAUDID also. Haloperidol Lactate (Verified Adverse Reaction, Intermediate, dystonic reaction, 07/19/16) "Jaw comes out of socket" haloperidol (Verified Adverse Reaction, Intermediate, dystonic reaction, 07/19/16) "Jaw comes out of socket" tramadol (Verified Adverse Reaction, Intermediate, Hallucinationsper nurse , 07/19/16) Medications: Current Medications Medications (Trade) Dose Ordered Sig/Alan Route PRN Reason Start Time Stop Time Status Last Admin Dose Admin Sodium Chloride 1,000 ml @ 1,000 mls/hr Q1H IV 06/13/17 02:00 06/13/17 02:59 DC 06/13/17 02:23 Hydromorphone HCl (Dilaudid) 1 mg 1X ONCE IV 06/13/17 02:30 06/13/17 02:31 DC 06/13/17 02:23 Ondansetron HCl (Zofran) 4 mg 1X ONCE IV 06/13/17 02:30 06/13/17 02:31 DC 06/13/17 02:23 Potassium Chloride/Dextrose/ Sod Cl 1,000 ml @ 125 mls/hr 1X ONCE IV 06/13/17 02:30 06/13/17 10:29 06/13/17 02:22 Fentanyl Citrate (Fentanyl 2ml Vial) 50 mcg PRN Q3HRS PRN IV SEVERE PAIN 06/13/17 02:30 06/14/17 02:29 06/13/17 04:03 Imaging: Imaging: as above PE: GEN: NAD HEENT: Atraumatic, PERRLA LUNGS: CTAB HEART: RRR, no murmurs, PPM right infraclavicular area ABD: NABS, S/ND/NT, no masses, umbilical hernia EXTREMITY: No edema SKIN: No rashes, no jaundice, tattoos NEURO/PSYCH: A & O 3 A/P: A/P: IMP: Ingested foreign body, historically double-edged blade. H/o pyloric stenosis?, op'ed. Diverticulosis. REC: Unclear we will be able to remove if truly double-edged blade, but will make attempt. --other pending. DEBRA FIERRO MD Jun 13, 2017 07:28
[2017-06-13] MEDS ORDERED: ROCURONIUM 100 MG/10 ML VIAL. ONE (07:38)
--- NOTE | 2017-06-13 08:04 | PDOC4 ---
PROCEDURE Procedure EGD Indication: ingested FB Meds: GETA per anesthesia. Findings: E--normal. GEJ at 40cm. G--double-edged blade in fundus. Too large to fit in overtube; unable to remove w/o risk of esophageal/pharyngeal injury. Superficial lacerations in antrum from blade. Stomach otherwise normal. D--Normal to second portion. Tony. well. IMP: Ingested foreign body; unable to safely remove endoscopically. Doubtful this will pass stomach. REC: Surgery consult for operative removal; have discussed with Dr. Mccormack who will see later. Keep NPO. NO prokinetics!! DEBRA FIERRO MD Jun 13, 2017 08:04
[2017-06-13] MEDS ORDERED: FLU VACC QS2017-18 (36MOS+)/PF 0.5 ML SYRINGE. VAX IM ONE (09:00)
[2017-06-13 09:05] VITALS: BP 151/101
[2017-06-13] MEDS ORDERED: HALOPERIDOL LACTATE 5 MG/ML VIAL. IVP PRN (09:30)
[2017-06-13] MEDS ORDERED: NICOTINE 21MG PATCH. TD PRN (09:30)
[2017-06-13] MEDS ORDERED: CYCLOBENZAPRINE 10 MG TABLET. PO PRN (09:30)
--- NOTE | 2017-06-13 09:35 | PDOC1 ---
History and Physical Date of Admission Date of Admission DATE: 06/13/17 TIME: 09:24 Identification/Chief Complaint Chief Complaint swallowed razor blade Problems: Source Source: Chart review, Patient History of Present Illness History of Present Illness Mr Nancy Porter is a 56 year old male who presents with "I swallowed a razor blade. " someone dared him that he could not do this, and bet him a liter of vodka. He mashed an open double sided razor into some bread and swallowed the whole thing. He reports eating razor bladed most of his life and it was easier when he had teeth because he could chew them up " He states "I swallowed a lot of stuff in the past, gasoline, rat poisoning." He believed stomach acid would dissolve it. he is ambulatory this AM after EGD, he reports surgery is planned Past Medical History Cardiovascular: AFIB, HTN Pulmonary: Asthma, COPD GI: GERD Heme/Onc: Other Psych: Anxiety, Addictions, Depression Musculoskeletal: low back pain, Osteoarthritis Renal/: Benign prostatic enlarg. Past Surgical History Past Surgical History: Pacemaker, Appendectomy, Cholecystectomy, Hernia Repair , Total knee replacement Family History Family History: Cancer, Heart Disease, Hepatitis, Hypertension Social History Smoke: 1 pack per day ALCOHOL: heavy Drugs: Crystal meth Current Problem List Problem List Problems Medical Problems: (1) Foreign body ingestion Status: Acute Problems: Current Medications Current Medications Current Medications Sodium Chloride 1,000 ml @ 1,000 mls/hr Q1H IV Last administered on 02:23; Start 06/13/17 at 02:00; Stop 06/13/17 at 02:59; Status DC Hydromorphone HCl (Dilaudid) 1 mg 1X ONCE IV Last administered on 06/13/17 02:23; Start 06/13/17 at 02:30; Stop 06/13/17 at 02:31; Status DC Ondansetron HCl (Zofran) 4 mg 1X ONCE IV Last administered on 06/13/17 02:23 ; Start 06/13/17 at 02:30; Stop 06/13/17 at 02:31; Status DC Ondansetron HCl (Zofran) 4 mg PRN Q8HRS PRN IV NAUSEA/VOMITING; Start at 02:15; Stop 06/14/17 at 02:14 Morphine Sulfate 2 mg PRN Q2HR PRN IV PAIN; Start 06/13/17 at 02:15; Stop at 02:14; Status UNV Potassium Chloride/Dextrose/ Sod Cl 1,000 ml @ 125 mls/hr 1X ONCE IV Last administered on 06/13/17 02:22; Start 06/13/17 at 02:30; Stop 06/13/17 at 10 :29 Fentanyl Citrate (Fentanyl 2ml Vial) 50 mcg PRN Q3HRS PRN IV SEVERE PAIN Last administered on 06/13/17 08:45; Start 06/13/17 at 02:30; Stop 06/14/17 at 02 :29 Info (Do NOT chart on this placeholder) 1 each 1X STAT [facility] ; Start 06/13/17 at 05:03; Stop 06/13/17 at 05:04; Status UNV Influenza Virus Vaccine Quadrival (Fluarix Quad [id number] Syringe) 0.5 ml ONCE ONCE VAX IM ; Start 06/13/17 at 09:00; Stop 06/13/17 at 09:01; Status DC Propofol 40 ml @ As Directed STK-MED ONCE IV ; Start 06/13/17 at 07:19; Stop 06/13/17 at 07:20; Status DC Fentanyl Citrate (Fentanyl 2ml Vial) 100 mcg STK-MED ONCE .ROUTE ; Start at 07:22; Stop 06/13/17 at 07:23; Status DC Rocuronium [place] (Zemuron) 100 mg STK-MED ONCE .ROUTE ; Start 06/13/17 at 07: 38; Stop 06/13/17 at 07:39; Status DC Hydromorphone HCl (Dilaudid) 1 mg PRN Q4HRS PRN IVP PAIN; Start 06/13/17 at 09 :15 Active Scripts Active Oxycodone Hcl 10 Mg Tablet 2 Tab PO TID Reported Atorvastatin Calcium 80 Mg Tablet 1 Tab PO DAILY Coreg (Carvedilol) 25 Mg Tablet 1 Tab PO DAILY Losartan Potassium 50 Mg Tablet 50 Mg PO DAILY Allergies Allergies: Coded Allergies: alprazolam (Verified Allergy, Intermediate, 07/19/16) HALUCINATIONS diltiazem (Verified Allergy, Intermediate, HIVES, INTERMITTENTLY, 07/19/16 ) lorazepam (Verified Allergy, Intermediate, halucinations, 07/19/16) patients states has tolerated valium in the past morphine (Verified Allergy, Intermediate, HIVES, INTERMITTENTLY, 07/19/16) takes LORTAB at home, tolerates DILAUDID also. Haloperidol Lactate (Verified Adverse Reaction, Intermediate, dystonic reaction, 07/19/16) "Jaw comes out of socket" haloperidol (Verified Adverse Reaction, Intermediate, dystonic reaction, 07/19/16) "Jaw comes out of socket" tramadol (Verified Adverse Reaction, Intermediate, Hallucinationsper nurse , 07/19/16) ROS General: No: Chills, Night Sweats, Fatigue, Malaise, Appetite, Other PSYCHOLOGICAL ROS: No: Anxiety, Behavioral Disorder, Concentration difficultie , Decreased libido, Depression, Disorientation, Hallucinations, Hostility, Irritablity, Memory difficulties, Mood Swings, Obsessive thoughts, Physical abuse, Sexual abuse, Sleep disturbances, Suicidal ideation, Other Eyes: No Blurry vision, No Decreased vision, No Double vision, No Dry eyes, No Excessive tearing, No Eye Pain, No Itchy Eyes, No Loss of vision, No Photophobia , No Scotomata, No Uses contacts, No Uses glasses, No Other HEENT: YES: Heacaches Respiratory: No: Cough, Hemoptysis, Orthopnea, Pleuritic Pain, Shortness of breath, SOB with excertion, Sputum Changes, Stridor, Tachypnea, Wheezing, Other Cardiovascular: yes Chest Pain Gastrointestinal: Yes Abdominal Pain Musculoskeletal: Yes Gait Disturbance, Yes Joint Pain, Yes Joint Stiffness, Yes Muscle Pain, Yes Pain In: (back pain) Neurological: No Behavorial Changes, No Bowel/Bladder ControlChng, No Confusion , No Dizziness, No Gait Disturbance, No Headaches, No Impaired Coord/balance, No Memory Loss, No Numbness/Tingling, No Seizures, No Speech Problems, No Tremors, No Visual Changes, No Weakness, No Other Skin: No Dry Skin, No Eczema, No Hair Changes, No Lumps, No Mole Changes, No Mottling, No Nail Changes, No Pruritus, No Rash, No Skin Lesion Changes, No Other, No Acne Physical Exam General: Alert, Oriented X3, Cooperative, No acute distress HEENT: EOMI, Mucous membr. moist/pink Lungs: Clear to auscultation, Normal air movement Heart: no gallops, no murmurs Abdomen: Normal bowel sounds, Soft Rectal Exam: not examined Extremities: No clubbing, No edema, Normal pulses Skin: No rashes, No breakdown, No significant lesion Neuro: Normal gait, Normal speech, Normal tone, Sensation intact Psych/Mental Status: Mental status NL, Mood NL Vitals Vitals Vital Signs Date Time Temp Pulse Resp B/P (MAP) Pulse Ox O2 Delivery O2 Flow Rate FiO2 06/13/17 09:05 98.4 76 20 151/101 (118) 91 Room Air 98.4 Labs Labs Laboratory Tests Test 06/13/17 02:00 White Blood Count 8.9 x10^3/uL (4.0-11.0) Red Blood Count 4.71 x10^6/uL (4.30-5.70) Hemoglobin 15.5 g/dL (13.0-17.5) Hematocrit 44.7 % (39.0-53.0) Mean Corpuscular Volume 95 fL (79-100) Mean Corpuscular Hemoglobin 33 pg (25-35) Mean Corpuscular Hemoglobin Concent 35 g/dL (31-37) Red Cell Distribution Width 13.9 % (11.5-14.5) Platelet Count 208 x10^3/uL (140-400) Neutrophils (%) (Auto) 52 % (31-73) Lymphocytes (%) (Auto) 35 % (24-48) Monocytes (%) (Auto) 10 % (0-9) Eosinophils (%) (Auto) 3 % (0-3) Basophils (%) (Auto) 1 % (0-3) Neutrophils # (Auto) 4.6 x10^3uL (1.8-7.7) Lymphocytes # (Auto) 3.0 x10^3/uL (1.0-4.8) Monocytes # (Auto) 0.9 x10^3/uL (0.0-1.1) Eosinophils # (Auto) 0.2 x10^3/uL (0.0-0.7) Basophils # (Auto) 0.0 x10^3/uL (0.0-0.2) Prothrombin Time 12.4 SEC (11.7-14.0) Prothromb Time International Ratio 1.0 (0.8-1.1) Activated Partial Thromboplast Time 30 SEC (24-38) Sodium Level 144 mmol/L (136-145) Potassium Level 3.3 mmol/L (3.5-5.1) Chloride Level 106 mmol/L (98-107) Carbon Dioxide Level 24 mmol/L (21-32) Anion Gap 14 (6-14) Blood Urea Nitrogen 20 mg/dL (8-26) Creatinine 1.2 mg/dL (0.7-1.3) Estimated GFR (Cockcroft-Gault) 62.6 BUN/Creatinine Ratio 17 (6-20) Glucose Level 105 mg/dL (70-99) Calcium Level 9.2 mg/dL (8.5-10.1) Total Bilirubin 0.4 mg/dL (0.2-1.0) Aspartate Amino Transf (AST/SGOT) 37 U/L (15-37) Alanine Aminotransferase (ALT/SGPT) 57 U/L (16-63) Alkaline Phosphatase 112 U/L (46-116) Total Protein 7.9 g/dL (6.4-8.2) Albumin 3.9 g/dL (3.4-5.0) Albumin/Globulin Ratio 1.0 (1.0-1.7) Laboratory Tests Test 06/13/17 02:00 White Blood Count 8.9 x10^3/uL (4.0-11.0) Red Blood Count 4.71 x10^6/uL (4.30-5.70) Hemoglobin 15.5 g/dL (13.0-17.5) Hematocrit 44.7 % (39.0-53.0) Mean Corpuscular Volume 95 fL (79-100) Mean Corpuscular Hemoglobin 33 pg (25-35) Mean Corpuscular Hemoglobin Concent 35 g/dL (31-37) Red Cell Distribution Width 13.9 % (11.5-14.5) Platelet Count 208 x10^3/uL (140-400) Neutrophils (%) (Auto) 52 % (31-73) Lymphocytes (%) (Auto) 35 % (24-48) Monocytes (%) (Auto) 10 % (0-9) Eosinophils (%) (Auto) 3 % (0-3) Basophils (%) (Auto) 1 % (0-3) Neutrophils # (Auto) 4.6 x10^3uL (1.8-7.7) Lymphocytes # (Auto) 3.0 x10^3/uL (1.0-4.8) Monocytes # (Auto) 0.9 x10^3/uL (0.0-1.1) Eosinophils # (Auto) 0.2 x10^3/uL (0.0-0.7) Basophils # (Auto) 0.0 x10^3/uL (0.0-0.2) Prothrombin Time 12.4 SEC (11.7-14.0) Prothromb Time International Ratio 1.0 (0.8-1.1) Activated Partial Thromboplast Time 30 SEC (24-38) Sodium Level 144 mmol/L (136-145) Potassium Level 3.3 mmol/L (3.5-5.1) Chloride Level 106 mmol/L (98-107) Carbon Dioxide Level 24 mmol/L (21-32) Anion Gap 14 (6-14) Blood Urea Nitrogen 20 mg/dL (8-26) Creatinine 1.2 mg/dL (0.7-1.3) Estimated GFR (Cockcroft-Gault) 62.6 BUN/Creatinine Ratio 17 (6-20) Glucose Level 105 mg/dL (70-99) Calcium Level 9.2 mg/dL (8.5-10.1) Total Bilirubin 0.4 mg/dL (0.2-1.0) Aspartate Amino Transf (AST/SGOT) 37 U/L (15-37) Alanine Aminotransferase (ALT/SGPT) 57 U/L (16-63) Alkaline Phosphatase 112 U/L (46-116) Total Protein 7.9 g/dL (6.4-8.2) Albumin 3.9 g/dL (3.4-5.0) Albumin/Globulin Ratio 1.0 (1.0-1.7) VTE Prophylaxis Ordered VTE Prophylaxis Devices: No VTE Pharmacological Prophylaxi: Yes Assessment/Plan Assessment/Plan ingestion of open razor blade, not a suicide attempt ongoing psychosis from previous visits EtOH abuse and dependence prior meth abuse brain damage, NOS, years of odd behavior and strange admissions to this hospital, Malingering at best, but multiple self harm incident. bipolar maybe, or schizotypal or something. NOS DUDLEY BELLAMY MD Jun 13, 2017 09:34
[2017-06-13] MEDS ORDERED: MULTIVIT INFUSN,ADULT 4,VIT K 10 ML, THIAMINE 100 MG, FOLIC ACID 1 MG in IV NORMAL SALI... IV ONE (10:00)
[2017-06-13] MEDS: HYDROmorphone 2 MG/ML VIAL IVP PRN ×3 (10:39→23:07)
[2017-06-13 11:00] VITALS: BP 156/98
--- NOTE | 2017-06-13 11:00 | PDOC2 ---
ISABELL PORTILLO [facility] 06/13/17 1100: CONSULT Date of Consult Date of Consult DATE: 06/13/17 TIME: 10:54 Reason for Consult Reason for Consult: swallowed FB Referring Physician Referring Physician: Dr Morgan Identification/Chief Complaint Chief Complaint swallowed FB Problems: Source Source: Chart review, Patient History of Present Illness Reason for Visit: Swallowed razor blade wrapped in bread. Did this on a dare for alcohol. Reports he used to chew up razor bladed, before he lost his teeth. Denies abdominal pain. From records not his first episode of swallowing/ingesting non- food items No n/v, or hematemesis Past Medical History Cardiovascular: AFIB, HTN Pulmonary: Asthma, COPD GI: GERD Heme/Onc: Other Psych: Anxiety, Addictions, Depression Musculoskeletal: low back pain, Osteoarthritis Renal/: Benign prostatic enlarg. Past Surgical History Past Surgical History: Pacemaker, Appendectomy, Cholecystectomy, Hernia Repair , Total knee replacement Family History Family History: Cancer, Heart Disease, Hepatitis, Hypertension Social History 1 pack per day ALCOHOL: heavy Drugs: Crystal meth Current Problem List Problem List Problems Medical Problems: (1) Foreign body ingestion Status: Acute Current Medications Current Medications Current Medications Sodium Chloride 1,000 ml @ 1,000 mls/hr Q1H IV Last administered on 02:23; Start 06/13/17 at 02:00; Stop 06/13/17 at 02:59; Status DC Hydromorphone HCl (Dilaudid) 1 mg 1X ONCE IV Last administered on 06/13/17 02:23; Start 06/13/17 at 02:30; Stop 06/13/17 at 02:31; Status DC Ondansetron HCl (Zofran) 4 mg 1X ONCE IV Last administered on 06/13/17 02:23 ; Start 06/13/17 at 02:30; Stop 06/13/17 at 02:31; Status DC Ondansetron HCl (Zofran) 4 mg PRN Q8HRS PRN IV NAUSEA/VOMITING; Start at 02:15; Stop 06/14/17 at 02:14 Morphine Sulfate 2 mg PRN Q2HR PRN IV PAIN; Start 06/13/17 at 02:15; Stop at 02:14; Status UNV Potassium Chloride/Dextrose/ Sod Cl 1,000 ml @ 125 mls/hr 1X ONCE IV Last administered on 06/13/17t 02:22; Start 06/13/17 at 02:30; Stop 06/13/17 at 10 :29; Status DC Fentanyl Citrate (Fentanyl 2ml Vial) 50 mcg PRN Q3HRS PRN IV SEVERE PAIN Last administered on 06/13/17 08:45; Start 06/13/17 at 02:30; Stop 06/14/17 at 02 :29 Info (Do NOT chart on this placeholder) 1 each 1X STAT [facility] ; Start 06/13/17 at 05:03; Stop 06/13/17 at 05:04; Status UNV Influenza Virus Vaccine Quadrival (Fluarix Quad [id number] Syringe) 0.5 ml ONCE ONCE VAX IM ; Start 06/13/17 at 09:00; Stop 06/13/17 at 09:01; Status DC Propofol 40 ml @ As Directed STK-MED ONCE IV ; Start 06/13/17 at 07:19; Stop 06/13/17 at 07:20; Status DC Fentanyl Citrate (Fentanyl 2ml Vial) 100 mcg STK-MED ONCE .ROUTE ; Start at 07:22; Stop 06/13/17 at 07:23; Status DC Rocuronium [place] (Zemuron) 100 mg STK-MED ONCE .ROUTE ; Start 06/13/17 at 07: 38; Stop 06/13/17 at 07:39; Status DC Hydromorphone HCl (Dilaudid) 1 mg PRN Q4HRS PRN IVP PAIN Last administered on 06/13/17t 10:39; Start 06/13/17 at 09:15 Nicotine (Nicoderm Cq 21mg) 1 patch PRN DAILY PRN TD SMOKING CESSATION; Start 06/13/17 at 09:30 Nicotine Polacrilex (Nicorette Gum) 1 each PRN Q1HR PRN BC SMOKING CESSATION; Start 06/13/17 at 09:30 Cyclobenzaprine HCl (Flexeril) 10 mg PRN Q6HRS PRN PO MUSCLE SPASMS; Start at 09:30 Multivitamins 10 ml/Thiamine HCl 100 mg/Folic Acid 1 mg/Sodium Chloride 1,011.2 ml @ 100 mls/ hr 1X ONCE IV ; Start 06/13/17 at 10:00; Stop 06/13/17 at 20: 06 Lorazepam (Ativan) 2 mg PRN Q1HR PRN IV For CIWA 8-14; Start 06/13/17 at 09:30 Lorazepam (Ativan) 4 mg PRN Q1HR PRN IV For CIWA 15 or greater; Start at 09:30 Haloperidol Lactate (Haldol) 5 mg PRN Q4HRS PRN IVP Hallucinatns,Confusn, Delirium; Start 06/13/17 at 09:30; Status UNV Potassium Chloride 100 ml @ 100 mls/hr Q1H IV ; Start 06/13/17 at 10:00; Stop 06/13/17 at 11:59 Active Scripts Active Oxycodone Hcl 10 Mg Tablet 2 Tab PO TID Reported Atorvastatin Calcium 80 Mg Tablet 1 Tab PO DAILY Coreg (Carvedilol) 25 Mg Tablet 1 Tab PO DAILY Losartan Potassium 50 Mg Tablet 50 Mg PO DAILY Allergies Allergies: Coded Allergies: alprazolam (Verified Allergy, Intermediate, 07/19/16) HALUCINATIONS diltiazem (Verified Allergy, Intermediate, HIVES, INTERMITTENTLY, 07/19/16 ) lorazepam (Verified Allergy, Intermediate, halucinations, 07/19/16) patients states has tolerated valium in the past morphine (Verified Allergy, Intermediate, HIVES, INTERMITTENTLY, 07/19/16) takes LORTAB at home, tolerates DILAUDID also. Haloperidol Lactate (Verified Adverse Reaction, Intermediate, dystonic reaction, 07/19/16) "Jaw comes out of socket" haloperidol (Verified Adverse Reaction, Intermediate, dystonic reaction, 07/19/16) "Jaw comes out of socket" tramadol (Verified Adverse Reaction, Intermediate, Hallucinationsper nurse , 07/19/16) ROS General: No: Chills, Other (fevers) PSYCHOLOGICAL ROS: No: Anxiety, Depression Eyes: No Blurry vision, No Double vision HEENT: No: Heacaches, Sore Throat Hematological and Lymphatic: No: Bleeding Problems, Blood Clots Respiratory: No: Cough Cardiovascular: No Chest Pain, No Palpitations Gastrointestinal: No Abdominal Pain, No Melena Genitourinary: YES Dysuria, YES Retention Musculoskeletal: Yes Joint Pain (hip), No Muscular Weakness Neurological: No Impaired Coord/balance, No Numbness/Tingling Skin: No Pruritus, No Rash Physical Exam General: Alert, Oriented X3, Cooperative, No acute distress HEENT: PERRLA, Mucous membr. moist/pink Lungs: Clear to auscultation, Normal air movement Heart: Regular rate, Normal S1, Normal S2, No murmurs Abdomen: Soft, Other (ND, NTTP, RUQ scar, umbilical hernia, soft, reducible ) Extremities: No clubbing, No cyanosis Skin: No rashes, No breakdown Neuro: Normal gait, Normal speech Psych/Mental Status: Mental status NL, Mood NL MUSCULOSKELETAL: No deformity, No swelling Vitals VITALS Vital Signs Date Time Temp Pulse Resp B/P (MAP) Pulse Ox O2 Delivery O2 Flow Rate FiO2 06/13/17 10:39 91 Room Air 06/13/17 09:05 98.4 76 20 151/101 (118) 98.4 Labs Labs Laboratory Tests Test 06/13/17 02:00 White Blood Count 8.9 x10^3/uL (4.0-11.0) Red Blood Count 4.71 x10^6/uL (4.30-5.70) Hemoglobin 15.5 g/dL (13.0-17.5) Hematocrit 44.7 % (39.0-53.0) Mean Corpuscular Volume 95 fL (79-100) Mean Corpuscular Hemoglobin 33 pg (25-35) Mean Corpuscular Hemoglobin Concent 35 g/dL (31-37) Red Cell Distribution Width 13.9 % (11.5-14.5) Platelet Count 208 x10^3/uL (140-400) Neutrophils (%) (Auto) 52 % (31-73) Lymphocytes (%) (Auto) 35 % (24-48) Monocytes (%) (Auto) 10 % (0-9) Eosinophils (%) (Auto) 3 % (0-3) Basophils (%) (Auto) 1 % (0-3) Neutrophils # (Auto) 4.6 x10^3uL (1.8-7.7) Lymphocytes # (Auto) 3.0 x10^3/uL (1.0-4.8) Monocytes # (Auto) 0.9 x10^3/uL (0.0-1.1) Eosinophils # (Auto) 0.2 x10^3/uL (0.0-0.7) Basophils # (Auto) 0.0 x10^3/uL (0.0-0.2) Prothrombin Time 12.4 SEC (11.7-14.0) Prothromb Time International Ratio 1.0 (0.8-1.1) Activated Partial Thromboplast Time 30 SEC (24-38) Sodium Level 144 mmol/L (136-145) Potassium Level 3.3 mmol/L (3.5-5.1) Chloride Level 106 mmol/L (98-107) Carbon Dioxide Level 24 mmol/L (21-32) Anion Gap 14 (6-14) Blood Urea Nitrogen 20 mg/dL (8-26) Creatinine 1.2 mg/dL (0.7-1.3) Estimated GFR (Cockcroft-Gault) 62.6 BUN/Creatinine Ratio 17 (6-20) Glucose Level 105 mg/dL (70-99) Calcium Level 9.2 mg/dL (8.5-10.1) Total Bilirubin 0.4 mg/dL (0.2-1.0) Aspartate Amino Transf (AST/SGOT) 37 U/L (15-37) Alanine Aminotransferase (ALT/SGPT) 57 U/L (16-63) Alkaline Phosphatase 112 U/L (46-116) Total Protein 7.9 g/dL (6.4-8.2) Albumin 3.9 g/dL (3.4-5.0) Albumin/Globulin Ratio 1.0 (1.0-1.7) Laboratory Tests Test 06/13/17 02:00 White Blood Count 8.9 x10^3/uL (4.0-11.0) Red Blood Count 4.71 x10^6/uL (4.30-5.70) Hemoglobin 15.5 g/dL (13.0-17.5) Hematocrit 44.7 % (39.0-53.0) Mean Corpuscular Volume 95 fL (79-100) Mean Corpuscular Hemoglobin 33 pg (25-35) Mean Corpuscular Hemoglobin Concent 35 g/dL (31-37) Red Cell Distribution Width 13.9 % (11.5-14.5) Platelet Count 208 x10^3/uL (140-400) Neutrophils (%) (Auto) 52 % (31-73) Lymphocytes (%) (Auto) 35 % (24-48) Monocytes (%) (Auto) 10 % (0-9) Eosinophils (%) (Auto) 3 % (0-3) Basophils (%) (Auto) 1 % (0-3) Neutrophils # (Auto) 4.6 x10^3uL (1.8-7.7) Lymphocytes # (Auto) 3.0 x10^3/uL (1.0-4.8) Monocytes # (Auto) 0.9 x10^3/uL (0.0-1.1) Eosinophils # (Auto) 0.2 x10^3/uL (0.0-0.7) Basophils # (Auto) 0.0 x10^3/uL (0.0-0.2) Prothrombin Time 12.4 SEC (11.7-14.0) Prothromb Time International Ratio 1.0 (0.8-1.1) Activated Partial Thromboplast Time 30 SEC (24-38) Sodium Level 144 mmol/L (136-145) Potassium Level 3.3 mmol/L (3.5-5.1) Chloride Level 106 mmol/L (98-107) Carbon Dioxide Level 24 mmol/L (21-32) Anion Gap 14 (6-14) Blood Urea Nitrogen 20 mg/dL (8-26) Creatinine 1.2 mg/dL (0.7-1.3) Estimated GFR (Cockcroft-Gault) 62.6 BUN/Creatinine Ratio 17 (6-20) Glucose Level 105 mg/dL (70-99) Calcium Level 9.2 mg/dL (8.5-10.1) Total Bilirubin 0.4 mg/dL (0.2-1.0) Aspartate Amino Transf (AST/SGOT) 37 U/L (15-37) Alanine Aminotransferase (ALT/SGPT) 57 U/L (16-63) Alkaline Phosphatase 112 U/L (46-116) Total Protein 7.9 g/dL (6.4-8.2) Albumin 3.9 g/dL (3.4-5.0) Albumin/Globulin Ratio 1.0 (1.0-1.7) Images Images imaging reviewed Assessment/Plan Assessment/Plan Ingestion FB, razor blade, endoscopic attempted removal(in stomach at that time) --unable benign abdominal exam will review with Dr Mccormack, kept NPO JD MCCORMACK MD 06/13/17 1221: CONSULT Allergies Allergies: Coded Allergies: alprazolam (Verified Allergy, Intermediate, 07/19/16) HALUCINATIONS diltiazem (Verified Allergy, Intermediate, HIVES, INTERMITTENTLY, 07/19/16 ) lorazepam (Verified Allergy, Intermediate, halucinations, 07/19/16) patients states has tolerated valium in the past morphine (Verified Allergy, Intermediate, HIVES, INTERMITTENTLY, 07/19/16) takes LORTAB at home, tolerates DILAUDID also. Haloperidol Lactate (Verified Adverse Reaction, Intermediate, dystonic reaction, 07/19/16) "Jaw comes out of socket" haloperidol (Verified Adverse Reaction, Intermediate, dystonic reaction, 07/19/16) "Jaw comes out of socket" tramadol (Verified Adverse Reaction, Intermediate, Hallucinationsper nurse , 07/19/16) Assessment/Plan Assessment/Plan Pt seen and examined; history as above, pt reports some long standing RLQ pain , but otherwise states he's hungry. PMH/PSH/ROS/SH as above; exam: alert, oriented, unusual affect, no scleral icterus, poor dentition, lungs clear, heart RR and R, abdomen obese, soft, healed R abdominal scar, umbilical hernia containing fat, ext neg for edema or deformity. X rays and labs reviewed; A/P ) Ingested razor blade, photos reviewed, large sharp foreign object, unable to withdraw endoscopically; can plan surgical removal, requires gastrotomy; I attempted to explain the details and risks of surgery to the patient. The risks include bleeding, infection, visceral injury, gastric leak, pain, anesthetic risk, potential need for additional surgery or procedure. His ability to fully understand the magnitude of the problem seems limited, surprising nonchalance. ISABELL PORTILLO APRN Jun 13, 2017 11:00 JD MCCORMACK MD Jun 13, 2017 12:21
[2017-06-13] MEDS ORDERED: NEOSTIGMINE METHYLSULFATE 5 MG/5 ML SYRINGE. ONE (12:00)
[2017-06-13] MEDS ORDERED: LIDOCAINE 2% 100 MG/5 ML SYRINGE. ONE (12:00)
[2017-06-13] MEDS ORDERED: SUCCINYLCHOLINE 200 MG/10 ML VIAL. ONE (12:00)
[2017-06-13] MEDS: POTASSIUM CHLORIDE 10MEQ 100 ML IV SCH ×2 (12:09→14:40)
[2017-06-13] MEDS ORDERED: diphenhydrAMINE 50 MG/ML VIAL IVP ONE (12:45)
[2017-06-13 15:00] VITALS: BP 138/99
[2017-06-13 19:25] VITALS: BP 146/111
[2017-06-13] MEDS: NICOTINE POLACRILEX 2MG GUM PACKAGE of 12. BC PRN (21:30)
[2017-06-13 23:20] VITALS: BP 149/94
[2017-06-14 01:00] VITALS: BP 155/88
[2017-06-14] MEDS: fentaNYL PF VIAL 100 MCG/2 ML VIAL IV PRN (01:01)
[2017-06-14] MEDS ORDERED: IPRATRPIUM/ALBUTEROL 0.5/2.5MG 3 ML NEBU. NEB ONE (01:30)
--- NOTE | 2017-06-14 03:19 | RAD ---
AP abdomen x-ray HISTORY: Increased abdominal pain after swallowing a razor blade one day ago. COMPARISON: CT abdomen June 13, 2017. FINDINGS: The flanks and lung bases are outside the [id number]. Cholecystectomy clips. Surgical changes lumbar spine. Moderate volume of stool within the right colon. No dilated bowel loops. The metallic foreign body within the stomach on prior CT imaging is not apparent on this x-ray and may been removed endoscopically. If the razor blade was not removed endoscopically then it is possible that either it has passed since the prior exam or is radiographically occult. IMPRESSION: See discussion above. Electronically signed by: Tenzin Bailey MD (06/14/2017 3:15 AM) [id number]
[2017-06-14 03:20] VITALS: BP 155/88
[2017-06-14] MEDS: HYDROmorphone 2 MG/ML VIAL IVP PRN (03:56)
[2017-06-14] MEDS: NICOTINE POLACRILEX 2MG GUM PACKAGE of 12. BC PRN (03:58)
[2017-06-14] MEDS ORDERED: BUPIVAC MPF-EPI 0.5%-1:200000 10 ML VIAL. ONE (06:12)
[2017-06-14] MEDS ORDERED: MORPHINE SULFATE 2 MG/ML DISP.SYRIN. IV PRN (07:00)
[2017-06-14] MEDS ORDERED: fentaNYL PF VIAL 100 MCG/2 ML VIAL IV PRN ×2 (07:00)
[2017-06-14] MEDS ORDERED: LIDOCAINE 1% PF 2 ML VIAL. ID PRN (07:00)
[2017-06-14] MEDS ORDERED: ONDANSETRON PF 4 MG/2 ML VIAL. IV PRN (07:00)
[2017-06-14] MEDS ORDERED: IV RINGERS,LACTATED 1000ML 1,000 ML IV SCH (07:00)
[2017-06-14] MEDS ORDERED: PROCHLORPERAZINE 10 MG/2 ML VIAL. IV PRN (07:00)
[2017-06-14] MEDS ORDERED: LIDOCAINE 2% PF Vial for OR 5 ML VIAL. ONE (07:18)
[2017-06-14] MEDS ORDERED: DEXAMETHASONE SOD PHOS 20 MG/5 ML VIAL. ONE (07:18)
[2017-06-14] MEDS ORDERED: PROPOFOL 20 ML IV ONE (07:18)
[2017-06-14] MEDS ORDERED: ONDANSETRON PF 4 MG/2 ML VIAL. ONE (07:18)
[2017-06-14] MEDS ORDERED: fentaNYL PF VIAL 100 MCG/2 ML VIAL ONE ×2 (07:19→08:35)
[2017-06-14] MEDS ORDERED: SUCCINYLCHOLINE 200 MG/10 ML VIAL. ONE ×2 (07:20→08:15)
[2017-06-14] MEDS ORDERED: GLYCOPYRROLATE 1 MG/5 ML VIAL. ONE (07:27)
[2017-06-14] MEDS ORDERED: ROCURONIUM 100 MG/10 ML VIAL. ONE (07:47)
[2017-06-14] MEDS ORDERED: PHENYLEPHRINE in 0.9% NACL PF 1 MG/10 ML DISP.SYRIN. IV ONE (08:24)
[2017-06-14] MEDS ORDERED: METOPROLOL TARTRATE 5 MG/5 ML VIAL. ONE (08:52)
[2017-06-14] MEDS: HYDROmorphone 2 MG/ML VIAL IV PRN ×4 (08:57→09:51)
--- NOTE | 2017-06-14 09:19 | PDOC ---
PROGRESS NOTES Subjective Subjective FB removed endoscopically by Dr rBown in [place] Objective Objective Vital Signs Date Time Temp Pulse Resp B/P (MAP) Pulse Ox O2 Delivery O2 Flow Rate FiO2 06/14/17 09:00 97.5 74 20 137/86 96 Room Air 97.5 06/14/17 08:45 10 Intake and Output 06/15/17 07:00 Output Total 40 ml Balance -40 ml Output Urine Total 40 ml Assessment Assessment Problems Medical Problems: (1) Foreign body ingestion Status: Acute Plan Plan of Care FB removed endoscopically by Dr Brown, advance diet Comment Review of Relevant I have reviewed the following items mercedez (where applicable) has been applied. Labs Laboratory Tests Test 06/13/17 02:00 White Blood Count 8.9 x10^3/uL (4.0-11.0) Red Blood Count 4.71 x10^6/uL (4.30-5.70) Hemoglobin 15.5 g/dL (13.0-17.5) Hematocrit 44.7 % (39.0-53.0) Mean Corpuscular Volume 95 fL (79-100) Mean Corpuscular Hemoglobin 33 pg (25-35) Mean Corpuscular Hemoglobin Concent 35 g/dL (31-37) Red Cell Distribution Width 13.9 % (11.5-14.5) Platelet Count 208 x10^3/uL (140-400) Neutrophils (%) (Auto) 52 % (31-73) Lymphocytes (%) (Auto) 35 % (24-48) Monocytes (%) (Auto) 10 % (0-9) Eosinophils (%) (Auto) 3 % (0-3) Basophils (%) (Auto) 1 % (0-3) Neutrophils # (Auto) 4.6 x10^3uL (1.8-7.7) Lymphocytes # (Auto) 3.0 x10^3/uL (1.0-4.8) Monocytes # (Auto) 0.9 x10^3/uL (0.0-1.1) Eosinophils # (Auto) 0.2 x10^3/uL (0.0-0.7) Basophils # (Auto) 0.0 x10^3/uL (0.0-0.2) Prothrombin Time 12.4 SEC (11.7-14.0) Prothromb Time International Ratio 1.0 (0.8-1.1) Activated Partial Thromboplast Time 30 SEC (24-38) Sodium Level 144 mmol/L (136-145) Potassium Level 3.3 mmol/L (3.5-5.1) Chloride Level 106 mmol/L (98-107) Carbon Dioxide Level 24 mmol/L (21-32) Anion Gap 14 (6-14) Blood Urea Nitrogen 20 mg/dL (8-26) Creatinine 1.2 mg/dL (0.7-1.3) Estimated GFR (Cockcroft-Gault) 62.6 BUN/Creatinine Ratio 17 (6-20) Glucose Level 105 mg/dL (70-99) Calcium Level 9.2 mg/dL (8.5-10.1) Total Bilirubin 0.4 mg/dL (0.2-1.0) Aspartate Amino Transf (AST/SGOT) 37 U/L (15-37) Alanine Aminotransferase (ALT/SGPT) 57 U/L (16-63) Alkaline Phosphatase 112 U/L (46-116) Total Protein 7.9 g/dL (6.4-8.2) Albumin 3.9 g/dL (3.4-5.0) Albumin/Globulin Ratio 1.0 (1.0-1.7) Medications Current Medications Sodium Chloride 1,000 ml @ 1,000 mls/hr Q1H IV Last administered on 02:23; Start 06/13/17 at 02:00; Stop 06/13/17 at 02:59; Status DC Hydromorphone HCl (Dilaudid) 1 mg 1X ONCE IV Last administered on 06/13/17 02:23; Start 06/13/17 at 02:30; Stop 06/13/17 at 02:31; Status DC Ondansetron HCl (Zofran) 4 mg 1X ONCE IV Last administered on 06/13/17 02:23 ; Start 06/13/17 at 02:30; Stop 06/13/17 at 02:31; Status DC Ondansetron HCl (Zofran) 4 mg PRN Q8HRS PRN IV NAUSEA/VOMITING; Start at 02:15; Stop 06/14/17 at 02:14; Status DC Morphine Sulfate 2 mg PRN Q2HR PRN IV PAIN; Start 06/13/17 at 02:15; Stop at 02:14; Status UNV Potassium Chloride/Dextrose/ Sod Cl 1,000 ml @ 125 mls/hr 1X ONCE IV Last administered on 06/13/17 02:22; Start 06/13/17 at 02:30; Stop 06/13/17 at 10 :29; Status DC Fentanyl Citrate (Fentanyl 2ml Vial) 50 mcg PRN Q3HRS PRN IV SEVERE PAIN Last administered on 06/14/17 01:01; Start 06/13/17 at 02:30; Stop 06/14/17 at 02 :29; Status DC Info (Do NOT chart on this placeholder) 1 each 1X STAT MC ; Start 06/13/17 at 05:03; Stop 06/13/17 at 05:04; Status UNV Influenza Virus Vaccine Quadrival (Fluarix Quad [id number] Syringe) 0.5 ml ONCE ONCE VAX IM Last administered on 06/13/17 14:39; Start 06/13/17 at 09:00; Stop 06/13/17 at 09:01; Status DC Propofol 40 ml @ As Directed STK-MED ONCE IV ; Start 06/13/17 at 07:19; Stop 06/13/17 at 07:20; Status DC Fentanyl Citrate (Fentanyl 2ml Vial) 100 mcg STK-MED ONCE .ROUTE ; Start at 07:22; Stop 06/13/17 at 07:23; Status DC Rocuronium [place] (Zemuron) 100 mg STK-MED ONCE .ROUTE ; Start 06/13/17 at 07: 38; Stop 06/13/17 at 07:39; Status DC Hydromorphone HCl (Dilaudid) 1 mg PRN Q4HRS PRN IVP PAIN Last administered on 06/14/17 03:56; Start 06/13/17 at 09:15 Nicotine (Nicoderm Cq 21mg) 1 patch PRN DAILY PRN TD SMOKING CESSATION Last administered on 06/13/17 12:21; Start 06/13/17 at 09:30 Nicotine Polacrilex (Nicorette Gum) 1 each PRN Q1HR PRN BC SMOKING CESSATION Last administered on 06/14/17 03:58; Start 06/13/17 at 09:30 Cyclobenzaprine HCl (Flexeril) 10 mg PRN Q6HRS PRN PO MUSCLE SPASMS; Start at 09:30 Multivitamins 10 ml/Thiamine HCl 100 mg/Folic Acid 1 mg/Sodium Chloride 1,011.2 ml @ 100 mls/ hr 1X ONCE IV Last administered on 06/13/17t 15:00; Start at 10:00; Stop 06/13/17 at 20:06; Status DC Lorazepam (Ativan) 2 mg PRN Q1HR PRN IV For CIWA 8-14; Start 06/13/17 at 09:30 Lorazepam (Ativan) 4 mg PRN Q1HR PRN IV For CIWA 15 or greater; Start at 09:30 Haloperidol Lactate (Haldol) 5 mg PRN Q4HRS PRN IVP Hallucinatns,Confusn, Delirium; Start 06/13/17 at 09:30; Stop 06/13/17 at 11:46; Status DC Potassium Chloride 100 ml @ 100 mls/hr Q1H IV Last administered on 06/13/17t 14:40; Start 06/13/17 at 10:00; Stop 06/13/17 at 11:59; Status DC Diphenhydramine HCl (Benadryl) 50 mg 1X ONCE IVP Last administered on t 12:56; Start 06/13/17 at 12:45; Stop 06/13/17 at 12:46; Status DC Cefazolin Sodium/ Dextrose 50 ml @ 100 mls/hr 1X ONCE IV ; Start 06/13/17 at 13:00; Stop 06/13/17 at 13:29; Status Cancel Cefazolin Sodium/ Dextrose 50 ml @ 100 mls/hr 1X ONCE IV ; Start 06/14/17 at 07:00; Stop 06/14/17 at 07:29; Status DC Ondansetron HCl (Zofran) 4 mg PRN Q6HRS PRN IV NAUSEA/VOMITING; Start at 07:00; Stop 06/15/17 at 06:59 Fentanyl Citrate (Fentanyl 2ml Vial) 25 mcg PRN Q5MIN PRN IV MILD PAIN; Start 06/14/17 at 07:00; Stop 06/15/17 at 06:59 Fentanyl Citrate (Fentanyl 2ml Vial) 50 mcg PRN Q5MIN PRN IV MODERATE PAIN; Start 06/14/17 at 07:00; Stop 06/15/17 at 06:59 Morphine Sulfate 1 mg PRN Q10MIN PRN IV SEVERE PAIN; Start 06/14/17 at 07:00; Stop 06/15/17 at 06:59; Status UNV Ringer's Solution 1,000 ml @ 30 mls/hr Q24H IV Last administered on 07:12; Start 06/14/17 at 07:00; Stop 06/14/17 at 18:59 Lidocaine HCl (Xylocaine-Mpf 1% Vial) 2 ml PRN 1X PRN ID PRIOR TO IV START; Start 06/14/17 at 07:00; Stop 06/15/17 at 06:59 Hydromorphone HCl (Dilaudid) 0.5 mg PRN Q10MIN PRN IV SEV PAIN, Second choice Last administered on 06/14/17 08:57; Start 06/14/17 at 07:00; Stop 06/15/17 at 06:59 Prochlorperazine Edisylate (Compazine) 5 mg PACU PRN PRN IV NAUSEA, MRX1; Start 06/14/17 at 07:00; Stop 06/15/17 at 06:59 Albuterol/ Ipratropium (Duoneb) 3 ml 1X ONCE NEB Last administered on 01:15; Start 06/14/17 at 01:30; Stop 06/14/17 at 01:31; Status DC Bupivacaine HCl/ Epinephrine Bitart (Sensorcain-Mpf Epi 0.5%-1:641104) 10 ml STK -MED ONCE .ROUTE Last administered on 06/14/17 08:09; Start 06/14/17 at 06: 12; Stop 06/14/17 at 07:12; Status DC Dexamethasone Sodium Phosphate (Decadron) 20 mg STK-MED ONCE .ROUTE ; Start at 07:18; Stop 06/14/17 at 07:19; Status DC Lidocaine HCl (Lidocaine Pf 2% Vial) 5 ml STK-MED ONCE .ROUTE ; Start 06/14/17 at 07:18; Stop 06/14/17 at 07:19; Status DC Ondansetron HCl (Zofran) 4 mg STK-MED ONCE .ROUTE ; Start 06/14/17 at 07:18; Stop 06/14/17 at 07:19; Status DC Propofol 20 ml @ As Directed STK-MED ONCE IV ; Start 06/14/17 at 07:18; Stop 06/14/17 at 07:19; Status DC Fentanyl Citrate (Fentanyl 2ml Vial) 100 mcg STK-MED ONCE .ROUTE ; Start at 07:19; Stop 06/14/17 at 07:20; Status DC Succinylcholine Chloride (Anectine) 200 mg STK-MED ONCE .ROUTE ; Start at 07:20; Stop 06/14/17 at 07:21; Status DC Glycopyrrolate (Robinul) 1 mg STK-MED ONCE .ROUTE ; Start 06/14/17 at 07:27; Stop 06/14/17 at 07:28; Status DC Rocuronium [place] (Zemuron) 100 mg STK-MED ONCE .ROUTE ; Start 06/14/17 at 07: 47; Stop 06/14/17 at 07:48; Status DC Succinylcholine Chloride (Anectine) 200 mg STK-MED ONCE .ROUTE ; Start at 08:15; Stop 06/14/17 at 08:16; Status DC Phenylephrine HCl 1 mg STK-MED ONCE IV ; Start 06/14/17 at 08:24; Stop at 08:25; Status DC Fentanyl Citrate (Fentanyl 2ml Vial) 100 mcg STK-MED ONCE .ROUTE ; Start at 08:35; Stop 06/14/17 at 08:36; Status DC Metoprolol Tartrate (Lopressor) 5 mg STK-MED ONCE .ROUTE ; Start 06/14/17 at 08 :52; Stop 06/14/17 at 08:53; Status DC Active Scripts Active Oxycodone Hcl 10 Mg Tablet 2 Tab PO TID Reported Atorvastatin Calcium 80 Mg Tablet 1 Tab PO DAILY Coreg (Carvedilol) 25 Mg Tablet 1 Tab PO DAILY Losartan Potassium 50 Mg Tablet 50 Mg PO DAILY Vitals/I & O Vital Sign - Last 24 Hours 06/13/17 06/13/17 06/13/17 06/13/17 10:39 11:00 12:02 14:40 Temp 98.5 98.5 Pulse 85 Resp 20 B/P (MAP) 156/98 (117) Pulse Ox 91 92 92 92 O2 Delivery Room Air Room Air Room Air Room Air 06/13/17 06/13/17 06/13/17 06/13/17 15:00 15:52 19:25 19:44 Temp 98.4 97.9 98.4 97.9 Pulse 78 85 Resp 20 18 B/P (MAP) 138/99 (112) 146/111 (123) Pulse Ox 96 96 95 96 O2 Delivery Room Air Room Air Room Air 06/13/17 06/13/17 06/13/17 06/13/17 19:44 20:00 21:08 21:38 Resp 16 18 Pulse Ox 96 O2 Delivery Room Air Room Air Nasal Cannula 06/13/17 06/13/17 06/14/17 06/14/17 23:07 23:20 01:01 01:15 Temp 98.3 98.3 Pulse 71 Resp 17 20 18 B/P (MAP) 149/94 (112) Pulse Ox 97 98 O2 Delivery Room Air Room Air Room Air Room Air 06/14/17 06/14/17 06/14/17 06/14/17 03:20 04:25 07:19 08:45 Temp 97.7 97.3 98.0 97.7 97.3 98.0 Pulse 77 73 70 Resp 24 17 20 20 B/P (MAP) 155/88 (110) 152/87 137/83 Pulse Ox 98 96 99 O2 Delivery Room Air Room Air Room Air Simple Mask O2 Flow Rate 10 06/14/17 06/14/17 06/14/17 08:45 08:57 09:00 Temp 97.5 97.5 Pulse 74 Resp 20 20 B/P (MAP) 137/86 Pulse Ox 98 96 O2 Delivery Mask Room Air Room Air O2 Flow Rate 10 Intake and Output 06/14/17 06/14/17 06/15/17 15:00 23:00 07:00 Output Total 40 ml Balance -40 ml JD SALTER MD Jun 14, 2017 09:19
--- NOTE | 2017-06-14 09:29 | PDOC ---
G I PROGRESS NOTE Review of Relevant I have reviewed the following items mercedez (where applicable) has been applied. Labs Laboratory Tests Test 06/13/17 02:00 White Blood Count 8.9 x10^3/uL (4.0-11.0) Red Blood Count 4.71 x10^6/uL (4.30-5.70) Hemoglobin 15.5 g/dL (13.0-17.5) Hematocrit 44.7 % (39.0-53.0) Mean Corpuscular Volume 95 fL (79-100) Mean Corpuscular Hemoglobin 33 pg (25-35) Mean Corpuscular Hemoglobin Concent 35 g/dL (31-37) Red Cell Distribution Width 13.9 % (11.5-14.5) Platelet Count 208 x10^3/uL (140-400) Neutrophils (%) (Auto) 52 % (31-73) Lymphocytes (%) (Auto) 35 % (24-48) Monocytes (%) (Auto) 10 % (0-9) Eosinophils (%) (Auto) 3 % (0-3) Basophils (%) (Auto) 1 % (0-3) Neutrophils # (Auto) 4.6 x10^3uL (1.8-7.7) Lymphocytes # (Auto) 3.0 x10^3/uL (1.0-4.8) Monocytes # (Auto) 0.9 x10^3/uL (0.0-1.1) Eosinophils # (Auto) 0.2 x10^3/uL (0.0-0.7) Basophils # (Auto) 0.0 x10^3/uL (0.0-0.2) Prothrombin Time 12.4 SEC (11.7-14.0) Prothromb Time International Ratio 1.0 (0.8-1.1) Activated Partial Thromboplast Time 30 SEC (24-38) Sodium Level 144 mmol/L (136-145) Potassium Level 3.3 mmol/L (3.5-5.1) Chloride Level 106 mmol/L (98-107) Carbon Dioxide Level 24 mmol/L (21-32) Anion Gap 14 (6-14) Blood Urea Nitrogen 20 mg/dL (8-26) Creatinine 1.2 mg/dL (0.7-1.3) Estimated GFR (Cockcroft-Gault) 62.6 BUN/Creatinine Ratio 17 (6-20) Glucose Level 105 mg/dL (70-99) Calcium Level 9.2 mg/dL (8.5-10.1) Total Bilirubin 0.4 mg/dL (0.2-1.0) Aspartate Amino Transf (AST/SGOT) 37 U/L (15-37) Alanine Aminotransferase (ALT/SGPT) 57 U/L (16-63) Alkaline Phosphatase 112 U/L (46-116) Total Protein 7.9 g/dL (6.4-8.2) Albumin 3.9 g/dL (3.4-5.0) Albumin/Globulin Ratio 1.0 (1.0-1.7) Medications Current Medications Sodium Chloride 1,000 ml @ 1,000 mls/hr Q1H IV Last administered on 02:23; Start 06/13/17 at 02:00; Stop 06/13/17 at 02:59; Status DC Hydromorphone HCl (Dilaudid) 1 mg 1X ONCE IV Last administered on 06/13/17 02:23; Start 06/13/17 at 02:30; Stop 06/13/17 at 02:31; Status DC Ondansetron HCl (Zofran) 4 mg 1X ONCE IV Last administered on 06/13/17 02:23 ; Start 06/13/17 at 02:30; Stop 06/13/17 at 02:31; Status DC Ondansetron HCl (Zofran) 4 mg PRN Q8HRS PRN IV NAUSEA/VOMITING; Start at 02:15; Stop 06/14/17 at 02:14; Status DC Morphine Sulfate 2 mg PRN Q2HR PRN IV PAIN; Start 06/13/17 at 02:15; Stop at 02:14; Status UNV Potassium Chloride/Dextrose/ Sod Cl 1,000 ml @ 125 mls/hr 1X ONCE IV Last administered on 06/13/17 02:22; Start 06/13/17 at 02:30; Stop 06/13/17 at 10 :29; Status DC Fentanyl Citrate (Fentanyl 2ml Vial) 50 mcg PRN Q3HRS PRN IV SEVERE PAIN Last administered on 06/14/17 01:01; Start 06/13/17 at 02:30; Stop 06/14/17 at 02 :29; Status DC Info (Do NOT chart on this placeholder) 1 each 1X STAT MC ; Start 06/13/17 at 05:03; Stop 06/13/17 at 05:04; Status UNV Influenza Virus Vaccine Quadrival (Fluarix Quad [id number] Syringe) 0.5 ml ONCE ONCE VAX IM Last administered on 06/13/17 14:39; Start 06/13/17 at 09:00; Stop 06/13/17 at 09:01; Status DC Propofol 40 ml @ As Directed STK-MED ONCE IV ; Start 06/13/17 at 07:19; Stop 06/13/17 at 07:20; Status DC Fentanyl Citrate (Fentanyl 2ml Vial) 100 mcg STK-MED ONCE .ROUTE ; Start at 07:22; Stop 06/13/17 at 07:23; Status DC Rocuronium [place] (Zemuron) 100 mg STK-MED ONCE .ROUTE ; Start 06/13/17 at 07: 38; Stop 06/13/17 at 07:39; Status DC Hydromorphone HCl (Dilaudid) 1 mg PRN Q4HRS PRN IVP PAIN Last administered on 06/14/17 03:56; Start 06/13/17 at 09:15 Nicotine (Nicoderm Cq 21mg) 1 patch PRN DAILY PRN TD SMOKING CESSATION Last administered on 06/13/17 12:21; Start 06/13/17 at 09:30 Nicotine Polacrilex (Nicorette Gum) 1 each PRN Q1HR PRN BC SMOKING CESSATION Last administered on 06/14/17 03:58; Start 06/13/17 at 09:30 Cyclobenzaprine HCl (Flexeril) 10 mg PRN Q6HRS PRN PO MUSCLE SPASMS; Start at 09:30 Multivitamins 10 ml/Thiamine HCl 100 mg/Folic Acid 1 mg/Sodium Chloride 1,011.2 ml @ 100 mls/ hr 1X ONCE IV Last administered on 06/13/17 15:00; Start at 10:00; Stop 06/13/17 at 20:06; Status DC Lorazepam (Ativan) 2 mg PRN Q1HR PRN IV For CIWA 8-14; Start 06/13/17 at 09:30 Lorazepam (Ativan) 4 mg PRN Q1HR PRN IV For CIWA 15 or greater; Start at 09:30 Haloperidol Lactate (Haldol) 5 mg PRN Q4HRS PRN IVP Hallucinatns,Confusn, Delirium; Start 06/13/17 at 09:30; Stop 06/13/17 at 11:46; Status DC Potassium Chloride 100 ml @ 100 mls/hr Q1H IV Last administered on 06/13/17 14:40; Start 06/13/17 at 10:00; Stop 06/13/17 at 11:59; Status DC Diphenhydramine HCl (Benadryl) 50 mg 1X ONCE IVP Last administered on 12:56; Start 06/13/17 at 12:45; Stop 06/13/17 at 12:46; Status DC Cefazolin Sodium/ Dextrose 50 ml @ 100 mls/hr 1X ONCE IV ; Start 06/13/17 at 13:00; Stop 06/13/17 at 13:29; Status Cancel Cefazolin Sodium/ Dextrose 50 ml @ 100 mls/hr 1X ONCE IV ; Start 06/14/17 at 07:00; Stop 06/14/17 at 07:29; Status DC Ondansetron HCl (Zofran) 4 mg PRN Q6HRS PRN IV NAUSEA/VOMITING; Start at 07:00; Stop 06/15/17 at 06:59 Fentanyl Citrate (Fentanyl 2ml Vial) 25 mcg PRN Q5MIN PRN IV MILD PAIN; Start 06/14/17 at 07:00; Stop 06/15/17 at 06:59 Fentanyl Citrate (Fentanyl 2ml Vial) 50 mcg PRN Q5MIN PRN IV MODERATE PAIN; Start 06/14/17 at 07:00; Stop 06/15/17 at 06:59 Morphine Sulfate 1 mg PRN Q10MIN PRN IV SEVERE PAIN; Start 06/14/17 at 07:00; Stop 06/15/17 at 06:59; Status UNV Ringer's Solution 1,000 ml @ 30 mls/hr Q24H IV Last administered on 07:12; Start 06/14/17 at 07:00; Stop 06/14/17 at 18:59 Lidocaine HCl (Xylocaine-Mpf 1% Vial) 2 ml PRN 1X PRN ID PRIOR TO IV START; Start 06/14/17 at 07:00; Stop 06/15/17 at 06:59 Hydromorphone HCl (Dilaudid) 0.5 mg PRN Q10MIN PRN IV SEV PAIN, Second choice Last administered on 06/14/17 09:19; Start 06/14/17 at 07:00; Stop 06/15/17 at 06:59 Prochlorperazine Edisylate (Compazine) 5 mg PACU PRN PRN IV NAUSEA, MRX1; Start 06/14/17 at 07:00; Stop 06/15/17 at 06:59 Albuterol/ Ipratropium (Duoneb) 3 ml 1X ONCE NEB Last administered on 01:15; Start 06/14/17 at 01:30; Stop 06/14/17 at 01:31; Status DC Bupivacaine HCl/ Epinephrine Bitart (Sensorcain-Mpf Epi 0.5%-1:415317) 10 ml STK -MED ONCE .ROUTE Last administered on 06/14/17 08:09; Start 06/14/17 at 06: 12; Stop 06/14/17 at 07:12; Status DC Dexamethasone Sodium Phosphate (Decadron) 20 mg STK-MED ONCE .ROUTE ; Start at 07:18; Stop 06/14/17 at 07:19; Status DC Lidocaine HCl (Lidocaine Pf 2% Vial) 5 ml STK-MED ONCE .ROUTE ; Start 06/14/17 at 07:18; Stop 06/14/17 at 07:19; Status DC Ondansetron HCl (Zofran) 4 mg STK-MED ONCE .ROUTE ; Start 06/14/17 at 07:18; Stop 06/14/17 at 07:19; Status DC Propofol 20 ml @ As Directed STK-MED ONCE IV ; Start 06/14/17 at 07:18; Stop 06/14/17 at 07:19; Status DC Fentanyl Citrate (Fentanyl 2ml Vial) 100 mcg STK-MED ONCE .ROUTE ; Start at 07:19; Stop 06/14/17 at 07:20; Status DC Succinylcholine Chloride (Anectine) 200 mg STK-MED ONCE .ROUTE ; Start at 07:20; Stop 06/14/17 at 07:21; Status DC Glycopyrrolate (Robinul) 1 mg STK-MED ONCE .ROUTE ; Start 06/14/17 at 07:27; Stop 06/14/17 at 07:28; Status DC Rocuronium [place] (Zemuron) 100 mg STK-MED ONCE .ROUTE ; Start 06/14/17 at 07: 47; Stop 06/14/17 at 07:48; Status DC Succinylcholine Chloride (Anectine) 200 mg STK-MED ONCE .ROUTE ; Start at 08:15; Stop 06/14/17 at 08:16; Status DC Phenylephrine HCl 1 mg STK-MED ONCE IV ; Start 06/14/17 at 08:24; Stop at 08:25; Status DC Fentanyl Citrate (Fentanyl 2ml Vial) 100 mcg STK-MED ONCE .ROUTE ; Start at 08:35; Stop 06/14/17 at 08:36; Status DC Metoprolol Tartrate (Lopressor) 5 mg STK-MED ONCE .ROUTE ; Start 06/14/17 at 08 :52; Stop 06/14/17 at 08:53; Status DC Pantoprazole Sodium (Protonix) 40 mg DAILYAC PO ; Start 06/14/17 at 10:00 Active Scripts Active Oxycodone Hcl 10 Mg Tablet 2 Tab PO TID Reported Atorvastatin Calcium 80 Mg Tablet 1 Tab PO DAILY Coreg (Carvedilol) 25 Mg Tablet 1 Tab PO DAILY Losartan Potassium 50 Mg Tablet 50 Mg PO DAILY Vitals/I & O Vital Sign - Last 24 Hours 06/13/17 06/13/17 06/13/17 06/13/17 10:39 11:00 12:02 14:40 Temp 98.5 98.5 Pulse 85 Resp 20 B/P (MAP) 156/98 (117) Pulse Ox 91 92 92 92 O2 Delivery Room Air Room Air Room Air Room Air 06/13/17 06/13/17 06/13/17 06/13/17 15:00 15:52 19:25 19:44 Temp 98.4 97.9 98.4 97.9 Pulse 78 85 Resp 20 18 B/P (MAP) 138/99 (112) 146/111 (123) Pulse Ox 96 96 95 96 O2 Delivery Room Air Room Air Room Air 06/13/17 06/13/17 06/13/17 06/13/17 19:44 20:00 21:08 21:38 Resp 16 18 Pulse Ox 96 O2 Delivery Room Air Room Air Nasal Cannula 06/13/17 06/13/17 06/14/17 06/14/17 23:07 23:20 01:01 01:15 Temp 98.3 98.3 Pulse 71 Resp 17 20 18 B/P (MAP) 149/94 (112) Pulse Ox 97 98 O2 Delivery Room Air Room Air Room Air Room Air 06/14/17 06/14/17 06/14/17 06/14/17 03:20 04:25 07:19 08:45 Temp 97.7 97.3 98.0 97.7 97.3 98.0 Pulse 77 73 70 Resp 24 17 20 20 B/P (MAP) 155/88 (110) 152/87 137/83 Pulse Ox 98 96 99 O2 Delivery Room Air Room Air Room Air Simple Mask O2 Flow Rate 10 06/14/17 06/14/17 06/14/17 06/14/17 08:45 08:57 09:00 09:15 Temp 97.5 97.5 Pulse 74 76 Resp 20 20 20 B/P (MAP) 137/86 136/88 Pulse Ox 98 96 96 O2 Delivery Mask Room Air Room Air Room Air O2 Flow Rate 10 06/14/17 09:19 Pulse Ox 96 Intake and Output 06/14/17 06/14/17 06/15/17 14:59 22:59 06:59 Output Total 40 ml Balance -40 ml Problem List Problems Medical Problems: (1) Foreign body ingestion Status: Acute Assessment Note removed in OR. Plan of Care: Continue current Tx, Mgmt DEBRA FIERRO MD Jun 14, 2017 09:29
[2017-06-14] MEDS ORDERED: PANTOPRAZOLE 40 MG TABLET.DR. PO SCH (10:00)
--- NOTE | 2017-06-14 10:55 | PDOC3 ---
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 possible bipolar or schizotypal or something. I cannot understand this rafat NOSProblems Medical Problems: (1) Foreign body ingestion Status: Acute Brief Hospital Course Allergies Allergies Coded Allergies Type Severity Reaction Last Updated Verified alprazolam Allergy Intermediate 06/14/17 Yes diltiazem Allergy Intermediate HIVES, INTERMITTENTLY 06/14/17 Yes lorazepam Allergy Intermediate halucinations 06/14/17 Yes morphine Allergy Intermediate HIVES, INTERMITTENTLY 06/14/17 Yes Haloperidol Lactate Adverse Reaction Intermediate dystonic reaction 06/14/17 Yes haloperidol Adverse Reaction Intermediate dystonic reaction 06/14/17 Yes tramadol Adverse Reaction Intermediate Hallucinationsper nurse 06/14/17 Yes Vital Signs Vital Signs Date Time Temp Pulse Resp B/P (MAP) Pulse Ox O2 Delivery O2 Flow Rate FiO2 06/14/17 10:39 Room Air 06/14/17 10:00 75 20 158/96 96 06/14/17 09:00 97.5 97.5 06/14/17 08:45 10 Lab Results Laboratory Tests Test 06/13/17 02:00 White Blood Count 8.9 x10^3/uL (4.0-11.0) Red Blood Count 4.71 x10^6/uL (4.30-5.70) Hemoglobin 15.5 g/dL (13.0-17.5) Hematocrit 44.7 % (39.0-53.0) Mean Corpuscular Volume 95 fL (79-100) Mean Corpuscular Hemoglobin 33 pg (25-35) Mean Corpuscular Hemoglobin Concent 35 g/dL (31-37) Red Cell Distribution Width 13.9 % (11.5-14.5) Platelet Count 208 x10^3/uL (140-400) Neutrophils (%) (Auto) 52 % (31-73) Lymphocytes (%) (Auto) 35 % (24-48) Monocytes (%) (Auto) 10 % (0-9) Eosinophils (%) (Auto) 3 % (0-3) Basophils (%) (Auto) 1 % (0-3) Neutrophils # (Auto) 4.6 x10^3uL (1.8-7.7) Lymphocytes # (Auto) 3.0 x10^3/uL (1.0-4.8) Monocytes # (Auto) 0.9 x10^3/uL (0.0-1.1) Eosinophils # (Auto) 0.2 x10^3/uL (0.0-0.7) Basophils # (Auto) 0.0 x10^3/uL (0.0-0.2) Prothrombin Time 12.4 SEC (11.7-14.0) Prothromb Time International Ratio 1.0 (0.8-1.1) Activated Partial Thromboplast Time 30 SEC (24-38) Sodium Level 144 mmol/L (136-145) Potassium Level 3.3 mmol/L (3.5-5.1) Chloride Level 106 mmol/L (98-107) Carbon Dioxide Level 24 mmol/L (21-32) Anion Gap 14 (6-14) Blood Urea Nitrogen 20 mg/dL (8-26) Creatinine 1.2 mg/dL (0.7-1.3) Estimated GFR (Cockcroft-Gault) 62.6 BUN/Creatinine Ratio 17 (6-20) Glucose Level 105 mg/dL (70-99) Calcium Level 9.2 mg/dL (8.5-10.1) Total Bilirubin 0.4 mg/dL (0.2-1.0) Aspartate Amino Transf (AST/SGOT) 37 U/L (15-37) Alanine Aminotransferase (ALT/SGPT) 57 U/L (16-63) Alkaline Phosphatase 112 U/L (46-116) Total Protein 7.9 g/dL (6.4-8.2) Albumin 3.9 g/dL (3.4-5.0) Albumin/Globulin Ratio 1.0 (1.0-1.7) Brief Hospital Course Mr. Porter is a 56 old swallowed a large double sided open razor blade on a bet. Was get a liter of vodka that he couldnt do it. EGD was a remarkable picture Gen surg, surgically removed, and the patient has zero remorse for this incident, Discharge Information Condition at Discharge: Improved Follow Up: Weeks Disposition/Orders: D/C to Home Scheduled Atorvastatin Calcium (Atorvastatin Calcium), 1 TAB PO DAILY, (Reported) Carvedilol (Coreg), 1 TAB PO DAILY, (Reported) Losartan Potassium (Losartan Potassium), 50 MG PO DAILY, (Reported) Oxycodone Hcl (Oxycodone Hcl), 2 TAB PO TID Patient Instructions Patient Instructions face to face talk DUDLEY BELLAMY MD Jun 14, 2017 10:55
[2017-06-14 11:00] VITALS: BP 162/103
[2017-06-14] MEDS ORDERED: DESFLURANE UP TO 15 MINUTES. IH ONE (12:20)
[2017-06-14] MEDS ORDERED: DESFLURANE 16 TO 30 MINUTES. IH ONE (12:20)
== END 2017-06-14 11:40 | disposition home or self-care (01) | DRG 394 ==
LOC: ER 01:23 → 6 SOUTH 02:00
PROVIDERS: ADMIT Internal Medicine; ATTEND Internal Medicine
PROC: 0DJ08ZZ Inspection of Upper Intestinal Tract, Via Natural or Artificial Opening Endoscopic (ICD-10-PCS; principal; 2017-06-13 07:00)
PROC: 0DC68ZZ Extirpation of Matter from Stomach, Via Natural or Artificial Opening Endoscopic (ICD-10-PCS; 2017-06-14)
DX: T18.2XXA Foreign body in stomach, initial encounter (principal); S36.33XA Laceration of stomach, initial encounter; I48.91 Unspecified atrial fibrillation; G93.9 Disorder of brain, unspecified; F10.20 Alcohol dependence, uncomplicated; F15.10 Other stimulant abuse, uncomplicated; F17.210 Nicotine dependence, cigarettes, uncomplicated; F29 Unspecified psychosis not due to a substance or known physiological condition; I10 Essential (primary) hypertension; I25.10 Atherosclerotic heart disease of native coronary artery without angina pectoris; J44.9 Chronic obstructive pulmonary disease, unspecified; K21.9 Gastro-esophageal reflux disease without esophagitis; F31.9 Bipolar disorder, unspecified; N20.0 Calculus of kidney; Y90.0 Blood alcohol level of less than 20 mg/100 ml; X58.XXXA Exposure to other specified factors, initial encounter; K57.90 Diverticulosis of intestine, part unspecified, without perforation or abscess without bleeding; F15.90 Other stimulant use, unspecified, uncomplicated; M19.90 Unspecified osteoarthritis, unspecified site; F11.90 Opioid use, unspecified, uncomplicated; W26.8XXA Contact with other sharp object(s), not elsewhere classified, initial encounter; Z96.651 Presence of right artificial knee joint; Z76.5 Malingerer [conscious simulation]; Z82.49 Family history of ischemic heart disease and other diseases of the circulatory system; Z86.73 Personal history of transient ischemic attack (TIA), and cerebral infarction without residual deficits; Z90.49 Acquired absence of other specified parts of digestive tract; Z95.0 Presence of cardiac pacemaker; Y93.89 Activity, other specified; Y92.89 Other specified places as the place of occurrence of the external cause; Y99.8 Other external cause status; Z88.8 Allergy status to other drugs, medicaments and biological substances; I25.2 Old myocardial infarction
CPT/HCPCS: 36415; 74000; 74020; 74022; 74150; 80053; 85025; 85610; 85730; 86850; 86900; 86901; 90686; 94250; 94640; 96374; 96375; J0330; J0690; J1100; J1170; J1200; J2370; J2405; J2704; J2710; J3010; J3480; J3490; J7030; J7120; J7620; 99285-25; J2001

== ENCOUNTER 2017-10-17 09:30 | Emergency (ER) | payer OTHER ==
[2017-10-17 10:26] LABS: ADD MAN DIFF? NO
[2017-10-17 10:30] LABS: BASO % 0 % (0-3); EOS # 0.2 x10^3/uL (0.0-0.7); EOS % 2 % (0-3); HEMOGLOBIN 14.4 g/dL (13.0-17.5); LYMPH # 2.1 x10^3/uL (1.0-4.8); LYMPH % 24 % (24-48); MEAN CORPUSCULAR HEMOGLOBIN 32 pg (25-35); MEAN CORPUSCULAR HGB CONC 34 g/dL (31-37); MEAN CORPUSCULAR VOLUME 95 fL (79-100); MONO # 1.2 x10^3/uL (0.0-1.1); MONO % 14 % (0-9); NEUT # 5.1 x10^3uL (1.8-7.7); NEUT % 60 % (31-73); PLATELET COUNT 182 x10^3/uL (140-400); RED BLOOD COUNT 4.53 x10^6/uL (4.30-5.70); RED CELL DISTRIBUTION WIDTH 13.2 % (11.5-14.5); WHITE BLOOD COUNT 8.6 x10^3/uL (4.0-11.0)
[2017-10-17] MEDS: KETOROLAC 30 MG/ML INJ. IV ×2 (10:30)
[2017-10-17] MEDS: ONDANSETRON PF 4 MG/2 ML VIAL. IV ×2 (10:30)
[2017-10-17 10:40] LABS: INR 0.9 (0.8-1.1); PROTHROMBIN TIME PATIENT 11.8 SEC (11.7-14.0)
[2017-10-17 10:46] LABS: D-DIMER 0.96 ug/mlFEU (0.00-0.50)
[2017-10-17 10:47] LABS: ANION GAP 12 (6-14); BLOOD UREA NITROGEN 30 mg/dL (8-26); BUN/CREATININE RATIO 19 (6-20); CALCIUM 9.5 mg/dL (8.5-10.1); CARBON DIOXIDE 28 mmol/L (21-32); CHLORIDE 99 mmol/L (98-107); CREATININE 1.6 mg/dL (0.7-1.3); GFR 44.9; GLUCOSE 143 mg/dL (70-99); POTASSIUM 3.6 mmol/L (3.5-5.1); SODIUM 139 mmol/L (136-145)
[2017-10-17] MEDS ORDERED: ONDANSETRON ODT 4 MG TAB.RAPDIS. ×2 (10:48)
[2017-10-17] MEDS ORDERED: KETOROLAC 60 MG/2 ML INJ. ×2 (10:48)
[2017-10-17 10:53] LABS: TROPONINI 0.019 ng/mL (0.000-0.055)
[2017-10-17 10:53] LABS: ALK PHOS 125 U/L (46-116); ALT (SGPT) 126 U/L (16-63); AST (SGOT) 224 U/L (15-37); LIPASE 53 U/L (73-393); MAGNESIUM 1.9 mg/dL (1.8-2.4); TOTAL BILIRUBIN 0.4 mg/dL (0.2-1.0)
[2017-10-17] MEDS: diphenhydrAMINE 50 MG/ML VIAL IVP ×2 (10:54)
[2017-10-17 11:02] LABS: THYROID STIM HORMONE (TSH) 2.029 uIU/mL (0.358-3.74)
[2017-10-17] MEDS ORDERED: CONTRAST GIVEN MC ×2 (11:15)
[2017-10-17 11:21] LABS: CKMB MASS 4.6 ng/mL (0.0-3.6)
[2017-10-17 11:22] LABS: NT-PRO BNP 69 pg/mL (0-124)
[2017-10-17] MEDS: IOHEXOL 300 MG/ML 100ML VIAL. IV ×2 (11:26)
[2017-10-17 11:44] LABS: CREATINE KINASE 11616 U/L (39-308)
[2017-10-17] MEDS: DEXAMETHASONE SOD PHOS 20 MG/5 ML VIAL. IV ×2 (12:45)
[2017-10-17] MEDS: METHOCARBAMOL 500 MG TABLET PO ×2 (13:22)
== END 2017-10-17 13:29 | disposition home or self-care (01) ==
LOC: ER 09:30
DX: G89.29 Other chronic pain (principal); M54.5 Low back pain; E78.00 Pure hypercholesterolemia, unspecified; I25.2 Old myocardial infarction; I10 Essential (primary) hypertension; I48.91 Unspecified atrial fibrillation; F11.10 Opioid abuse, uncomplicated; F15.10 Other stimulant abuse, uncomplicated; Z95.0 Presence of cardiac pacemaker; Z86.73 Personal history of transient ischemic attack (TIA), and cerebral infarction without residual deficits; Z90.49 Acquired absence of other specified parts of digestive tract; Z98.890 Other specified postprocedural states; Z88.5 Allergy status to narcotic agent; Z88.6 Allergy status to analgesic agent; Z88.8 Allergy status to other drugs, medicaments and biological substances
CPT/HCPCS: 36415; 71045; 71275; 74175; 80053; 82553; 83690; 83735; 83880; 84443; 84484; 85025; 85379; 85610; 93005; 96374; 96375; 99285-25; J1200; J1885; J2405; Q9967

== ENCOUNTER 2017-11-10 04:59 | Inpatient (IN) | payer OTHER ==
[2017-11-10] MEDS ORDERED: ONDANSETRON PF 4 MG/2 ML VIAL. (05:54)
[2017-11-10] MEDS: ONDANSETRON PF 4 MG/2 ML VIAL. IV (05:57)
[2017-11-10 06:18] LABS: TROPONINI < 0.017 ng/mL (0.000-0.055)
[2017-11-10 06:52] LABS: ADD MAN DIFF? NO
[2017-11-10 06:58] LABS: BASO % 0 % (0-3); EOS # 0.3 x10^3/uL (0.0-0.7); EOS % 3 % (0-3); HEMATOCRIT 36.5 % (39.0-53.0); HEMOGLOBIN 12.6 g/dL (13.0-17.5); LYMPH # 1.8 x10^3/uL (1.0-4.8); LYMPH % 21 % (24-48); MEAN CORPUSCULAR HEMOGLOBIN 32 pg (25-35); MEAN CORPUSCULAR HGB CONC 34 g/dL (31-37); MEAN CORPUSCULAR VOLUME 93 fL (79-100); MONO % 12 % (0-9); NEUT # 5.4 x10^3uL (1.8-7.7); NEUT % 64 % (31-73); PLATELET COUNT 147 x10^3/uL (140-400); RED BLOOD COUNT 3.93 x10^6/uL (4.30-5.70); RED CELL DISTRIBUTION WIDTH 12.9 % (11.5-14.5); WHITE BLOOD COUNT 8.4 x10^3/uL (4.0-11.0)
[2017-11-10 07:08] LABS: ALBUMIN 3.5 g/dL (3.4-5.0); ALK PHOS 94 U/L (46-116); ALT (SGPT) 60 U/L (16-63); ANION GAP 10 (6-14); AST (SGOT) 35 U/L (15-37); BLOOD UREA NITROGEN 15 mg/dL (8-26); BUN/CREATININE RATIO 12 (6-20); CALCIUM 8.8 mg/dL (8.5-10.1); CARBON DIOXIDE 28 mmol/L (21-32); CHLORIDE 102 mmol/L (98-107); CREATININE 1.3 mg/dL (0.7-1.3); GFR 57.1; GLUCOSE 173 mg/dL (70-99); LIPASE 44 U/L (73-393); SODIUM 140 mmol/L (136-145); TOTAL BILIRUBIN 0.3 mg/dL (0.2-1.0); TOTAL PROTEIN 6.9 g/dL (6.4-8.2)
[2017-11-10 07:11] LABS: POTASSIUM 2.7 mmol/L (3.5-5.1)
[2017-11-10 07:32] LABS: MAGNESIUM 1.9 mg/dL (1.8-2.4)
[2017-11-10] MEDS: POTASSIUM CHLORIDE 20 MEQ/15 ML ORAL LIQUID. PO (07:52)
[2017-11-10] MEDS ORDERED: ONDANSETRON PF 4 MG/2 ML VIAL. IV (08:00)
[2017-11-10] MEDS ORDERED: ACETAMINOPHEN 325 MG TABLET. PO (08:00)
[2017-11-10 11:21] LABS: TROPONINI < 0.017 ng/mL (0.000-0.055)
[2017-11-10] MEDS ORDERED: DOCUSATE SODIUM 100 MG CAPSULE. PO (12:00)
[2017-11-10] MEDS: POLYETHYLENE GLYCOL 3350 17 GM PACKET. PO (12:49)
[2017-11-10 14:18] LABS: TROPONINI < 0.017 ng/mL (0.000-0.055)
[2017-11-10] MEDS ORDERED: BISACODYL 10 MG SUPP.RECT. PR (14:30)
[2017-11-10] MEDS ORDERED: MAGNESIUM HYDROXIDE 2,400 MG/30 ML ORAL.SUSP. PO (14:30)
[2017-11-10] MEDS: GABAPENTIN 400 MG CAPSULE. PO ×2 (14:43→21:18)
[2017-11-10] MEDS: POTASSIUM CHLORIDE 20 MEQ TABLET.ER. PO (14:43)
[2017-11-10] MEDS: LOSARTAN POTASSIUM 50 MG TABLET. PO (14:46)
[2017-11-10] MEDS: hydroCHLOROthiazide 25 MG TABLET PO (14:47)
[2017-11-10] MEDS: DOCUSATE SODIUM 100 MG CAPSULE. PO (14:48)
[2017-11-10] MEDS: oxyCODONE IR 5 MG TABLET PO ×2 (14:48→21:16)
[2017-11-10] MEDS: MAGNESIUM CITRATE 296 ML SOLUTION. PO (15:45)
[2017-11-10] MEDS: SODIUM PHOSPHATES 19/7GM 133 ML ENEMA. PR (15:45)
[2017-11-10] MEDS: ALBUTEROL SULFATE 2.5 MG/3 ML NEBU. NEB (18:00)
[2017-11-10] MEDS: methylPREDNISolone 4 MG TABLET. PO ×2 (18:30→21:17)
[2017-11-10] MEDS: BUDESONIDE 0.5 MG/2 ML NEBU. NEB (19:51)
[2017-11-10] MEDS ORDERED: oxyCODONE IR 5 MG TABLET PO ×2 (21:00)
[2017-11-10] MEDS: CARISOPRODOL 350 MG TABLET PO (21:00)
[2017-11-10] MEDS ORDERED: NON FORMULARY ITEM (Fluticasone/Salmeterol (Advair 250-50 Diskus) 1 PUFF) IH (21:00)
[2017-11-10] MEDS: PANTOPRAZOLE 40 MG TABLET.DR. PO (21:19)
[2017-11-10] MEDS: ATORVASTATIN CALCIUM 40 MG TABLET. PO (21:21)
[2017-11-11 04:31] LABS: ADD MAN DIFF? NO
[2017-11-11 04:46] LABS: BASO % 0 % (0-3); EOS # 0.1 x10^3/uL (0.0-0.7); EOS % 1 % (0-3); HEMATOCRIT 38.6 % (39.0-53.0); HEMOGLOBIN 13.1 g/dL (13.0-17.5); LYMPH # 1.5 x10^3/uL (1.0-4.8); LYMPH % 20 % (24-48); MEAN CORPUSCULAR HEMOGLOBIN 32 pg (25-35); MEAN CORPUSCULAR HGB CONC 34 g/dL (31-37); MEAN CORPUSCULAR VOLUME 94 fL (79-100); MONO # 0.7 x10^3/uL (0.0-1.1); MONO % 10 % (0-9); NEUT % 68 % (31-73); PLATELET COUNT 158 x10^3/uL (140-400); RED BLOOD COUNT 4.12 x10^6/uL (4.30-5.70); RED CELL DISTRIBUTION WIDTH 13.3 % (11.5-14.5); WHITE BLOOD COUNT 7.4 x10^3/uL (4.0-11.0)
[2017-11-11 05:16] LABS: ANION GAP 7 (6-14); BLOOD UREA NITROGEN 16 mg/dL (8-26); CALCIUM 9.5 mg/dL (8.5-10.1); CARBON DIOXIDE 30 mmol/L (21-32); CHLORIDE 102 mmol/L (98-107); CREATININE 1.2 mg/dL (0.7-1.3); GFR 62.6; GLUCOSE 127 mg/dL (70-99); POTASSIUM 4.4 mmol/L (3.5-5.1); SODIUM 139 mmol/L (136-145)
[2017-11-11] MEDS: CARISOPRODOL 350 MG TABLET PO ×2 (05:26→14:19)
[2017-11-11] MEDS: oxyCODONE IR 5 MG TABLET PO ×3 (05:28→20:17)
[2017-11-11] MEDS ORDERED: CARISOPRODOL 350 MG TABLET PO (05:30)
[2017-11-11] MEDS: BUDESONIDE 0.5 MG/2 ML NEBU. NEB ×2 (07:59→20:00)
[2017-11-11] MEDS: ALBUTEROL SULFATE 2.5 MG/3 ML NEBU. NEB ×4 (07:59→18:00)
[2017-11-11] MEDS ORDERED: LOSARTAN POTASSIUM 50 MG TABLET. PO (09:00)
[2017-11-11] MEDS ORDERED: NON FORMULARY ITEM (Carvedilol (Coreg) 1 TAB) PO (09:00)
[2017-11-11] MEDS: hydroCHLOROthiazide 25 MG TABLET PO (09:36)
[2017-11-11] MEDS: LOSARTAN POTASSIUM 50 MG TABLET. PO (09:37)
[2017-11-11] MEDS: GABAPENTIN 400 MG CAPSULE. PO ×3 (09:37→20:19)
[2017-11-11] MEDS: methylPREDNISolone 4 MG TABLET. PO ×4 (09:38→20:17)
[2017-11-11] MEDS: POLYETHYLENE GLYCOL 3350 17 GM PACKET. PO (09:38)
[2017-11-11] MEDS: POTASSIUM CHLORIDE 20 MEQ TABLET.ER. PO (09:38)
[2017-11-11] MEDS: PANTOPRAZOLE 40 MG TABLET.DR. PO (09:38)
[2017-11-11] MEDS: diazePAM 5 MG TABLET PO (12:00)
[2017-11-11] MEDS: ATORVASTATIN CALCIUM 40 MG TABLET. PO (20:17)
[2017-11-12] MEDS: CARISOPRODOL 350 MG TABLET PO ×2 (04:00→14:45)
[2017-11-12] MEDS: ALBUTEROL SULFATE 2.5 MG/3 ML NEBU. NEB ×4 (06:00→18:00)
[2017-11-12] MEDS: BUDESONIDE 0.5 MG/2 ML NEBU. NEB ×2 (07:04→19:07)
[2017-11-12] MEDS: PANTOPRAZOLE 40 MG TABLET.DR. PO (07:30)
[2017-11-12] MEDS: POTASSIUM CHLORIDE 20 MEQ TABLET.ER. PO (08:00)
[2017-11-12] MEDS: hydroCHLOROthiazide 25 MG TABLET PO (09:00)
[2017-11-12] MEDS: DOCUSATE SODIUM 100 MG CAPSULE. PO (09:00)
[2017-11-12] MEDS: LOSARTAN POTASSIUM 50 MG TABLET. PO (09:00)
[2017-11-12] MEDS: methylPREDNISolone 4 MG TABLET. PO ×4 (09:00→21:01)
[2017-11-12] MEDS: GABAPENTIN 400 MG CAPSULE. PO ×3 (09:00→21:01)
[2017-11-12] MEDS: POLYETHYLENE GLYCOL 3350 17 GM PACKET. PO (09:00)
[2017-11-12] MEDS: oxyCODONE IR 5 MG TABLET PO ×2 (12:50→18:13)
[2017-11-12] MEDS: ATORVASTATIN CALCIUM 40 MG TABLET. PO (21:01)
[2017-11-12] MEDS: ERTAPENEM 1 GM in IV NORMAL SALINE 50ML 50 ML IV (21:38)
[2017-11-12] MEDS: fentaNYL PF VIAL 100 MCG/2 ML VIAL IV (21:42)
[2017-11-12] MEDS: NORMAL SALINE IV (22:36)
[2017-11-12] MEDS: DAPTOMYCIN IV (22:36)
[2017-11-12 23:04] LABS: BILIRUBIN,URINE NEGATIVE (NEG); CLARITY,URINE CLEAR; COLOR,URINE AMBER; GLUCOSE,URINE NEGATIVE (NEG); NITRITE,URINE NEGATIVE (NEG); PROTEIN,URINE 100 mg/dL (NEG-TRACE)
[2017-11-12 23:10] LABS: BACTERIA,URINE 0 /HPF (0-FEW); RBC,URINE OCC /HPF (0-2); SQUAMOUS EPITHELIAL CELL,UR FEW /LPF; WBC,URINE 20-40 /HPF (0-4)
[2017-11-12 23:11] LABS: BARBITURATES NEG (NEG); BENZODIAZEPINES NEG (NEG); CANNABINOIDS NEG (NEG); COCAINE NEG (NEG); HYALINE CASTS, URINE OCCASIONAL /HPF; METHADONE NEG (NEG); OPIATES POS (NEG); PHENCYCLIDINE NEG (NEG)
[2017-11-12 23:13] LABS: AMPHETAMINE/METHAMPHETAMINE NEG (NEG); ETHANOL, URINE NEG (NEG)
[2017-11-13] MEDS: fentaNYL PF VIAL 100 MCG/2 ML VIAL IV ×9 (00:05→20:42)
[2017-11-13] MEDS: ALBUTEROL SULFATE 2.5 MG/3 ML NEBU. NEB ×3 (06:00→07:36)
[2017-11-13] MEDS: PANTOPRAZOLE 40 MG TABLET.DR. PO (07:30)
[2017-11-13] MEDS: BUDESONIDE 0.5 MG/2 ML NEBU. NEB (07:35)
[2017-11-13] MEDS ORDERED: ACETAMINOPHEN 325 MG TABLET. PO (07:45)
[2017-11-13] MEDS: POTASSIUM CHLORIDE 20 MEQ TABLET.ER. PO (08:00)
[2017-11-13] MEDS: CARISOPRODOL 350 MG TABLET PO ×2 (08:00→17:36)
[2017-11-13] MEDS ORDERED: PROPOFOL 20 ML IV (08:02)
[2017-11-13] MEDS ORDERED: LIDOCAINE 1% PF 5 ML VIAL. (08:02)
[2017-11-13] MEDS ORDERED: LIDOCAINE 1% PF 2 ML VIAL. ID (08:15)
[2017-11-13] MEDS ORDERED: ONDANSETRON PF 4 MG/2 ML VIAL. IV (08:15)
[2017-11-13] MEDS ORDERED: fentaNYL PF VIAL 100 MCG/2 ML VIAL IV (08:15)
[2017-11-13] MEDS: IV RINGERS,LACTATED 1000ML 1,000 ML IV (08:28)
[2017-11-13] MEDS ORDERED: ALBUTEROL SULFATE 2.5 MG/3 ML NEBU. NEB (08:30)
[2017-11-13] MEDS ORDERED: fentaNYL PF VIAL 100 MCG/2 ML VIAL ×2 (08:38→12:59)
[2017-11-13 08:46] LABS: SEDIMENTATION RATE 40 (0-15)
[2017-11-13] MEDS ORDERED: ONDANSETRON PF 4 MG/2 ML VIAL. (08:51)
[2017-11-13] MEDS ORDERED: SEVOFLURANE 16 TO 30 MINUTES. IH (08:51)
[2017-11-13] MEDS: POLYETHYLENE GLYCOL 3350 17 GM PACKET. PO (09:00)
[2017-11-13] MEDS: DOCUSATE SODIUM 100 MG CAPSULE. PO (09:00)
[2017-11-13] MEDS: GABAPENTIN 400 MG CAPSULE. PO ×4 (09:00→20:40)
[2017-11-13] MEDS: methylPREDNISolone 4 MG TABLET. PO ×3 (09:00→20:40)
[2017-11-13] MEDS: LOSARTAN POTASSIUM 50 MG TABLET. PO (09:00)
[2017-11-13] MEDS: hydroCHLOROthiazide 25 MG TABLET PO (09:00)
[2017-11-13] MEDS ORDERED: ERTAPENEM 1GM IVPB FOR OMNI 50 ML IV (09:00)
[2017-11-13] MEDS ORDERED: DEXAMETHASONE SOD PHOS 20 MG/5 ML VIAL. (09:11)
[2017-11-13] MEDS: PROCHLORPERAZINE 10 MG/2 ML VIAL. IV (10:40)
[2017-11-13] MEDS ORDERED: MEPERIDINE PF 25 MG/ML VIAL. (10:48)
[2017-11-13] MEDS ORDERED: MEPERIDINE PF 25 MG/ML VIAL. IM ×2 (11:00→12:00)
[2017-11-13] MEDS: MEPERIDINE PF 25 MG/ML VIAL. IM (12:11)
[2017-11-13] MEDS ORDERED: LIDOCAINE 2%/EPI 1:100,000 20 ML VIAL. (12:18)
[2017-11-13] MEDS ORDERED: HEPARIN PF 500 UNIT/5 ML DISP.SYRIN. IV (12:19)
[2017-11-13 12:26] LABS: HEMATOCRIT 33.5 % (39.0-53.0)
[2017-11-13 12:26] LABS: HEMOGLOBIN 11.2 g/dL (13.0-17.5)
[2017-11-13] MEDS: LIDOCAINE 2%/EPI 1:100,000 20 ML VIAL. IJ (13:13)
[2017-11-13] MEDS: HEPARIN PF 500 UNIT/5 ML DISP.SYRIN. IV (13:13)
[2017-11-13] MEDS: MEROPENEM IV Push 500 MG VIAL. IVP ×3 (14:36→23:04)
[2017-11-13] MEDS: CLINDAMYCIN 600MG PREMIX 50 ML IV ×2 (14:37→23:04)
[2017-11-13] MEDS: oxyCODONE IR 5 MG TABLET PO ×2 (15:42→23:04)
[2017-11-13] MEDS ORDERED: MEROPENEM 500 MG in IV NORMAL SALINE 50ML 50 ML IV (18:00)
[2017-11-13] MEDS: DAPTOMYCIN IV (20:34)
[2017-11-13] MEDS: NORMAL SALINE IV (20:34)
[2017-11-13] MEDS: ATORVASTATIN CALCIUM 40 MG TABLET. PO (20:40)
[2017-11-13] MEDS: LACTOBACILLUS RHAMNOSUS GG 1 CAPSULE. PO (20:41)
[2017-11-14] MEDS: fentaNYL PF VIAL 100 MCG/2 ML VIAL IV ×6 (01:01→21:54)
[2017-11-14] MEDS: MEROPENEM IV Push 500 MG VIAL. IVP ×2 (06:10→11:57)
[2017-11-14] MEDS: CLINDAMYCIN 600MG PREMIX 50 ML IV ×3 (06:12→21:54)
[2017-11-14 06:33] LABS: ANION GAP 11 (6-14); BLOOD UREA NITROGEN 43 mg/dL (8-26); CALCIUM 8.2 mg/dL (8.5-10.1); CARBON DIOXIDE 20 mmol/L (21-32); CHLORIDE 100 mmol/L (98-107); CREATININE 1.7 mg/dL (0.7-1.3); GFR 41.8; GLUCOSE 160 mg/dL (70-99); POTASSIUM 3.9 mmol/L (3.5-5.1); SODIUM 131 mmol/L (136-145)
[2017-11-14] MEDS: POTASSIUM CHLORIDE 20 MEQ TABLET.ER. PO (08:07)
[2017-11-14] MEDS: DOCUSATE SODIUM 100 MG CAPSULE. PO (08:08)
[2017-11-14] MEDS: LOSARTAN POTASSIUM 50 MG TABLET. PO (08:10)
[2017-11-14] MEDS: LACTOBACILLUS RHAMNOSUS GG 1 CAPSULE. PO ×2 (08:11→20:23)
[2017-11-14] MEDS: CARISOPRODOL 350 MG TABLET PO ×2 (08:11→13:43)
[2017-11-14] MEDS: methylPREDNISolone 4 MG TABLET. PO ×2 (08:11→20:24)
[2017-11-14] MEDS: hydroCHLOROthiazide 25 MG TABLET PO (08:11)
[2017-11-14] MEDS: PANTOPRAZOLE 40 MG TABLET.DR. PO (08:11)
[2017-11-14] MEDS: oxyCODONE IR 5 MG TABLET PO ×3 (08:13→20:23)
[2017-11-14] MEDS: POLYETHYLENE GLYCOL 3350 17 GM PACKET. PO (08:26)
[2017-11-14] MEDS: GABAPENTIN 400 MG CAPSULE. PO ×3 (08:26→20:25)
[2017-11-14 09:20] LABS: BASO % 0 % (0-3); EOS % 0 % (0-3); HEMATOCRIT 28.4 % (39.0-53.0); HEMOGLOBIN 9.6 g/dL (13.0-17.5); LYMPH # 1.7 x10^3/uL (1.0-4.8); LYMPH % 8 % (24-48); MEAN CORPUSCULAR HEMOGLOBIN 31 pg (25-35); MEAN CORPUSCULAR HGB CONC 34 g/dL (31-37); MEAN CORPUSCULAR VOLUME 93 fL (79-100); MONO # 1.8 x10^3/uL (0.0-1.1); MONO % 9 % (0-9); NEUT # 18.1 x10^3uL (1.8-7.7); NEUT % 84 % (31-73); PLATELET COUNT 148 x10^3/uL (140-400); RED BLOOD COUNT 3.07 x10^6/uL (4.30-5.70); RED CELL DISTRIBUTION WIDTH 12.7 % (11.5-14.5); WHITE BLOOD COUNT 21.6 x10^3/uL (4.0-11.0)
[2017-11-14 09:31] LABS: ADD MAN DIFF? YES
[2017-11-14] MEDS: IV NORMAL SALINE 1000ML BAG 1,000 ML IV (10:35)
[2017-11-14] MEDS: LIDOCAINE (700MG/PATCH) PATCH. TD (10:36)
[2017-11-14 10:52] LABS: POC GLUCOSE 134 mg/dL (70-99)
[2017-11-14 12:56] LABS: % BANDS 2 % (0-9); % LYMPHS 5 % (24-48); % MONOS 5 % (0-10); % SEGS 88 % (35-66)
[2017-11-14 12:57] LABS: PLT ESTIMATE ADEQUATE (ADEQUATE)
[2017-11-14] MEDS: MEROPENEM 500 MG in IV NORMAL SALINE 50ML 50 ML IV (17:49)
[2017-11-14] MEDS: ATORVASTATIN CALCIUM 40 MG TABLET. PO (20:24)
[2017-11-14] MEDS: PATCH REMOVAL. MC (20:25)
[2017-11-14] MEDS: DAPTOMYCIN IV (20:25)
[2017-11-14] MEDS: NORMAL SALINE IV (20:25)
[2017-11-15] MEDS: MEROPENEM 500 MG in IV NORMAL SALINE 50ML 50 ML IV ×5 (00:46→23:18)
[2017-11-15] MEDS: fentaNYL PF VIAL 100 MCG/2 ML VIAL IV ×8 (00:46→22:38)
[2017-11-15] MEDS: oxyCODONE IR 5 MG TABLET PO ×3 (02:21→21:13)
[2017-11-15] MEDS: CLINDAMYCIN 600MG PREMIX 50 ML IV (05:33)
[2017-11-15 05:42] LABS: ANION GAP 11 (6-14); BLOOD UREA NITROGEN 55 mg/dL (8-26); CALCIUM 8.6 mg/dL (8.5-10.1); CARBON DIOXIDE 27 mmol/L (21-32); CHLORIDE 101 mmol/L (98-107); CREATININE 2.3 mg/dL (0.7-1.3); GFR 29.5; GLUCOSE 149 mg/dL (70-99); SODIUM 139 mmol/L (136-145)
[2017-11-15 07:48] LABS: ADD MAN DIFF? NO
[2017-11-15 07:51] LABS: BASO % 0 % (0-3); EOS % 0 % (0-3); HEMATOCRIT 27.7 % (39.0-53.0); HEMOGLOBIN 9.2 g/dL (13.0-17.5); LYMPH # 1.4 x10^3/uL (1.0-4.8); LYMPH % 10 % (24-48); MEAN CORPUSCULAR HEMOGLOBIN 31 pg (25-35); MEAN CORPUSCULAR HGB CONC 33 g/dL (31-37); MEAN CORPUSCULAR VOLUME 94 fL (79-100); MONO # 1.1 x10^3/uL (0.0-1.1); MONO % 8 % (0-9); NEUT # 11.6 x10^3uL (1.8-7.7); NEUT % 82 % (31-73); PLATELET COUNT 172 x10^3/uL (140-400); RED BLOOD COUNT 2.95 x10^6/uL (4.30-5.70); RED CELL DISTRIBUTION WIDTH 13.1 % (11.5-14.5); WHITE BLOOD COUNT 14.1 x10^3/uL (4.0-11.0)
[2017-11-15] MEDS: hydroCHLOROthiazide 25 MG TABLET PO (08:31)
[2017-11-15] MEDS: POTASSIUM CHLORIDE 20 MEQ TABLET.ER. PO (08:31)
[2017-11-15] MEDS: CARISOPRODOL 350 MG TABLET PO ×2 (08:31→13:50)
[2017-11-15] MEDS: methylPREDNISolone 4 MG TABLET. PO (08:31)
[2017-11-15] MEDS: LACTOBACILLUS RHAMNOSUS GG 1 CAPSULE. PO ×2 (08:31→21:12)
[2017-11-15] MEDS: PANTOPRAZOLE 40 MG TABLET.DR. PO (08:31)
[2017-11-15] MEDS: LOSARTAN POTASSIUM 50 MG TABLET. PO (08:32)
[2017-11-15] MEDS: GABAPENTIN 400 MG CAPSULE. PO ×4 (08:32→21:12)
[2017-11-15] MEDS: DOCUSATE SODIUM 100 MG CAPSULE. PO (08:32)
[2017-11-15] MEDS: POLYETHYLENE GLYCOL 3350 17 GM PACKET. PO (08:32)
[2017-11-15] MEDS: LIDOCAINE (700MG/PATCH) PATCH. TD (08:33)
[2017-11-15] MEDS ORDERED: MAGNESIUM SULFATE 2GM 50 ML IV (10:30)
[2017-11-15 10:42] LABS: URIC ACID 8.1 mg/dL (3.5-7.2)
[2017-11-15 10:42] LABS: CREATINE KINASE 762 U/L (39-308)
[2017-11-15 11:25] LABS: PROSTATE SPECIFIC ANTIGEN 1.14 ng/mL (0.00-4.00)
[2017-11-15 11:44] LABS: BILIRUBIN,URINE NEGATIVE (NEG); CLARITY,URINE CLEAR; COLOR,URINE YELLOW; GLUCOSE,URINE NEGATIVE (NEG); NITRITE,URINE NEGATIVE (NEG); PH,URINE 5.5; PROTEIN,URINE NEGATIVE (NEG-TRACE); UROBILINOGEN,URINE 0.2 mg/dL (0.2 mg/dL)
[2017-11-15 12:14] LABS: BACTERIA,URINE FEW /HPF (0-FEW); RBC,URINE RARE /HPF (0-2); SQUAMOUS EPITHELIAL CELL,UR OCC /LPF; WBC,URINE RARE /HPF (0-4)
[2017-11-15] MEDS: TAMSULOSIN 0.4 MG CAP.ER.24H. PO (14:46)
[2017-11-15] MEDS: FINASTERIDE 5 MG TABLET. PO (14:46)
[2017-11-15] MEDS: NICOTINE POLACRILEX 2MG GUM PACKAGE of 12. BC (15:59)
[2017-11-15] MEDS: PATCH REMOVAL. MC (21:00)
[2017-11-15] MEDS: ATORVASTATIN CALCIUM 40 MG TABLET. PO (21:12)
[2017-11-16] MEDS: oxyCODONE IR 5 MG TABLET PO ×2 (04:19→16:24)
[2017-11-16] MEDS: MEROPENEM 500 MG in IV NORMAL SALINE 50ML 50 ML IV (04:20)
[2017-11-16] MEDS: fentaNYL PF VIAL 100 MCG/2 ML VIAL IV ×11 (06:02→23:43)
[2017-11-16] MEDS: IV RINGERS,LACTATED 1000ML 1,000 ML IV (07:00)
[2017-11-16] MEDS ORDERED: ONDANSETRON PF 4 MG/2 ML VIAL. IV (07:00)
[2017-11-16] MEDS ORDERED: fentaNYL PF VIAL 100 MCG/2 ML VIAL IV (07:00)
[2017-11-16] MEDS ORDERED: LIDOCAINE 1% PF 2 ML VIAL. ID (07:00)
[2017-11-16] MEDS: PANTOPRAZOLE 40 MG TABLET.DR. PO (07:30)
[2017-11-16 07:32] LABS: ADD MAN DIFF? NO
[2017-11-16 07:35] LABS: BASO % 0 % (0-3); EOS # 0.2 x10^3/uL (0.0-0.7); EOS % 2 % (0-3); HEMATOCRIT 29.7 % (39.0-53.0); HEMOGLOBIN 10.1 g/dL (13.0-17.5); LYMPH # 3.7 x10^3/uL (1.0-4.8); LYMPH % 34 % (24-48); MEAN CORPUSCULAR HEMOGLOBIN 32 pg (25-35); MEAN CORPUSCULAR HGB CONC 34 g/dL (31-37); MEAN CORPUSCULAR VOLUME 94 fL (79-100); MONO # 1.4 x10^3/uL (0.0-1.1); MONO % 13 % (0-9); NEUT # 5.7 x10^3uL (1.8-7.7); NEUT % 52 % (31-73); PLATELET COUNT 216 x10^3/uL (140-400); RED BLOOD COUNT 3.16 x10^6/uL (4.30-5.70); RED CELL DISTRIBUTION WIDTH 12.9 % (11.5-14.5); WHITE BLOOD COUNT 10.9 x10^3/uL (4.0-11.0)
[2017-11-16] MEDS: CARISOPRODOL 350 MG TABLET PO ×4 (08:00→16:25)
[2017-11-16 08:02] LABS: ALBUMIN 3.1 g/dL (3.4-5.0); ANION GAP 9 (6-14); BLOOD UREA NITROGEN 26 mg/dL (8-26); CALCIUM 8.9 mg/dL (8.5-10.1); CARBON DIOXIDE 31 mmol/L (21-32); CHLORIDE 104 mmol/L (98-107); CREATININE 1.3 mg/dL (0.7-1.3); GFR 56.9; GLUCOSE 105 mg/dL (70-99); MAGNESIUM 1.9 mg/dL (1.8-2.4); PHOSPHORUS 2.9 mg/dL (2.6-4.7); POTASSIUM 3.8 mmol/L (3.5-5.1); SODIUM 144 mmol/L (136-145)
[2017-11-16] MEDS: LOSARTAN POTASSIUM 50 MG TABLET. PO (08:12)
[2017-11-16] MEDS: LIDOCAINE (700MG/PATCH) PATCH. TD (08:13)
[2017-11-16] MEDS: GABAPENTIN 400 MG CAPSULE. PO ×4 (09:00→21:39)
[2017-11-16] MEDS: LACTOBACILLUS RHAMNOSUS GG 1 CAPSULE. PO ×2 (09:00→21:39)
[2017-11-16] MEDS: DOCUSATE SODIUM 100 MG CAPSULE. PO (09:00)
[2017-11-16] MEDS: POLYETHYLENE GLYCOL 3350 17 GM PACKET. PO (09:00)
[2017-11-16] MEDS ORDERED: cefTRIAXone SODIUM 2 GM in IV DEXTROSE 5% 100 ML IV (10:30)
[2017-11-16] MEDS ORDERED: fentaNYL PF VIAL 100 MCG/2 ML VIAL ×4 (11:13→13:47)
[2017-11-16] MEDS ORDERED: PROPOFOL 20 ML IV ×2 (11:14→12:58)
[2017-11-16] MEDS ORDERED: ONDANSETRON PF 4 MG/2 ML VIAL. (11:14)
[2017-11-16] MEDS ORDERED: DEXAMETHASONE SOD PHOS 20 MG/5 ML VIAL. (11:14)
[2017-11-16] MEDS: cefTRIAXone IV Push 2 GM VIAL. IVP (11:21)
[2017-11-16] MEDS: IV NORMAL SALINE 1000ML BAG 1,000 ML IV (11:48)
[2017-11-16] MEDS ORDERED: SEVOFLURANE 31 TO 60 MINUTES. IH (12:58)
[2017-11-16] MEDS ORDERED: PROCHLORPERAZINE 10 MG/2 ML VIAL. (13:22)
[2017-11-16] MEDS: PROCHLORPERAZINE 10 MG/2 ML VIAL. IV ×2 (13:28→13:41)
[2017-11-16] MEDS: POTASSIUM CHLORIDE 20 MEQ TABLET.ER. PO ×2 (15:24→16:24)
[2017-11-16] MEDS: FINASTERIDE 5 MG TABLET. PO ×2 (15:25→16:25)
[2017-11-16] MEDS: TAMSULOSIN 0.4 MG CAP.ER.24H. PO (15:25)
[2017-11-16] MEDS: PATCH REMOVAL. MC (21:00)
[2017-11-16] MEDS: ATORVASTATIN CALCIUM 40 MG TABLET. PO (21:40)
[2017-11-17] MEDS: fentaNYL PF VIAL 100 MCG/2 ML VIAL IV ×8 (05:08→23:07)
[2017-11-17] MEDS: oxyCODONE IR 5 MG TABLET PO ×3 (05:14→20:43)
[2017-11-17 05:37] LABS: ADD MAN DIFF? NO
[2017-11-17 05:45] LABS: BASO % 0 % (0-3); EOS # 0.1 x10^3/uL (0.0-0.7); EOS % 1 % (0-3); HEMATOCRIT 25.8 % (39.0-53.0); HEMOGLOBIN 8.7 g/dL (13.0-17.5); LYMPH # 2.6 x10^3/uL (1.0-4.8); LYMPH % 22 % (24-48); MEAN CORPUSCULAR HEMOGLOBIN 32 pg (25-35); MEAN CORPUSCULAR HGB CONC 34 g/dL (31-37); MEAN CORPUSCULAR VOLUME 94 fL (79-100); MONO # 1.3 x10^3/uL (0.0-1.1); MONO % 10 % (0-9); NEUT # 8.2 x10^3uL (1.8-7.7); NEUT % 67 % (31-73); PLATELET COUNT 187 x10^3/uL (140-400); RED BLOOD COUNT 2.74 x10^6/uL (4.30-5.70); RED CELL DISTRIBUTION WIDTH 13.2 % (11.5-14.5); WHITE BLOOD COUNT 12.2 x10^3/uL (4.0-11.0)
[2017-11-17 06:01] LABS: MAGNESIUM 1.9 mg/dL (1.8-2.4)
[2017-11-17 06:04] LABS: ALBUMIN 2.7 g/dL (3.4-5.0); ALBUMIN/GLOBULIN RATIO 0.8 (1.0-1.7); ALK PHOS 75 U/L (46-116); ALT (SGPT) 47 U/L (16-63); ANION GAP 8 (6-14); AST (SGOT) 36 U/L (15-37); BLOOD UREA NITROGEN 20 mg/dL (8-26); BUN/CREATININE RATIO 20 (6-20); CALCIUM 8.5 mg/dL (8.5-10.1); CARBON DIOXIDE 30 mmol/L (21-32); CHLORIDE 104 mmol/L (98-107); GLUCOSE 179 mg/dL (70-99); PHOSPHORUS 3.5 mg/dL (2.6-4.7); POTASSIUM 3.7 mmol/L (3.5-5.1); SODIUM 142 mmol/L (136-145); TOTAL BILIRUBIN 0.2 mg/dL (0.2-1.0); TOTAL PROTEIN 6.3 g/dL (6.4-8.2)
[2017-11-17 07:09] LABS: SEDIMENTATION RATE 40 (0-15)
[2017-11-17] MEDS: TAMSULOSIN 0.4 MG CAP.ER.24H. PO (08:05)
[2017-11-17] MEDS: FINASTERIDE 5 MG TABLET. PO (08:06)
[2017-11-17] MEDS: POTASSIUM CHLORIDE 20 MEQ TABLET.ER. PO (08:06)
[2017-11-17] MEDS: LOSARTAN POTASSIUM 50 MG TABLET. PO (08:07)
[2017-11-17] MEDS: CARISOPRODOL 350 MG TABLET PO ×2 (08:07→14:34)
[2017-11-17] MEDS: PANTOPRAZOLE 40 MG TABLET.DR. PO (08:08)
[2017-11-17] MEDS: LACTOBACILLUS RHAMNOSUS GG 1 CAPSULE. PO ×2 (08:08→20:42)
[2017-11-17] MEDS: DOCUSATE SODIUM 100 MG CAPSULE. PO (08:08)
[2017-11-17] MEDS: GABAPENTIN 400 MG CAPSULE. PO ×3 (08:09→20:42)
[2017-11-17] MEDS: POLYETHYLENE GLYCOL 3350 17 GM PACKET. PO (08:09)
[2017-11-17] MEDS: LIDOCAINE (700MG/PATCH) PATCH. TD (08:09)
[2017-11-17] MEDS: cefTRIAXone IV Push 2 GM VIAL. IVP (10:36)
[2017-11-17] MEDS: NICOTINE POLACRILEX 2MG GUM PACKAGE of 12. BC ×2 (10:44→14:35)
[2017-11-17] MEDS: ATORVASTATIN CALCIUM 40 MG TABLET. PO (20:43)
[2017-11-17] MEDS: PATCH REMOVAL. MC (20:46)
[2017-11-18] MEDS: NICOTINE POLACRILEX 2MG GUM PACKAGE of 12. BC ×2 (00:07→16:24)
[2017-11-18] MEDS: fentaNYL PF VIAL 100 MCG/2 ML VIAL IV ×10 (01:12→22:33)
[2017-11-18 06:20] LABS: MAGNESIUM 1.5 mg/dL (1.8-2.4)
[2017-11-18 07:36] LABS: C-REACTIVE PROTEIN 32.1 mg/L (0-3.3)
[2017-11-18 07:38] LABS: ALBUMIN 2.6 g/dL (3.4-5.0); ANION GAP 8 (6-14); BLOOD UREA NITROGEN 10 mg/dL (8-26); CALCIUM 8.1 mg/dL (8.5-10.1); CARBON DIOXIDE 29 mmol/L (21-32); CHLORIDE 107 mmol/L (98-107); GLUCOSE 97 mg/dL (70-99); PHOSPHORUS 4.2 mg/dL (2.6-4.7); POTASSIUM 4.1 mmol/L (3.5-5.1); SODIUM 144 mmol/L (136-145)
[2017-11-18] MEDS: LACTOBACILLUS RHAMNOSUS GG 1 CAPSULE. PO ×2 (08:06→20:32)
[2017-11-18] MEDS: GABAPENTIN 400 MG CAPSULE. PO ×3 (08:06→20:37)
[2017-11-18] MEDS: DOCUSATE SODIUM 100 MG CAPSULE. PO (08:06)
[2017-11-18] MEDS: PANTOPRAZOLE 40 MG TABLET.DR. PO (08:06)
[2017-11-18] MEDS: CARISOPRODOL 350 MG TABLET PO ×2 (08:06→14:17)
[2017-11-18] MEDS: POTASSIUM CHLORIDE 20 MEQ TABLET.ER. PO (08:06)
[2017-11-18] MEDS: FINASTERIDE 5 MG TABLET. PO (08:06)
[2017-11-18] MEDS: TAMSULOSIN 0.4 MG CAP.ER.24H. PO (08:06)
[2017-11-18] MEDS: LOSARTAN POTASSIUM 50 MG TABLET. PO (08:07)
[2017-11-18] MEDS: LIDOCAINE (700MG/PATCH) PATCH. TD (08:07)
[2017-11-18] MEDS: POLYETHYLENE GLYCOL 3350 17 GM PACKET. PO (08:15)
[2017-11-18] MEDS: oxyCODONE IR 5 MG TABLET PO ×2 (08:23→16:15)
[2017-11-18 09:08] LABS: SEDIMENTATION RATE 35 (0-15)
[2017-11-18] MEDS: cefTRIAXone IV Push 2 GM VIAL. IVP (10:26)
[2017-11-18] MEDS: MAGNESIUM SULFATE 4GM 100 ML IV (14:16)
[2017-11-18] MEDS: ATORVASTATIN CALCIUM 40 MG TABLET. PO (20:32)
[2017-11-18] MEDS: PATCH REMOVAL. MC (21:00)
[2017-11-19] MEDS: fentaNYL PF VIAL 100 MCG/2 ML VIAL IV ×11 (00:52→22:36)
[2017-11-19] MEDS: oxyCODONE IR 5 MG TABLET PO ×3 (04:23→20:28)
[2017-11-19 06:06] LABS: MAGNESIUM 1.9 mg/dL (1.8-2.4)
[2017-11-19 06:09] LABS: ALBUMIN 2.7 g/dL (3.4-5.0); ANION GAP 8 (6-14); BLOOD UREA NITROGEN 11 mg/dL (8-26); CALCIUM 8.4 mg/dL (8.5-10.1); CARBON DIOXIDE 28 mmol/L (21-32); CHLORIDE 106 mmol/L (98-107); GLUCOSE 152 mg/dL (70-99); PHOSPHORUS 4.3 mg/dL (2.6-4.7); POTASSIUM 4.4 mmol/L (3.5-5.1); SODIUM 142 mmol/L (136-145)
[2017-11-19 06:54] LABS: BASO # 0.1 x10^3/uL (0.0-0.2); BASO % 1 % (0-3); EOS % 4 % (0-3); HEMOGLOBIN 8.6 g/dL (13.0-17.5); LYMPH # 3.6 x10^3/uL (1.0-4.8); LYMPH % 26 % (24-48); MEAN CORPUSCULAR VOLUME 95 fL (79-100); MONO # 1.5 x10^3/uL (0.0-1.1); MONO % 11 % (0-9)
[2017-11-19 06:58] LABS: ADD MAN DIFF? YES; EOS # 0.5 x10^3/uL (0.0-0.7); HEMATOCRIT 25.6 % (39.0-53.0); MEAN CORPUSCULAR HEMOGLOBIN 32 pg (25-35); MEAN CORPUSCULAR HGB CONC 34 g/dL (31-37); NEUT % 58 % (31-73); PLATELET COUNT 212 x10^3/uL (140-400); RED BLOOD COUNT 2.69 x10^6/uL (4.30-5.70); RED CELL DISTRIBUTION WIDTH 13.5 % (11.5-14.5); WHITE BLOOD COUNT 13.7 x10^3/uL (4.0-11.0)
[2017-11-19] MEDS: LIDOCAINE (700MG/PATCH) PATCH. TD (08:14)
[2017-11-19] MEDS: LACTOBACILLUS RHAMNOSUS GG 1 CAPSULE. PO ×2 (08:17→20:29)
[2017-11-19] MEDS: FINASTERIDE 5 MG TABLET. PO (08:17)
[2017-11-19] MEDS: LOSARTAN POTASSIUM 50 MG TABLET. PO (08:18)
[2017-11-19] MEDS: CARISOPRODOL 350 MG TABLET PO ×2 (08:18→14:16)
[2017-11-19] MEDS: TAMSULOSIN 0.4 MG CAP.ER.24H. PO (08:18)
[2017-11-19] MEDS: PANTOPRAZOLE 40 MG TABLET.DR. PO (08:18)
[2017-11-19] MEDS: POTASSIUM CHLORIDE 20 MEQ TABLET.ER. PO (08:19)
[2017-11-19] MEDS: POLYETHYLENE GLYCOL 3350 17 GM PACKET. PO (08:22)
[2017-11-19] MEDS: GABAPENTIN 400 MG CAPSULE. PO ×4 (08:22→20:32)
[2017-11-19] MEDS: DOCUSATE SODIUM 100 MG CAPSULE. PO (08:22)
[2017-11-19] MEDS: cefTRIAXone IV Push 2 GM VIAL. IVP (10:18)
[2017-11-19] MEDS: diazePAM 5 MG TABLET PO ×2 (10:51→22:36)
[2017-11-19 11:12] LABS: % BANDS 4 % (0-9); % EOS 3 % (0-5); % LYMPHS 29 % (24-48); % METAS 2 % (0-0); % MONOS 9 % (0-10); % MYELOS 4 % (0-0); % SEGS 49 % (35-66)
[2017-11-19 11:14] LABS: PLT ESTIMATE ADEQUATE (ADEQUATE)
[2017-11-19 11:16] LABS: POLYCHROMASIA PRESENT; TOXIC GRANULATION PRESENT; TOXIC VACUOLATION PRESENT
[2017-11-19] MEDS: NICOTINE POLACRILEX 2MG GUM PACKAGE of 12. BC (15:07)
[2017-11-19] MEDS: LINEZOLID 600 MG TABLET PO ×2 (15:43→22:36)
[2017-11-19] MEDS: ATORVASTATIN CALCIUM 40 MG TABLET. PO (20:27)
[2017-11-19] MEDS: PATCH REMOVAL. MC (20:29)
[2017-11-20] MEDS: fentaNYL PF VIAL 100 MCG/2 ML VIAL IV ×12 (00:41→23:58)
[2017-11-20 05:45] LABS: ALBUMIN 2.5 g/dL (3.4-5.0); ANION GAP 6 (6-14); BLOOD UREA NITROGEN 12 mg/dL (8-26); CALCIUM 8.2 mg/dL (8.5-10.1); CARBON DIOXIDE 29 mmol/L (21-32); CHLORIDE 103 mmol/L (98-107); CREATININE 1.1 mg/dL (0.7-1.3); GLUCOSE 124 mg/dL (70-99); MAGNESIUM 1.8 mg/dL (1.8-2.4); PHOSPHORUS 3.7 mg/dL (2.6-4.7); POTASSIUM 4.3 mmol/L (3.5-5.1); SODIUM 138 mmol/L (136-145)
[2017-11-20] MEDS ORDERED: fentaNYL PF VIAL 100 MCG/2 ML VIAL ×2 (06:50→08:33)
[2017-11-20] MEDS: IV RINGERS,LACTATED 1000ML 1,000 ML IV (07:14)
[2017-11-20] MEDS ORDERED: IV RINGERS,LACTATED 1000ML 1,000 ML IV (07:15)
[2017-11-20] MEDS ORDERED: ONDANSETRON PF 4 MG/2 ML VIAL. (07:15)
[2017-11-20] MEDS ORDERED: fentaNYL PF VIAL 100 MCG/2 ML VIAL IV (07:15)
[2017-11-20] MEDS ORDERED: ONDANSETRON PF 4 MG/2 ML VIAL. IV (07:15)
[2017-11-20] MEDS ORDERED: LIDOCAINE 1% PF 2 ML VIAL. ID (07:15)
[2017-11-20] MEDS ORDERED: PROPOFOL 20 ML IV (07:15)
[2017-11-20] MEDS ORDERED: FAMOTIDINE 20 MG/2 ML VIAL (07:15)
[2017-11-20] MEDS ORDERED: KETOROLAC 15 MG/ML VIAL. (07:17)
[2017-11-20] MEDS: KETOROLAC 30 MG/ML INJ. IV ×4 (07:22→21:55)
[2017-11-20] MEDS ORDERED: SUCCINYLCHOLINE 200 MG/10 ML VIAL. (07:29)
[2017-11-20] MEDS: PANTOPRAZOLE 40 MG TABLET.DR. PO (07:30)
[2017-11-20] MEDS ORDERED: SEVOFLURANE 31 TO 60 MINUTES. IH (08:22)
[2017-11-20] MEDS ORDERED: PROCHLORPERAZINE 10 MG/2 ML VIAL. (08:33)
[2017-11-20] MEDS: PROCHLORPERAZINE 10 MG/2 ML VIAL. IV (08:46)
[2017-11-20] MEDS: GABAPENTIN 400 MG CAPSULE. PO ×4 (09:00→19:52)
[2017-11-20] MEDS: FINASTERIDE 5 MG TABLET. PO (09:37)
[2017-11-20] MEDS: LINEZOLID 600 MG TABLET PO ×2 (09:37→19:52)
[2017-11-20] MEDS: DOCUSATE SODIUM 100 MG CAPSULE. PO (09:38)
[2017-11-20] MEDS: LACTOBACILLUS RHAMNOSUS GG 1 CAPSULE. PO ×2 (09:38→19:52)
[2017-11-20] MEDS: POTASSIUM CHLORIDE 20 MEQ TABLET.ER. PO (09:38)
[2017-11-20] MEDS: TAMSULOSIN 0.4 MG CAP.ER.24H. PO (09:38)
[2017-11-20] MEDS: POLYETHYLENE GLYCOL 3350 17 GM PACKET. PO (09:39)
[2017-11-20] MEDS: LOSARTAN POTASSIUM 50 MG TABLET. PO (09:39)
[2017-11-20] MEDS: LIDOCAINE (700MG/PATCH) PATCH. TD (09:40)
[2017-11-20] MEDS: cefTRIAXone IV Push 2 GM VIAL. IVP (09:41)
[2017-11-20] MEDS: CARISOPRODOL 350 MG TABLET PO ×2 (09:43→14:13)
[2017-11-20] MEDS: oxyCODONE IR 5 MG TABLET PO ×2 (09:53→17:53)
[2017-11-20] MEDS: NICOTINE POLACRILEX 2MG GUM PACKAGE of 12. BC (09:54)
[2017-11-20] MEDS: diazePAM 5 MG TABLET PO (19:52)
[2017-11-20] MEDS: ATORVASTATIN CALCIUM 40 MG TABLET. PO (19:53)
[2017-11-20] MEDS: PATCH REMOVAL. MC (21:00)
[2017-11-21] MEDS: fentaNYL PF VIAL 100 MCG/2 ML VIAL IV ×7 (02:05→22:06)
[2017-11-21] MEDS: NICOTINE POLACRILEX 2MG GUM PACKAGE of 12. BC (03:51)
[2017-11-21] MEDS: oxyCODONE IR 5 MG TABLET PO ×3 (03:51→22:06)
[2017-11-21] MEDS: diazePAM 5 MG TABLET PO ×2 (05:23→22:06)
[2017-11-21 05:29] LABS: ADD MAN DIFF? NO
[2017-11-21 05:44] LABS: BASO % 0 % (0-3); EOS # 0.4 x10^3/uL (0.0-0.7); EOS % 5 % (0-3); HEMATOCRIT 22.9 % (39.0-53.0); HEMOGLOBIN 7.8 g/dL (13.0-17.5); LYMPH # 2.3 x10^3/uL (1.0-4.8); LYMPH % 32 % (24-48); MEAN CORPUSCULAR HEMOGLOBIN 32 pg (25-35); MEAN CORPUSCULAR HGB CONC 34 g/dL (31-37); MEAN CORPUSCULAR VOLUME 95 fL (79-100); MONO # 0.9 x10^3/uL (0.0-1.1); MONO % 12 % (0-9); NEUT # 3.6 x10^3uL (1.8-7.7); NEUT % 51 % (31-73); PLATELET COUNT 235 x10^3/uL (140-400); RED BLOOD COUNT 2.42 x10^6/uL (4.30-5.70); RED CELL DISTRIBUTION WIDTH 13.8 % (11.5-14.5); WHITE BLOOD COUNT 7.1 x10^3/uL (4.0-11.0)
[2017-11-21 05:58] LABS: ALBUMIN 2.5 g/dL (3.4-5.0); ANION GAP 7 (6-14); BLOOD UREA NITROGEN 17 mg/dL (8-26); CALCIUM 8.2 mg/dL (8.5-10.1); CARBON DIOXIDE 29 mmol/L (21-32); CHLORIDE 107 mmol/L (98-107); CREATININE 1.2 mg/dL (0.7-1.3); GFR 62.4; GLUCOSE 155 mg/dL (70-99); POTASSIUM 4.2 mmol/L (3.5-5.1); SODIUM 143 mmol/L (136-145)
[2017-11-21] MEDS: PANTOPRAZOLE 40 MG TABLET.DR. PO (07:30)
[2017-11-21] MEDS: LIDOCAINE (700MG/PATCH) PATCH. TD (08:47)
[2017-11-21] MEDS: DOCUSATE SODIUM 100 MG CAPSULE. PO (08:47)
[2017-11-21] MEDS: POLYETHYLENE GLYCOL 3350 17 GM PACKET. PO (08:47)
[2017-11-21] MEDS: FINASTERIDE 5 MG TABLET. PO (08:47)
[2017-11-21] MEDS: LACTOBACILLUS RHAMNOSUS GG 1 CAPSULE. PO ×2 (08:49→19:39)
[2017-11-21] MEDS: TAMSULOSIN 0.4 MG CAP.ER.24H. PO (08:49)
[2017-11-21] MEDS: POTASSIUM CHLORIDE 20 MEQ TABLET.ER. PO (08:49)
[2017-11-21] MEDS: LOSARTAN POTASSIUM 50 MG TABLET. PO (08:49)
[2017-11-21] MEDS: LINEZOLID 600 MG TABLET PO ×2 (08:50→19:39)
[2017-11-21] MEDS: GABAPENTIN 400 MG CAPSULE. PO ×3 (08:50→19:39)
[2017-11-21] MEDS: oxyCODONE ER 15 MG TAB.ER.12H PO ×2 (10:17→19:39)
[2017-11-21] MEDS: CARISOPRODOL 350 MG TABLET PO ×2 (10:17→12:40)
[2017-11-21] MEDS: cefTRIAXone IV Push 2 GM VIAL. IVP (10:18)
[2017-11-21] MEDS: KETOROLAC 30 MG/ML INJ. IV (19:38)
[2017-11-21] MEDS: ATORVASTATIN CALCIUM 40 MG TABLET. PO (19:38)
[2017-11-21] MEDS: PATCH REMOVAL. MC (21:00)
[2017-11-22] MEDS: fentaNYL PF VIAL 100 MCG/2 ML VIAL IV ×4 (01:33→16:32)
[2017-11-22] MEDS: KETOROLAC 30 MG/ML INJ. IV ×2 (04:23→16:32)
[2017-11-22 05:58] LABS: ALBUMIN 2.7 g/dL (3.4-5.0); ANION GAP 7 (6-14); BLOOD UREA NITROGEN 21 mg/dL (8-26); CALCIUM 8.6 mg/dL (8.5-10.1); CARBON DIOXIDE 30 mmol/L (21-32); CHLORIDE 106 mmol/L (98-107); CREATININE 1.4 mg/dL (0.7-1.3); GFR 52.2; GLUCOSE 129 mg/dL (70-99); PHOSPHORUS 4.1 mg/dL (2.6-4.7); POTASSIUM 4.2 mmol/L (3.5-5.1); SODIUM 143 mmol/L (136-145)
[2017-11-22 06:20] LABS: C-REACTIVE PROTEIN 91.8 mg/L (0-3.3)
[2017-11-22 06:41] LABS: SEDIMENTATION RATE 74 (0-15)
[2017-11-22] MEDS: DOCUSATE SODIUM 100 MG CAPSULE. PO ×2 (09:00→10:13)
[2017-11-22] MEDS: POLYETHYLENE GLYCOL 3350 17 GM PACKET. PO (09:00)
[2017-11-22] MEDS: GABAPENTIN 400 MG CAPSULE. PO ×3 (09:00→21:52)
[2017-11-22] MEDS: PANTOPRAZOLE 40 MG TABLET.DR. PO (10:11)
[2017-11-22] MEDS: POTASSIUM CHLORIDE 20 MEQ TABLET.ER. PO (10:11)
[2017-11-22] MEDS: LINEZOLID 600 MG TABLET PO ×2 (10:12→21:46)
[2017-11-22] MEDS: LIDOCAINE (700MG/PATCH) PATCH. TD (10:12)
[2017-11-22] MEDS: LOSARTAN POTASSIUM 50 MG TABLET. PO (10:13)
[2017-11-22] MEDS: TAMSULOSIN 0.4 MG CAP.ER.24H. PO (10:14)
[2017-11-22] MEDS: LACTOBACILLUS RHAMNOSUS GG 1 CAPSULE. PO ×2 (10:14→21:46)
[2017-11-22] MEDS: CARISOPRODOL 350 MG TABLET PO ×2 (10:14→16:31)
[2017-11-22] MEDS: oxyCODONE ER 15 MG TAB.ER.12H PO ×2 (10:14→21:46)
[2017-11-22] MEDS: FINASTERIDE 5 MG TABLET. PO (10:14)
[2017-11-22] MEDS: oxyCODONE IR 5 MG TABLET PO ×2 (10:15→19:41)
[2017-11-22] MEDS: cefTRIAXone IV Push 2 GM VIAL. IVP (11:52)
[2017-11-22] MEDS: ATORVASTATIN CALCIUM 40 MG TABLET. PO (21:46)
[2017-11-22] MEDS: PATCH REMOVAL. MC (21:47)
[2017-11-23] MEDS: fentaNYL PF VIAL 100 MCG/2 ML VIAL IV ×5 (00:15→21:12)
[2017-11-23] MEDS: KETOROLAC 30 MG/ML INJ. IV (03:08)
[2017-11-23] MEDS: oxyCODONE IR 5 MG TABLET PO ×3 (04:13→23:52)
[2017-11-23] MEDS: IV RINGERS,LACTATED 1000ML 1,000 ML IV ×2 (07:00→12:46)
[2017-11-23] MEDS ORDERED: ONDANSETRON PF 4 MG/2 ML VIAL. IV (07:00)
[2017-11-23] MEDS ORDERED: fentaNYL PF VIAL 100 MCG/2 ML VIAL IV (07:00)
[2017-11-23] MEDS ORDERED: PROCHLORPERAZINE 10 MG/2 ML VIAL. IV (07:00)
[2017-11-23] MEDS: PANTOPRAZOLE 40 MG TABLET.DR. PO (07:30)
[2017-11-23] MEDS: POTASSIUM CHLORIDE 20 MEQ TABLET.ER. PO (08:00)
[2017-11-23 08:01] LABS: ADD MAN DIFF? NO
[2017-11-23 08:03] LABS: BASO % 1 % (0-3); EOS # 0.3 x10^3/uL (0.0-0.7); EOS % 4 % (0-3); HEMATOCRIT 21.6 % (39.0-53.0); HEMOGLOBIN 7.4 g/dL (13.0-17.5); LYMPH # 1.7 x10^3/uL (1.0-4.8); LYMPH % 20 % (24-48); MEAN CORPUSCULAR HEMOGLOBIN 32 pg (25-35); MEAN CORPUSCULAR HGB CONC 34 g/dL (31-37); MEAN CORPUSCULAR VOLUME 94 fL (79-100); MONO # 0.7 x10^3/uL (0.0-1.1); MONO % 9 % (0-9); NEUT # 5.6 x10^3uL (1.8-7.7); NEUT % 67 % (31-73); PLATELET COUNT 231 x10^3/uL (140-400); RED BLOOD COUNT 2.31 x10^6/uL (4.30-5.70); RED CELL DISTRIBUTION WIDTH 13.6 % (11.5-14.5); WHITE BLOOD COUNT 8.4 x10^3/uL (4.0-11.0)
[2017-11-23] MEDS: oxyCODONE ER 15 MG TAB.ER.12H PO ×2 (08:40→21:18)
[2017-11-23] MEDS: CARISOPRODOL 350 MG TABLET PO ×2 (08:40→17:26)
[2017-11-23] MEDS: LIDOCAINE (700MG/PATCH) PATCH. TD (08:41)
[2017-11-23] MEDS: DOCUSATE SODIUM 100 MG CAPSULE. PO (09:00)
[2017-11-23] MEDS: LOSARTAN POTASSIUM 50 MG TABLET. PO (09:00)
[2017-11-23] MEDS: LACTOBACILLUS RHAMNOSUS GG 1 CAPSULE. PO ×2 (09:00→21:10)
[2017-11-23] MEDS: TAMSULOSIN 0.4 MG CAP.ER.24H. PO (09:00)
[2017-11-23] MEDS: FINASTERIDE 5 MG TABLET. PO (09:00)
[2017-11-23] MEDS: POLYETHYLENE GLYCOL 3350 17 GM PACKET. PO (09:00)
[2017-11-23] MEDS: GABAPENTIN 400 MG CAPSULE. PO ×3 (09:00→21:00)
[2017-11-23] MEDS: LINEZOLID 600 MG TABLET PO ×2 (09:00→21:18)
[2017-11-23] MEDS ORDERED: cefTRIAXone SODIUM 2 GM in IV DEXTROSE 5% 100 ML IV (10:00)
[2017-11-23] MEDS: cefTRIAXone IV Push 2 GM VIAL. IVP (10:33)
[2017-11-23] MEDS ORDERED: MIDAZOLAM HCL/PF 2 MG/2 ML VIAL. (12:28)
[2017-11-23] MEDS: BUPIVACAINE-EPI 0.25%-1:200000 50 ML VIAL. INJ (12:30)
[2017-11-23] MEDS: LIDOCAINE 1% PF 2 ML VIAL. ID (12:47)
[2017-11-23] MEDS ORDERED: FAMOTIDINE 20 MG/2 ML VIAL (13:01)
[2017-11-23] MEDS ORDERED: PROPOFOL 20 ML IV (13:01)
[2017-11-23] MEDS ORDERED: LIDOCAINE 1% PF 5 ML VIAL. (13:01)
[2017-11-23] MEDS ORDERED: DEXAMETHASONE SOD PHOS 20 MG/5 ML VIAL. (13:01)
[2017-11-23] MEDS ORDERED: ONDANSETRON PF 4 MG/2 ML VIAL. (13:01)
[2017-11-23] MEDS ORDERED: SUCCINYLCHOLINE 200 MG/10 ML VIAL. (13:02)
[2017-11-23] MEDS ORDERED: fentaNYL PF VIAL 100 MCG/2 ML VIAL (13:02)
[2017-11-23] MEDS ORDERED: DESFLURANE 31 TO 60 MINUTES IH (14:22)
[2017-11-23] MEDS ORDERED: DESFLURANE 61 TO 120 MINUTES IH (14:22)
[2017-11-23] MEDS: PATCH REMOVAL. MC (21:00)
[2017-11-23] MEDS: ATORVASTATIN CALCIUM 40 MG TABLET. PO (21:10)
[2017-11-24] MEDS: fentaNYL PF VIAL 100 MCG/2 ML VIAL IV ×4 (02:45→12:53)
[2017-11-24] MEDS: DOCUSATE SODIUM 100 MG CAPSULE. PO (09:00)
[2017-11-24] MEDS: GABAPENTIN 400 MG CAPSULE. PO ×2 (09:00→14:00)
[2017-11-24] MEDS: POLYETHYLENE GLYCOL 3350 17 GM PACKET. PO (09:00)
[2017-11-24] MEDS: POTASSIUM CHLORIDE 20 MEQ TABLET.ER. PO (09:37)
[2017-11-24] MEDS: PANTOPRAZOLE 40 MG TABLET.DR. PO (09:37)
[2017-11-24] MEDS: CARISOPRODOL 350 MG TABLET PO ×2 (09:37→14:18)
[2017-11-24] MEDS: oxyCODONE ER 15 MG TAB.ER.12H PO (09:38)
[2017-11-24] MEDS: FINASTERIDE 5 MG TABLET. PO (09:38)
[2017-11-24] MEDS: LINEZOLID 600 MG TABLET PO (09:38)
[2017-11-24] MEDS: TAMSULOSIN 0.4 MG CAP.ER.24H. PO (09:38)
[2017-11-24] MEDS: LOSARTAN POTASSIUM 50 MG TABLET. PO (09:38)
[2017-11-24] MEDS: LACTOBACILLUS RHAMNOSUS GG 1 CAPSULE. PO (09:38)
[2017-11-24] MEDS: LIDOCAINE (700MG/PATCH) PATCH. TD (09:39)
[2017-11-24] MEDS: cefTRIAXone IV Push 2 GM VIAL. IVP (12:53)
[2017-11-24] MEDS: HEPARIN PF 500 UNIT/5 ML DISP.SYRIN. IV (12:54)
[2017-11-24] MEDS: AMOXICILLIN/K CLAV 875/125MG TABLET. PO (13:02)
[2017-11-24] MEDS: CLINDAMYCIN HCL 150 MG CAPSULE. PO (14:18)
[2017-11-24] MEDS: NICOTINE POLACRILEX 2MG GUM PACKAGE of 12. BC (14:19)
[2017-11-24] MEDS: oxyCODONE IR 5 MG TABLET PO (14:19)
== END 2017-11-24 16:25 | disposition home health service (06) | DRG 853 ==
LOC: ER 04:59 → 5 SOUTH 07:26
PROVIDERS: Internal Medicine
PROC: 0KB70ZZ Excision of Right Upper Arm Muscle, Open Approach (ICD-10-PCS; principal; 2017-11-13 08:37)
PROC: 02H633Z Insertion of Infusion Device into Right Atrium, Percutaneous Approach (ICD-10-PCS; 2017-11-13 08:37)
PROC: B2141ZZ Fluoroscopy of Right Heart using Low Osmolar Contrast (ICD-10-PCS; 2017-11-13 08:37)
DX: A41.9 Sepsis, unspecified organism (principal); M72.6 Necrotizing fasciitis; N17.9 Acute kidney failure, unspecified; M00.9 Pyogenic arthritis, unspecified; I11.0 Hypertensive heart disease with heart failure; I50.22 Chronic systolic (congestive) heart failure; M41.9 Scoliosis, unspecified; Z68.41 Body mass index [BMI] 40.0-44.9, adult; F25.8 Other schizoaffective disorders; L03.113 Cellulitis of right upper limb; L02.413 Cutaneous abscess of right upper limb; I48.91 Unspecified atrial fibrillation; B95.0 Streptococcus, group A, as the cause of diseases classified elsewhere; E66.9 Obesity, unspecified; E78.5 Hyperlipidemia, unspecified; E87.6 Hypokalemia; F17.200 Nicotine dependence, unspecified, uncomplicated; F19.10 Other psychoactive substance abuse, uncomplicated; F91.9 Conduct disorder, unspecified; G89.29 Other chronic pain; I25.10 Atherosclerotic heart disease of native coronary artery without angina pectoris; J44.9 Chronic obstructive pulmonary disease, unspecified; K21.9 Gastro-esophageal reflux disease without esophagitis; K59.00 Constipation, unspecified; M19.011 Primary osteoarthritis, right shoulder; M71.121 Other infective bursitis, right elbow; N40.1 Benign prostatic hyperplasia with lower urinary tract symptoms; R33.8 Other retention of urine; Y93.B2 Activity, push-ups, pull-ups, sit-ups; Z80.42 Family history of malignant neoplasm of prostate; Z81.8 Family history of other mental and behavioral disorders; Z82.0 Family history of epilepsy and other diseases of the nervous system; Z82.49 Family history of ischemic heart disease and other diseases of the circulatory system; Z82.5 Family history of asthma and other chronic lower respiratory diseases; Z83.3 Family history of diabetes mellitus; Z86.73 Personal history of transient ischemic attack (TIA), and cerebral infarction without residual deficits; Z91.19 Patient's noncompliance with other medical treatment and regimen; Z96.651 Presence of right artificial knee joint; F10.20 Alcohol dependence, uncomplicated; F11.90 Opioid use, unspecified, uncomplicated; F15.90 Other stimulant use, unspecified, uncomplicated; F32.9 Major depressive disorder, single episode, unspecified; F41.9 Anxiety disorder, unspecified; M48.061 Spinal stenosis, lumbar region without neurogenic claudication; M54.16 Radiculopathy, lumbar region; Z88.8 Allergy status to other drugs, medicaments and biological substances; Z90.49 Acquired absence of other specified parts of digestive tract
CPT/HCPCS: 36415; 36558; 71045; 72131; 73030; 73070; 76770; 76881; 76937; 77001; 80048; 80053; 80069; 80307; 81001; 82550; 82962; 83690; 83735; 84100; 84300; 84484; 84550; 85007; 85014; 85018; 85025; 85651; 86140; 87040; 87071; 87075; 87086; 87205; 93005; 94640; 94760; 96374; 97110-GP; 97161-GP; 99285; 99285-25; C1751; C1769; C1892; G0103; J0330; J0696; J0780; J0878; J1100; J1335; J1885; J2175; J2185; J2250; J2405; J2704; J3010; J3475; J3490; J7030; J7120; J7509; J7613; J7626; S0028

== ENCOUNTER 2017-11-28 14:19 | Emergency (ER) | payer OTHER ==
[2017-11-28] MEDS: fentaNYL PF VIAL 100 MCG/2 ML VIAL IV (16:30)
[2017-11-28] MEDS: fentaNYL PF VIAL 100 MCG/2 ML VIAL IM (17:40)
== END 2017-11-28 21:50 | disposition short-term general hospital (02) ==
LOC: ER 14:19
DX: S51.001D Unspecified open wound of right elbow, subsequent encounter (principal); M79.631 Pain in right forearm; M72.6 Necrotizing fasciitis; E78.00 Pure hypercholesterolemia, unspecified; I10 Essential (primary) hypertension; I48.91 Unspecified atrial fibrillation; Z86.73 Personal history of transient ischemic attack (TIA), and cerebral infarction without residual deficits; F10.20 Alcohol dependence, uncomplicated; Z90.49 Acquired absence of other specified parts of digestive tract; Z95.0 Presence of cardiac pacemaker; F11.10 Opioid abuse, uncomplicated; F15.10 Other stimulant abuse, uncomplicated; Z88.6 Allergy status to analgesic agent; Z88.8 Allergy status to other drugs, medicaments and biological substances; X58.XXXD Exposure to other specified factors, subsequent encounter
CPT/HCPCS: 96372; 99285-25; J3010

== ENCOUNTER 2018-01-10 14:42 | Emergency (ER) | payer OTHER ==
[2018-01-10 15:13] LABS: ADD MAN DIFF? NO
[2018-01-10 15:15] LABS: BASO % 1 % (0-3); EOS # 0.4 x10^3/uL (0.0-0.7); EOS % 6 % (0-3); HEMATOCRIT 33.7 % (39.0-53.0); HEMOGLOBIN 11.3 g/dL (13.0-17.5); LYMPH # 3.2 x10^3/uL (1.0-4.8); LYMPH % 45 % (24-48); MEAN CORPUSCULAR HEMOGLOBIN 30 pg (25-35); MEAN CORPUSCULAR HGB CONC 34 g/dL (31-37); MEAN CORPUSCULAR VOLUME 88 fL (79-100); MONO # 0.7 x10^3/uL (0.0-1.1); MONO % 11 % (0-9); NEUT # 2.7 x10^3uL (1.8-7.7); NEUT % 38 % (31-73); PLATELET COUNT 226 x10^3/uL (140-400); RED BLOOD COUNT 3.83 x10^6/uL (4.30-5.70); RED CELL DISTRIBUTION WIDTH 17.3 % (11.5-14.5); WHITE BLOOD COUNT 7.1 x10^3/uL (4.0-11.0)
[2018-01-10 15:24] LABS: ANION GAP 10 (6-14); BLOOD UREA NITROGEN 18 mg/dL (8-26); CALCIUM 9.2 mg/dL (8.5-10.1); CARBON DIOXIDE 28 mmol/L (21-32); CHLORIDE 104 mmol/L (98-107); CREATININE 1.2 mg/dL (0.7-1.3); GFR 62.4; GLUCOSE 104 mg/dL (70-99); POTASSIUM 3.7 mmol/L (3.5-5.1); SODIUM 142 mmol/L (136-145)
[2018-01-10 15:27] LABS: INR 0.9 (0.8-1.1); PARTIAL THROMBOPLASTIN TIME 27 SEC (24-38); PROTHROMBIN TIME PATIENT 11.9 SEC (11.7-14.0)
[2018-01-10] MEDS ORDERED: diphenhydrAMINE 50 MG/ML VIAL IM (15:30)
[2018-01-10] MEDS ORDERED: MORPHINE SULFATE 4 MG/ML DISP.SYRIN. IV (15:30)
[2018-01-10 15:32] LABS: D-DIMER 0.66 ug/mlFEU (0.00-0.50)
[2018-01-10 15:40] LABS: TROPONIN BY ISTAT 0.01 ng/ml (<0.08)
[2018-01-10] MEDS: fentaNYL PF VIAL 100 MCG/2 ML VIAL IV ×2 (16:04→17:33)
[2018-01-10] MEDS: diphenhydrAMINE 50 MG/ML VIAL IVP (16:30)
[2018-01-10] MEDS ORDERED: FLUCONAZOLE 100 MG TABLET. PO (16:45)
[2018-01-10] MEDS: FLUCONAZOLE 100 MG TABLET. PO (17:13)
[2018-01-10] MEDS: CLOTRIMAZOLE 1% TOPICAL CREAM 15GM TUBE. TP (17:13)
== END 2018-01-10 20:08 | disposition home or self-care (01) ==
LOC: ER 14:42
DX: R07.9 Chest pain, unspecified (principal); R06.02 Shortness of breath; I48.91 Unspecified atrial fibrillation; I10 Essential (primary) hypertension; F11.10 Opioid abuse, uncomplicated; F15.10 Other stimulant abuse, uncomplicated; E78.00 Pure hypercholesterolemia, unspecified; I25.2 Old myocardial infarction; Z86.73 Personal history of transient ischemic attack (TIA), and cerebral infarction without residual deficits; Z95.0 Presence of cardiac pacemaker; Z90.49 Acquired absence of other specified parts of digestive tract; Z96.659 Presence of unspecified artificial knee joint; Z86.19 Personal history of other infectious and parasitic diseases
CPT/HCPCS: 36415; 71045; 80048; 84484; 85025; 85379; 85610; 85730; 93005; 96374; 96376; 99285-25; J3010

== ENCOUNTER 2018-01-11 07:42 | Emergency (ER) | payer OTHER ==
[2018-01-11 08:51] LABS: ADD MAN DIFF? NO
[2018-01-11 09:07] LABS: BASO % 1 % (0-3); EOS # 0.5 x10^3/uL (0.0-0.7); EOS % 7 % (0-3); HEMATOCRIT 38.2 % (39.0-53.0); HEMOGLOBIN 12.2 g/dL (13.0-17.5); LYMPH # 2.7 x10^3/uL (1.0-4.8); LYMPH % 38 % (24-48); MEAN CORPUSCULAR HEMOGLOBIN 29 pg (25-35); MEAN CORPUSCULAR HGB CONC 32 g/dL (31-37); MEAN CORPUSCULAR VOLUME 91 fL (79-100); MONO # 0.8 x10^3/uL (0.0-1.1); MONO % 11 % (0-9); NEUT # 3.1 x10^3uL (1.8-7.7); NEUT % 43 % (31-73); PLATELET COUNT 204 x10^3/uL (140-400); RED BLOOD COUNT 4.18 x10^6/uL (4.30-5.70); RED CELL DISTRIBUTION WIDTH 17.6 % (11.5-14.5); WHITE BLOOD COUNT 7.1 x10^3/uL (4.0-11.0)
[2018-01-11 09:17] LABS: ANION GAP 13 (6-14); BLOOD UREA NITROGEN 20 mg/dL (8-26); BUN/CREATININE RATIO 17 (6-20); CALCIUM 9.1 mg/dL (8.5-10.1); CARBON DIOXIDE 24 mmol/L (21-32); CHLORIDE 104 mmol/L (98-107); CREATININE 1.2 mg/dL (0.7-1.3); GFR 62.4; GLUCOSE 171 mg/dL (70-99); POTASSIUM 4.1 mmol/L (3.5-5.1); SODIUM 141 mmol/L (136-145)
[2018-01-11 09:23] LABS: ALBUMIN 3.8 g/dL (3.4-5.0); ALK PHOS 106 U/L (46-116); ALT (SGPT) 49 U/L (16-63); AST (SGOT) 36 U/L (15-37); TOTAL BILIRUBIN 0.3 mg/dL (0.2-1.0); TOTAL PROTEIN 7.6 g/dL (6.4-8.2)
[2018-01-11 09:25] LABS: TROPONINI < 0.017 ng/mL (0.000-0.055)
[2018-01-11] MEDS ORDERED: KETAMINE HCL 500 MG/10 ML VIAL. IV (09:30)
[2018-01-11] MEDS: NORMAL SALINE IV (09:45)
[2018-01-11] MEDS: KETAMINE HCL IV (09:45)
== END 2018-01-11 14:40 | disposition home or self-care (01) ==
LOC: ER 07:42
DX: R07.89 Other chest pain (principal); G89.29 Other chronic pain; E78.00 Pure hypercholesterolemia, unspecified; I10 Essential (primary) hypertension; I48.91 Unspecified atrial fibrillation; F41.9 Anxiety disorder, unspecified; I25.2 Old myocardial infarction; F11.10 Opioid abuse, uncomplicated; F15.10 Other stimulant abuse, uncomplicated; Z86.73 Personal history of transient ischemic attack (TIA), and cerebral infarction without residual deficits; Z95.0 Presence of cardiac pacemaker; Z86.19 Personal history of other infectious and parasitic diseases
CPT/HCPCS: 36415; 71046; 78582; 80053; 84484; 85025; 93005; 96374; 99285; A9540; A9558

== ENCOUNTER 2018-04-11 11:26 | Emergency (ER) | payer OTHER ==
[~2018-04-11] VITALS: Ht 167.6 cm; Wt 108.9 kg
[~2018-04-11 11:26] MED LIST changes: -AMIO200T2 PO; +AMIO200T4 PO; +AMOX1TAB61 PO; +CARI350T14; +DICL75TA; +FLUT1DIS3 IH; +GABA400C7; +LORA10TA3; +LOSA1TAB22; +PROVENTIL HFA6.7 GM IH; +VARE0.5T PO; +VARE1TAB21
[2018-04-11 11:28] VITALS: BP 161/96
[2018-04-11 12:07] LABS: BASO % 1 % (0-3); EOS # 0.2 x10^3/uL (0.0-0.7); EOS % 2 % (0-3); HEMATOCRIT 38.7 % (39.0-53.0); HEMOGLOBIN 12.9 g/dL (13.0-17.5); LYMPH # 2.2 x10^3/uL (1.0-4.8); LYMPH % 33 % (24-48); MEAN CORPUSCULAR HEMOGLOBIN 27 pg (25-35); MEAN CORPUSCULAR HGB CONC 33 g/dL (31-37); MEAN CORPUSCULAR VOLUME 82 fL (79-100); MONO # 0.7 x10^3/uL (0.0-1.1); MONO % 11 % (0-9); NEUT # 3.7 x10^3uL (1.8-7.7); NEUT % 54 % (31-73); PLATELET COUNT 207 x10^3/uL (140-400); RED BLOOD COUNT 4.73 x10^6/uL (4.30-5.70); RED CELL DISTRIBUTION WIDTH 19.1 % (11.5-14.5); WHITE BLOOD COUNT 6.9 x10^3/uL (4.0-11.0)
[2018-04-11 12:17] LABS: CALCIUM 8.9 mg/dL (8.5-10.1); CREATININE 0.9 mg/dL (0.7-1.3); POTASSIUM 3.9 mmol/L (3.5-5.1)
--- NOTE | 2018-04-11 12:22 | RAD ---
Chest, One View: History: Pacemaker lead evaluation. Technique: AP view of the chest was obtained Comparison: 01/11/2018. Findings: Technique accentuates heart size and pulmonary vascularity. Right-sided cardiac pacer with leads similar to prior exam. The lungs are clear. Impression: No evidence of an acute cardiopulmonary process. Electronically signed by: Dontae Hidalgo MD (04/11/2018 12:18 PM) [id number]
--- NOTE | 2018-04-11 13:18 | EKG ---
[facility] [address] [place] [address] Test Date: 2018-04-11 Test Time: 11:37:02 Pat Name: ALYSSA PABLO Department: Room: Gender: M Transport Pilot: : 1960 Requested By: EMERALD MCFARLAND Order Number: [id number] Reading MD: Kirit Combs MD Measurements Intervals Summers Rate: 73 P: 2 CO: 160 QRS: -163 QRSD: 94 T: 27 QT: 430 QTc: 478 Interpretive Statements SINUS RHYTHM V-PACED PVC Electronically Signed On 04-12-2018 15:26:19 CDT by Kirit Combs MD
[2018-04-11] MEDS ORDERED: LOSA1TAB22 PO (13:40)
--- NOTE | 2018-04-11 13:40 | PHYS DOC ---
Past Medical History Past Medical History: A-Fib, Alcoholism, Anxiety, CVA, High Cholesterol, Heart Disease, Hypertension, [place], Other Additional Past Medical Histor: Vtach, back pain, HERNIA, HEPATITIS, bradycardia Past Surgical History: Cholecystectomy, Knee Replacement, Pacemaker, Other Additional Past Surgical Histo: skin graft on elbow Alcohol Use: None Drug Use: None Adult General Chief Complaint Chief Complaint: OTHER COMPLAINTS HPI HPI Patient is a 57 year old male since the ER for evaluation. Patient is an inconsistent poor historian and it is unclear initially on his presenting complaint. Patient with history of concerns for narcotic abuse and seeking behavior in the past. Patient reporting that he is concerned that his pacemaker is not working in his heart is going to stop. Patient denies any chest pain, shortness of breath, dizziness, palpitations. Patient is unclear on what director of operations for therapy he follows with. Patient states that he saw a director of operations for therapy approximately 6 months ago with [facility] but is unable to name his director of operations for therapy. Review of Systems Review of Systems Constitutional: Denies fever or chills [] Eyes: Denies change in visual acuity, redness, or eye pain [] HENT: Denies nasal congestion or sore throat [] Respiratory: Denies cough or shortness of breath [] Cardiovascular: Chest pain, no lower extremity edema, no orthopnea GI: Denies abdominal pain, nausea, vomiting, bloody stools or diarrhea [] : Denies dysuria or hematuria [] Musculoskeletal: Denies back pain or joint pain [] Integument: Denies rash or skin lesions [] Neurologic: Denies headache, focal weakness or sensory changes [] Endocrine: Denies polyuria or polydipsia [] All other systems were reviewed and found to be within normal limits, except as documented in this note. Allergies Allergies Allergies Coded Allergies Type Severity Reaction Last Updated Verified alprazolam Allergy Intermediate 11/23/17 Yes diltiazem Allergy Intermediate HIVES, INTERMITTENTLY 11/23/17 Yes lorazepam Allergy Intermediate halucinations 11/23/17 Yes morphine Allergy Intermediate HIVES, INTERMITTENTLY 11/23/17 Yes Haloperidol Lactate Adverse Reaction Intermediate dystonic reaction 11/23/17 Yes haloperidol Adverse Reaction Intermediate dystonic reaction 11/23/17 Yes tramadol Adverse Reaction Intermediate Hallucinationsper nurse 11/23/17 Yes Physical Exam Physical Exam Constitutional: Well developed, well nourished, HENT: Normocephalic, atraumatic, Eyes: PERRLA, EOMI, Neck: no stridor. [] Cardiovascular:Heart rate regular rhythm, no murmur [] Lungs & Thorax: Bilateral breath sounds clear to auscultation [] Abdomen: Bowel sounds normal, soft, no tenderness, no masses, no pulsatile masses. [] Skin: Warm, dry, no erythema, no rash. [] Extremities: ROM intact, no edema. [] Neurologic: Alert and oriented X 3, no focal deficits noted. [] Psychologic: Affect normal, judgement normal, mood normal. [] Current Patient Data Vital Signs Vital Signs Date Time Temp Pulse Resp B/P (MAP) Pulse Ox O2 Delivery O2 Flow Rate FiO2 04/11/18 11:28 98.1 74 15 161/96 (117) 96 Room Air 98.1 Lab Values Laboratory Tests Test 04/11/18 11:50 White Blood Count 6.9 x10^3/uL (4.0-11.0) Red Blood Count 4.73 x10^6/uL (4.30-5.70) Hemoglobin 12.9 g/dL (13.0-17.5) L Hematocrit 38.7 % (39.0-53.0) L Mean Corpuscular Volume 82 fL (79-100) Mean Corpuscular Hemoglobin 27 pg (25-35) Mean Corpuscular Hemoglobin Concent 33 g/dL (31-37) Red Cell Distribution Width 19.1 % (11.5-14.5) H Platelet Count 207 x10^3/uL (140-400) Neutrophils (%) (Auto) 54 % (31-73) Lymphocytes (%) (Auto) 33 % (24-48) Monocytes (%) (Auto) 11 % (0-9) H Eosinophils (%) (Auto) 2 % (0-3) Basophils (%) (Auto) 1 % (0-3) Neutrophils # (Auto) 3.7 x10^3uL (1.8-7.7) Lymphocytes # (Auto) 2.2 x10^3/uL (1.0-4.8) Monocytes # (Auto) 0.7 x10^3/uL (0.0-1.1) Eosinophils # (Auto) 0.2 x10^3/uL (0.0-0.7) Basophils # (Auto) 0.0 x10^3/uL (0.0-0.2) Sodium Level 139 mmol/L (136-145) Potassium Level 3.9 mmol/L (3.5-5.1) Chloride Level 106 mmol/L (98-107) Carbon Dioxide Level 24 mmol/L (21-32) Anion Gap 9 (6-14) Blood Urea Nitrogen 17 mg/dL (8-26) Creatinine 0.9 mg/dL (0.7-1.3) Estimated GFR (Cockcroft-Gault) 87.0 Glucose Level 118 mg/dL (70-99) H Calcium Level 8.9 mg/dL (8.5-10.1) Troponin I Quantitative < 0.017 ng/mL (0.000-0.055) Laboratory Tests 04/11/18 11:50 Laboratory Tests 04/11/18 11:50 EKG EKG Pacer spikes present consistently. Heart rate 73. No acute ST segment changes.[] Radiology/Procedures Radiology/Procedures [address] [place] [address] IMAGING REPORT Signed PATIENT: ALYSSA PABLO ACCOUNT: [id number] : 1960 LOCATION: ER AGE: 57 SEX: M EXAM STATUS: PRE ER ORD. PHYSICIAN: EMERALD MCFARLAND DO REASON: Pacemaker lead eval PROCEDURE: CHEST PA & LATERAL Chest, One View: History: Pacemaker lead evaluation. Technique: AP view of the chest was obtained Comparison: 01/11/2018. Findings: Technique accentuates heart size and pulmonary vascularity. Right-sided cardiac pacer with leads similar to prior exam. The lungs are clear. Impression: No evidence of an acute cardiopulmonary process. Electronically signed by: Dontae Hidalgo MD (04/11/2018 12:18 PM) [id number] [] Course & Med Decision Making Course & Med Decision Making Pertinent Labs and Imaging studies reviewed. (See chart for details) []Reassuring labs, EKG, chest x-ray. Requested to interrogation patient's pacemaker but patient declined requesting discharge. He is refusing to sign out AMA as he feels that this will prevent his insurance and paying for the visit. Advised close follow-up with cardiology. As patient is unclear on who his director of operations for therapy is I referred him to the on-call director of operations for therapy. He'll return precautions given. Patient verbalized understanding. All questions answered. . Patient reports that he is out of his blood pressure medication for a few days and is not scheduled to get a refill until Monday it is unclear why he is out of this. I will provide a short Rx Dragon Disclaimer Dragon Disclaimer This electronic medical record was generated, in whole or in part, using a voice recognition dictation system. Departure Departure Impression: Primary Impression: Chest pain Disposition: HOME, SELF-CARE Condition: STABLE Referrals: ELENA TRAORE (PCP) CORA SMITH MD Patient Instructions: Chest Pain (Nonspecific) Additional Instructions: Thank you for coming to [facility]. Please repeat the attached handouts. Please follow-up with your primary care physician. Return to the ER if your symptoms worsen or you have any other concerns. Follow up with the referred director of operations for therapy in the next 2-5 days Scripts Losartan/Hydrochlorothiazide (LOSARTAN-HCTZ 100-25 MG TAB) 1 Each Tablet 1 TAB PO DAILY, #10 TAB 0 Refills Prov: EMERALD MCFARLAND DO 04/11/18 EMERALD MCFARLAND DO Apr 11, 2018 13:40
== END 2018-04-11 13:54 | disposition home or self-care (01) ==
LOC: ER 11:26
DX: R07.89 Other chest pain (principal); I48.91 Unspecified atrial fibrillation; F41.9 Anxiety disorder, unspecified; E78.00 Pure hypercholesterolemia, unspecified; I11.9 Hypertensive heart disease without heart failure; I25.2 Old myocardial infarction; Z86.73 Personal history of transient ischemic attack (TIA), and cerebral infarction without residual deficits; Z90.49 Acquired absence of other specified parts of digestive tract; Z96.659 Presence of unspecified artificial knee joint; Z88.5 Allergy status to narcotic agent; Z88.8 Allergy status to other drugs, medicaments and biological substances
CPT/HCPCS: 36415; 71046; 80048; 84484; 85025; 93005; 99285-25

== ENCOUNTER → 2018-05-15 | Outpatient (CLI) | payer OTHER ==
[~2018-05-15] MED LIST changes: +ALBUTEROL SULFATE 2.5 MG/3 ML NEBU. NEB ONE; +LOSA1TAB22 PO; -LOSA50TA6 PO; +LOSA50TA7 PO
== END | disposition home or self-care (01) ==
LOC: PF 07:57
PROVIDERS: ATTEND Surgery
DX: R06.02 Shortness of breath (principal); I25.2 Old myocardial infarction; I13.0 Hypertensive heart and chronic kidney disease with heart failure and stage 1 through stage 4 chronic kidney disease, or unspecified chronic kidney disease; E11.22 Type 2 diabetes mellitus with diabetic chronic kidney disease; I50.22 Chronic systolic (congestive) heart failure; N18.9 Chronic kidney disease, unspecified; I25.10 Atherosclerotic heart disease of native coronary artery without angina pectoris; E78.00 Pure hypercholesterolemia, unspecified; J44.9 Chronic obstructive pulmonary disease, unspecified; K21.9 Gastro-esophageal reflux disease without esophagitis; Z86.19 Personal history of other infectious and parasitic diseases; Z87.440 Personal history of urinary (tract) infections; Z90.49 Acquired absence of other specified parts of digestive tract; Z96.651 Presence of right artificial knee joint; Z86.73 Personal history of transient ischemic attack (TIA), and cerebral infarction without residual deficits; Z88.1 Allergy status to other antibiotic agents; Z88.5 Allergy status to narcotic agent; Z88.4 Allergy status to anesthetic agent; Z88.8 Allergy status to other drugs, medicaments and biological substances; Z88.6 Allergy status to analgesic agent; Z82.49 Family history of ischemic heart disease and other diseases of the circulatory system; Z81.8 Family history of other mental and behavioral disorders; Z80.42 Family history of malignant neoplasm of prostate; Z83.3 Family history of diabetes mellitus
CPT/HCPCS: 94060; 94640; J7613

== ENCOUNTER 2018-05-17 18:43 | Emergency (ER) | payer SELFPAY ==
[~2018-05-17] VITALS: Ht 167.6 cm; Wt 108.9 kg
[~2018-05-17 18:43] MED LIST changes: -ALBUTEROL SULFATE 2.5 MG/3 ML NEBU. NEB ONE
[2018-05-17 18:44] VITALS: BP 123/79
--- NOTE | 2018-05-17 19:09 | PHYS DOC ---
Past Medical History Past Medical History: A-Fib, Alcoholism, Anxiety, CVA, High Cholesterol, Heart Disease, Hypertension, [place], Other Additional Past Medical Histor: Vtach, back pain, HERNIA, HEPATITIS, bradycardia Past Surgical History: Cholecystectomy, Knee Replacement, Pacemaker, Other Additional Past Surgical Histo: skin graft on elbow Additional Information: 0.25 PPD Alcohol Use: None Drug Use: None Adult General Chief Complaint Chief Complaint: CHEST PAIN HPI HPI 57-year-old male presents via EMS with complaint of dizziness and chest discomfort. Patient does report he hit his head approximately 2 days ago. Patient is unsure if he lost consciousness. Denies any neck pain. Patient somewhat uncooperative as he reports he did not call EMS and he does not want to be here. Review of Systems Review of Systems Constitutional: Denies fever or chills [] Eyes: Denies change in visual acuity, redness, or eye pain [] HENT: Denies nasal congestion or sore throat [] Respiratory: Reports some cough; denies shortness of breath Cardiovascular: Reports chest discomfort and syncope[] GI: Denies abdominal pain, nausea, vomiting, or diarrhea []] Musculoskeletal: Denies back pain or joint pain [] Integument: Denies rash or laceration Neurologic: Denies headache, focal weakness or sensory changes [] Complete systems were reviewed and found to be within normal limits, except as documented in this note. Current Medications Current Medications Current Medications Medications (Trade) Dose Ordered Sig/Alan Start Time Stop Time Status Last Admin Dose Admin Sodium Chloride 1,000 ml @ 1,000 mls/hr 1X ONCE 05/17/18 19:15 05/17/18 20:14 Allergies Allergies Allergies Coded Allergies Type Severity Reaction Last Updated Verified alprazolam Allergy Intermediate 11/23/17 Yes diltiazem Allergy Intermediate HIVES, INTERMITTENTLY 11/23/17 Yes lorazepam Allergy Intermediate halucinations 11/23/17 Yes morphine Allergy Intermediate HIVES, INTERMITTENTLY 11/23/17 Yes Haloperidol Lactate Adverse Reaction Intermediate dystonic reaction 11/23/17 Yes haloperidol Adverse Reaction Intermediate dystonic reaction 11/23/17 Yes tramadol Adverse Reaction Intermediate Hallucinationsper nurse 11/23/17 Yes Physical Exam Physical Exam Constitutional: Well developed, well nourished, uncooperative and irritable HENT: Normocephalic, atraumatic, oropharynx moist Eyes: PERRL, EOMI, conjunctiva normal, no discharge. [] Neck: Normal range of motion, no midline tenderness, supple Cardiovascular: Heart rate regular rhythm, Refill less than 2 seconds Lungs & Thorax: Bilateral breath sounds equal bilaterally, slightly diminished at bilateral bases Abdomen: Soft, no tenderness, chronic umbilical hernia appreciated Skin: Warm, dry Extremities: No tenderness, ROM intact, no edema. [] Neurologic: Alert and oriented, no focal deficits noted. [] Psychologic: Irritable and uncooperative Current Patient Data Vital Signs Vital Signs Date Time Temp Pulse Resp B/P (MAP) Pulse Ox O2 Delivery O2 Flow Rate FiO2 05/17/18 18:44 94 24 123/79 (94) 98 Room Air EKG EKG @ 1846: Paced rhythm at 94bpm Radiology/Procedures Radiology/Procedures [] Course & Med Decision Making Course & Med Decision Making Pertinent Labs and Imaging studies reviewed. (See chart for details) Patient presents via EMS with report of dizziness and chest discomfort. Patient unhappy that he is in the emergency department and reports he did not request to be transported by EMS. Patient does have some significant cardiac history. EKG stable. He appears neurologically at baseline however patient is partially uncooperative during exam. Labs ordered and images pending. Patient subsequently elected to leave AGAINST MEDICAL ADVICE prior to any laboratory or radiological data obtained. Patient advised against leaving AGAINST MEDICAL ADVICE however he elects to take upon himself the risks including permanent disability and/or . AMA form signed. Dragon Disclaimer Dragon Disclaimer This electronic medical record was generated, in whole or in part, using a voice recognition dictation system. Departure Departure Impression: Primary Impression: Dizziness Additional Impressions: Chest pain Left against medical advice Disposition: 07 AGAINST MEDICAL ADVICE Condition: GUARDED Referrals: ELENA TRAORE (PCP) Patient Instructions: Discharge Against Medical Advice Problem Qualifiers Additional Impressions: Chest pain Chest pain type: unspecified Qualified Codes: R07.9 - Chest pain, unspecified DEBRA MORATAYA DO May 17, 2018 19:09
[2018-05-17] MEDS ORDERED: IV NORMAL SALINE 1000ML BAG 1,000 ML IV ONE (19:15)
--- NOTE | 2018-05-18 06:21 | EKG ---
[facility] [address] [place] [address] Test Date: 2018-05-17 Test Time: 18:46:18 Pat Name: ALYSSA PABLO Department: Room: Gender: M Lpn Per Diem: : 1960 Requested By: DEBRA MORATAYA Order Number: [id number] Reading MD: Measurements Intervals [place] Rate: 94 P: MT: QRS: 30 QRSD: 130 T: 25 QT: 372 QTc: 470 Interpretive Statements SINUS RHYTHM LEFT BUNDLE BRANCH BLOCK ABNORMAL ECG No previous ECG available for comparison
== END 2018-05-17 19:10 | disposition left against medical advice (07) ==
LOC: ER 18:43
DX: R07.89 Other chest pain (principal); R42 Dizziness and giddiness; R55 Syncope and collapse; I48.91 Unspecified atrial fibrillation; F41.9 Anxiety disorder, unspecified; E78.00 Pure hypercholesterolemia, unspecified; I11.9 Hypertensive heart disease without heart failure; F17.200 Nicotine dependence, unspecified, uncomplicated; I25.2 Old myocardial infarction; Z90.49 Acquired absence of other specified parts of digestive tract; Z96.659 Presence of unspecified artificial knee joint; Z88.5 Allergy status to narcotic agent; Z88.8 Allergy status to other drugs, medicaments and biological substances
CPT/HCPCS: 93005; 99284

== ENCOUNTER 2018-06-21 08:55 | Emergency (ER) | payer SELFPAY ==
[~2018-06-21] VITALS: Ht 170.2 cm; Wt 108.9 kg
[2018-06-21 08:55] VITALS: BP 161/110
[2018-06-21 10:04] LABS: BASO % 1 % (0-3); EOS # 0.1 x10^3/uL (0.0-0.7); EOS % 2 % (0-3); HEMATOCRIT 38.2 % (39.0-53.0); LYMPH # 1.5 x10^3/uL (1.0-4.8); LYMPH % 23 % (24-48); MEAN CORPUSCULAR HEMOGLOBIN 29 pg (25-35); MEAN CORPUSCULAR HGB CONC 34 g/dL (31-37); MEAN CORPUSCULAR VOLUME 86 fL (79-100); MONO # 0.7 x10^3/uL (0.0-1.1); MONO % 11 % (0-9); NEUT # 4.3 x10^3uL (1.8-7.7); NEUT % 64 % (31-73); PLATELET COUNT 250 x10^3/uL (140-400); RED BLOOD COUNT 4.45 x10^6/uL (4.30-5.70); RED CELL DISTRIBUTION WIDTH 17.2 % (11.5-14.5); WHITE BLOOD COUNT 6.8 x10^3/uL (4.0-11.0)
[2018-06-21 10:08] LABS: CALCIUM 9.9 mg/dL (8.5-10.1); CREATININE 1.1 mg/dL (0.7-1.3); POTASSIUM 4.3 mmol/L (3.5-5.1)
[2018-06-21 10:16] LABS: ACETAMIN 11.1 mcg/ml (10-30); ETHANOL < 10 mg/dL (0-10)
--- NOTE | 2018-06-21 10:26 | EKG ---
[facility] [address] [place] [address] Test Date: 2018-06-21 Test Time: 10:04:59 Pat Name: ALYSSA PABLO Department: Room: Gender: M Vat Operator: : 1960 Requested By: CORINA KELLEY Order Number: [id number] Reading MD: Kirit Combs MD Measurements Intervals [place] Rate: 74 P: 44 ID: 160 QRS: -175 QRSD: 90 T: 24 QT: 422 QTc: 474 Interpretive Statements SINUS RHYTHM V-PACING Electronically Signed On 06-21-2018 11:21:50 CDT by Kirit Combs MD
[2018-06-21 10:44] LABS: BARBITURATES NEG (NEG); BENZODIAZEPINES POS (NEG); CANNABINOIDS NEG (NEG); COCAINE NEG (NEG); METHADONE NEG (NEG); OPIATES POS (NEG); PHENCYCLIDINE NEG (NEG)
[2018-06-21 10:46] LABS: AMPHETAMINE/METHAMPHETAMINE NEG (NEG)
--- NOTE | 2018-06-21 12:08 | PHYS DOC ---
Past Medical History Past Medical History: A-Fib, Alcoholism, Anxiety, CAD, CVA, High Cholesterol, Heart Disease, Hypertension, [place], Other Additional Past Medical Histor: Vtach, back pain, HERNIA, HEPATITIS, bradycardia Past Surgical History: Cholecystectomy, Knee Replacement, Pacemaker, Other Additional Past Surgical Histo: skin graft on elbow, Alcohol Use: None Drug Use: None Adult General Chief Complaint Chief Complaint: OVERDOSE HPI HPI Patient is a 57 year old ED, A. fib, CVA, chronic alcoholism who presents with possible for accidental drug overdose. Patient states he took multiple Percocet , Soma tablets this morning and after to treat his chronic neck back and shoulder pain in addition to wearing #3, 75 g fentanyl patches removed by EMS prior to ED arrival.Patient states he receives his pain medications from his memory care physician and he uses them at his will to treat his chronic pain which she states is both severe and poorly controlled. No respiratory distress, somnolence or pinpoint pupils observed. No nausea vomiting or abdominal pain. Patient reports chest wall pain after removal of fentanyl patches. No fever chills, nausea vomiting or sweats. Chronic cough, no acute leg pain or swelling. No other acute symptoms or complaints. [] Review of Systems Review of Systems Review symptoms as per history of present illness. All other review symptoms are negative[] All other systems were reviewed and found to be within normal limits, except as documented in this note. Allergies Allergies Allergies Coded Allergies Type Severity Reaction Last Updated Verified alprazolam Allergy Intermediate 11/23/17 Yes diltiazem Allergy Intermediate HIVES, INTERMITTENTLY 11/23/17 Yes lorazepam Allergy Intermediate halucinations 11/23/17 Yes morphine Allergy Intermediate HIVES, INTERMITTENTLY 11/23/17 Yes Haloperidol Lactate Adverse Reaction Intermediate dystonic reaction 11/23/17 Yes haloperidol Adverse Reaction Intermediate dystonic reaction 11/23/17 Yes tramadol Adverse Reaction Intermediate Hallucinationsper nurse 11/23/17 Yes Physical Exam Physical Exam Constitutional: Well developed, well nourished, no acute distress. [] HENT: Normocephalic, atraumatic, bilateral external ears normal, oropharynx moist, nose normal. [] Eyes: PERRLA, EOMI, conjunctiva normal. [] Neck: Normal range of motion, no midline tenderness. [] Cardiovascular:Heart rate regular rhythm, no murmur. [] Lungs & Thorax: Bilateral breath sounds clear to auscultation. [] Abdomen: Bowel sounds normal, soft, no tenderness. [] Skin: Warm, dry, no erythema. [] Back: No midline tenderness. [] Extremities: No tenderness. [] Neurologic: Alert and oriented X 3, normal motor function, normal sensory function, no focal deficits noted. [] Psychologic: Affect normal, judgement normal, mood normal. [] Current Patient Data Vital Signs Vital Signs Date Time Temp Pulse Resp B/P (MAP) Pulse Ox O2 Delivery O2 Flow Rate FiO2 06/21/18 08:55 97.4 85 21 161/110 (127) 96 Room Air 97.4 Lab Values Laboratory Tests Test 06/21/18 09:50 06/21/18 10:30 White Blood Count 6.8 x10^3/uL (4.0-11.0) Red Blood Count 4.45 x10^6/uL (4.30-5.70) Hemoglobin 13.0 g/dL (13.0-17.5) Hematocrit 38.2 % (39.0-53.0) L Mean Corpuscular Volume 86 fL (79-100) Mean Corpuscular Hemoglobin 29 pg (25-35) Mean Corpuscular Hemoglobin Concent 34 g/dL (31-37) Red Cell Distribution Width 17.2 % (11.5-14.5) H Platelet Count 250 x10^3/uL (140-400) Neutrophils (%) (Auto) 64 % (31-73) Lymphocytes (%) (Auto) 23 % (24-48) L Monocytes (%) (Auto) 11 % (0-9) H Eosinophils (%) (Auto) 2 % (0-3) Basophils (%) (Auto) 1 % (0-3) Neutrophils # (Auto) 4.3 x10^3uL (1.8-7.7) Lymphocytes # (Auto) 1.5 x10^3/uL (1.0-4.8) Monocytes # (Auto) 0.7 x10^3/uL (0.0-1.1) Eosinophils # (Auto) 0.1 x10^3/uL (0.0-0.7) Basophils # (Auto) 0.0 x10^3/uL (0.0-0.2) Sodium Level 142 mmol/L (136-145) Potassium Level 4.3 mmol/L (3.5-5.1) Chloride Level 104 mmol/L (98-107) Carbon Dioxide Level 34 mmol/L (21-32) H Anion Gap 4 (6-14) L Blood Urea Nitrogen 19 mg/dL (8-26) Creatinine 1.1 mg/dL (0.7-1.3) Estimated GFR (Cockcroft-Gault) 69.0 Glucose Level 152 mg/dL (70-99) H Calcium Level 9.9 mg/dL (8.5-10.1) Troponin I Quantitative < 0.017 ng/mL (0.000-0.055) Acetaminophen Level 11.1 mcg/ml (10-30) Acetaminophen Last Dose Date Unknown Acetaminophen Last Dose Time Unknown Ethyl Alcohol Level < 10 mg/dL (0-10) Urine Opiates Screen Pos (NEG) Urine Methadone Screen Neg (NEG) Urine Barbiturates Neg (NEG) Urine Phencyclidine Screen Neg (NEG) Urine Amphetamine/Methamphetamine Neg (NEG) Urine Benzodiazepines Screen Pos (NEG) Urine Cocaine Screen Neg (NEG) Urine Cannabinoids Screen Neg (NEG) Urine Ethyl Alcohol Neg (NEG) Laboratory Tests 06/21/18 09:50 Laboratory Tests 06/21/18 09:50 EKG EKG [EKG: paced] Radiology/Procedures Radiology/Procedures ] Course & Med Decision Making Course & Med Decision Making Pertinent Labs and Imaging studies reviewed. (See chart for details) [Patient presentation consistent with chronic pain with significant psychiatric overlay. Patient does not exhibit narcotic overdose toxidrome.. Despite taking multiple Percocet in the past 4 hours, patient's Tylenol is in the therapeutic range. Lab work, EKG otherwise reassuring. Home safety, strict medication use instructions given. Recommend following up with PCP for further management of chronic pain.] Dragon Disclaimer Dragon Disclaimer This electronic medical record was generated, in whole or in part, using a voice recognition dictation system. Departure Departure Impression: Primary Impression: Accidental drug overdose Disposition: 01 HOME, SELF-CARE Condition: LEFT WITHOUT BEING SEEN Patient Instructions: Overdose, Adult Additional Instructions: Please medications only as prescribed and do not use multiple fentanyl patches at a time. Follow-up with your PCP today or tomorrow for further pain management.. CORINA KELLEY DO Jun 21, 2018 12:08
== END 2018-06-21 11:15 | disposition home or self-care (01) ==
LOC: ER 08:55
DX: T40.691A Poisoning by other narcotics, accidental (unintentional), initial encounter (principal); I48.91 Unspecified atrial fibrillation; F41.9 Anxiety disorder, unspecified; E78.00 Pure hypercholesterolemia, unspecified; I11.9 Hypertensive heart disease without heart failure; I25.2 Old myocardial infarction; Z86.73 Personal history of transient ischemic attack (TIA), and cerebral infarction without residual deficits; Z90.49 Acquired absence of other specified parts of digestive tract; Z95.0 Presence of cardiac pacemaker; Z96.659 Presence of unspecified artificial knee joint; Z88.8 Allergy status to other drugs, medicaments and biological substances; Z88.5 Allergy status to narcotic agent; Y92.89 Other specified places as the place of occurrence of the external cause
CPT/HCPCS: 36415; 80048; 80307; 84484; 85025; 93005; 99285; G0480; G6039; G0479

== ENCOUNTER 2018-10-09 06:29 | Emergency (ER) | payer OTHER ==
[~2018-10-09] VITALS: Ht 177.8 cm; Wt 108.9 kg
[~2018-10-09 06:29] MED LIST changes: +ALBU2.5V8 IH; +DIGO250T14 PO; -DIGO250T17 PO; -DILT120C80 PO; +DILT120C85 PO; +DOXY100T PO; +HYDR-2145 PO; -HYDR-2758 PO; +HYDR-2761 PO; -HYDR25TA9 PO; +LACT1CAP19 PO; +LOSA-73 PO; -LOSA50TA7 PO; -OXYC-327 PO; +OXYC1TAB19 PO; +OXYC5TAB4 PO; -OXYC5TAB95 PO; -PROVENTIL HFA6.7 GM IH; +ZIPR20CA2 PO
[2018-10-09] MEDS ORDERED: IPRATRPIUM/ALBUTEROL 0.5/2.5MG 3 ML NEBU. ONE (06:36)
--- NOTE | 2018-10-09 06:44 | NUR ---
LAST ENTRY WAS IN ERROR. PT REFUSED BREATHING TX
--- NOTE | 2018-10-09 06:44 | NUR ---
er PT REFUSED BIPAP
--- NOTE | 2018-10-09 06:49 | PHYS DOC ---
Past Medical History Past Medical History: A-Fib, Alcoholism, Anxiety, CAD, CVA, High Cholesterol, Heart Disease, Hypertension, VT, Other Additional Past Medical Histor: Vtach, back pain, HERNIA, HEPATITIS, bradycardia Past Surgical History: Cholecystectomy, Knee Replacement, Pacemaker, Other Additional Past Surgical Histo: skin graft on elbow, Alcohol Use: None Drug Use: None Adult General Chief Complaint Chief Complaint: SHORTNESS OF BREATH HPI HPI Patient is a 57 year old male who presents with EMS in acute respiratory distress. Patient is a very poor historian but, known to this facility. He has poorly controlled and noncompliant with his underlying psychosis. Patient also has history of COPD. Patient woke up at approximately 05 30 with acute respiratory distress. On EMS evaluation patient was tachypneic with respiratory rate in the 40s, wheezy throughout, and had a room air saturation of 82-83. He was given 2 DuoNeb en route and transported on CPAP. Patient reports feeling significantly better. Patient reports last course approximately 2 months ago. Patient denies any chest pain. Patient is unable to state home medications. Unclear if patient is on Lasix. Patient denies any lower extremity edema. Patient does not know his dry weight. Unclear if patient has history of CHF. Review of Systems Review of Systems Constitutional: Denies fever or chills [] HENT: Denies nasal congestion or sore throat [] Respiratory: +sob, no cough, Cardiovascular: no chest pain, no LE edema, GI: Denies abdominal pain, nausea, vomiting, bloody stools or diarrhea [] : Denies dysuria or hematuria [] Musculoskeletal: Denies back pain or joint pain [] Integument: Denies rash or skin lesions [] Neurologic: Denies headache, focal weakness or sensory changes [] Endocrine: Denies polyuria or polydipsia [] All other systems were reviewed and found to be within normal limits, except as documented in this note. Current Medications Current Medications Current Medications Medications (Trade) Dose Ordered Sig/Alan Start Time Stop Time Status Last Admin Dose Admin Albuterol/ Ipratropium (Duoneb) 3 ml STK-MED ONCE 10/09/18 06:36 10/09/18 06:37 DC Methylprednisolone Sodium Succinate (SOLU-Medrol 125MG VIAL) 60 mg 1X ONCE 10/09/18 06:45 10/09/18 06:46 DC 10/09/18 07:15 60 MG Allergies Allergies Allergies Coded Allergies Type Severity Reaction Last Updated Verified alprazolam Allergy Intermediate 11/23/17 Yes diltiazem Allergy Intermediate HIVES, INTERMITTENTLY 11/23/17 Yes lorazepam Allergy Intermediate halucinations 11/23/17 Yes morphine Allergy Intermediate HIVES, INTERMITTENTLY 11/23/17 Yes Haloperidol Lactate Adverse Reaction Intermediate dystonic reaction 11/23/17 Yes haloperidol Adverse Reaction Intermediate dystonic reaction 11/23/17 Yes tramadol Adverse Reaction Intermediate Hallucinations per nurse 08/06/18 Yes Physical Exam Physical Exam Constitutional: Obese, mild agitation HENT: Normocephalic, atraumatic, Eyes: PERRLA, EOMI, Neck: Normal range of motion, no stridor. [] Cardiovascular:Heart rate regular rhythm, no murmur [] Lungs & Thorax: Bilateral breath sounds, mild expiratory wheezing Abdomen: Bowel sounds normal, soft, no tenderness, no masses, no pulsatile masses. [] Skin: Warm, dry, Back: No tenderness, no CVA tenderness. [] Extremities: No tenderness, no edema. [] Neurologic: Alert and oriented X 3, no focal deficits noted. [] Psychologic: Mild agitation Current Patient Data Vital Signs Vital Signs Date Time Temp Pulse Resp B/P (MAP) Pulse Ox O2 Delivery O2 Flow Rate FiO2 10/09/18 07:53 93 20 149/101 (117) 97 Room Air 10/09/18 06:30 97.2 97.2 Lab Values Laboratory Tests Test 10/09/18 07:15 10/09/18 09:27 White Blood Count 11.9 x10^3/uL (4.0-11.0) H Red Blood Count 4.69 x10^6/uL (4.30-5.70) Hemoglobin 14.1 g/dL (13.0-17.5) Hematocrit 42.9 % (39.0-53.0) Mean Corpuscular Volume 91 fL (79-100) Mean Corpuscular Hemoglobin 30 pg (25-35) Mean Corpuscular Hemoglobin Concent 33 g/dL (31-37) Red Cell Distribution Width 15.9 % (11.5-14.5) H Platelet Count 234 x10^3/uL (140-400) Neutrophils (%) (Auto) 63 % (31-73) Lymphocytes (%) (Auto) 25 % (24-48) Monocytes (%) (Auto) 10 % (0-9) H Eosinophils (%) (Auto) 2 % (0-3) Basophils (%) (Auto) 1 % (0-3) Neutrophils # (Auto) 7.5 x10^3uL (1.8-7.7) Lymphocytes # (Auto) 2.9 x10^3/uL (1.0-4.8) Monocytes # (Auto) 1.2 x10^3/uL (0.0-1.1) H Eosinophils # (Auto) 0.2 x10^3/uL (0.0-0.7) Basophils # (Auto) 0.1 x10^3/uL (0.0-0.2) Prothrombin Time 12.5 SEC (11.7-14.0) Prothrombin Time INR 1.0 (0.8-1.1) PTT 28 SEC (24-38) Sodium Level 144 mmol/L (136-145) Potassium Level 4.0 mmol/L (3.5-5.1) Chloride Level 106 mmol/L (98-107) Carbon Dioxide Level 25 mmol/L (21-32) Anion Gap 13 (6-14) Blood Urea Nitrogen 20 mg/dL (8-26) Creatinine 1.2 mg/dL (0.7-1.3) Estimated GFR (Cockcroft-Gault) 62.4 Glucose Level 156 mg/dL (70-99) H Calcium Level 9.8 mg/dL (8.5-10.1) Magnesium Level 2.1 mg/dL (1.8-2.4) Troponin I Quantitative 0.018 ng/mL (0.000-0.055) < 0.017 ng/mL (0.000-0.055) FR-Tot-N-Type Natriuretic Peptide 62 pg/mL (0-124) Laboratory Tests 10/09/18 07:15 Laboratory Tests 10/09/18 07:15 EKG EKG 0640: Sinus Rhythm, paced, no other acute findings. [] 0937: Sinus Rhythm, paced, no other acute findings. No significant change compared to previous Radiology/Procedures Radiology/Procedures CXR IMPRESSION: No acute cardiopulmonary abnormality is detected with no significant change since 08/06/2018. Electronically signed by: Mikel Perez MD (10/09/2018 7:50 AM) [facility][] Course & Med Decision Making Course & Med Decision Making Pertinent Labs and Imaging studies reviewed. (See chart for details) Pt transitioned off of EMS CPAP to RA. He has very faint wheezing and states that he feels better. He is refusing any further breathing treatments in the ED. 0817: Has remained mildly agitated which his baseline but relatively cooperative for him. He continues to have O2 sat of 97-98% on RA when we are able to capture a good waveform. Initial troponin as above. Pt has had continuous leaks in the past. Will get serial EKG/troponin. Pt has continues [address] no chest pain while in the ED. 10:12 Has remained comfortable. O2 sat on 97-98% on RA. Some very slight expiratory wheezing but has refused further breathing treatments. Given steroids in ED. Serial troponin/EKG reassuring. No EKG changes. No significant changes and troponin. No chest pain while in the ED. Glucose slightly elevated. Pt does not have dx of DM. This was discussed with him. advised close PCP follow up and dietary changes. CXR with no acute findings. Labs and imaging discussed at length with the patient. Labs with no acute findings consistent with immediate life-threatening condition. Patient does have some chronic pathology that will need continued management by his primary care doctor. Discussed prescription. We 'll provide course of steroids. ER return precautions given. Patient verbalized understanding. All questions answered. Dragon Disclaimer Dragon Disclaimer This electronic medical record was generated, in whole or in part, using a voice recognition dictation system. Departure Departure Impression: Primary Impression: COPD exacerbation Disposition: 01 HOME, SELF-CARE Condition: IMPROVED Referrals: ELENA TRAORE (PCP) Patient Instructions: Chronic Obstructive Pulmonary Disease Exacerbation Additional Instructions: Thank you for coming to [facility]. Please read the attached handouts. Continue inhalers and breathing treatments at home. Take the steroids as prescribed. Your blood sugar was slightly elevated at 156. Please follow-up with your primary care doctor for further diabetes testing. Please monitor your sugar intake. Please follow-up with your primary care physician. Return to the ER if your symptoms worsen or you have any other concerns. Scripts Prednisone (PREDNISONE) 50 Mg Tablet 50 MG PO DAILY for 5 Days, #5 TAB Prov: EMERALD MCFARLAND DO 10/09/18 EMERALD MCFARLAND DO Oct 09, 2018 06:49
[2018-10-09] MEDS: methylPREDNISolone SOD SUCC PF 125 MG/2 ML VIAL. IV ONE (07:15)
[2018-10-09 07:24] LABS: BASO # 0.1 x10^3/uL (0.0-0.2); BASO % 1 % (0-3); EOS # 0.2 x10^3/uL (0.0-0.7); EOS % 2 % (0-3); HEMATOCRIT 42.9 % (39.0-53.0); HEMOGLOBIN 14.1 g/dL (13.0-17.5); LYMPH # 2.9 x10^3/uL (1.0-4.8); LYMPH % 25 % (24-48); MEAN CORPUSCULAR HEMOGLOBIN 30 pg (25-35); MEAN CORPUSCULAR HGB CONC 33 g/dL (31-37); MEAN CORPUSCULAR VOLUME 91 fL (79-100); MONO # 1.2 x10^3/uL (0.0-1.1); MONO % 10 % (0-9); NEUT # 7.5 x10^3uL (1.8-7.7); NEUT % 63 % (31-73); PLATELET COUNT 234 x10^3/uL (140-400); RED BLOOD COUNT 4.69 x10^6/uL (4.30-5.70); RED CELL DISTRIBUTION WIDTH 15.9 % (11.5-14.5); WHITE BLOOD COUNT 11.9 x10^3/uL (4.0-11.0)
[2018-10-09 07:38] LABS: CALCIUM 9.8 mg/dL (8.5-10.1); CREATININE 1.2 mg/dL (0.7-1.3); GFR 62.4; MAGNESIUM 2.1 mg/dL (1.8-2.4)
--- NOTE | 2018-10-09 07:53 | RAD ---
Portable chest, 10/09/2018: HISTORY: Shortness of breath Comparison is made to a study from 08/06/2018. Multiple transvenous pacing leads are unchanged. The heart size and pulmonary vascularity are normal. There is mild tortuosity of the thoracic aorta. No pulmonary infiltrate is seen. There is no evidence of pleural fluid. IMPRESSION: No acute cardiopulmonary abnormality is detected with no significant change since 08/06/2018. Electronically signed by: Mikel Perez MD (10/09/2018 7:50 AM) [facility]
[2018-10-09 08:02] LABS: PROTHROMBIN TIME PATIENT 12.5 SEC (11.7-14.0)
[2018-10-09] MEDS ORDERED: PRED50TA PO (08:21)
[2018-10-09 10:00] VITALS: BP 186/113
--- NOTE | 2018-10-09 11:06 | EKG ---
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
--- NOTE | 2018-10-09 12:56 | EKG ---
[facility] [address] [place] [address] Test Date: 2018-10-09 Test Time: 06:40:45 Pat Name: AYLSSA PABLO Department: Room: Gender: M Disability Specialist: : 1960 Requested By: EMERALD MCFARLAND Order Number: [id number] Reading MD: Kirit Combs MD Measurements Intervals [place] Rate: 94 P: 26 [place]: 178 QRS: -158 QRSD: 96 T: 9 QT: 392 QTc: 490 Interpretive Statements SINUS RHYTHM V-PACED Electronically Signed On 10-11-2018 14:11:44 BUILDING SERVICEMAN by Kirit Combs MD
== END 2018-10-09 10:14 | disposition home or self-care (01) ==
LOC: ER 06:29
DX: J44.1 Chronic obstructive pulmonary disease with (acute) exacerbation (principal); I48.91 Unspecified atrial fibrillation; I25.10 Atherosclerotic heart disease of native coronary artery without angina pectoris; E78.00 Pure hypercholesterolemia, unspecified; I25.2 Old myocardial infarction; I11.9 Hypertensive heart disease without heart failure; Z86.73 Personal history of transient ischemic attack (TIA), and cerebral infarction without residual deficits; Z95.0 Presence of cardiac pacemaker; F10.20 Alcohol dependence, uncomplicated; Y90.9 Presence of alcohol in blood, level not specified; Z88.5 Allergy status to narcotic agent; Z88.6 Allergy status to analgesic agent; Z88.8 Allergy status to other drugs, medicaments and biological substances
CPT/HCPCS: 36415; 71045; 80048; 83735; 83880; 84484; 85025; 85610; 85730; 93005; 96374; 99284; J2930

== ENCOUNTER 2018-12-12 22:21 | Inpatient (IN) | payer OTHER ==
[~2018-12-12] VITALS: Ht 167.6 cm; Wt 103.4 kg
[~2018-12-12 22:21] MED LIST changes: +PRED50TA PO
[2018-12-12] MEDS ORDERED: PIP/TAZO PER PHARMACY MC PRN (23:45)
[2018-12-12] MEDS ORDERED: IV NORMAL SALINE 1000ML BAG 1,000 ML IV ONE ×2 (23:45)
[2018-12-13] MEDS ORDERED: PIPERACILLIN/TAZOBACTAM 3.375 GM in IV NORMAL SALINE 50ML 50 ML IV ONE ×2
--- NOTE | 2018-12-13 | PHYS DOC ---
Past Medical History Past Medical History: A-Fib, Alcoholism, Anxiety, CAD, CVA, High Cholesterol, Heart Disease, Hypertension, PR, Other Additional Past Medical Histor: Vtach, back pain, HERNIA, HEPATITIS, bradycardia Past Surgical History: Cholecystectomy, Knee Replacement, Pacemaker, Other Additional Past Surgical Histo: skin graft on elbow, Alcohol Use: None Drug Use: None Adult General Chief Complaint Chief Complaint: UPPER EXTREMITY SWELLING HPI HPI Patient is a 58 year old male who presents with L-arm swelling. Pt reports that his arm became swollen within the last couple days. He reports that it is hot and painful to touch. He denies any obvious trauma to his L-arm, but states that he scratches his arm. He reports fevers up to 104 F. He reports history of necrotizing fasciitis one year ago in his R-arm for which he was hospitalized for one month. He denies CP/SOB, n/v/diarrhea. He denies numbness and tingling in the arm. He reports pain of 8/10. [] Review of Systems Review of Systems Constitutional: Reports fever, denies chills. Reports constant pain.[] Eyes: Denies change in visual acuity, redness, or eye pain [] HENT: Denies nasal congestion or sore throat [] Respiratory: Denies cough or shortness of breath [] Cardiovascular: No additional information not addressed in HPI [] Musculoskeletal: Denies back pain or joint pain [] Integument: Reports necrotizing fasiitis of R-arm, swelling of L-arm with swelling and tenderness. [] All other systems were reviewed and found to be within normal limits, except as documented in this note. Current Medications Current Medications Current Medications Medications (Trade) Dose Ordered Sig/Alan Start Time Stop Time Status Last Admin Dose Admin Heparin Sodium (Porcine) (Heparin Sodium) 1,550 unit PRN Q6HRS PRN 12/13/18 01:45 UNV Heparin Sodium/ Dextrose 500 ml @ 0 mls/hr CONT PRN 12/13/18 01:45 UNV Hydromorphone HCl (Dilaudid) 1 mg Q2HR PRN 12/13/18 01:45 UNV Piperacillin Sod/ Tazobactam Sod (Zosyn Per Pharmacy) 1 each PRN DAILY PRN 12/12/18 23:45 UNV Piperacillin Sod/ Tazobactam Sod 3.375 gm/Sodium Chloride 50 ml @ 100 mls/hr ONCE ONCE 12/13/18 00:00 12/13/18 00:29 DC 12/13/18 01:08 100 MLS/HR Sodium Chloride 1,000 ml @ 75 mls/hr [id number] 12/13/18 01:43 12/14/18 01:42 UNV Vancomycin HCl (Vanco Per Pharmacy) 1 each PRN DAILY PRN 12/12/18 23:45 UNV Vancomycin HCl 2 gm/Sodium Chloride 500 ml @ 250 mls/hr 1X ONCE 12/13/18 00:30 12/13/18 02:29 Allergies Allergies Allergies Coded Allergies Type Severity Reaction Last Updated Verified alprazolam Allergy Intermediate 11/23/17 Yes diltiazem Allergy Intermediate HIVES, INTERMITTENTLY 11/23/17 Yes lorazepam Allergy Intermediate halucinations 11/23/17 Yes morphine Allergy Intermediate HIVES, INTERMITTENTLY 11/23/17 Yes Haloperidol Lactate Adverse Reaction Intermediate dystonic reaction 11/23/17 Yes haloperidol Adverse Reaction Intermediate dystonic reaction 11/23/17 Yes tramadol Adverse Reaction Intermediate Hallucinations per nurse 08/06/18 Yes Physical Exam Physical Exam Constitutional: Well developed, well nourished, continuous GROANS and moaning. [ ] HENT: Normocephalic, atraumatic, bilateral external ears normal, oropharynx moist, no oral exudates, nose normal. [] Eyes: PERRLA, EOMI, conjunctiva normal, no discharge, no jaundice observed [] Neck: Normal range of motion, no tenderness, supple, no stridor. [] Cardiovascular:Heart rate regular rhythm, no murmur [] Lungs & Thorax FAINT WHEEZING LUNG BASES POSSIBLY. PT is talking throughout exam Abdomen: Umbilical hernia surgical scar, Bowel sounds normal, soft, no tenderness, no masses, no pulsatile masses. [] Skin:see below Back: No tenderness, no CVA tenderness. [] Extremities: L-UE erythema with non-pitting edema from distal finger tips to proximal shoulder, TTP from fingers to proximal shoulder, 0.5 cm healed scabbed wound to posterior L-hand, no open wounds observed, no subcutaneous gas appreciated. Surgical scar present R-UE. no bullae in left upper extremity. diffuse edema no definite focal fluctuance. radial pulses intact. Neurologic: Alert and oriented X 3, normal motor function, normal sensory function, no focal deficits noted. [] Psychologic: pressured speech. Current Patient Data Vital Signs Vital Signs Date Time Temp Pulse Resp B/P (MAP) Pulse Ox O2 Delivery O2 Flow Rate FiO2 12/13/18 00:39 25 98 Room Air 12/12/18 22:45 100.0 110 137/83 (101) 100.0 Lab Values Laboratory Tests Test 12/13/18 00:55 White Blood Count 12.6 x10^3/uL (4.0-11.0) H Red Blood Count 4.36 x10^6/uL (4.30-5.70) Hemoglobin 13.0 g/dL (13.0-17.5) Hematocrit 38.9 % (39.0-53.0) L Mean Corpuscular Volume 89 fL (79-100) Mean Corpuscular Hemoglobin 30 pg (25-35) Mean Corpuscular Hemoglobin Concent 33 g/dL (31-37) Red Cell Distribution Width 15.1 % (11.5-14.5) H Platelet Count 158 x10^3/uL (140-400) Neutrophils (%) (Auto) 70 % (31-73) Lymphocytes (%) (Auto) 18 % (24-48) L Monocytes (%) (Auto) 11 % (0-9) H Eosinophils (%) (Auto) 1 % (0-3) Basophils (%) (Auto) 0 % (0-3) Neutrophils # (Auto) 8.9 x10^3uL (1.8-7.7) H Lymphocytes # (Auto) 2.2 x10^3/uL (1.0-4.8) Monocytes # (Auto) 1.3 x10^3/uL (0.0-1.1) H Eosinophils # (Auto) 0.1 x10^3/uL (0.0-0.7) Basophils # (Auto) 0.0 x10^3/uL (0.0-0.2) Prothrombin Time 13.9 SEC (11.7-14.0) Prothrombin Time INR 1.1 (0.8-1.1) Sodium Level 139 mmol/L (136-145) Potassium Level 3.0 mmol/L (3.5-5.1) L Chloride Level 100 mmol/L (98-107) Carbon Dioxide Level 26 mmol/L (21-32) Anion Gap 13 (6-14) Blood Urea Nitrogen 15 mg/dL (8-26) Creatinine 1.1 mg/dL (0.7-1.3) Estimated GFR (Cockcroft-Gault) 68.8 BUN/Creatinine Ratio 14 (6-20) Glucose Level 118 mg/dL (70-99) H Lactic Acid Level 1.2 mmol/L (0.4-2.0) Calcium Level 8.7 mg/dL (8.5-10.1) Total Bilirubin 1.0 mg/dL (0.2-1.0) Aspartate Amino Transferase (AST) 41 U/L (15-37) H Alanine Aminotransferase (ALT) 29 U/L (16-63) Alkaline Phosphatase 94 U/L (46-116) Creatine Kinase 623 U/L (39-308) H Troponin I Quantitative 0.027 ng/mL (0.000-0.055) Total Protein 7.3 g/dL (6.4-8.2) Albumin 3.6 g/dL (3.4-5.0) Albumin/Globulin Ratio 1.0 (1.0-1.7) Procalcitonin 0.33 ng/mL (0.00-0.10) H Laboratory Tests 12/13/18 00:55 Laboratory Tests 12/13/18 00:55 EKG EKG PT REFUSED THE EKG DESPITE MY BEST EFFORT TO CONVINCE HIM[] Radiology/Procedures Radiology/Procedures [] Impressions: IMPRESSION: Occlusive thrombus in the subclavian vein, in one of the duplicated axillary veins and in the brachial vein proximally. Nonocclusive thrombus in the cephalic vein near the antecubital space. Soft tissue edema especially in the posterior hand. Electronically signed by: Lisa Mcallister MD (12/13/2018 1:23 AM) [facility] Course & Med Decision Making Course & Med Decision Making Pertinent Labs and Imaging studies reviewed. (See chart for details) Pt presents with a couple days of erythematous, swollen L-UE accompanied by fever. Chiefly concerned for cellulitis however, given pt's history of necrotizing fasciitis in R-arm, will continue to monitor skin changes. At this time, given onset over a couple days, less concern for necrotizing fasciitis. Previous history demonstrates presence of abscess in arm. Will U/S to r/o current abscess. Will admit for IV vanc/zosyn at this time. In summary this is a 58-year-old male noncompliant history of psychosis A. fib multiple other medical problems CHF EF 40% history of necrotizing fasciitis of the right upper extremity status post debridement as well as a large abscess I& D of the upper extremity history of IV drug use he currently denies that drug screen is not resulted as of this note, who is presenting with 2 days of left upper extremity pain erythema. I reevaluated his arm twice in the emergency room over a 3-4 hour. I marked his arm at 11:30 PM I checked it again at 2 AM and the redness had not extended at all there is significant diffuse redness and swelling ultrasounds showed soft tissue edema throughout the upper extremity in addition DVT was noted C ultrasound report for details. No obvious abscess formation was identified.. order for elevation of extremity, iv fluids, antibiotics, reassess response to antibiotics and go from there. There are no bullae no crepitus vital signs are stable lactic acid is normal white blood cell count is only mildly elevated serial examinations are not definitely consistent with necrotizing fasciitis. Due to this I think it is reasonable to admit him to the hospitalist service overnight IV antibiotics , reassessed symptoms in the morning keep arm elevated. In addition I did start him on a heparin drip. He denies any IV drug use recently however he has been noncompliant we do see a drug screen perhaps that will be the reason for his subclavian DVT. [] admit to service of rahul usual local protocol Leonard Disclaimer Leonard Disclaimer This electronic medical record was generated, in whole or in part, using a voice recognition dictation system. Departure Departure Impression: Primary Impression: Cellulitis Additional Impression: DVT (deep venous thrombosis) Disposition: ADMITTED INPATIENT Admitting Physician: Other Condition: STABLE Referrals: ELENA TRAORE (PCP) Problem Qualifiers DESTINY CYR MD Dec 13, 2018 00:00
[2018-12-13] MEDS ORDERED: VANCOMYCIN 2 GM in IV NORMAL SALINE 500ML BAG 500 ML IV ONE (00:30)
[2018-12-13] MEDS ORDERED: HYDROmorphone 2 MG/ML VIAL IV ONE ×4 (00:30→12:15)
[2018-12-13 01:16] LABS: BASO % 0 % (0-3); EOS # 0.1 x10^3/uL (0.0-0.7); EOS % 1 % (0-3); HEMATOCRIT 38.9 % (39.0-53.0); LYMPH # 2.2 x10^3/uL (1.0-4.8); LYMPH % 18 % (24-48); MEAN CORPUSCULAR HEMOGLOBIN 30 pg (25-35); MEAN CORPUSCULAR HGB CONC 33 g/dL (31-37); MEAN CORPUSCULAR VOLUME 89 fL (79-100); MONO # 1.3 x10^3/uL (0.0-1.1); MONO % 11 % (0-9); NEUT # 8.9 x10^3uL (1.8-7.7); NEUT % 70 % (31-73); PLATELET COUNT 158 x10^3/uL (140-400); RED BLOOD COUNT 4.36 x10^6/uL (4.30-5.70); RED CELL DISTRIBUTION WIDTH 15.1 % (11.5-14.5); WHITE BLOOD COUNT 12.6 x10^3/uL (4.0-11.0)
[2018-12-13 01:23] LABS: PROTHROMBIN TIME PATIENT 13.9 SEC (11.7-14.0)
[2018-12-13 01:26] LABS: CALCIUM 8.7 mg/dL (8.5-10.1); CREATININE 1.1 mg/dL (0.7-1.3); GFR 68.8
--- NOTE | 2018-12-13 01:26 | RAD ---
Left upper extremity venous Doppler: Reason for examination: Left upper extremity redness and swelling with pain. The left upper extending venous system was evaluated from the internal jugular vein distally to the radial and ulnar veins with grayscale imaging, color-flow imaging and spectral analysis. Examination was compromised by a uncooperative patient. There is soft tissue edema especially in the posterior hand. There is occlusive thrombus present in the subclavian vein and 1 of the duplicated axillary veins and at the brachial vein proximally. At the cephalic vein near the antecubital space, there appears to be nonocclusive thrombus. IMPRESSION: Occlusive thrombus in the subclavian vein, in one of the duplicated axillary veins and in the brachial vein proximally. Nonocclusive thrombus in the cephalic vein near the antecubital space. Soft tissue edema especially in the posterior hand. Electronically signed by: Lisa Mcallister MD (12/13/2018 1:23 AM) [facility]
[2018-12-13 01:35] LABS: ALBUMIN 3.6 g/dL (3.4-5.0); TOTAL PROTEIN 7.3 g/dL (6.4-8.2)
[2018-12-13] MEDS ORDERED: HEPARIN for IV BOLUS 10,000 UNIT/10 ML VIAL. IV PRN (02:00)
[2018-12-13] MEDS: IV NORMAL SALINE 1000ML BAG 1,000 ML IV SCH ×3 (02:45→17:56)
--- NOTE | 2018-12-13 02:45 | NUR ---
ADMISSION NOTE: Patient arrived to room 502 via gurney accompanied by ED staff. Patient transferred self to bed without any difficulty. Patient grunting and groaning repeatedly. Patient received pain medication in ER just before coming to floor. Bed low, locked, call light within reach. Patient continuously moving about room, reorganizing belongings, scratching back on corner of wall. Will continue to monitor.
[2018-12-13] MEDS: VANCOMYCIN PER PHARMACY MC PRN (02:53)
--- NOTE | 2018-12-13 02:55 | NUR ---
Pharmacy Vancomycin Dosing Note S:Consulted to monitor and dose vancomycin started 12/13/18. O:ALYSSA PABLO is a 58 year old M with Cellulitis . Height: 5 feet, 6 inches Weight: 102.553158 kg [place] Body Weight: 63.80 Adjusted Body Weight: 79.44 Dosing Weight: Actual Other Antibiotics: ZOSYN 3.375GM IV Q6H LABS: Last BUN: 15 Last Creatinine: 1.1 Creatinine Clearance: 82 mL/min Last WBC: 12.6 Last Procalcitonin: Tmax (past 24 hours): Microbiology: I/O: Drug Levels: Last level: on at Last dose given at Vancomycin Dosing: Loading Dose: 2000 mg x1 12/13/18 0200 Dosing Weight: Actual Target Trough: 10-20 A: Based on: Actual Wt and Crcl P: 1. 12/13/18 1400 Vancomycin 1500 mg IV q12h 2. Follow up Trough level on 12/14/18 at 1330 3. Pharmacy will continue to monitor, follow and adjust therapy as needed. SHIRA MIX RPH, 12/13/18 0255 Signed: 12/13/18 at 0256 by SHIRA MIX RPH PHA
[2018-12-13 03:00] VITALS: BP 131/80
--- NOTE | 2018-12-13 03:00 | NUR ---
Patient states that if he can't eat or drink, he is going to leave AMA. Educated patient on importance of NPO & hospitalization, patient not responsive to teaching attempt. Will page MD to discuss diet order and future plans. Pt agreeable. Addendum: 12/13/18 at 0328 by MANJIT BILL RN Patient also refusing to let this RN resume his vancomycin infusion. States he won't be hooked up until he can eat. Asked patient if this RN could run the infusion while waiting on the doctor to call back, patient refused. Provided education on importance of antibiotics, patient not receptive to teaching. Still awaiting return call from Dr. Jones.
--- NOTE | 2018-12-13 03:45 | NUR ---
Have not yet received return call from Dr. Jones. Called ED to speak with nurse who was assigned to patient to investigate reasoning behind NPO order. ED RN was unsure of specific reasoning so she got off the phone with this RN to speak with ED MD. ED MD called this RN and stated he would prefer NPO status for patient, although a small amount of food to stay in the hospital and get treatment would be preferable to patient leaving without treatment - clear liquids are okay. ED MD verified that consult orders were placed correctly and spoke with Swapnil. Will notify patient.
[2018-12-13] MEDS: HEPARIN 25,000UTS/500ML PREMIX 500 ML IV PRN (04:18)
[2018-12-13] MEDS: HYDROmorphone 2 MG/ML VIAL IV PRN ×5 (05:08→21:14)
[2018-12-13] MEDS: PIPERACILLIN/TAZOBACTAM 3.375 GM in IV NORMAL SALINE 50ML 50 ML IV SCH ×3 (06:09→18:00)
[2018-12-13 07:00] VITALS: BP 126/80
--- NOTE | 2018-12-13 08:22 | RAD ---
PORTABLE CHEST 1V History: Chest pain, swollen upper extremity tonight Comparison: 10/09/2018 Findings: Single view of the chest is submitted. There is again triple lead right electronic cardiac cardiac device and also another very tortuous lead projecting in the superior chest as seen previously, courses into the superior left hemithorax. Pericardial cardiac silhouette is similar. There is again tortuous, possibly ectatic thoracic aorta. There is no pneumothorax. There is some mild reticular opacity at the left lung base. There is a lesser degree of inspiration for this exam. Trace pleural effusions bilaterally are difficult to exclude on this exam. Impression: 1. There is mild reticular opacity left lung base, possible atelectasis. Trace bilateral pleural effusions are difficult to exclude on this exam although appearance may be related to positioning and lesser degree of inspiration, may be better evaluated with 2 view chest. Electronically signed by: Ramiro Dougherty MD (12/13/2018 8:20 AM) [id number]
[2018-12-13] MEDS ORDERED: IV RINGERS,LACTATED 1000ML 1,000 ML IV SCH (08:32)
[2018-12-13] MEDS ORDERED: PROCHLORPERAZINE 10 MG/2 ML VIAL. IV PRN (08:45)
[2018-12-13] MEDS ORDERED: fentaNYL PF VIAL 100 MCG/2 ML VIAL IV PRN ×2 (08:45)
--- NOTE | 2018-12-13 08:48 | RAD ---
Left hand, 2 views, 12/13/2018: HISTORY: Hand swelling, redness, infection No fracture or dislocation is identified. No destructive bony lesion is seen. There are mild degenerative changes at the wrist and at scattered interphalangeal joints. There is considerable soft tissue swelling particularly over the dorsum of the hand extending into the wrist. Several tiny radiopacities projected over the soft tissues of the first and second fingers may lie on the surface of the patient or in the soft tissues. IMPRESSION: No acute bony abnormality is detected. Left forearm, 2 views, 12/13/2018: No fracture or destructive bony lesion is seen. Moderate degenerative changes are present at the elbow joint. Moderate diffuse subcutaneous edema is evident. IMPRESSION: 1. Degenerative changes at the left elbow and wrist. 2. No acute bony abnormality is detected. Electronically signed by: Mikel Perez MD (12/13/2018 8:45 AM) [facility]
--- NOTE | 2018-12-13 09:05 | PDOC2 ---
CONSULT Date of Consult Date of Consult DATE: 12/13/18 TIME: 08:59 Reason for Consult Reason for Consult: Left upper extremity cellulitis and swelling Referring Physician Referring Physician: Shobha Identification/Chief Complaint Chief Complaint Left arm and hand pain History of Present Illness Reason for Visit: Patient is a 58-year-old gentleman with a history of necrotizing fasciitis to his right upper extremity requiring surgery and prolonged hospitalization who tells me that his left forearm started hurting several days ago. He has noticed slowly progressive pain and redness as well as swelling to his left forearm and hand. It is worse with any use of his hand, and his low bit better at rest. The pain feels aching and burning throughout his left forearm and hand. He thinks this may been triggered by a scratch to his left forearm several days ago. He presented to the emergency department due to worsening symptoms. He denies any other precipitating event including IV drug use. No fevers or chills. Past Medical History Cardiovascular: AFIB, HTN Pulmonary: Asthma, COPD CENTRAL NERVOUS SYSTEM: Other GI: Constipation, GERD Heme/Onc: Other Psych: Anxiety, Addictions, Depression Musculoskeletal: low back pain, Osteoarthritis Renal/: Benign prostatic enlarg., Other Past Surgical History Past Surgical History: Pacemaker, Appendectomy, Cholecystectomy, Hernia Repair , Total knee replacement, Other (history of lumbar spine surgery, irrigation and debridement and wound VAC to right upper extremity) Family History Family History: Cancer, Heart Disease, Hepatitis, Hypertension Social History ALCOHOL: heavy Drugs: Crystal meth, Other Lives: Alone Current Medications Current Medications Current Medications Vancomycin HCl (Vanco Per Pharmacy) 1 each PRN DAILY PRN MC SEE COMMENTS Last administered on 12/13/18at 02:53; Start 12/12/18 at 23:45 Piperacillin Sod/ Tazobactam Sod (Zosyn Per Pharmacy) 1 each PRN DAILY PRN MC SEE COMMENTS; Start 12/12/18 at 23:45 Hydromorphone HCl (Dilaudid) 1 mg 1X ONCE IV Last administered on 12/13/18at 00 :39; Start 12/13/18 at 00:00; Stop 12/13/18 at 00:01; Status DC Sodium Chloride 1,000 ml @ 1,000 mls/hr 1X ONCE IV Last administered on at 00:40; Start 12/12/18 at 23:45; Stop 12/13/18 at 00:44; Status DC Sodium Chloride 1,000 ml @ 1,000 mls/hr 1X ONCE IV Last administered on at 00:41; Start 12/12/18 at 23:45; Stop 12/13/18 at 00:44; Status DC Vancomycin HCl 2 gm/Sodium Chloride 500 ml @ 250 mls/hr 1X ONCE IV Last administered on 12/13/18at 02:00; Start 12/13/18 at 00:30; Stop 12/13/18 at 02:29 ; Status DC Piperacillin Sod/ Tazobactam Sod 3.375 gm/Sodium Chloride 50 ml @ 100 mls/hr ONCE ONCE IV Last administered on 12/13/18at 01:08; Start 12/13/18 at 00:00; Stop 12/13/18 at 00:29; Status DC Hydromorphone HCl (Dilaudid) 1 mg 1X ONCE IV Last administered on 12/13/18at 02 :36; Start 12/13/18 at 00:30; Stop 12/13/18 at 00:33; Status DC Sodium Chloride 1,000 ml @ 75 mls/hr [id number] IV Last administered on at 04:20; Start 12/13/18 at 01:45; Stop 12/14/18 at 01:44 Hydromorphone HCl (Dilaudid) 1 mg PRN Q2HR PRN IV PAIN Last administered on at 07:49; Start 12/13/18 at 01:45 Heparin Sodium/ Dextrose 500 ml @ 0 mls/hr CONT PRN IV SEE I/O RECORD Last administered on 12/13/18at 04:18; Start 12/13/18 at 02:00 Heparin Sodium (Porcine) (Heparin Sodium) 3,100 unit PRN Q6HRS PRN IV FOR UFH LEVEL LESS THAN 0.2; Start 12/13/18 at 02:00 Heparin Sodium (Porcine) (Heparin Sodium) 1,550 unit PRN Q6HRS PRN IV FOR UFH LEVEL 0.2 - 0.29; Start 12/13/18 at 02:00 Hydromorphone HCl (Dilaudid) 1 mg 1X ONCE IV ; Start 12/13/18 at 02:45; Stop at 02:46; Status DC Piperacillin Sod/ Tazobactam Sod 3.375 gm/Sodium Chloride 50 ml @ 100 mls/hr Q6HRS IV Last administered on 12/13/18at 06:09; Start 12/13/18 at 06:00 Vancomycin HCl 1.5 gm/Sodium Chloride 500 ml @ 250 mls/hr Q12H IV ; Start 12/13 at 14:00 Vancomycin HCl (Vancomycin Trough Level) 1 each 1X ONCE MC ; Start 12/14/18 at 13:30; Stop 12/14/18 at 13:31 Fentanyl Citrate (Fentanyl 2ml Vial) 25 mcg PRN Q5MIN PRN IV MILD PAIN; Start 12/13/18 at 08:45; Stop 12/13/18 at 20:00 Fentanyl Citrate (Fentanyl 2ml Vial) 50 mcg PRN Q5MIN PRN IV MODERATE TO SEVERE PAIN; Start 12/13/18 at 08:45; Stop 12/13/18 at 20:00 Ringer's Solution 1,000 ml @ 30 mls/hr Q24H IV ; Start 12/13/18 at 08:32; Stop 12/13/18 at 20:31 Prochlorperazine Edisylate (Compazine) 5 mg PACU PRN PRN IV NAUSEA, MRX1; Start 12/13/18 at 08:45; Stop 12/13/18 at 20:00 Active Scripts Active Prednisone 50 Mg Tablet 50 Mg PO DAILY 5 Days Culturelle (Lactobacillus Rhamnosus Gg) 1 Each Cap.sprink 1 Cap PO BID 10 Days Geodon (Ziprasidone Hcl) 20 Mg Capsule 20 Mg PO BID 30 Days Doxycycline Hyclate 100 Mg Tablet 100 Mg PO BID 10 Days Losartan-Hctz 100-25 Mg Tab (Losartan/Hydrochlorothiazide) 1 Each Tablet 1 Tab PO DAILY Reported Chantix (Varenicline Tartrate) 1 Mg Tablet 1 Mg Oxycodone Hcl Immed.release (Oxycodone Hcl) 10 Mg Tablet 1 Tab PO TID Gabapentin 400 Mg Capsule 400 Mg Diclofenac Sodium 75 Mg Tablet.dr 75 Carisoprodol 350 Mg Tablet 350 Mg Loratadine 10 Mg Tablet 10 Mg Advair 250-50 Diskus (Fluticasone/Salmeterol) 1 Each Disk.w.dev 1 Puff IH BID Chantix (Varenicline Tartrate) 0.5 Mg Tablet 0.5 Mg PO DIRECTED 0.5 MG PO DAILY X3 DAY, 0.5 MG PO BID X4 DAY, 1 MG PO BID UNTIL END OF TREATMENT Atorvastatin Calcium 80 Mg Tablet 1 Tab PO DAILY Coreg (Carvedilol) 25 Mg Tablet 1 Tab PO DAILY Losartan Potassium 50 Mg Tablet 50 Mg PO DAILY Allergies Allergies: Coded Allergies: alprazolam (Verified Allergy, Intermediate, 11/23/17) HALUCINATIONS diltiazem (Verified Allergy, Intermediate, HIVES, INTERMITTENTLY, 11/23/17) lorazepam (Verified Allergy, Intermediate, halucinations, 11/23/17) patients states has tolerated valium in the past morphine (Verified Allergy, Intermediate, HIVES, INTERMITTENTLY, 11/23/17) takes LORTAB at home, tolerates DILAUDID also. Haloperidol Lactate (Verified Adverse Reaction, Intermediate, dystonic reaction, 11/23/17) "Jaw comes out of socket" haloperidol (Verified Adverse Reaction, Intermediate, dystonic reaction, ) "Jaw comes out of socket" tramadol (Verified Adverse Reaction, Intermediate, Hallucinations per nurse, 08/06/18) ROS General: No: Chills, Night Sweats, Fatigue, Malaise, Appetite, Other PSYCHOLOGICAL ROS: No: Anxiety, Behavioral Disorder, Concentration difficultie , Decreased libido, Depression, Disorientation, Hallucinations, Hostility, Irritablity, Memory difficulties, Mood Swings, Obsessive thoughts, Physical abuse, Sexual abuse, Sleep disturbances, Suicidal ideation, Other Eyes: No Blurry vision, No Decreased vision, No Double vision, No Dry eyes, No Excessive tearing, No Eye Pain, No Itchy Eyes, No Loss of vision, No Photophobia , No Scotomata, No Uses contacts, No Uses glasses, No Other HEENT: No: Heacaches, Visual Changes, Hearing change, Nasal congestion, Nasal discharge, Oral lesions, Sinus pain, Sore Throat, Epistaxis, Sneezing, Snoring, Tinnitus, Vertigo, Vocal changes, Other ALLERGY AND IMMUNOLOGY: No: Hives, Insect Bite Sensitivity, Itchy/Watery Eyes, Nasal Congestion, Post Nasal Drip, Seasonal Allergies, Other Hematological and Lymphatic: No: Bleeding Problems, Blood Clots, Blood Transfusions, Brusing, Night Sweats, Pallor, Swollen Lymph Nodes, Other Respiratory: No: Cough, Hemoptysis, Orthopnea, Pleuritic Pain, Shortness of breath, SOB with excertion, Sputum Changes, Stridor, Tachypnea, Wheezing, Other Cardiovascular: No Chest Pain, No Palpitations, No Orthopnea, No Paroxysmal Noc. Dyspnea, No Edema, No Lt Headedness, No Other Gastrointestinal: No Nausea, No Vomiting, No Abdominal Pain, No Diarrhea, No Constipation, No Melena, No Hematochezia, No Other Genitourinary: No Dysuria, No Frequency, No Incontinence, No Hematuria, No Retention, No Discharge, No Urgency, No Pain, No Flank Pain, No Other, No , No , No , No , No , No , No Musculoskeletal: Yes Joint Pain, Yes Joint Stiffness Neurological: No Behavorial Changes, No Bowel/Bladder ControlChng, No Confusion , No Dizziness, No Gait Disturbance, No Headaches, No Impaired Coord/balance, No Memory Loss, No Numbness/Tingling, No Seizures, No Speech Problems, No Tremors, No Visual Changes, No Weakness, No Other Skin: Yes Skin Lesion Changes Physical Exam General: Alert, Oriented X3, mild distress HEENT: Atraumatic, EOMI Lungs: Other (respirations are unlabored with symmetric chest rise) Heart: Regular rate Abdomen: Soft, No tenderness Extremities: Other (large amount of edema to hand on left side) Skin: Other (he has cellulitis throughout left forearm and dorsum of his hand) Neuro: Normal speech, Strength at 5/5 X4 ext, Sensation intact Psych/Mental Status: Mental status NL, Mood NL MUSCULOSKELETAL: Other (examination of his left upper summary reveals cellulitis throughout his distal arm, his forearm, dorsum of his hand. There is a tracing of the redness, the redness is not extending past this. No pain with passive range of motion of elbow, wrist or fingers. He has diffuse tenderness. No appreciable abscess on physical exam. No tenderness in his palm or volar fingers.) Vitals VITALS Vital Signs Date Time Temp Pulse Resp B/P (MAP) Pulse Ox O2 Delivery O2 Flow Rate FiO2 12/13/18 07:49 20 Room Air 12/13/18 05:54 94 12/13/18 03:00 98.5 59 131/80 (97) 98.5 Labs Labs Laboratory Tests Test 4/18/19 00:55 White Blood Count 12.6 x10^3/uL (4.0-11.0) Red Blood Count 4.36 x10^6/uL (4.30-5.70) Hemoglobin 13.0 g/dL (13.0-17.5) Hematocrit 38.9 % (39.0-53.0) Mean Corpuscular Volume 89 fL (79-100) Mean Corpuscular Hemoglobin 30 pg (25-35) Mean Corpuscular Hemoglobin Concent 33 g/dL (31-37) Red Cell Distribution Width 15.1 % (11.5-14.5) Platelet Count 158 x10^3/uL (140-400) Neutrophils (%) (Auto) 70 % (31-73) Lymphocytes (%) (Auto) 18 % (24-48) Monocytes (%) (Auto) 11 % (0-9) Eosinophils (%) (Auto) 1 % (0-3) Basophils (%) (Auto) 0 % (0-3) Neutrophils # (Auto) 8.9 x10^3uL (1.8-7.7) Lymphocytes # (Auto) 2.2 x10^3/uL (1.0-4.8) Monocytes # (Auto) 1.3 x10^3/uL (0.0-1.1) Eosinophils # (Auto) 0.1 x10^3/uL (0.0-0.7) Basophils # (Auto) 0.0 x10^3/uL (0.0-0.2) Erythrocyte Sedimentation Rate 25 (0-15) Prothrombin Time 13.9 SEC (11.7-14.0) Prothromb Time International Ratio 1.1 (0.8-1.1) Sodium Level 139 mmol/L (136-145) Potassium Level 3.0 mmol/L (3.5-5.1) Chloride Level 100 mmol/L (98-107) Carbon Dioxide Level 26 mmol/L (21-32) Anion Gap 13 (6-14) Blood Urea Nitrogen 15 mg/dL (8-26) Creatinine 1.1 mg/dL (0.7-1.3) Estimated GFR (Cockcroft-Gault) 68.8 BUN/Creatinine Ratio 14 (6-20) Glucose Level 118 mg/dL (70-99) Lactic Acid Level 1.2 mmol/L (0.4-2.0) Calcium Level 8.7 mg/dL (8.5-10.1) Total Bilirubin 1.0 mg/dL (0.2-1.0) Aspartate Amino Transf (AST/SGOT) 41 U/L (15-37) Alanine Aminotransferase (ALT/SGPT) 29 U/L (16-63) Alkaline Phosphatase 94 U/L (46-116) Creatine Kinase 623 U/L (39-308) Troponin I Quantitative 0.027 ng/mL (0.000-0.055) C-Reactive Protein, Quantitative 206.3 mg/L (0-3.3) Total Protein 7.3 g/dL (6.4-8.2) Albumin 3.6 g/dL (3.4-5.0) Albumin/Globulin Ratio 1.0 (1.0-1.7) Procalcitonin 0.33 ng/mL (0.00-0.10) Laboratory Tests Test 12/13/18 00:55 White Blood Count 12.6 x10^3/uL (4.0-11.0) Red Blood Count 4.36 x10^6/uL (4.30-5.70) Hemoglobin 13.0 g/dL (13.0-17.5) Hematocrit 38.9 % (39.0-53.0) Mean Corpuscular Volume 89 fL (79-100) Mean Corpuscular Hemoglobin 30 pg (25-35) Mean Corpuscular Hemoglobin Concent 33 g/dL (31-37) Red Cell Distribution Width 15.1 % (11.5-14.5) Platelet Count 158 x10^3/uL (140-400) Neutrophils (%) (Auto) 70 % (31-73) Lymphocytes (%) (Auto) 18 % (24-48) Monocytes (%) (Auto) 11 % (0-9) Eosinophils (%) (Auto) 1 % (0-3) Basophils (%) (Auto) 0 % (0-3) Neutrophils # (Auto) 8.9 x10^3uL (1.8-7.7) Lymphocytes # (Auto) 2.2 x10^3/uL (1.0-4.8) Monocytes # (Auto) 1.3 x10^3/uL (0.0-1.1) Eosinophils # (Auto) 0.1 x10^3/uL (0.0-0.7) Basophils # (Auto) 0.0 x10^3/uL (0.0-0.2) Erythrocyte Sedimentation Rate 25 (0-15) Prothrombin Time 13.9 SEC (11.7-14.0) Prothromb Time International Ratio 1.1 (0.8-1.1) Sodium Level 139 mmol/L (136-145) Potassium Level 3.0 mmol/L (3.5-5.1) Chloride Level 100 mmol/L (98-107) Carbon Dioxide Level 26 mmol/L (21-32) Anion Gap 13 (6-14) Blood Urea Nitrogen 15 mg/dL (8-26) Creatinine 1.1 mg/dL (0.7-1.3) Estimated GFR (Cockcroft-Gault) 68.8 BUN/Creatinine Ratio 14 (6-20) Glucose Level 118 mg/dL (70-99) Lactic Acid Level 1.2 mmol/L (0.4-2.0) Calcium Level 8.7 mg/dL (8.5-10.1) Total Bilirubin 1.0 mg/dL (0.2-1.0) Aspartate Amino Transf (AST/SGOT) 41 U/L (15-37) Alanine Aminotransferase (ALT/SGPT) 29 U/L (16-63) Alkaline Phosphatase 94 U/L (46-116) Creatine Kinase 623 U/L (39-308) Troponin I Quantitative 0.027 ng/mL (0.000-0.055) C-Reactive Protein, Quantitative 206.3 mg/L (0-3.3) Total Protein 7.3 g/dL (6.4-8.2) Albumin 3.6 g/dL (3.4-5.0) Albumin/Globulin Ratio 1.0 (1.0-1.7) Procalcitonin 0.33 ng/mL (0.00-0.10) Images Images X-rays are reviewed. Assessment/Plan Assessment/Plan Given his cellulitis and large amount of swelling, I did discuss taken to the operating room to debride the dorsum of his hand, as these infections are noted to linger for quite some time. I think the swelling certainly could be due to either the infection or also just as likely his his upper extremity DVT. Regardless, we will check a CAT scan to evaluate for any abscess as well. MEÑO LAGUNAS II, MD Dec 13, 2018 09:05
[2018-12-13] MEDS ORDERED: IOHEXOL 300 MG/ML 100ML VIAL. IV ONE (09:15)
[2018-12-13] MEDS ORDERED: CONTRAST GIVEN. MC PRN (09:30)
[2018-12-13] MEDS ORDERED: BUPIVACAINE MPF 0.5% 30 ML VIAL. ONE (09:47)
[2018-12-13] MEDS ORDERED: LIDOCAINE 1% 20 ML VIAL. ONE (09:47)
[2018-12-13] MEDS ORDERED: BUPIVAC MPF-EPI 0.5%-1:200000 30 ML VIAL. ONE (10:27)
[2018-12-13] MEDS ORDERED: SEVOFLURANE 31 TO 60 MINUTES. IH ONE (10:53)
[2018-12-13] MEDS ORDERED: LIDOCAINE 2% PF 5 ML VIAL. ONE (10:53)
[2018-12-13] MEDS ORDERED: PROPOFOL 20 ML IV ONE (10:53)
[2018-12-13] MEDS ORDERED: DEXAMETHASONE SOD PHOS 20 MG/5 ML VIAL. ONE (10:53)
[2018-12-13] MEDS ORDERED: ONDANSETRON PF 4 MG/2 ML VIAL. ONE (10:53)
[2018-12-13] MEDS ORDERED: fentaNYL PF VIAL 100 MCG/2 ML VIAL ONE (10:54)
--- NOTE | 2018-12-13 13:07 | PDOC4 ---
Operative Note Operative Note Date of procedure: 12/13/2018 Surgeon: Jordan Lagunas Embedded Software Architect: Marleny Walker, certified anesthesiologist assistant Preoperative diagnosis: #1 left hand and forearm cellulitis #2 left upper extremity DVT Postoperative diagnosis: Same Procedure performed: Irrigation and debridement, excisional, skin and subcutaneous tissue at dorsum of left hand Anesthesia: Gen. Competitions: None Blood loss: 10 mL Tourniquet time: Less than 30 minutes Specimens: Swabs and tissue were sent for culture Reason for procedure: Patient is a 50-year-old gentleman who noted redness and swelling over his left hand and forearm. Please see my consult note for further details. Given the cellulitic and edema changes to the dorsum of his hand I discussed proceeding with the above surgery with him and he wished to proceed. Description of procedure: Patient was greeted in the preoperative area by myself for the correct extremity was verified and marked. Taken back to the operative suite maintained on his scheduled antibiotics. Once in the operative room, he was transferred gently supine to the operating room table and secured the bed with all pressure points padded. A hand board attachment was secured to the operative room table. Nonsterile tourniquet was secured in place to his left upper extremity after successful induction of a general anesthetic. All pressure points are padded. Left upper trimming was prepped and draped in her usual sterile fashion we conducted our standard preoperative timeout. I then made approximately a 4 cm incision centered over the dorsum of his hand, I used a combination of needle tip and bipolar cautery for hemostasis throughout this case. He is to hemostat to dissect underneath the subcutaneous tissue over the dorsum of his hand and to explore the wound to see how proximal this went, it stopped at his dorsal wrist crease. After this, used a Rominger to debride the unhealthy-appearing tissue. I did not encounter any gross purulence during this procedure. I did send tissue off for culture as well swabs at this point. I then irrigated out this area with approximately 3000 mL of sterile fluid. I then placed a [place] drain at the incision and closed skin with simple interrupted nylon as well as mattress fashion as well. I then injected a local anesthetic mixture into the coretta-incisional soft tissues. A soft bulky dressing was then applied. He was awakened from anesthesia. He tolerated surgery well. All cons correct 2 prior to wound closure. No complications. Postoperative plan is to remain in the floor for IV antibiotics. I'll follow along with his hospital course. JORDAN LAGUNAS II, MD Dec 13, 2018 13:07
[2018-12-13] MEDS: HEPARIN for IV BOLUS 10,000 UNIT/10 ML VIAL. IV PRN (13:10)
--- NOTE | 2018-12-13 13:15 | PDOC ---
Provider Note Provider Note pt seen and examined consult dictated Thank you FILIPPO KING MD Dec 13, 2018 13:15
[2018-12-13] MEDS: VANCOMYCIN 1.5 GM in IV NORMAL SALINE 500ML BAG 500 ML IV SCH (13:19)
[2018-12-13] MEDS: ANTI-COAG MONITOR BY PHARMACY. MC PRN (14:57)
[2018-12-13 15:00] VITALS: BP 146/85
--- NOTE | 2018-12-13 15:10 | PDOC1 ---
History and Physical Date of Admission Date of Admission DATE: 12/13/18 TIME: 15:00 Identification/Chief Complaint Chief Complaint arm pain Problems: (1) Open wound of right elbow with complication (2) Left against medical advice Source Source: Unable to obtain due to (patient left AMA) History of Present Illness History of Present Illness 58-year-old gentleman with a history of necrotizing fasciitis s/p I and D to his right upper extremity and and discharged on doxycycline at that time who reports left forearm progressive pain and redness, and welling for past 2 days. He denies any trauma to his L-arm. He reports fevers up to 104 F at home he denies any drug use. known psychotic behavior with prior hx of threatening to leave AMA. requests now to leave AMA but decided to stay if he was provided with nicotine gum and a regular diet. patient with Chronic back pain and requests IV pain meds. due to pain fever and swelling he came to ER for further evaluation. has not been on abx recently. Past Medical History Cardiovascular: AFIB, HTN Pulmonary: Asthma, COPD CENTRAL NERVOUS SYSTEM: Other GI: Constipation, GERD Heme/Onc: Other Psych: Anxiety, Addictions, Depression Musculoskeletal: low back pain, Osteoarthritis Renal/: Benign prostatic enlarg., Other Past Surgical History Past Surgical History: Pacemaker, Appendectomy, Cholecystectomy, Hernia Repair , Total knee replacement, Other (history of lumbar spine surgery, irrigation and debridement and wound VAC to right upper extremity) Family History Family History: Cancer, Heart Disease, Hepatitis, Hypertension Social History ALCOHOL: heavy Drugs: Crystal meth, Other Current Medications Current Medications Current Medications Vancomycin HCl (Vanco Per Pharmacy) 1 each PRN DAILY PRN MC SEE COMMENTS Last administered on 12/13/18at 02:53; Start 12/12/18 at 23:45 Piperacillin Sod/ Tazobactam Sod (Zosyn Per Pharmacy) 1 each PRN DAILY PRN MC SEE COMMENTS; Start 12/12/18 at 23:45 Hydromorphone HCl (Dilaudid) 1 mg 1X ONCE IV Last administered on 12/13/18at 00 :39; Start 12/13/18 at 00:00; Stop 12/13/18 at 00:01; Status DC Sodium Chloride 1,000 ml @ 1,000 mls/hr 1X ONCE IV Last administered on at 00:40; Start 12/12/18 at 23:45; Stop 12/13/18 at 00:44; Status DC Sodium Chloride 1,000 ml @ 1,000 mls/hr 1X ONCE IV Last administered on at 00:41; Start 12/12/18 at 23:45; Stop 12/13/18 at 00:44; Status DC Vancomycin HCl 2 gm/Sodium Chloride 500 ml @ 250 mls/hr 1X ONCE IV Last administered on 12/13/18 02:00; Start 12/13/18 at 00:30; Stop 12/13/18 at 02:29 ; Status DC Piperacillin Sod/ Tazobactam Sod 3.375 gm/Sodium Chloride 50 ml @ 100 mls/hr ONCE ONCE IV Last administered on 12/13/18 01:08; Start 12/13/18 at 00:00; Stop 12/13/18 at 00:29; Status DC Hydromorphone HCl (Dilaudid) 1 mg 1X ONCE IV Last administered on 12/13/18 02 :36; Start 12/13/18 at 00:30; Stop 12/13/18 at 00:33; Status DC Sodium Chloride 1,000 ml @ 75 mls/hr [id number] IV Last administered on at 04:20; Start 12/13/18 at 01:45; Stop 12/14/18 at 01:44 Hydromorphone HCl (Dilaudid) 1 mg PRN Q2HR PRN IV PAIN Last administered on at 10:00; Start 12/13/18 at 01:45 Heparin Sodium/ Dextrose 500 ml @ 0 mls/hr CONT PRN IV SEE I/O RECORD Last administered on 12/13/18at 04:18; Start 12/13/18 at 02:00 Heparin Sodium (Porcine) (Heparin Sodium) 3,100 unit PRN Q6HRS PRN IV FOR UFH LEVEL LESS THAN 0.2 Last administered on 12/13/18at 13:10; Start 12/13/18 at 02: 00 Heparin Sodium (Porcine) (Heparin Sodium) 1,550 unit PRN Q6HRS PRN IV FOR UFH LEVEL 0.2 - 0.29; Start 12/13/18 at 02:00 Hydromorphone HCl (Dilaudid) 1 mg 1X ONCE IV Last administered on 12/13/18at 12 :02; Start 12/13/18 at 02:45; Stop 12/13/18 at 02:46; Status DC Piperacillin Sod/ Tazobactam Sod 3.375 gm/Sodium Chloride 50 ml @ 100 mls/hr Q6HRS IV Last administered on 12/13/18at 13:09; Start 12/13/18 at 06:00 Vancomycin HCl 1.5 gm/Sodium Chloride 500 ml @ 250 mls/hr Q12H IV Last administered on 12/13/18at 13:19; Start 12/13/18 at 14:00 Vancomycin HCl (Vancomycin Trough Level) 1 each 1X ONCE MC ; Start 12/14/18 at 13:30; Stop 12/14/18 at 13:31 Fentanyl Citrate (Fentanyl 2ml Vial) 25 mcg PRN Q5MIN PRN IV MILD PAIN; Start 12/13/18 at 08:45; Stop 12/13/18 at 20:00 Fentanyl Citrate (Fentanyl 2ml Vial) 50 mcg PRN Q5MIN PRN IV MODERATE TO SEVERE PAIN; Start 12/13/18 at 08:45; Stop 12/13/18 at 20:00 Ringer's Solution 1,000 ml @ 30 mls/hr Q24H IV ; Start 12/13/18 at 08:32; Stop 12/13/18 at 20:31 Prochlorperazine Edisylate (Compazine) 5 mg PACU PRN PRN IV NAUSEA, MRX1; Start 12/13/18 at 08:45; Stop 12/13/18 at 20:00 Iohexol (Omnipaque 300 Mg/ml) 75 ml 1X ONCE IV ; Start 12/13/18 at 09:15; Stop 12/13/18 at 09:19; Status DC Info (CONTRAST GIVEN -- Rx MONITORING) 1 each PRN DAILY PRN MC SEE COMMENTS; Start 12/13/18 at 09:30; Stop 12/15/18 at 09:29 Lidocaine HCl 20 ml STK-MED ONCE .ROUTE ; Start 12/13/18 at 09:47; Stop at 10:47; Status DC Bupivacaine HCl (Sensorcaine Mpf 0.5%) 30 ml STK-MED ONCE .ROUTE ; Start at 09:47; Stop 12/13/18 at 10:47; Status DC Dexamethasone Sodium Phosphate (Decadron) 20 mg STK-MED ONCE .ROUTE ; Start at 10:53; Stop 12/13/18 at 10:54; Status DC Ondansetron HCl (Zofran) 4 mg STK-MED ONCE .ROUTE ; Start 12/13/18 at 10:53; Stop 12/13/18 at 10:54; Status DC Propofol 20 ml @ As Directed STK-MED ONCE IV ; Start 12/13/18 at 10:53; Stop at 10:54; Status DC Lidocaine HCl (Lidocaine Pf 2% Vial) 5 ml STK-MED ONCE .ROUTE ; Start 12/13/18 at 10:53; Stop 12/13/18 at 10:54; Status DC Sevoflurane (Ultane) 30 ml STK-MED ONCE IH ; Start 12/13/18 at 10:53; Stop 12/13 at 10:54; Status DC Fentanyl Citrate (Fentanyl 2ml Vial) 100 mcg STK-MED ONCE .ROUTE ; Start at 10:54; Stop 12/13/18 at 10:55; Status DC Bupivacaine HCl/ Epinephrine Bitart (Sensorcain-Mpf Epi 0.5%-[id number]) 30 ml STK -MED ONCE .ROUTE Last administered on 12/13/18at 11:30; Start 12/13/18 at 10:27 ; Stop 12/13/18 at 11:27; Status DC Hydromorphone HCl (Dilaudid) 1 mg 1X ONCE IV Last administered on 12/13/18at 12 :32; Start 12/13/18 at 12:15; Stop 12/13/18 at 12:19; Status DC Info (Anti-Coagulation Monitoring By Pharmacy) 1 each PRN DAILY PRN MC SEE COMMENTS Last administered on 12/13/18at 14:57; Start 12/13/18 at 14:15 Active Scripts Active Prednisone 50 Mg Tablet 50 Mg PO DAILY 5 Days Culturelle (Lactobacillus Rhamnosus Gg) 1 Each Cap.sprink 1 Cap PO BID 10 Days Geodon (Ziprasidone Hcl) 20 Mg Capsule 20 Mg PO BID 30 Days Doxycycline Hyclate 100 Mg Tablet 100 Mg PO BID 10 Days Losartan-Hctz 100-25 Mg Tab (Losartan/Hydrochlorothiazide) 1 Each Tablet 1 Tab PO DAILY Reported Chantix (Varenicline Tartrate) 1 Mg Tablet 1 Mg Oxycodone Hcl Immed.release (Oxycodone Hcl) 10 Mg Tablet 1 Tab PO TID Gabapentin 400 Mg Capsule 400 Mg Diclofenac Sodium 75 Mg Tablet.dr 75 Carisoprodol 350 Mg Tablet 350 Mg Loratadine 10 Mg Tablet 10 Mg Advair 250-50 Diskus (Fluticasone/Salmeterol) 1 Each Disk.w.dev 1 Puff IH BID Chantix (Varenicline Tartrate) 0.5 Mg Tablet 0.5 Mg PO DIRECTED 0.5 MG PO DAILY X3 DAY, 0.5 MG PO BID X4 DAY, 1 MG PO BID UNTIL END OF TREATMENT Atorvastatin Calcium 80 Mg Tablet 1 Tab PO DAILY Coreg (Carvedilol) 25 Mg Tablet 1 Tab PO DAILY Losartan Potassium 50 Mg Tablet 50 Mg PO DAILY Allergies Allergies: Coded Allergies: alprazolam (Verified Allergy, Intermediate, 12/13/18) HALUCINATIONS diltiazem (Verified Allergy, Intermediate, HIVES, INTERMITTENTLY, 12/13/18) lorazepam (Verified Allergy, Intermediate, halucinations, 12/13/18) patients states has tolerated valium in the past morphine (Verified Allergy, Intermediate, HIVES, INTERMITTENTLY, 12/13/18) takes LORTAB at home, tolerates DILAUDID also. Haloperidol Lactate (Verified Adverse Reaction, Intermediate, dystonic reaction, 12/13/18) "Jaw comes out of socket" haloperidol (Verified Adverse Reaction, Intermediate, dystonic reaction, ) "Jaw comes out of socket" tramadol (Verified Adverse Reaction, Intermediate, Hallucinations per nurse, 12/13/18) ROS Review of System CONSTITUTIONAL: fever + EYES: No recent changes SKIN: No rash or itching CARDIOVASCULAR: No chest pain, syncope, palpitations, or edema RESPIRATORY: No SOB or cough GASTROINTESTINAL: No nausea, vomiting or abdominal pain NEUROLOGICAL: No headaches or weakness ENDOCRINE: No cold or heat intolerance GENITOURINARY: No urgency or frequency of urination MUSCULOSKELETAL: No back pain or joint pain LYMPHATICS: No enlarged lymph nodes PSYCHIATRIC: No anxiety or depression Physical Exam Physical Exam GENERAL: No apparent distress. Alert and oriented. HEENT: Head normocephalic, atraumatic. NECK: Supple LUNGS: Clear to auscultation. HEART: RRR, S1, S2 present, pulses intact ABDOMEN: Soft, positive bowel sounds. EXTREMITIES: left upper extremity swelling and redness. currently wrapped NEUROLOGIC: Normal speech, normal tone PSYCHIATRIC: Normal affect, normal mood. SKIN: No ulceration. Vitals Vitals Vital Signs Date Time Temp Pulse Resp B/P (MAP) Pulse Ox O2 Delivery O2 Flow Rate FiO2 12/13/18 12:32 22 92 Nasal Cannula 2.0 12/13/18 12:25 86 115/78 12/13/18 11:40 98.7 98.7 Labs Labs Laboratory Tests Test 12/13/18 00:55 12/13/18 10:20 White Blood Count 12.6 x10^3/uL (4.0-11.0) Red Blood Count 4.36 x10^6/uL (4.30-5.70) Hemoglobin 13.0 g/dL (13.0-17.5) Hematocrit 38.9 % (39.0-53.0) Mean Corpuscular Volume 89 fL (79-100) Mean Corpuscular Hemoglobin 30 pg (25-35) Mean Corpuscular Hemoglobin Concent 33 g/dL (31-37) Red Cell Distribution Width 15.1 % (11.5-14.5) Platelet Count 158 x10^3/uL (140-400) Neutrophils (%) (Auto) 70 % (31-73) Lymphocytes (%) (Auto) 18 % (24-48) Monocytes (%) (Auto) 11 % (0-9) Eosinophils (%) (Auto) 1 % (0-3) Basophils (%) (Auto) 0 % (0-3) Neutrophils # (Auto) 8.9 x10^3uL (1.8-7.7) Lymphocytes # (Auto) 2.2 x10^3/uL (1.0-4.8) Monocytes # (Auto) 1.3 x10^3/uL (0.0-1.1) Eosinophils # (Auto) 0.1 x10^3/uL (0.0-0.7) Basophils # (Auto) 0.0 x10^3/uL (0.0-0.2) Erythrocyte Sedimentation Rate 25 (0-15) Prothrombin Time 13.9 SEC (11.7-14.0) Prothromb Time International Ratio 1.1 (0.8-1.1) Sodium Level 139 mmol/L (136-145) Potassium Level 3.0 mmol/L (3.5-5.1) Chloride Level 100 mmol/L (98-107) Carbon Dioxide Level 26 mmol/L (21-32) Anion Gap 13 (6-14) Blood Urea Nitrogen 15 mg/dL (8-26) Creatinine 1.1 mg/dL (0.7-1.3) Estimated GFR (Cockcroft-Gault) 68.8 BUN/Creatinine Ratio 14 (6-20) Glucose Level 118 mg/dL (70-99) Lactic Acid Level 1.2 mmol/L (0.4-2.0) Calcium Level 8.7 mg/dL (8.5-10.1) Total Bilirubin 1.0 mg/dL (0.2-1.0) Aspartate Amino Transf (AST/SGOT) 41 U/L (15-37) Alanine Aminotransferase (ALT/SGPT) 29 U/L (16-63) Alkaline Phosphatase 94 U/L (46-116) Creatine Kinase 623 U/L (39-308) Troponin I Quantitative 0.027 ng/mL (0.000-0.055) C-Reactive Protein, Quantitative 206.3 mg/L (0-3.3) Total Protein 7.3 g/dL (6.4-8.2) Albumin 3.6 g/dL (3.4-5.0) Albumin/Globulin Ratio 1.0 (1.0-1.7) Procalcitonin 0.33 ng/mL (0.00-0.10) Heparin Anti-Xa Act, Unfractionated < 0.10 IU/mL (0.30-0.70) Laboratory Tests Test 12/13/18 00:55 12/13/18 10:20 White Blood Count 12.6 x10^3/uL (4.0-11.0) Red Blood Count 4.36 x10^6/uL (4.30-5.70) Hemoglobin 13.0 g/dL (13.0-17.5) Hematocrit 38.9 % (39.0-53.0) Mean Corpuscular Volume 89 fL (79-100) Mean Corpuscular Hemoglobin 30 pg (25-35) Mean Corpuscular Hemoglobin Concent 33 g/dL (31-37) Red Cell Distribution Width 15.1 % (11.5-14.5) Platelet Count 158 x10^3/uL (140-400) Neutrophils (%) (Auto) 70 % (31-73) Lymphocytes (%) (Auto) 18 % (24-48) Monocytes (%) (Auto) 11 % (0-9) Eosinophils (%) (Auto) 1 % (0-3) Basophils (%) (Auto) 0 % (0-3) Neutrophils # (Auto) 8.9 x10^3uL (1.8-7.7) Lymphocytes # (Auto) 2.2 x10^3/uL (1.0-4.8) Monocytes # (Auto) 1.3 x10^3/uL (0.0-1.1) Eosinophils # (Auto) 0.1 x10^3/uL (0.0-0.7) Basophils # (Auto) 0.0 x10^3/uL (0.0-0.2) Erythrocyte Sedimentation Rate 25 (0-15) Prothrombin Time 13.9 SEC (11.7-14.0) Prothromb Time International Ratio 1.1 (0.8-1.1) Sodium Level 139 mmol/L (136-145) Potassium Level 3.0 mmol/L (3.5-5.1) Chloride Level 100 mmol/L (98-107) Carbon Dioxide Level 26 mmol/L (21-32) Anion Gap 13 (6-14) Blood Urea Nitrogen 15 mg/dL (8-26) Creatinine 1.1 mg/dL (0.7-1.3) Estimated GFR (Cockcroft-Gault) 68.8 BUN/Creatinine Ratio 14 (6-20) Glucose Level 118 mg/dL (70-99) Lactic Acid Level 1.2 mmol/L (0.4-2.0) Calcium Level 8.7 mg/dL (8.5-10.1) Total Bilirubin 1.0 mg/dL (0.2-1.0) Aspartate Amino Transf (AST/SGOT) 41 U/L (15-37) Alanine Aminotransferase (ALT/SGPT) 29 U/L (16-63) Alkaline Phosphatase 94 U/L (46-116) Creatine Kinase 623 U/L (39-308) Troponin I Quantitative 0.027 ng/mL (0.000-0.055) C-Reactive Protein, Quantitative 206.3 mg/L (0-3.3) Total Protein 7.3 g/dL (6.4-8.2) Albumin 3.6 g/dL (3.4-5.0) Albumin/Globulin Ratio 1.0 (1.0-1.7) Procalcitonin 0.33 ng/mL (0.00-0.10) Heparin Anti-Xa Act, Unfractionated < 0.10 IU/mL (0.30-0.70) VTE Prophylaxis Ordered VTE Prophylaxis Devices: Yes VTE Pharmacological Prophylaxi: Yes Assessment/Plan Assessment/Plan ASSESSMENT: Left Upper Extremity Cellulitis Occlusive thrombus in the subclavian vein, in one of the duplicated axillary veins and in the brachial vein proximally. Nonocclusive thrombus in the cephalic vein near the antecubital space. Chronic Pain Psychotic Behavior Tobacco Abuse Hypokalemia PLAN - admit to medical floor bed - IV vanc and IV zosyn - cultuers ordered - ortho consult, sx today - ID consult - continue heparin drip given occlusive thrombus - IV dilaudid for now - nicotine gum - regular diet per patient request - replete K - FULL CODE - dvt ppx: heparin drip - lives alone at home dispo: pending cultures, wean pain meds. patient threatening to leave AMA. apprec consultants. ELISHA NORMAN MD Dec 13, 2018 15:10
--- NOTE | 2018-12-13 15:17 | RAD ---
CT of the left upper extremity with contrast, 12/13/2018: HISTORY: Left arm and hand swelling, possible abscess Multidetector CT imaging of the forearm and hand was performed following an IV bolus injection of iodinated contrast material. The study was compromised by difficulties in positioning of this uncooperative patient. Multiplanar reconstructions were produced. Most of the fingers are held in flexion. No fracture or destructive bony lesion is seen. There are degenerative changes at scattered interphalangeal joints and at the wrist There is diffuse subcutaneous edema about the hand and the visualized portions of the forearm. This is most extensive over the dorsal aspect of the hand. No discrete or encapsulated fluid collection is seen to suggest a drainable abscess. No gas collections or foreign body is identified in the soft tissues. IMPRESSION: 1. Extensive subcutaneous edema in the forearm and hand, greatest over the dorsum of the hand compatible with edema due to known central venous obstruction or cellulitis. No discrete abscess is identified. 2. No acute bony abnormality is detected. PQRS Compliance Statement: One or more of the following individualized dose reduction techniques were utilized for this examination: 1. Automated exposure control 2. Adjustment of the mA and/or kV according to patient size 3. Use of iterative reconstruction technique Electronically signed by: Mikel Perez MD (12/13/2018 3:14 PM) [facility]
--- NOTE | 2018-12-13 15:35 | NUR ---
Patient stated he was leaving the hospital. Charge nurse, Isadora, informed patient that he would be leaving A, against medical advice. This RN and storage battery charger educated patient that he would be at great risk for injury due to existing blood clot in Left Upper Extremity and and need for IV anticoagulation and IV antibiotics. This RN called MD and informed of patient's wish. Patient stated he was angry that he was in isolation precautions and wanted to walk in the halls. Allison, supervisor newspaper deliveries, called Infection control nurse and dtermined patient could removed isolation precautions as long as his wounds on his left hand and right elbow were kept covered with dressing. The patient decided he would stay if he could receive nicotine gum and walk the hallways.
[2018-12-13] MEDS: NICOTINE POLACRILEX 2MG GUM PACKAGE of 12. BC PRN (15:41)
[2018-12-13] MEDS ORDERED: LOSARTAN POTASSIUM 50 MG TABLET. PO SCH (17:00)
[2018-12-13] MEDS: ALBUTEROL SULFATE 2.5 MG/3 ML NEBU. NEB SCH (17:14)
[2018-12-13] MEDS: LOSARTAN POTASSIUM 50 MG TABLET. PO SCH (18:01)
[2018-12-13] MEDS: hydroCHLOROthiazide 25 MG TABLET PO SCH (18:01)
[2018-12-13] MEDS: oxyCODONE IR 5 MG TABLET PO SCH ×2 (18:02→20:31)
[2018-12-13 19:00] VITALS: BP 167/91
[2018-12-13] MEDS: BUDESONIDE 0.5 MG/2 ML NEBU. NEB SCH (20:00)
[2018-12-13] MEDS: GABAPENTIN 400 MG CAPSULE. PO SCH ×2 (20:28→21:00)
[2018-12-13] MEDS: LACTOBACILLUS RHAMNOSUS GG 1 CAPSULE. PO SCH ×2 (20:28→21:00)
[2018-12-13] MEDS: ZIPRASIDONE 20 MG CAPSULE PO SCH ×2 (20:28→21:00)
[2018-12-13] MEDS ORDERED: NON FORMULARY ITEM (Fluticasone/Salmeterol (Advair 250-50 Diskus) 1 PUFF) IH SCH (21:00)
[2018-12-13] MEDS ORDERED: ATORVASTATIN CALCIUM 40 MG TABLET. PO SCH (21:00)
[2018-12-13] MEDS ORDERED: LACTOBACILLUS RHAMNOSUS GG 1 CAPSULE. PO SCH (21:00)
[2018-12-13 23:00] VITALS: BP 144/76
[2018-12-14] MEDS: PIPERACILLIN/TAZOBACTAM 3.375 GM in IV NORMAL SALINE 50ML 50 ML IV SCH ×4 (00:07→18:25)
[2018-12-14] MEDS: NICOTINE POLACRILEX 2MG GUM PACKAGE of 12. BC PRN ×2 (00:19→18:26)
[2018-12-14] MEDS: HYDROmorphone 2 MG/ML VIAL IV PRN ×5 (00:20→18:25)
[2018-12-14] MEDS: VANCOMYCIN 1.5 GM in IV NORMAL SALINE 500ML BAG 500 ML IV SCH ×2 (02:02→14:38)
[2018-12-14 03:00] VITALS: BP 132/70
[2018-12-14 03:12] LABS: GFR 76.7
[2018-12-14 07:00] VITALS: BP 137/75
[2018-12-14] MEDS: ALBUTEROL SULFATE 2.5 MG/3 ML NEBU. NEB SCH ×3 (07:00→11:30)
[2018-12-14] MEDS: BUDESONIDE 0.5 MG/2 ML NEBU. NEB SCH (07:00)
[2018-12-14] MEDS ORDERED: CARVEDILOL 12.5 MG TABLET. PO SCH (08:00)
[2018-12-14] MEDS: oxyCODONE IR 5 MG TABLET PO SCH ×2 (08:16→14:37)
[2018-12-14] MEDS: LOSARTAN POTASSIUM 50 MG TABLET. PO SCH (08:17)
[2018-12-14] MEDS: hydroCHLOROthiazide 25 MG TABLET PO SCH (08:17)
[2018-12-14] MEDS: ZIPRASIDONE 20 MG CAPSULE PO SCH (08:18)
[2018-12-14] MEDS: LACTOBACILLUS RHAMNOSUS GG 1 CAPSULE. PO SCH (08:18)
[2018-12-14] MEDS: GABAPENTIN 400 MG CAPSULE. PO SCH (08:19)
--- NOTE | 2018-12-14 08:34 | CONS ---
DATE OF CONSULTATION: 12/13/2018 REFERRING PHYSICIAN: Dr. Gilberto Jones. REASON FOR CONSULTATION: Left upper extremity cellulitis. HISTORY OF PRESENT ILLNESS: A 58-year-old male who presented to the ER on 12/13/2018 with complaints of left upper extremity pain. The patient had scratched skin lesion over the left forearm after which he started having swelling, redness, warmth and painful to touch. He denies any obvious trauma. He reported a fever at home, white count was elevated at 12.6 with temperature of 100. ESR of 25, lactate of 1.2 with a procalcitonin of 0.33. C-reactive protein was elevated at 206.3. CK was elevated at 623. The patient had a history of necrotizing fasciitis affecting the right upper extremity, at which time he was treated at and subsequently here in 10/2017 and also had infected epidermal cyst with methicillin-sensitive Staphylococcus aureus in 07/2018, at which time he was treated with doxycycline. Since then, he denies been on any antibiotics. The patient underwent left upper extremity venous Doppler, which showed occlusive thrombus in the subclavian vein, one of the duplicated axillary veins and the brachial vein proximally, nonocclusive thrombus in the cephalic vein near the antecubital space, soft tissue edema especially over the posterior hand. Chest x-ray showed mild reticular opacity in left lung base, possible atelectasis, trace bilateral pleural effusion, difficult to exclude on this exam. Had left hand x-ray which showed degenerative changes of the left elbow and wrist, no acute bony abnormality. Forearm x-ray showed degenerative changes, no acute bony abnormality. The patient had upper extremity CT done earlier this morning report of which is pending at this time. He also underwent surgery by Orthopedics, Dr. Anglin, earlier this morning. I do not have the surgery report to review the same. The patient was started on heparin. Also, he is currently on IV vancomycin and Zosyn. ID consult has been requested for antibiotic management. PAST MEDICAL HISTORY: Atrial fibrillation, cerebrovascular accident, hypertension, coronary artery disease, chronic obstructive pulmonary disease, GERD, benign prostatic hypertrophy, urinary retention with history of self-catheterization at home, osteoarthritis, scoliosis, depression, anxiety, history of addiction, constipation, history of necrotizing fascitis affecting the right upper extremity, status post I and D, history of lumbar spine surgery, total knee replacement and hernia repair. PAST SURGICAL HISTORY: Cholecystectomy, appendectomy, history of pacemaker placement. FAMILY HISTORY: As per HPI. SOCIAL HISTORY: Drinks heavily, smoking present, lives alone. H/O polysubstance abuse, denied any active drug use to me but records mention crystal meth CURRENT MEDICATIONS: IV vancomycin, Zosyn, heparin. Other medications reviewed in medication list. ALLERGIES: ALPRAZOLAM, DILTIAZEM, LORAZEPAM, MORPHINE, HALOPERIDOL, TRAMADOL. REVIEW OF SYSTEMS: CONSTITUTIONAL: Low-grade fever at home. No chills, no night sweats. HEENT: Negative. RESPIRATORY: Negative. CARDIAC: Negative. GASTROINTESTINAL: Negative. GENITOURINARY: Negative. MUSCULOSKELETAL: As above. DERM: As above. NEUROLOGIC: Negative. PHYSICAL EXAMINATION: VITAL SIGNS: T-max 100, current temperature 98.7, pulse 86, respiration rate 22, blood pressure 115/78, oxygen saturation 92% on 2 liters by nasal cannula. GENERAL: Alert and oriented x 3. The patient is sitting in chair, in no acute distress, cooperative. HEENT: Normocephalic, atraumatic, anicteric, no thrush. NECK: Supple, no JVD. LUNGS: Clear bilaterally. No wheezing. CARDIOVASCULAR: S1, S2. No gallops or murmurs. The pacemaker site looks okay. ABDOMEN: Soft, obese, bowel sounds present, nontender. EXTREMITIES: Left upper extremity swelling, redness, warmth present. Left hand has dressing intact, dry from recent surgery. Limited range of motion. Finger swelling noted. Good capillary refill. DERM: Warm, dry, no generalized rash except for above, multiple tattoos. NEUROLOGIC: Alert and oriented x 3. Grossly nonfocal. LABORATORY DATA: WBC of 12.6, hemoglobin 13.0, hematocrit 38.9, platelets 158. ESR 28. Sodium 139, potassium 3.0, chloride 100, bicarbonate 26, BUN 15, creatinine 1.1, glucose 118. Lactate 1.2, AST 41. CK 623. C-reactive protein 206.3. Procalcitonin 0.33. Blood culture pending. Wound culture pending. UA and urine culture pending. UDS pending. IMAGING: Upper extremity CT pending. Forearm x-ray as above. Hand x-ray as above. Chest x-ray as above. Ultrasound of left upper extremity as above. IMPRESSION: 1. Left upper extremity extensive cellulitis with swelling, underlying upper extremity extensive deep venous thrombosis could be contributing to the swelling and redness 12/13/2018, status post debridement of the dorsum of left hand by Dr. Anglin earlier this morning. 2. Febrile illness. 3. Leukocytosis. 4. History of polysubstance abuse in the past including IV drug use. 5. Psychiatric/behavioral issues. 6. History of atrial fibrillation. 7. History of right elbow septic arthritis. 8. History of right upper extremity necrotizing fasciitis treated at and subsequently here multiple times in 2018. 9. History of cerebrovascular accident. 10. History of benign prostatic hypertrophy with urinary retention, history of self-catheterization in the past. 11. Depression and anxiety. RECOMMENDATIONS: 1. Continue IV vancomycin and Zosyn 2. Monitor renal functions closely. 3. Pharmacy to assist with vancomycin dosing depending on vancomycin trough and renal functions. 4. Follow up intraoperative cultures. 5. Follow up blood cultures. 6. Wound care per Orthopedics. 7. Elevate left upper extremity. 8. The patient is undergoing treatment for left upper extremity extensive DVT by primary care. 9. Continue supportive care. Thank you for consulting Infectious Disease to participate in this patient's care. We will follow along with you. FILIPPO KING MD DR: HORTENSIA/shauna JOB#: [id number] / [id number] BRENNAN
[2018-12-14] MEDS ORDERED: VARENICLINE 0.5 MG TABLET. PO SCH (09:00)
--- NOTE | 2018-12-14 09:02 | PDOC ---
ORTHO PROGRESS NOTES Subjective This pain and swelling are largely unchanged. No new complaints. Vitals Vital Signs Date Time Temp Pulse Resp B/P (MAP) Pulse Ox O2 Delivery O2 Flow Rate FiO2 12/14/18 08:17 71 137/75 12/14/18 08:16 Room Air 12/14/18 07:00 97.6 18 95 97.6 12/13/18 18:02 2.0 Labs Laboratory Tests Test 12/13/18 00:55 12/13/18 10:20 12/13/18 20:15 12/14/18 02:45 White Blood Count 12.6 x10^3/uL (4.0-11.0) Red Blood Count 4.36 x10^6/uL (4.30-5.70) Hemoglobin 13.0 g/dL (13.0-17.5) Hematocrit 38.9 % (39.0-53.0) Mean Corpuscular Volume 89 fL (79-100) Mean Corpuscular Hemoglobin 30 pg (25-35) Mean Corpuscular Hemoglobin Concent 33 g/dL (31-37) Red Cell Distribution Width 15.1 % (11.5-14.5) Platelet Count 158 x10^3/uL (140-400) Neutrophils (%) (Auto) 70 % (31-73) Lymphocytes (%) (Auto) 18 % (24-48) Monocytes (%) (Auto) 11 % (0-9) Eosinophils (%) (Auto) 1 % (0-3) Basophils (%) (Auto) 0 % (0-3) Neutrophils # (Auto) 8.9 x10^3uL (1.8-7.7) Lymphocytes # (Auto) 2.2 x10^3/uL (1.0-4.8) Monocytes # (Auto) 1.3 x10^3/uL (0.0-1.1) Eosinophils # (Auto) 0.1 x10^3/uL (0.0-0.7) Basophils # (Auto) 0.0 x10^3/uL (0.0-0.2) Erythrocyte Sedimentation Rate 25 (0-15) Prothrombin Time 13.9 SEC (11.7-14.0) Prothromb Time International Ratio 1.1 (0.8-1.1) Sodium Level 139 mmol/L (136-145) Potassium Level 3.0 mmol/L (3.5-5.1) Chloride Level 100 mmol/L (98-107) Carbon Dioxide Level 26 mmol/L (21-32) Anion Gap 13 (6-14) Blood Urea Nitrogen 15 mg/dL (8-26) 12 mg/dL (8-26) Creatinine 1.1 mg/dL (0.7-1.3) 1.0 mg/dL (0.7-1.3) Estimated GFR (Cockcroft-Gault) 68.8 76.7 BUN/Creatinine Ratio 14 (6-20) Glucose Level 118 mg/dL (70-99) Lactic Acid Level 1.2 mmol/L (0.4-2.0) Calcium Level 8.7 mg/dL (8.5-10.1) Total Bilirubin 1.0 mg/dL (0.2-1.0) Aspartate Amino Transf (AST/SGOT) 41 U/L (15-37) Alanine Aminotransferase (ALT/SGPT) 29 U/L (16-63) Alkaline Phosphatase 94 U/L (46-116) Creatine Kinase 623 U/L (39-308) Troponin I Quantitative 0.027 ng/mL (0.000-0.055) C-Reactive Protein, Quantitative 206.3 mg/L (0-3.3) Total Protein 7.3 g/dL (6.4-8.2) Albumin 3.6 g/dL (3.4-5.0) Albumin/Globulin Ratio 1.0 (1.0-1.7) Procalcitonin 0.33 ng/mL (0.00-0.10) 0.16 ng/mL (0.00-0.10) Heparin Anti-Xa Act, Unfractionated < 0.10 IU/mL (0.30-0.70) 0.89 IU/mL (0.30-0.70) 0.21 IU/mL (0.30-0.70) Laboratory Tests Test 12/13/18 10:20 12/13/18 20:15 12/14/18 02:45 Heparin Anti-Xa Act, Unfractionated < 0.10 IU/mL (0.30-0.70) 0.89 IU/mL (0.30-0.70) 0.21 IU/mL (0.30-0.70) Blood Urea Nitrogen 12 mg/dL (8-26) Creatinine 1.0 mg/dL (0.7-1.3) Estimated GFR (Cockcroft-Gault) 76.7 Procalcitonin 0.16 ng/mL (0.00-0.10) Notes He is awake and alert and sitting in his chair, eating breakfast. Examination of his left upper extremity reveals that the cellulitis may be little bit better. Edema largely unchanged. He has an expected amount of bloody drainage over his dorsal hand incision. No pain with passive range of motion at wrist or fingers on the left side. Assessment and Plan We will follow along with cultures. I do not anticipate any further surgical intervention. His dressing can be changed with gauze on an as-needed basis. MEÑO LAGUNAS II, MD Dec 14, 2018 09:02
--- NOTE | 2018-12-14 09:41 | PDOC ---
Infectious Disease Note Subjective: Subjective pt says feels a little better LUE swelling and redness and pain are improving no f/c/n/v/d/sob ROS: ROS Negative except for above. Vital Signs: Vital Signs Vital Signs Date Time Temp Pulse Resp B/P (MAP) Pulse Ox O2 Delivery O2 Flow Rate FiO2 12/14/18 08:17 71 137/75 12/14/18 08:16 Room Air 12/14/18 07:00 97.6 18 95 97.6 12/13/18 18:02 2.0 Physical Exam: PHYSICAL EXAM GENERAL: Alert and oriented x 3. The patient is sitting in chair, in no acute distress, cooperative. HEENT: Normocephalic, atraumatic, anicteric, no thrush. NECK: Supple, no JVD. LUNGS: Clear bilaterally. No wheezing. CARDIOVASCULAR: S1, S2. No gallops or murmurs. The pacemaker site looks okay. ABDOMEN: Soft, obese, bowel sounds present, nontender. EXTREMITIES: Extensive Left upper extremity swelling, redness, warmth present though improving from previous markings . Left hand has dressing intact, dry from recent surgery. Limited range of motion. Finger swelling noted. Good capillary refill. DERM: Warm, dry, no generalized rash except for above, multiple tattoos. NEUROLOGIC: Alert and oriented x 3. Grossly nonfocal. Medications: Inpatient Meds: Current Medications Medications (Trade) Dose Ordered Sig/Alan Start Time Stop Time Status Last Admin Dose Admin Albuterol Sulfate (Ventolin Neb Soln) 2.5 mg Q6HRS 12/13/18 18:00 Atorvastatin Calcium (Lipitor) 80 mg QHS 12/13/18 21:00 12/13/18 20:28 80 MG Budesonide (Pulmicort) 0.5 mg RTBID 12/13/18 20:00 Bupivacaine HCl (Sensorcaine Mpf 0.5%) 30 ml STK-MED ONCE 12/13/18 09:47 12/13/18 10:47 DC Bupivacaine HCl/ Epinephrine Bitart (Sensorcain-Mpf Epi 0.5%-1:[id number]) 30 ml STK-MED ONCE 12/13/18 10:27 12/13/18 11:27 DC 12/13/18 11:30 10 ML Carvedilol (Coreg) 25 mg DAILY08 12/14/18 08:00 12/14/18 08:16 25 MG Dexamethasone Sodium Phosphate (Decadron) 20 mg STK-MED ONCE 12/13/18 10:53 12/13/18 10:54 DC Fentanyl Citrate (Fentanyl 2ml Vial) 100 mcg STK-MED ONCE 12/13/18 10:54 12/13/18 10:55 DC Gabapentin (Neurontin) 400 mg BID 12/13/18 21:00 Heparin Sodium (Porcine) (Heparin Sodium) 1,550 unit PRN Q6HRS PRN 12/13/18 02:00 12/14/18 03:32 1,550 UNIT Heparin Sodium/ Dextrose 500 ml @ 0 mls/hr CONT PRN 12/13/18 02:00 12/13/18 04:18 33 MLS/HR Hydrochlorothiazide (Hydrodiuril) 25 mg DAILY 12/13/18 16:00 12/14/18 08:17 25 MG Hydromorphone HCl (Dilaudid) 1 mg 1X ONCE 12/13/18 12:15 12/13/18 12:19 DC 12/13/18 12:32 1 MG Info (Anti-Coagulation Monitoring By Pharmacy) 1 each PRN DAILY PRN 12/13/18 14:15 12/13/18 14:57 1 EACH Info (CONTRAST GIVEN -- Rx MONITORING) 1 each PRN DAILY PRN 12/13/18 09:30 12/15/18 09:29 Iohexol (Omnipaque 300 Mg/ml) 75 ml 1X ONCE 12/13/18 09:15 12/13/18 09:19 DC Lactobacillus Rhamnosus (Culturelle) 1 cap BID 12/13/18 21:00 Cancel Lidocaine HCl (Lidocaine Pf 2% Vial) 5 ml STK-MED ONCE 12/13/18 10:53 12/13/18 10:54 DC Losartan Potassium (Cozaar) 100 mg DAILY 12/13/18 16:00 12/14/18 08:17 100 MG Nicotine Polacrilex (Nicorette Gum) 1 each PRN Q1HR PRN 12/13/18 15:15 12/14/18 00:19 1 EACH Non-Formulary Medication (Fluticasone/ Salmeterol (Advair 250-50 Diskus)) 1 puff BID 12/13/18 21:00 UNV Ondansetron HCl (Zofran) 4 mg STK-MED ONCE 12/13/18 10:53 12/13/18 10:54 DC Oxycodone HCl (Roxicodone) 10 mg TID 12/13/18 16:00 12/14/18 08:16 10 MG Piperacillin Sod/ Tazobactam Sod (Zosyn Per Pharmacy) 1 each PRN DAILY PRN 12/12/18 23:45 Piperacillin Sod/ Tazobactam Sod 3.375 gm/Sodium Chloride 50 ml @ 100 mls/hr Q6HRS 12/13/18 06:00 12/14/18 05:53 100 MLS/HR Prochlorperazine Edisylate (Compazine) 5 mg PACU PRN PRN 12/13/18 08:45 12/13/18 20:00 DC Propofol 20 ml @ As Directed STK-MED ONCE 12/13/18 10:53 12/13/18 10:54 DC Ringer's Solution 1,000 ml @ 30 mls/hr Q24H 12/13/18 08:32 12/13/18 20:31 DC Sevoflurane (Ultane) 30 ml STK-MED ONCE 12/13/18 10:53 12/13/18 10:54 DC Sodium Chloride 1,000 ml @ 75 mls/hr [id number] 12/13/18 01:45 12/14/18 01:44 DC 12/13/18 17:56 75 MLS/HR Vancomycin HCl (Vanco Per Pharmacy) 1 each PRN DAILY PRN 12/12/18 23:45 12/13/18 02:53 1 EACH Vancomycin HCl (Vancomycin Trough Level) 1 each 1X ONCE 12/14/18 13:30 12/14/18 13:31 Vancomycin HCl 1.5 gm/Sodium Chloride 500 ml @ 250 mls/hr Q12H 12/13/18 14:00 12/14/18 02:02 250 MLS/HR Vancomycin HCl 2 gm/Sodium Chloride 500 ml @ 250 mls/hr 1X ONCE 12/13/18 00:30 12/13/18 02:29 DC 12/13/18 02:00 250 MLS/HR Varenicline (Chantix) 0.5 mg DAILY 12/14/18 09:00 12/14/18 08:18 0.5 MG Ziprasidone (Geodon) 20 mg BID 12/13/18 21:00 Labs: Lab Laboratory Tests Test 12/13/18 10:20 12/13/18 20:15 12/14/18 02:45 Heparin Anti-Xa Act, Unfractionated < 0.10 IU/mL (0.30-0.70) 0.89 IU/mL (0.30-0.70) 0.21 IU/mL (0.30-0.70) Blood Urea Nitrogen 12 mg/dL (8-26) Creatinine 1.0 mg/dL (0.7-1.3) Estimated GFR (Cockcroft-Gault) 76.7 Procalcitonin 0.16 ng/mL (0.00-0.10) Micro BC neg Lt hand c/s neg CT LUE IMPRESSION: 1. Extensive subcutaneous edema in the forearm and hand, greatest over the dorsum of the hand compatible with edema due to known central venous obstruction or cellulitis. No discrete abscess is identified. 2. No acute bony abnormality is detected. Objective: Assessment: 1. Left upper extremity extensive cellulitis with swelling, underlying upper extremity extensive deep venous thrombosis could be contributing to the swelling and redness 12/13/2018, status post debridement of the dorsum of left hand by 2. Febrile illness. 3. Leukocytosis. 4. History of polysubstance abuse in the past including IV drug use. 5. Psychiatric/behavioral issues. 6. History of atrial fibrillation. 7. History of right elbow septic arthritis. 8. History of right upper extremity necrotizing fasciitis treated at and subsequently here multiple times in 2018. 9. History of cerebrovascular accident. 10. History of benign prostatic hypertrophy with urinary retention, history of self-catheterization in the past. 11. Depression and anxiety. Plan: Plan of Care 1. Continue IV vancomycin and Zosyn 2. Monitor renal functions closely. 3. Pharmacy to assist with vancomycin dosing depending on vancomycin trough and renal functions. 4. Follow up intraoperative cultures. 5. Follow up blood cultures. 6. Wound care per Orthopedics. 7. Elevate left upper extremity. 8. The patient is undergoing treatment for left upper extremity extensive DVT by primary care. 9. Continue supportive care. FILIPPO KING MD Dec 14, 2018 09:41
[2018-12-14 11:00] VITALS: BP 122/63
[2018-12-14] MEDS: HEPARIN 25,000UTS/500ML PREMIX 500 ML IV PRN (11:22)
[2018-12-14] MEDS: HEPARIN for IV BOLUS 10,000 UNIT/10 ML VIAL. IV PRN (11:50)
--- NOTE | 2018-12-14 12:02 | NUR ---
Patients UFH was ordered for 0820. Called Lab to come draw patient at 0900 since they had not drawn. Lab stated they did not come draw because "someone" had said that patient had a line. This RN told lab he did not have a line and they needed to come draw the [facility]. Lab took another hour to come draw the patient. This RN gave them time to run the blood and by 1100 this RN called lab to ask about the lab result and they still had not run the blood. I restated that I needed the lab since it was almost 3 hours late. Tayler from lab stated she would run it now and would call me back with a result. Tayler called me back about 10 minutes later with the result.
[2018-12-14] MEDS: ANTI-COAG MONITOR BY PHARMACY. MC PRN (13:01)
--- NOTE | 2018-12-14 13:20 | PDOC ---
PROGRESS NOTES Chief Complaint Chief Complaint L arm cellulitis History of Present Illness History of Present Illness Patient sitting in bedside chair. Underwent I&D of left hand yesterday, continues to have pain. Some mild wheezing today. Vitals Vitals Vital Signs Date Time Temp Pulse Resp B/P (MAP) Pulse Ox O2 Delivery O2 Flow Rate FiO2 12/14/18 11:00 98.2 93 20 122/63 (82) 96 Room Air 98.2 12/13/18 18:02 2.0 Physical Exam Physical Exam GENERAL: Alert and oriented x 3. The patient is sitting in chair, in no acute distress, cooperative. HEENT: Normocephalic, atraumatic, anicteric, no thrush. NECK: Supple, no JVD. LUNGS: Clear bilaterally. No wheezing. CARDIOVASCULAR: S1, S2. No gallops or murmurs. The pacemaker site looks okay. ABDOMEN: Soft, obese, bowel sounds present, nontender. EXTREMITIES: Extensive Left upper extremity swelling, redness, warmth present though improving from previous markings . Left hand has dressing intact, dry from recent surgery. Limited range of motion. Finger swelling noted. Good capillary refill. DERM: Warm, dry, no generalized rash except for above, multiple tattoos. NEUROLOGIC: Alert and oriented x 3. Grossly nonfocal. General: Alert, Oriented X3, No acute distress Heart: Regular rate, Normal S1, Normal S2 Lungs: Wheezing (mild, diffuse) Abdomen: Soft, No tenderness Extremities: Other (left hand dressing, C/D/I) Skin: Other (erythema retreating from lines drawn on left arm) Labs LABS Laboratory Tests Test 12/13/18 20:15 12/14/18 02:45 12/14/18 10:05 Heparin Anti-Xa Act, Unfractionated 0.89 IU/mL (0.30-0.70) 0.21 IU/mL (0.30-0.70) < 0.10 IU/mL (0.30-0.70) Blood Urea Nitrogen 12 mg/dL (8-26) Creatinine 1.0 mg/dL (0.7-1.3) Estimated GFR (Cockcroft-Gault) 76.7 Procalcitonin 0.16 ng/mL (0.00-0.10) Review of Systems Review of Systems as per above Assessment and Plan Assessmemt and Plan Assessment: NINA cellulitis Occlusive thrombus L subclavian v. Hypokalemia Hypertension, history of COPD, history of GERD, history of Chronic low back pain, history of Tobaccoism History of psychotic behavior Plan: Ortho: I&D left hand with wound cultures on 12/13 ID: IV Vanc/Zosyn, monitor renal function, elevate LUE Micro: BCx (12/13): NGTD x1 Wound Cx (12/13): pending Wound care Recheck labs in am Replete K as needed Heparin gtt for treatment of thrombus and DVT ppx Pain management nicotine gum Home meds PT/OT Appreciate subspecialty recs Comment Review of Relevant I have reviewed the following items mercedez (where applicable) has been applied. Labs Laboratory Tests Test 12/13/18 00:55 12/13/18 10:20 12/13/18 20:15 12/14/18 02:45 White Blood Count 12.6 x10^3/uL (4.0-11.0) Red Blood Count 4.36 x10^6/uL (4.30-5.70) Hemoglobin 13.0 g/dL (13.0-17.5) Hematocrit 38.9 % (39.0-53.0) Mean Corpuscular Volume 89 fL (79-100) Mean Corpuscular Hemoglobin 30 pg (25-35) Mean Corpuscular Hemoglobin Concent 33 g/dL (31-37) Red Cell Distribution Width 15.1 % (11.5-14.5) Platelet Count 158 x10^3/uL (140-400) Neutrophils (%) (Auto) 70 % (31-73) Lymphocytes (%) (Auto) 18 % (24-48) Monocytes (%) (Auto) 11 % (0-9) Eosinophils (%) (Auto) 1 % (0-3) Basophils (%) (Auto) 0 % (0-3) Neutrophils # (Auto) 8.9 x10^3uL (1.8-7.7) Lymphocytes # (Auto) 2.2 x10^3/uL (1.0-4.8) Monocytes # (Auto) 1.3 x10^3/uL (0.0-1.1) Eosinophils # (Auto) 0.1 x10^3/uL (0.0-0.7) Basophils # (Auto) 0.0 x10^3/uL (0.0-0.2) Erythrocyte Sedimentation Rate 25 (0-15) Prothrombin Time 13.9 SEC (11.7-14.0) Prothromb Time International Ratio 1.1 (0.8-1.1) Sodium Level 139 mmol/L (136-145) Potassium Level 3.0 mmol/L (3.5-5.1) Chloride Level 100 mmol/L (98-107) Carbon Dioxide Level 26 mmol/L (21-32) Anion Gap 13 (6-14) Blood Urea Nitrogen 15 mg/dL (8-26) 12 mg/dL (8-26) Creatinine 1.1 mg/dL (0.7-1.3) 1.0 mg/dL (0.7-1.3) Estimated GFR (Cockcroft-Gault) 68.8 76.7 BUN/Creatinine Ratio 14 (6-20) Glucose Level 118 mg/dL (70-99) Lactic Acid Level 1.2 mmol/L (0.4-2.0) Calcium Level 8.7 mg/dL (8.5-10.1) Total Bilirubin 1.0 mg/dL (0.2-1.0) Aspartate Amino Transf (AST/SGOT) 41 U/L (15-37) Alanine Aminotransferase (ALT/SGPT) 29 U/L (16-63) Alkaline Phosphatase 94 U/L (46-116) Creatine Kinase 623 U/L (39-308) Troponin I Quantitative 0.027 ng/mL (0.000-0.055) C-Reactive Protein, Quantitative 206.3 mg/L (0-3.3) Total Protein 7.3 g/dL (6.4-8.2) Albumin 3.6 g/dL (3.4-5.0) Albumin/Globulin Ratio 1.0 (1.0-1.7) Procalcitonin 0.33 ng/mL (0.00-0.10) 0.16 ng/mL (0.00-0.10) Heparin Anti-Xa Act, Unfractionated < 0.10 IU/mL (0.30-0.70) 0.89 IU/mL (0.30-0.70) 0.21 IU/mL (0.30-0.70) Test 12/14/18 10:05 Heparin Anti-Xa Act, Unfractionated < 0.10 IU/mL (0.30-0.70) Laboratory Tests Test 12/13/18 20:15 12/14/18 02:45 12/14/18 10:05 Heparin Anti-Xa Act, Unfractionated 0.89 IU/mL (0.30-0.70) 0.21 IU/mL (0.30-0.70) < 0.10 IU/mL (0.30-0.70) Blood Urea Nitrogen 12 mg/dL (8-26) Creatinine 1.0 mg/dL (0.7-1.3) Estimated GFR (Cockcroft-Gault) 76.7 Procalcitonin 0.16 ng/mL (0.00-0.10) Microbiology 12/13/18 Blood Culture - Preliminary, Resulted NO GROWTH AFTER 1 DAY 12/13/18 Anaerobic/Aerobic Culture, Resulted Pending 12/13/18 Anaerobic Culture Result 1 (ERNESTO), Resulted Pending 12/13/18 Aerobic Culture, Resulted Pending 12/13/18 Aerobic Culture Result 1 (ERNESTO), Resulted Pending 12/13/18 Gram Stain, Resulted Pending 12/13/18 Gram Stain Result 1 (ERNESTO), Resulted Pending 12/13/18 Yeast/Fungus Susceptibility - Final, Resulted Medications Current Medications Vancomycin HCl (Vanco Per Pharmacy) 1 each PRN DAILY PRN MC SEE COMMENTS Last administered on 12/13/18at 02:53; Start 12/12/18 at 23:45 Piperacillin Sod/ Tazobactam Sod (Zosyn Per Pharmacy) 1 each PRN DAILY PRN MC SEE COMMENTS; Start 12/12/18 at 23:45 Hydromorphone HCl (Dilaudid) 1 mg 1X ONCE IV Last administered on 12/13/18at 00 :39; Start 12/13/18 at 00:00; Stop 12/13/18 at 00:01; Status DC Sodium Chloride 1,000 ml @ 1,000 mls/hr 1X ONCE IV Last administered on at 00:40; Start 12/12/18 at 23:45; Stop 12/13/18 at 00:44; Status DC Sodium Chloride 1,000 ml @ 1,000 mls/hr 1X ONCE IV Last administered on 00:41; Start 12/12/18 at 23:45; Stop 12/13/18 at 00:44; Status DC Vancomycin HCl 2 gm/Sodium Chloride 500 ml @ 250 mls/hr 1X ONCE IV Last administered on 12/13/18 02:00; Start 12/13/18 at 00:30; Stop 12/13/18 at 02:29 ; Status DC Piperacillin Sod/ Tazobactam Sod 3.375 gm/Sodium Chloride 50 ml @ 100 mls/hr ONCE ONCE IV Last administered on 12/13/18 01:08; Start 12/13/18 at 00:00; Stop 12/13/18 at 00:29; Status DC Hydromorphone HCl (Dilaudid) 1 mg 1X ONCE IV Last administered on 12/13/18 02 :36; Start 12/13/18 at 00:30; Stop 12/13/18 at 00:33; Status DC Sodium Chloride 1,000 ml @ 75 mls/hr [id number] IV Last administered on 17:56; Start 12/13/18 at 01:45; Stop 12/14/18 at 01:44; Status DC Hydromorphone HCl (Dilaudid) 1 mg PRN Q2HR PRN IV PAIN Last administered on 05:54; Start 12/13/18 at 01:45 Heparin Sodium/ Dextrose 500 ml @ 0 mls/hr CONT PRN IV SEE I/O RECORD Last administered on 12/14/18 11:22; Start 12/13/18 at 02:00 Heparin Sodium (Porcine) (Heparin Sodium) 3,100 unit PRN Q6HRS PRN IV FOR UFH LEVEL LESS THAN 0.2 Last administered on 12/14/18 11:50; Start 12/13/18 at 02: 00 Heparin Sodium (Porcine) (Heparin Sodium) 1,550 unit PRN Q6HRS PRN IV FOR UFH LEVEL 0.2 - 0.29 Last administered on 12/14/18 03:32; Start 12/13/18 at 02:00 Hydromorphone HCl (Dilaudid) 1 mg 1X ONCE IV Last administered on 12/13/18 12 :02; Start 12/13/18 at 02:45; Stop 12/13/18 at 02:46; Status DC Piperacillin Sod/ Tazobactam Sod 3.375 gm/Sodium Chloride 50 ml @ 100 mls/hr Q6HRS IV Last administered on 12/14/18at 11:35; Start 12/13/18 at 06:00 Vancomycin HCl 1.5 gm/Sodium Chloride 500 ml @ 250 mls/hr Q12H IV Last administered on 12/14/18at 02:02; Start 12/13/18 at 14:00 Vancomycin HCl (Vancomycin Trough Level) 1 each 1X ONCE MC ; Start 12/14/18 at 13:30; Stop 12/14/18 at 13:31 Fentanyl Citrate (Fentanyl 2ml Vial) 25 mcg PRN Q5MIN PRN IV MILD PAIN; Start 12/13/18 at 08:45; Stop 12/13/18 at 20:00; Status DC Fentanyl Citrate (Fentanyl 2ml Vial) 50 mcg PRN Q5MIN PRN IV MODERATE TO SEVERE PAIN; Start 12/13/18 at 08:45; Stop 12/13/18 at 20:00; Status DC Ringer's Solution 1,000 ml @ 30 mls/hr Q24H IV ; Start 12/13/18 at 08:32; Stop 12/13/18 at 20:31; Status DC Prochlorperazine Edisylate (Compazine) 5 mg PACU PRN PRN IV NAUSEA, MRX1; Start 12/13/18 at 08:45; Stop 12/13/18 at 20:00; Status DC Iohexol (Omnipaque 300 Mg/ml) 75 ml 1X ONCE IV ; Start 12/13/18 at 09:15; Stop 12/13/18 at 09:19; Status DC Info (CONTRAST GIVEN -- Rx MONITORING) 1 each PRN DAILY PRN MC SEE COMMENTS; Start 12/13/18 at 09:30; Stop 12/15/18 at 09:29 Lidocaine HCl 20 ml STK-MED ONCE .ROUTE ; Start 12/13/18 at 09:47; Stop at 10:47; Status DC Bupivacaine HCl (Sensorcaine Mpf 0.5%) 30 ml STK-MED ONCE .ROUTE ; Start at 09:47; Stop 12/13/18 at 10:47; Status DC Dexamethasone Sodium Phosphate (Decadron) 20 mg STK-MED ONCE .ROUTE ; Start at 10:53; Stop 12/13/18 at 10:54; Status DC Ondansetron HCl (Zofran) 4 mg STK-MED ONCE .ROUTE ; Start 12/13/18 at 10:53; Stop 12/13/18 at 10:54; Status DC Propofol 20 ml @ As Directed STK-MED ONCE IV ; Start 12/13/18 at 10:53; Stop at 10:54; Status DC Lidocaine HCl (Lidocaine Pf 2% Vial) 5 ml STK-MED ONCE .ROUTE ; Start 12/13/18 at 10:53; Stop 12/13/18 at 10:54; Status DC Sevoflurane (Ultane) 30 ml STK-MED ONCE IH ; Start 12/13/18 at 10:53; Stop 12/13 at 10:54; Status DC Fentanyl Citrate (Fentanyl 2ml Vial) 100 mcg STK-MED ONCE .ROUTE ; Start at 10:54; Stop 12/13/18 at 10:55; Status DC Bupivacaine HCl/ Epinephrine Bitart (Sensorcain-Mpf Epi 0.5%-1:[id number]) 30 ml STK -MED ONCE .ROUTE Last administered on 12/13/18at 11:30; Start 12/13/18 at 10:27 ; Stop 12/13/18 at 11:27; Status DC Hydromorphone HCl (Dilaudid) 1 mg 1X ONCE IV Last administered on 12/13/18at 12 :32; Start 12/13/18 at 12:15; Stop 12/13/18 at 12:19; Status DC Info (Anti-Coagulation Monitoring By Pharmacy) 1 each PRN DAILY PRN MC SEE COMMENTS Last administered on 12/14/18at 13:01; Start 12/13/18 at 14:15 Lactobacillus Rhamnosus (Culturelle) 1 cap BID PO ; Start 12/13/18 at 21:00 Nicotine Polacrilex (Nicorette Gum) 1 each PRN Q1HR PRN BC SMOKING CESSATION Last administered on 12/14/18at 00:19; Start 12/13/18 at 15:15 Gabapentin (Neurontin) 400 mg BID PO ; Start 12/13/18 at 21:00 Lactobacillus Rhamnosus (Culturelle) 1 cap BID PO ; Start 12/13/18 at 21:00; Status Cancel Losartan Potassium (Cozaar) 50 mg DAILY PO ; Start 12/13/18 at 17:00; Status Cancel Varenicline (Chantix) 0.5 mg DAILY PO Last administered on 12/14/18at 08:18; Start 12/14/18 at 09:00 Atorvastatin Calcium (Lipitor) 80 mg QHS PO Last administered on 12/13/18at 20: 28; Start 12/13/18 at 21:00 Carvedilol (Coreg) 25 mg DAILY08 PO Last administered on 12/14/18 08:16; Start 12/14/18 at 08:00 Non-Formulary Medication (Fluticasone/ Salmeterol (Advair 250-50 Diskus)) 1 puff BID IH ; Start 12/13/18 at 21:00; Status UNV Losartan Potassium (Cozaar) 100 mg DAILY PO Last administered on 12/14/18at 08: 17; Start 12/13/18 at 16:00 Oxycodone HCl (Roxicodone) 10 mg TID PO Last administered on 12/14/18at 08:16; Start 12/13/18 at 16:00 Ziprasidone (Geodon) 20 mg BID PO ; Start 12/13/18 at 21:00 Hydrochlorothiazide (Hydrodiuril) 25 mg DAILY PO Last administered on at 08:17; Start 12/13/18 at 16:00 Albuterol Sulfate (Ventolin Neb Soln) 2.5 mg Q6HRS NEB ; Start 12/13/18 at 18:00 Budesonide (Pulmicort) 0.5 mg RTBID NEB ; Start 12/13/18 at 20:00 Active Scripts Active Prednisone 50 Mg Tablet 50 Mg PO DAILY 5 Days Culturelle (Lactobacillus Rhamnosus Gg) 1 Each Cap.sprink 1 Cap PO BID 10 Days Geodon (Ziprasidone Hcl) 20 Mg Capsule 20 Mg PO BID 30 Days Doxycycline Hyclate 100 Mg Tablet 100 Mg PO BID 10 Days Losartan-Hctz 100-25 Mg Tab (Losartan/Hydrochlorothiazide) 1 Each Tablet 1 Tab PO DAILY Reported Chantix (Varenicline Tartrate) 1 Mg Tablet 1 Mg Oxycodone Hcl Immed.release (Oxycodone Hcl) 10 Mg Tablet 1 Tab PO TID Gabapentin 400 Mg Capsule 400 Mg Diclofenac Sodium 75 Mg Tablet.dr 75 Carisoprodol 350 Mg Tablet 350 Mg Loratadine 10 Mg Tablet 10 Mg Advair 250-50 Diskus (Fluticasone/Salmeterol) 1 Each Disk.w.dev 1 Puff IH BID Chantix (Varenicline Tartrate) 0.5 Mg Tablet 0.5 Mg PO DIRECTED 0.5 MG PO DAILY X3 DAY, 0.5 MG PO BID X4 DAY, 1 MG PO BID UNTIL END OF TREATMENT Atorvastatin Calcium 80 Mg Tablet 1 Tab PO DAILY Coreg (Carvedilol) 25 Mg Tablet 1 Tab PO DAILY Losartan Potassium 50 Mg Tablet 50 Mg PO DAILY Vitals/I & O Vital Sign - Last 24 Hours 12/13/18 12/13/18 12/13/18 12/13/18 15:00 15:42 17:14 18:01 Temp 98.7 98.7 Pulse 89 89 Resp 18 18 B/P (MAP) 146/85 (105) 146/85 Pulse Ox 94 94 88 O2 Delivery Room Air Room Air Room Air O2 Flow Rate 2.0 12/13/18 12/13/18 12/13/18 12/13/18 18:02 19:00 19:10 20:00 Temp 98.2 98.2 Pulse 91 Resp 18 18 16 B/P (MAP) 167/91 (116) Pulse Ox 88 90 O2 Delivery Nasal Cannula Room Air Room Air O2 Flow Rate 2.0 12/13/18 12/13/18 12/13/18 12/13/18 20:00 20:31 21:14 21:35 Resp 16 Pulse Ox 90 O2 Delivery Room Air Nasal Cannula Room Air 12/13/18 12/13/18 12/14/18 12/14/18 21:35 23:00 00:20 03:00 Temp 98.0 97.9 98.0 97.9 Pulse 72 77 Resp 18 18 B/P (MAP) 144/76 (98) 132/70 (90) Pulse Ox 90 92 92 95 O2 Delivery Room Air Room Air Room Air 12/14/18 12/14/18 12/14/18 12/14/18 05:54 06:33 07:00 07:45 Temp 97.6 97.6 Pulse 71 Resp 16 16 18 B/P (MAP) 137/75 (95) Pulse Ox 95 O2 Delivery Room Air Room Air Room Air Room Air 12/14/18 12/14/18 12/14/18 12/14/18 08:16 08:16 08:17 09:30 Pulse 71 71 B/P (MAP) 137/75 137/75 O2 Delivery Room Air Room Air 12/14/18 11:00 Temp 98.2 98.2 Pulse 93 Resp 20 B/P (MAP) 122/63 (82) Pulse Ox 96 O2 Delivery Room Air Intake and Output 12/13/18 12/13/18 12/14/18 14:59 22:59 06:59 Intake Total 950 ml 280 ml 350 ml Output Total 10 ml Balance 940 ml 280 ml 350 ml TREVOR BELLE III DO Dec 14, 2018 13:20
[2018-12-14] MEDS: VANCOMYCIN PER PHARMACY MC PRN (14:51)
--- NOTE | 2018-12-14 14:51 | NUR ---
Pharmacy Vancomycin Dosing Note S:Consulted to monitor and dose vancomycin started 12/13/18. O:ALYSSA PABLO is a 58 year old M with Cellulitis . Height: 5 feet, 6 inches Weight: 103.005269 kg [place] Body Weight: 63.80 Adjusted Body Weight: 79.44 Dosing Weight: Actual Other Antibiotics: ZOSYN 3.375GM IV Q6H LABS: Last BUN: 12 Last Creatinine: 1.0 Creatinine Clearance: 82 mL/min Last WBC: 12.6 Last Procalcitonin: - Tmax (past 24 hours): 98.7 Microbiology: 12/14 INTRAOP CX PENDING. BCX NG I/O: 1580/4 Drug Levels: Last Trough level: 10.0 on 12/14/18 at 1340 Last dose given 12/14/18 at 0200 Vancomycin Dosing: Loading Dose: 2000 mg x1 Dosing Weight: Actual Target Trough: 10-20 A: Based on: trough therapeutic for indication, P: 1. Continue Vancomycin 1500 mg IV q12h 2. Follow up Trough level as needed. 3. Pharmacy will continue to monitor, follow and adjust therapy as needed. LUCAS YOUSSEF [facility], 12/14/18 [id number]
[2018-12-14 15:00] VITALS: BP 142/120
--- NOTE | 2018-12-14 16:19 | NUR ---
SW consulted for dc planning. Chart reviewed. Pt lives at home alone and is independent with ADL's. No skilled needs at this time. Will continue to follow.
--- NOTE | 2018-12-14 19:32 | NUR ---
Patient signed out AMA, risk and dangers educated to patient several times regarding his IV antibiotic treatment and along with anti coagulation treatment. Patient verbalized understanding the risk and dangers signing out AMA. Patient pulled out his own IV, dressing was applied to area. Patient was walked of unit by RN and security, patient friend picked up patient out of ER. ESME Barros notified MD Linda in regards to patient leaving AMA.
== END 2018-12-14 19:40 | disposition left against medical advice (07) | DRG 580 ==
LOC: ER 22:21 → 5 NORTH 12-13 01:56
PROVIDERS: ADMIT Internal Medicine; ATTEND Internal Medicine
PROC: 0JBK0ZZ Excision of Left Hand Subcutaneous Tissue and Fascia, Open Approach (ICD-10-PCS; principal; 2018-12-13 11:15)
DX: L03.114 Cellulitis of left upper limb (principal); I82.612 Acute embolism and thrombosis of superficial veins of left upper extremity; I82.B12 Acute embolism and thrombosis of left subclavian vein; E87.6 Hypokalemia; Z53.21 Procedure and treatment not carried out due to patient leaving prior to being seen by health care provider; E78.00 Pure hypercholesterolemia, unspecified; G89.29 Other chronic pain; I11.0 Hypertensive heart disease with heart failure; I50.9 Heart failure, unspecified; I25.10 Atherosclerotic heart disease of native coronary artery without angina pectoris; N40.0 Benign prostatic hyperplasia without lower urinary tract symptoms; I48.91 Unspecified atrial fibrillation; J44.9 Chronic obstructive pulmonary disease, unspecified; K21.9 Gastro-esophageal reflux disease without esophagitis; F32.9 Major depressive disorder, single episode, unspecified; F41.9 Anxiety disorder, unspecified; F91.9 Conduct disorder, unspecified; F29 Unspecified psychosis not due to a substance or known physiological condition; M41.9 Scoliosis, unspecified; F17.210 Nicotine dependence, cigarettes, uncomplicated; Z60.2 Problems related to living alone; Z96.659 Presence of unspecified artificial knee joint; I25.2 Old myocardial infarction; Z79.899 Other long term (current) drug therapy; Z88.8 Allergy status to other drugs, medicaments and biological substances; Z82.49 Family history of ischemic heart disease and other diseases of the circulatory system; Z86.73 Personal history of transient ischemic attack (TIA), and cerebral infarction without residual deficits; Z87.39 Personal history of other diseases of the musculoskeletal system and connective tissue; Z95.0 Presence of cardiac pacemaker; Z90.49 Acquired absence of other specified parts of digestive tract; Z86.14 Personal history of Methicillin resistant Staphylococcus aureus infection
CPT/HCPCS: 36415; 71045; 73090; 73120; 73201; 80053; 80202; 82550; 82565; 83605; 84145; 84484; 84520; 85025; 85520; 85610; 85651; 86140; 87015; 87040; 87071; 87075; 87102; 87116; 87176; 93971; 94640; 96365; 96367; A7015; J1100; J1170; J1644; J2001; J2405; J2543; J2704; J3010; J3370; J3490; J7030; J7040; 99285-25

== ENCOUNTER 2019-03-12 21:52 | Emergency (ER) | payer OTHER ==
[~2019-03-12] VITALS: Ht 170.2 cm; Wt 103.0 kg
[2019-03-12 22:22] LABS: BILIRUBIN,URINE NEGATIVE (NEG); CLARITY,URINE CLEAR; COLOR,URINE YELLOW; NITRITE,URINE NEGATIVE (NEG); PROTEIN,URINE NEGATIVE (NEG-TRACE); UROBILINOGEN,URINE 0.2 mg/dL (0.2 mg/dL)
[2019-03-12 22:29] LABS: BACTERIA,URINE 0 /HPF (0-FEW); RBC,URINE 0 /HPF (0-2); SQUAMOUS EPITHELIAL CELL,UR MOD /LPF
[2019-03-12] MEDS ORDERED: IV NORMAL SALINE 1000ML BAG 1,000 ML IV ONE (22:30)
[2019-03-12] MEDS ORDERED: fentaNYL PF VIAL 100 MCG/2 ML VIAL IV ONE (22:30)
[2019-03-12 23:35] VITALS: BP 140/101
[2019-03-12 23:49] LABS: BASO # 0.1 x10^3/uL (0.0-0.2); BASO % 1 % (0-3); EOS # 0.1 x10^3/uL (0.0-0.7); EOS % 2 % (0-3); HEMATOCRIT 41.9 % (39.0-53.0); HEMOGLOBIN 14.3 g/dL (13.0-17.5); LYMPH # 2.4 x10^3/uL (1.0-4.8); LYMPH % 29 % (24-48); MEAN CORPUSCULAR HEMOGLOBIN 31 pg (25-35); MEAN CORPUSCULAR HGB CONC 34 g/dL (31-37); MEAN CORPUSCULAR VOLUME 89 fL (79-100); MONO # 0.7 x10^3/uL (0.0-1.1); MONO % 8 % (0-9); NEUT # 4.9 x10^3/uL (1.8-7.7); NEUT % 60 % (31-73); PLATELET COUNT 204 x10^3/uL (140-400); RED CELL DISTRIBUTION WIDTH 14.8 % (11.5-14.5); WHITE BLOOD COUNT 8.2 x10^3/uL (4.0-11.0)
[2019-03-12 23:58] LABS: PROTHROMBIN TIME PATIENT 12.8 SEC (11.7-14.0)
[2019-03-13 00:06] LABS: CALCIUM 8.9 mg/dL (8.5-10.1); CREATININE 1.1 mg/dL (0.7-1.3); GFR 68.8; POTASSIUM 3.8 mmol/L (3.5-5.1)
[2019-03-13 00:12] LABS: ALBUMIN 3.8 g/dL (3.4-5.0); ALBUMIN/GLOBULIN RATIO 1.1 (1.0-1.7); TOTAL BILIRUBIN 0.5 mg/dL (0.2-1.0); TOTAL PROTEIN 7.3 g/dL (6.4-8.2)
[2019-03-13] MEDS ORDERED: HYOS0.1265 SL (00:30)
[2019-03-13] MEDS ORDERED: ONDA4TAB12 PO (00:30)
[2019-03-13] MEDS ORDERED: FAMO-63 PO (00:30)
--- NOTE | 2019-03-13 00:30 | PHYS DOC ---
Past Medical History Past Medical History: A-Fib, Alcoholism, Anxiety, CAD, CVA, High Cholesterol, Heart Disease, Hypertension, NM, Other Additional Past Medical Histor: Vtach, back pain, HERNIA, HEPATITIS, bradycardia Past Surgical History: Cholecystectomy, Knee Replacement, Pacemaker, Other Additional Past Surgical Histo: skin graft on elbow, Alcohol Use: None Drug Use: None Adult General Chief Complaint Chief Complaint: ABDOMINAL PAIN HPI HPI Patient is a 58 year old [f__sex] who presents with [] Review of Systems Review of Systems Constitutional: Denies fever or chills [] Eyes: Denies change in visual acuity, redness, or eye pain [] HENT: Denies nasal congestion or sore throat [] Respiratory: Denies cough or shortness of breath [] Cardiovascular: No additional information not addressed in HPI [] GI: Denies abdominal pain, nausea, vomiting, bloody stools or diarrhea [] : Denies dysuria or hematuria [] Musculoskeletal: Denies back pain or joint pain [] Integument: Denies rash or skin lesions [] Neurologic: Denies headache, focal weakness or sensory changes [] Endocrine: Denies polyuria or polydipsia [] All other systems were reviewed and found to be within normal limits, except as documented in this note. Current Medications Current Medications Current Medications Medications (Trade) Dose Ordered Sig/[facility] Start Time Stop Time Status Last Admin Dose Admin Fentanyl Citrate (Fentanyl 2ml Vial) 50 mcg 1X ONCE 03/12/19 22:30 03/12/19 22:31 DC Sodium Chloride 1,000 ml @ 1,000 mls/hr 1X ONCE 03/12/19 22:30 03/12/19 23:29 DC Allergies Allergies Allergies Coded Allergies Type Severity Reaction Last Updated Verified alprazolam Allergy Intermediate 12/13/18 Yes diltiazem Allergy Intermediate HIVES, INTERMITTENTLY 12/13/18 Yes lorazepam Allergy Intermediate halucinations 12/13/18 Yes morphine Allergy Intermediate HIVES, INTERMITTENTLY 12/13/18 Yes Haloperidol Lactate Adverse Reaction Intermediate dystonic reaction 12/13/18 Yes haloperidol Adverse Reaction Intermediate dystonic reaction 12/13/18 Yes tramadol Adverse Reaction Intermediate Hallucinations per nurse 12/13/18 Yes Physical Exam Physical Exam Constitutional: Well developed, well nourished, no acute distress, non-toxic appearance. [] HENT: Normocephalic, atraumatic, bilateral external ears normal, oropharynx moist, no oral exudates, nose normal. [] Eyes: PERRLA, EOMI, conjunctiva normal, no discharge. [] Neck: Normal range of motion, no tenderness, supple, no stridor. [] Cardiovascular:Heart rate regular rhythm, no murmur [] Lungs & Thorax: Bilateral breath sounds clear to auscultation [] Abdomen: Bowel sounds normal, soft, no tenderness, no masses, no pulsatile masses. [] Skin: Warm, dry, no erythema, no rash. [] Back: No tenderness, no CVA tenderness. [] Extremities: No tenderness, no cyanosis, no clubbing, ROM intact, no edema. [] Neurologic: Alert and oriented X 3, normal motor function, normal sensory function, no focal deficits noted. [] Psychologic: Affect normal, judgement normal, mood normal. [] Current Patient Data Vital Signs Vital Signs Date Time Temp Pulse Resp B/P (MAP) Pulse Ox O2 Delivery O2 Flow Rate FiO2 03/12/19 23:35 90 18 140/101 (114) 97 Room Air 03/12/19 22:00 97.8 97.8 Lab Values Laboratory Tests Test 03/12/19 22:00 03/12/19 23:40 Urine Collection Type Unknown Urine Color Yellow Urine Clarity Clear Urine pH 5.0 Urine Specific [place] 1.015 Urine Protein Negative mg/dL (NEG-TRACE) Urine Glucose (UA) Negative mg/dL (NEG) Urine Ketones (Stick) Negative mg/dL (NEG) Urine Blood Negative (NEG) Urine Nitrite Negative (NEG) Urine Bilirubin Negative (NEG) Urine Urobilinogen Dipstick 0.2 mg/dL (0.2 mg/dL) Urine Leukocyte Esterase Negative (NEG) Urine RBC 0 /HPF (0-2) Urine WBC 1-4 /HPF (0-4) Urine Squamous Epithelial Cells Mod /LPF Urine Bacteria 0 /HPF (0-FEW) Urine Mucus Mod /LPF White Blood Count 8.2 x10^3/uL (4.0-11.0) Red Blood Count 4.70 x10^6/uL (4.30-5.70) Hemoglobin 14.3 g/dL (13.0-17.5) Hematocrit 41.9 % (39.0-53.0) Mean Corpuscular Volume 89 fL (79-100) Mean Corpuscular Hemoglobin 31 pg (25-35) Mean Corpuscular Hemoglobin Concent 34 g/dL (31-37) Red Cell Distribution Width 14.8 % (11.5-14.5) H Platelet Count 204 x10^3/uL (140-400) Neutrophils (%) (Auto) 60 % (31-73) Lymphocytes (%) (Auto) 29 % (24-48) Monocytes (%) (Auto) 8 % (0-9) Eosinophils (%) (Auto) 2 % (0-3) Basophils (%) (Auto) 1 % (0-3) Neutrophils # (Auto) 4.9 x10^3/uL (1.8-7.7) Lymphocytes # (Auto) 2.4 x10^3/uL (1.0-4.8) Monocytes # (Auto) 0.7 x10^3/uL (0.0-1.1) Eosinophils # (Auto) 0.1 x10^3/uL (0.0-0.7) Basophils # (Auto) 0.1 x10^3/uL (0.0-0.2) Prothrombin Time 12.8 SEC (11.7-14.0) Prothrombin Time INR 1.0 (0.8-1.1) PTT 30 SEC (24-38) Sodium Level 141 mmol/L (136-145) Potassium Level 3.8 mmol/L (3.5-5.1) Chloride Level 104 mmol/L (98-107) Carbon Dioxide Level 29 mmol/L (21-32) Anion Gap 8 (6-14) Blood Urea Nitrogen 14 mg/dL (8-26) Creatinine 1.1 mg/dL (0.7-1.3) Estimated GFR (Cockcroft-Gault) 68.8 BUN/Creatinine Ratio 13 (6-20) Glucose Level 183 mg/dL (70-99) H Lactic Acid Level 1.2 mmol/L (0.4-2.0) Calcium Level 8.9 mg/dL (8.5-10.1) Magnesium Level 2.0 mg/dL (1.8-2.4) Total Bilirubin 0.5 mg/dL (0.2-1.0) Aspartate Amino Transferase (AST) 40 U/L (15-37) H Alanine Aminotransferase (ALT) 66 U/L (16-63) H Alkaline Phosphatase 124 U/L (46-116) H Creatine Kinase 96 U/L (39-308) Creatine Kinase MB (Mass) 2.6 ng/mL (0.0-3.6) Creatine Kinase MB Relative Index 2.7 % (0-4) Troponin I Quantitative 0.033 ng/mL (0.000-0.055) Total Protein 7.3 g/dL (6.4-8.2) Albumin 3.8 g/dL (3.4-5.0) Albumin/Globulin Ratio 1.1 (1.0-1.7) Lipase 138 U/L (73-393) Laboratory Tests 03/12/19 23:40 Laboratory Tests 03/12/19 23:40 EKG EKG 03/12/19 at 2343: Normal sinus rhythm at [address] segment elevation. Right axis deviation. compare to 10/09/18 and 919: Ventricular paced rhythm at [address] segment elevation[] Radiology/Procedures Radiology/Procedures [] Course & Med Decision Making Course & Med Decision Making Pertinent Labs and Imaging studies reviewed. (See chart for details) [] Dragon Disclaimer Dragon Disclaimer This electronic medical record was generated, in whole or in part, using a voice recognition dictation system. Departure Departure Impression: Primary Impression: Abdominal pain Additional Impression: Left against medical advice Condition: STABLE Referrals: ELENA TRAORE (PCP) Patient Instructions: Abdominal Pain (Nonspecific), Discharge Against Medical Advice Scripts Famotidine (PEPCID) 20 Mg Tablet 20 MG PO BID, #20 TAB Prov: DEBRA MORATAYA DO 03/13/19 Hyoscyamine Sulfate (LEVSIN-SL) 0.125 Mg Tab.subl 1-2 TAB SL PRN Q4HRS PRN for PAIN, #20 TAB Prov: DEBRA MORATAYA DO 03/13/19 Ondansetron (ONDANSETRON ODT) 4 Mg Tab.rapdis 1 TAB PO PRN Q6-8HRS PRN for NAUSEA, #16 TAB Prov: DEBRA MORATAYA DO 03/13/19 Problem Qualifiers Primary Impression: Abdominal pain Abdominal location: generalized Qualified Codes: R10.84 - Generalized abdominal pain DEBRA MORATAYA DO Mar 13, 2019 00:30
--- NOTE | 2019-03-13 07:01 | EKG ---
[facility] [address] [place] [address] Test Date: 2019-03-12 Test Time: 23:43:56 Pat Name: ALYSSA PABLO Department: Room: Gender: M Special Events Director: : 1960 Requested By: DEBRA MORATAYA Order Number: [id number] Reading MD: Measurements Intervals [place] Rate: 77 P: -10 AR: 116 QRS: 131 QRSD: 148 T: -31 QT: 420 QTc: 477 Interpretive Statements SINUS RHYTHM ABNORMAL RIGHT AXIS DEVIATION NON SPECIFIC INTRAVENTRICULAR BLOCK ABNORMAL ECG RI6.01 Unconfirmed report No previous ECG available for comparison
== END 2019-03-13 00:45 | disposition left against medical advice (07) ==
LOC: ER 21:52
DX: R10.84 Generalized abdominal pain (principal); I48.91 Unspecified atrial fibrillation; I11.9 Hypertensive heart disease without heart failure; F41.9 Anxiety disorder, unspecified; I25.10 Atherosclerotic heart disease of native coronary artery without angina pectoris; E78.00 Pure hypercholesterolemia, unspecified; I25.2 Old myocardial infarction; Z90.49 Acquired absence of other specified parts of digestive tract; Z95.0 Presence of cardiac pacemaker; Z96.659 Presence of unspecified artificial knee joint; Z88.8 Allergy status to other drugs, medicaments and biological substances; Z88.5 Allergy status to narcotic agent
CPT/HCPCS: 36415; 80053; 81001; 82553; 83605; 83690; 83735; 84484; 85025; 85610; 85730; 93005; 99285

== ENCOUNTER 2019-07-08 11:58 | Emergency (ER) | payer OTHER ==
[~2019-07-08] VITALS: Ht 167.6 cm; Wt 98.9 kg
[~2019-07-08 11:58] MED LIST changes: -ALBU2.5V8 IH; -DILT120C85 PO; +DILT120C99 PO; +FAMO-63 PO; +HYOS0.1265 SL; +ONDA4TAB12 PO; +PROVENTIL HFA6.7 GM IH
[2019-07-08] MEDS ORDERED: fentaNYL PF VIAL 100 MCG/2 ML VIAL IV STA (14:16)
--- NOTE | 2019-07-08 14:23 | PHYS DOC ---
Past Medical History Past Medical History: A-Fib, Alcoholism, Anxiety, CAD, CVA, High Cholesterol, Heart Disease, Hypertension, Hepatitis, CA, Other Additional Past Medical Histor: Vtach, back pain, HERNIA, Past Surgical History: Cholecystectomy, Knee Replacement, Pacemaker, Other Additional Past Surgical Histo: skin graft on elbow, Alcohol Use: Sober Drug Use: None Adult General Chief Complaint Chief Complaint: ABDOMINAL PAIN HPI HPI Patient is a 58 year old male who presents to ER stating that he's been having last week and a half heart beat in his stomach since he has a history of aortic aneurysms, and he should have abdominal pain. He also states been having a co manjinder symptom of nausea. He states he saw his doctor today who told him to go get a scan as he is concerned about a leaking aneurysm. The patient "states he did not go get that done and states that he guesses that wasn't it as it didn't ". He rates his pain as 7 out of 10 in severity and sharp. He has a history of AAA. Review of Systems Review of Systems Constitutional: Denies fever or chills [] Eyes: Denies change in visual acuity, redness, or eye pain [] HENT: Denies nasal congestion or sore throat [] Respiratory: Denies cough or shortness of breath [] Cardiovascular: No additional information not addressed in HPI [] GI: Reports abdominal pain, nausea, Denies vomiting, bloody stools or diarrhea [] : Denies dysuria or hematuria [] Musculoskeletal: Denies back pain or joint pain [] Integument: Denies rash or skin lesions [] Neurologic: Denies headache, focal weakness or sensory changes [] Endocrine: Denies polyuria or polydipsia [] Complete systems were reviewed and found to be within normal limits, except as documented in this note. Current Medications Current Medications Current Medications Medications (Trade) Dose Ordered Sig/Alan Start Time Stop Time Status Last Admin Dose Admin Fentanyl Citrate (Fentanyl 2ml Vial) 50 mcg 1X STAT 07/08/19 14:16 07/08/19 14:23 DC 07/08/19 14:56 50 MCG Info (CONTRAST GIVEN -- Rx MONITORING) 1 each PRN DAILY PRN 07/08/19 16:15 07/10/19 16:14 Iohexol (Omnipaque 350 Mg/ml) 90 ml 1X ONCE 07/08/19 16:15 07/08/19 16:16 DC 07/08/19 16:16 90 ML Ondansetron HCl (Zofran) 4 mg 1X ONCE 07/08/19 14:30 07/08/19 14:31 DC 07/08/19 14:56 4 MG Sodium Chloride 500 ml @ 500 mls/hr 1X ONCE 07/08/19 14:30 07/08/19 15:29 DC 07/08/19 14:56 500 MLS/HR Allergies Allergies Allergies Coded Allergies Type Severity Reaction Last Updated Verified alprazolam Allergy Intermediate 12/13/18 Yes diltiazem Allergy Intermediate HIVES, INTERMITTENTLY 12/13/18 Yes lorazepam Allergy Intermediate halucinations 12/13/18 Yes morphine Allergy Intermediate HIVES, INTERMITTENTLY 12/13/18 Yes Haloperidol Lactate Adverse Reaction Intermediate dystonic reaction 12/13/18 Yes haloperidol Adverse Reaction Intermediate dystonic reaction 12/13/18 Yes tramadol Adverse Reaction Intermediate Hallucinations per nurse 12/13/18 Yes Physical Exam Physical Exam Constitutional: Well developed, well nourished, no acute distress, non-toxic appearance. [] HENT: Normocephalic, atraumatic, bilateral external ears normal, oropharynx josh st, no oral exudates, nose normal. [] Eyes: PERRLA, EOMI, conjunctiva normal, no discharge. [] Neck: Normal range of motion, no tenderness, supple, no stridor. [] Cardiovascular:Heart rate regular rhythm, no murmur [] Lungs & Thorax: Bilateral breath sounds clear to auscultation [] Abdomen: Bowel sounds normal, soft, diffuse tenderness, no masses, no pulsatile masses. [] Skin: Warm, dry, no erythema, no rash. [] Back: No tenderness, no CVA tenderness. [] Extremities: No tenderness, no cyanosis, no clubbing, ROM intact, no edema. Bilateral pedal pulses are 2+ and equal. Neurologic: Alert and oriented X 3, normal motor function, normal sensory function, no focal deficits noted. [] Psychologic: Affect normal, judgement normal, mood normal. [] Current Patient Data Vital Signs Vital Signs Date Time Temp Pulse Resp B/P (MAP) Pulse Ox O2 Delivery O2 Flow Rate FiO2 07/08/19 13:25 98.0 79 18 181/98 (125) 99 Room Air 98.0 Lab Values Laboratory Tests Test 07/08/19 14:50 07/08/19 15:35 Urine Collection Type Void Urine Color Yellow Urine Clarity Clear Urine pH 6.5 Urine Specific [place] 1.010 Urine Protein Negative mg/dL (NEG-TRACE) Urine Glucose (UA) Negative mg/dL (NEG) Urine Ketones (Stick) Negative mg/dL (NEG) Urine Blood Negative (NEG) Urine Nitrite Negative (NEG) Urine Bilirubin Negative (NEG) Urine Urobilinogen Dipstick 0.2 mg/dL (0.2 mg/dL) Urine Leukocyte Esterase Negative (NEG) Urine RBC 0 /HPF (0-2) Urine WBC Occ /HPF (0-4) Urine Squamous Epithelial Cells Few /LPF Urine Bacteria Few /HPF (0-FEW) White Blood Count 10.1 x10^3/uL (4.0-11.0) Red Blood Count 4.83 x10^6/uL (4.30-5.70) Hemoglobin 14.7 g/dL (13.0-17.5) Hematocrit 43.2 % (39.0-53.0) Mean Corpuscular Volume 89 fL (79-100) Mean Corpuscular Hemoglobin 30 pg (25-35) Mean Corpuscular Hemoglobin Concent 34 g/dL (31-37) Red Cell Distribution Width 14.3 % (11.5-14.5) Platelet Count 215 x10^3/uL (140-400) Neutrophils (%) (Auto) 58 % (31-73) Lymphocytes (%) (Auto) 32 % (24-48) Monocytes (%) (Auto) 8 % (0-9) Eosinophils (%) (Auto) 1 % (0-3) Basophils (%) (Auto) 1 % (0-3) Neutrophils # (Auto) 5.9 x10^3/uL (1.8-7.7) Lymphocytes # (Auto) 3.2 x10^3/uL (1.0-4.8) Monocytes # (Auto) 0.8 x10^3/uL (0.0-1.1) Eosinophils # (Auto) 0.1 x10^3/uL (0.0-0.7) Basophils # (Auto) 0.0 x10^3/uL (0.0-0.2) Prothrombin Time 12.6 SEC (11.7-14.0) Prothrombin Time INR 1.0 (0.8-1.1) Activated Partial Thromboplast Time 31 SEC (24-38) Sodium Level 141 mmol/L (136-145) Potassium Level 4.0 mmol/L (3.5-5.1) Chloride Level 105 mmol/L (98-107) Carbon Dioxide Level 25 mmol/L (21-32) Anion Gap 11 (6-14) Blood Urea Nitrogen 15 mg/dL (8-26) Creatinine 0.8 mg/dL (0.7-1.3) Estimated GFR (Cockcroft-Gault) 99.3 BUN/Creatinine Ratio 19 (6-20) Glucose Level 82 mg/dL (70-99) Calcium Level 9.2 mg/dL (8.5-10.1) Total Bilirubin 0.4 mg/dL (0.2-1.0) Aspartate Amino Transferase (AST) 34 U/L (15-37) Alanine Aminotransferase (ALT) 41 U/L (16-63) Alkaline Phosphatase 124 U/L (46-116) H Total Protein 7.9 g/dL (6.4-8.2) Albumin 3.7 g/dL (3.4-5.0) Albumin/Globulin Ratio 0.9 (1.0-1.7) L Lipase 73 U/L (73-393) Laboratory Tests 07/08/19 15:35 Laboratory Tests 07/08/19 15:35 EKG EKG EKG interpreted by Dr. Womack Sinus rate of 81, No stemi, right axis deviation[] Radiology/Procedures Radiology/Procedures [][address] [place] [address] IMAGING REPORT Signed PATIENT: ALYSSA PABLO ACCOUNT: [id number] : 1960 LOCATION: ER AGE: 58 SEX: M EXAM STATUS: REG ER ORD. PHYSICIAN: DEBRA SKINNER APRN REASON: abdominal pain, hx of AAA. IV INFILTRATED, PT REFUSED TO GET ANOTHER IV PROCEDURE: CT ANGIO CHEST ABD PELVIS PQRS Compliance Statement: One or more of the following individualized dose reduction techniques were utilized for this examination: 1. Automated exposure control 2. Adjustment of the mA and/or kV according to patient size 3. Use of iterative reconstruction technique CT ANGIO CHEST ABD PELVIS 07/08/2019 2:16 PM INDICATION: Abdominal pain with history of abdominal aortic aneurysm. COMPARISON: None available TECHNIQUE: Multiple axial CT images of the chest, abdomen and pelvis were obtained after the intravenous administration of 90 mL Omnipaque 350. IV infiltrated, however patient declined additional IV. Coronal and sagittal reformats are provided. FINDINGS: Respiratory motion limits evaluation of the lungs. No suspicious solid noncalcified pulmonary nodules. Mild apparent pulmonary vascular congestion may be secondary to respiratory motion. Right chest wall cardiac device is identified with leads terminating in the right atrium, right ventricle and coronary sinus. Mild cardiomegaly. Thoracic aorta measures 4.4 cm. No evidence for aortic dissection. Descending thoracic aorta is normal in caliber. No pathologically enlarged thoracic lymph nodes are identified. Thyroid gland is normal in appearance. Thoracic esophagus is normal in appearance. Liver, spleen, and bilateral adrenal glands are normal in appearance. There is mild/moderate fatty atrophy of the pancreas. No suspicious pancreatic mass. Duodenal diverticulum measures 3.6 x 3.5 cm. Gallbladder surgically absent. No intrahepatic or extrahepatic biliary ductal dilatation is identified. Abdominal aorta measures 2.9 x 2.8 cm proximally. The celiac axis and superior mesenteric artery are widely patent. Infrarenal abdominal aorta measures 2.3 x 2.2 cm. Inferior mesenteric artery is widely patent. Renal arteries are patent. Pelvic vasculature is intact. Small and large bowel are normal in caliber. There is no evidence for bowel obstruction. There are no pericolonic inflammatory changes. A normal, nondilated appendix is visualized without adjacent inflammatory changes. The kidneys enhance symmetrically. There is no suspicious renal mass. There is no hydronephrosis. There is a 7 mm nonobstructing intact with an inferior pole of the right kidney. Urinary bladder is within normal limits given degree of distention. Prostate and seminal vesicles are normal. No suspicious osseous normality is identified. Posterior lumbar fusion is identified from L3 through L5 with bilateral pedicle screws and dual rods. No evidence for hardware failure. IMPRESSION: 1. Ascending thoracic aortic aneurysm measures up to 4.4 cm. No definite aortic dissection. 2. Abdominal aorta is normal in course and caliber. 3. Duodenal diverticulum measures 3.6 x 3.5 cm without adjacent inflammation. No bowel obstruction or inflammation. 4. Mild apparent pulmonary vascular congestion may be secondary to respiratory motion. Mild cardiomegaly. Electronically signed by: Nathanael Valdovinos MD (07/08/2019 4:51 PM) [facility] [place] DICTATED and SIGNED BY: NATHANAEL VALDOVINOS MD DATE: 07/08/19 165 Course & Med Decision Making Course & Med Decision Making Pertinent Labs and Imaging studies reviewed. (See chart for details) Will get labs, CT angio abdomen, and give supportive care. Labs are unremarkable. CT does not shows any acute changes although does show a 4.4 cm ascending thoracic aortic aneurysm. Will have follow up with primary care doctor and vascular regarding this. No acute changes noted in workup. Dragon Disclaimer Dragon Disclaimer This electronic medical record was generated, in whole or in part, using a voice recognition dictation system. Departure Departure Impression: Primary Impression: Abdominal pain Disposition: HOME, SELF-CARE Condition: STABLE Referrals: ELENA TRAORE (PCP) NATIVIDAD COLON II, MD Patient Instructions: Abdominal Pain (Nonspecific) Additional Instructions: Thank you for visiting [facility]. We appreciate you trusting us with your care. If any additional problems come up don't hesitate to return to visit us. Please follow up with your primary care provider so they can plan ad ditional care if needed and know about the problem that you had. If symptoms worsen come back to the Emergency Department. Any concerning symptoms that start such as chest pain, shortness of air, weakness or numbness on one side of the body, running high fevers or any other concerning symptoms return to the ER. Problem Qualifiers Primary Impression: Abdominal pain Abdominal location: generalized Qualified Codes: R10.84 - Generalized abdominal pain DEBRA SKINNER TILE PRESSER Jul 08, 2019 14:23
--- NOTE | 2019-07-08 14:29 | EKG ---
[facility] [address] [place] [address] Test Date: 2019-07-08 Test Time: 13:33:46 Pat Name: ALYSSA PABLO Department: Room: Gender: M Unle[employer]er: : 1960 Requested By: DEBRA SKINNER Order Number: [id number] Reading MD: Measurements Intervals [place] Rate: 81 P: 1 CT: 158 QRS: 170 QRSD: 146 T: 51 QT: 412 QTc: 485 Interpretive Statements SINUS RHYTHM ABNORMAL RIGHT AXIS DEVIATION NON SPECIFIC INTRAVENTRICULAR BLOCK QRS(T) CONTOUR ABNORMALITY CONSIDER ANTEROSEPTAL MYOCARDIAL DAMAGE ABNORMAL ECG RI6.01 No previous ECG available for comparison
[2019-07-08] MEDS ORDERED: IV NORMAL SALINE 500ML BAG 500 ML IV ONE (14:30)
[2019-07-08] MEDS ORDERED: ONDANSETRON PF 4 MG/2 ML VIAL. IV ONE (14:30)
[2019-07-08 14:57] LABS: BILIRUBIN,URINE NEGATIVE (NEG); CLARITY,URINE CLEAR; COLOR,URINE YELLOW; NITRITE,URINE NEGATIVE (NEG); PH,URINE 6.5; PROTEIN,URINE NEGATIVE (NEG-TRACE); UROBILINOGEN,URINE 0.2 mg/dL (0.2 mg/dL)
[2019-07-08 15:06] LABS: BACTERIA,URINE FEW /HPF (0-FEW); RBC,URINE 0 /HPF (0-2); SQUAMOUS EPITHELIAL CELL,UR FEW /LPF; WBC,URINE OCC /HPF (0-4)
[2019-07-08 15:50] LABS: BASO % 1 % (0-3); EOS # 0.1 x10^3/uL (0.0-0.7); EOS % 1 % (0-3); HEMATOCRIT 43.2 % (39.0-53.0); HEMOGLOBIN 14.7 g/dL (13.0-17.5); LYMPH # 3.2 x10^3/uL (1.0-4.8); LYMPH % 32 % (24-48); MEAN CORPUSCULAR HEMOGLOBIN 30 pg (25-35); MEAN CORPUSCULAR HGB CONC 34 g/dL (31-37); MEAN CORPUSCULAR VOLUME 89 fL (79-100); MONO # 0.8 x10^3/uL (0.0-1.1); MONO % 8 % (0-9); NEUT # 5.9 x10^3/uL (1.8-7.7); NEUT % 58 % (31-73); PLATELET COUNT 215 x10^3/uL (140-400); RED BLOOD COUNT 4.83 x10^6/uL (4.30-5.70); RED CELL DISTRIBUTION WIDTH 14.3 % (11.5-14.5); WHITE BLOOD COUNT 10.1 x10^3/uL (4.0-11.0)
[2019-07-08 16:00] LABS: CALCIUM 9.2 mg/dL (8.5-10.1); CREATININE 0.8 mg/dL (0.7-1.3); GFR 99.3
[2019-07-08 16:03] LABS: PROTHROMBIN TIME PATIENT 12.6 SEC (11.7-14.0)
[2019-07-08 16:05] LABS: ALBUMIN 3.7 g/dL (3.4-5.0); ALBUMIN/GLOBULIN RATIO 0.9 (1.0-1.7); TOTAL BILIRUBIN 0.4 mg/dL (0.2-1.0); TOTAL PROTEIN 7.9 g/dL (6.4-8.2)
[2019-07-08] MEDS ORDERED: IOHEXOL 350 MG/ML 100 ML VIAL. IV ONE (16:15)
[2019-07-08] MEDS ORDERED: CONTRAST GIVEN. MC PRN (16:15)
--- NOTE | 2019-07-08 16:54 | RAD ---
PQRS Compliance Statement: One or more of the following individualized dose reduction techniques were utilized for this examination: 1. Automated exposure control 2. Adjustment of the mA and/or kV according to patient size 3. Use of iterative reconstruction technique CT ANGIO CHEST ABD PELVIS 07/08/2019 2:16 PM INDICATION: Abdominal pain with history of abdominal aortic aneurysm. COMPARISON: None available TECHNIQUE: Multiple axial CT images of the chest, abdomen and pelvis were obtained after the intravenous administration of 90 mL Omnipaque 350. IV infiltrated, however patient declined additional IV. Coronal and sagittal reformats are provided. FINDINGS: Respiratory motion limits evaluation of the lungs. No suspicious solid noncalcified pulmonary nodules. Mild apparent pulmonary vascular congestion may be secondary to respiratory motion. Right chest wall cardiac device is identified with leads terminating in the right atrium, right ventricle and coronary sinus. Mild cardiomegaly. Thoracic aorta measures 4.4 cm. No evidence for aortic dissection. Descending thoracic aorta is normal in caliber. No pathologically enlarged thoracic lymph nodes are identified. Thyroid gland is normal in appearance. Thoracic esophagus is normal in appearance. Liver, spleen, and bilateral adrenal glands are normal in appearance. There is mild/moderate fatty atrophy of the pancreas. No suspicious pancreatic mass. Duodenal diverticulum measures 3.6 x 3.5 cm. Gallbladder surgically absent. No intrahepatic or extrahepatic biliary ductal dilatation is identified. Abdominal aorta measures 2.9 x 2.8 cm proximally. The celiac axis and superior mesenteric artery are widely patent. Infrarenal abdominal aorta measures 2.3 x 2.2 cm. Inferior mesenteric artery is widely patent. Renal arteries are patent. Pelvic vasculature is intact. Small and large bowel are normal in caliber. There is no evidence for bowel obstruction. There are no pericolonic inflammatory changes. A normal, nondilated appendix is visualized without adjacent inflammatory changes. The kidneys enhance symmetrically. There is no suspicious renal mass. There is no hydronephrosis. There is a 7 mm nonobstructing intact with an inferior pole of the right kidney. Urinary bladder is within normal limits given degree of distention. Prostate and seminal vesicles are normal. No suspicious osseous normality is identified. Posterior lumbar fusion is identified from L3 through L5 with bilateral pedicle screws and dual rods. No evidence for hardware failure. IMPRESSION: 1. Ascending thoracic aortic aneurysm measures up to 4.4 cm. No definite aortic dissection. 2. Abdominal aorta is normal in course and caliber. 3. Duodenal diverticulum measures 3.6 x 3.5 cm without adjacent inflammation. No bowel obstruction or inflammation. 4. Mild apparent pulmonary vascular congestion may be secondary to respiratory motion. Mild cardiomegaly. Electronically signed by: Jen Hodges MD (07/08/2019 4:51 PM) [facility]
[2019-07-08 17:15] VITALS: BP 132/69
[2019-07-10] MEDS ORDERED: NITR0.4T22 SL (17:29)
[2019-07-10] MEDS ORDERED: VENTOLIN HFA18 GM INH (21:23)
== END 2019-07-08 17:44 | disposition home or self-care (01) ==
LOC: ER 11:58
DX: R10.84 Generalized abdominal pain (principal); R11.0 Nausea; I48.91 Unspecified atrial fibrillation; F10.20 Alcohol dependence, uncomplicated; F41.9 Anxiety disorder, unspecified; I25.10 Atherosclerotic heart disease of native coronary artery without angina pectoris; E78.00 Pure hypercholesterolemia, unspecified; I11.9 Hypertensive heart disease without heart failure; I25.2 Old myocardial infarction; Z86.73 Personal history of transient ischemic attack (TIA), and cerebral infarction without residual deficits; Z90.49 Acquired absence of other specified parts of digestive tract; Z95.0 Presence of cardiac pacemaker; Z88.5 Allergy status to narcotic agent; Z88.6 Allergy status to analgesic agent; Z88.8 Allergy status to other drugs, medicaments and biological substances; Y90.9 Presence of alcohol in blood, level not specified
CPT/HCPCS: 36415; 71275; 74174; 80053; 81001; 83690; 85025; 85610; 85730; 86850; 86900; 86901; 93005; 96374; 96375; 99285; J2405; J3010; J7040; Q9967

== ENCOUNTER 2019-09-08 19:38 | Emergency (ER) | payer OTHER ==
[~2019-09-08] VITALS: Ht 172.7 cm; Wt 90.7 kg
[~2019-09-08 19:38] MED LIST changes: +VENTOLIN HFA18 GM INH
[2019-09-08 19:45] VITALS: BP 156/99
[2019-09-08] MEDS ORDERED: CEPHALEXIN 250 MG CAPSULE. PO STA (20:11)
[2019-09-08] MEDS ORDERED: SMZ/TMP 800/160MG TABLET. PO ONE ×2 (20:15)
[2019-09-08] MEDS: IPRATRPIUM/ALBUTEROL 0.5/2.5MG 3 ML NEBU. NEB ONE ×2 (20:18→20:21)
[2019-09-08] MEDS ORDERED: SULF1TAB24 PO (21:08)
[2019-09-08] MEDS ORDERED: CEPH500T PO (21:08)
--- NOTE | 2019-09-08 21:08 | PHYS DOC ---
Past Medical History Past Medical History: A-Fib, Alcoholism, Anxiety, CAD, CVA, High Cholesterol, Heart Disease, Hypertension, Hepatitis, [place], Other Additional Past Medical Histor: Vtach, back pain, HERNIA, Past Surgical History: Cholecystectomy, Knee Replacement, Pacemaker, Other Additional Past Surgical Histo: skin graft on elbow, Alcohol Use: Sober Drug Use: None Social History Narrative: DENIES Adult General Chief Complaint Chief Complaint: UPPER EXTREMITY PAIN HPI HPI Patient is a 58 year old male who presents to the ED today complaining of sores on bilateral upper and lower extremity that he has had for one week. Patient is currently denying any history of IV drug use. Denies any fever. Interrogated patient about complaints of chest pain that were listed on his EMS report. He states he needs a free inhaler for home use. He is denying chest pain stating he does not want IVs and needs to leave right now to go see his niece who is in the Ed Review of Systems Review of Systems Constitutional: Denies fever or chills [] Eyes: Denies change in visual acuity, redness, or eye pain [] HENT: Denies nasal congestion or sore throat [] Respiratory: Denies cough or shortness of breath [] Cardiovascular: No additional information not addressed in HPI [] GI: Denies abdominal pain, nausea, vomiting, bloody stools or diarrhea [] : Denies dysuria or hematuria [] Musculoskeletal: Denies back pain or joint pain [] Integument: Reports bilateral upper and lower extremity sores Neurologic: Denies headache, focal weakness or sensory changes [] All other systems were reviewed and found to be within normal limits, except as documented in this note. Current Medications Current Medications Current Medications Medications (Trade) Dose Ordered Sig/Alan Start Time Stop Time Status Last Admin Dose Admin Albuterol/ Ipratropium (Duoneb) 3 ml 1X ONCE 09/08/19 20:15 09/08/19 20:16 DC 09/08/19 20:21 3 ML Cephalexin HCl (Keflex) 500 mg 1X STAT 09/08/19 20:11 09/08/19 20:12 DC Trimethoprim/ Sulfamethoxazole (Bactrim Ds) 1 tab 1X ONCE 09/08/19 20:15 09/08/19 20:16 UNV Allergies Allergies Allergies Coded Allergies Type Severity Reaction Last Updated Verified alprazolam Allergy Intermediate 12/13/18 Yes diltiazem Allergy Intermediate HIVES, INTERMITTENTLY 12/13/18 Yes lorazepam Allergy Intermediate halucinations 12/13/18 Yes morphine Allergy Intermediate HIVES, INTERMITTENTLY 12/13/18 Yes Haloperidol Lactate Adverse Reaction Intermediate dystonic reaction 12/13/18 Yes haloperidol Adverse Reaction Intermediate dystonic reaction 12/13/18 Yes tramadol Adverse Reaction Intermediate Hallucinations per nurse 12/13/18 Yes Physical Exam Physical Exam Constitutional: Well developed, well nourished, no acute distress, non-toxic appearance. [] HENT: Normocephalic, atraumatic, bilateral external ears normal, oropharynx moist, no oral exudates, nose normal. [] Eyes: PERRLA, EOMI, conjunctiva normal, no discharge. [] Neck: Normal range of motion, no tenderness, supple, no stridor. [] Cardiovascular:Heart rate regular rhythm, no murmur [] Lungs & Thorax: Bilateral breath sounds clear to auscultation [] Abdomen: Bowel sounds normal, soft, no tenderness, no masses, no pulsatile masses. [] Skin: Warm, dry, bilateral upper and lower extremities with scabbed up regions with cellulitis. There is no abscess to drain. Back: No tenderness, no CVA tenderness. [] Extremities: No tenderness, no cyanosis, no clubbing, ROM intact, no edema. [] Neurologic: Alert and oriented X 3, normal motor function, normal sensory function, no focal deficits noted. [] Psychologic: Affect normal, judgement normal, mood normal. [] Current Patient Data Vital Signs Vital Signs Date Time Temp Pulse Resp B/P (MAP) Pulse Ox O2 Delivery O2 Flow Rate FiO2 09/08/19 20:21 Room Air 09/08/19 19:45 98.3 88 24 156/99 (118) 96 98.3 EKG EKG [] Radiology/Procedures Radiology/Procedures [] Course & Med Decision Making Course & Med Decision Making Pertinent Labs and Imaging studies reviewed. (See chart for details) This is a 58-year-old male patient well known to this ED presenting to the ED complaining of sores to bilateral upper and lower extremities for one week. He reports his tetanus is up-to-date. He is denying IV drug use. He has multiple scabbed up regions with cellulitis on upper and lower extremities. There is no abscess to drain. He was given Bactrim and cephalexin in the ED. He refused any needle sticks. His chief complaint via EMS was chest pain, on interrogation he is stating he does not have chest pain, his is stating he wants a free inhaler for home use. Respiratory was called, they gave him a breathing treatment. Patient was informed he needs to follow-up with his PCP for inhaler. Given prescription for Bactrim and cephalexin. He is requesting to be discharged to go to the room where his niece is in the ED. Dragon Disclaimer Dragon Disclaimer This electronic medical record was generated, in whole or in part, using a voice recognition dictation system. Departure Departure Impression: Primary Impression: Cellulitis of upper extremity Additional Impression: Cellulitis of lower extremity Disposition: HOME, SELF-CARE Condition: STABLE Referrals: ELENA TRAORE (PCP) follow up in the course of this week Patient Instructions: Cellulitis, [id number] Additional Instructions: You were evaluated in the emergency room for infection to bilateral upper and lower extremities. Take the prescribed medication as ordered. Follow-up with your doctor in 1-2 weeks. Come back to the ED at any point symptoms worsen. Scripts Sulfamethoxazole/Trimethoprim (BACTRIM DS TABLET) 1 Each Tablet 1 TAB PO BID for 10 Days, #20 TAB 0 Refills Prov: MARC SHAFER APRN 09/08/19 Cephalexin (CEPHALEXIN) 500 Mg Tablet 1 TAB PO TID, #30 TAB Prov: MARC SHAFER APRN 09/08/19 Problem Qualifiers Primary Impression: Cellulitis of upper extremity Laterality: unspecified laterality Qualified Codes: L03.119 - Cellulitis of unspecified part of limb Additional Impression: Cellulitis of lower extremity Laterality: unspecified laterality Qualified Codes: L03.119 - Cellulitis of unspecified part of limb MARC SHAFER APRN Sep 08, 2019 21:08
== END 2019-09-08 21:31 | disposition home or self-care (01) ==
LOC: ER 19:38
DX: L03.114 Cellulitis of left upper limb (principal); L03.113 Cellulitis of right upper limb; L03.116 Cellulitis of left lower limb; L03.115 Cellulitis of right lower limb; R07.89 Other chest pain; I48.91 Unspecified atrial fibrillation; F41.9 Anxiety disorder, unspecified; E78.00 Pure hypercholesterolemia, unspecified; I11.9 Hypertensive heart disease without heart failure; I25.2 Old myocardial infarction; I25.10 Atherosclerotic heart disease of native coronary artery without angina pectoris; Z86.73 Personal history of transient ischemic attack (TIA), and cerebral infarction without residual deficits; Z95.0 Presence of cardiac pacemaker; Z88.6 Allergy status to analgesic agent; Z88.8 Allergy status to other drugs, medicaments and biological substances
CPT/HCPCS: 94640; 99283; J7620

== ENCOUNTER 2020-04-20 14:03 | Inpatient (IN) | payer OTHER ==
[~2020-04-20] VITALS: Ht 167.6 cm; Wt 115.9 kg
[~2020-04-20 14:03] MED LIST changes: +CEPH500T PO
[2020-04-20 14:38] LABS: CALCIUM 8.7 mg/dL (8.5-10.1); GFR 76.5; POTASSIUM 3.8 mmol/L (3.5-5.1)
[2020-04-20 14:44] LABS: ALBUMIN 3.8 g/dL (3.4-5.0); ALBUMIN/GLOBULIN RATIO 0.9 (1.0-1.7); MAGNESIUM 2.1 mg/dL (1.8-2.4); TOTAL BILIRUBIN 0.4 mg/dL (0.2-1.0); TOTAL PROTEIN 7.9 g/dL (6.4-8.2)
[2020-04-20 14:44] LABS: BASO # 0.1 x10^3/uL (0.0-0.2); BASO % 1 % (0-3); EOS # 0.2 x10^3/uL (0.0-0.7); EOS % 3 % (0-3); HEMATOCRIT 39.1 % (39.0-53.0); HEMOGLOBIN 13.5 g/dL (13.0-17.5); LYMPH # 2.2 x10^3/uL (1.0-4.8); LYMPH % 31 % (24-48); MEAN CORPUSCULAR HEMOGLOBIN 31 pg (25-35); MEAN CORPUSCULAR HGB CONC 35 g/dL (31-37); MEAN CORPUSCULAR VOLUME 90 fL (79-100); MONO # 0.8 x10^3/uL (0.0-1.1); MONO % 11 % (0-9); NEUT % 55 % (31-73); PLATELET COUNT 196 x10^3/uL (140-400); RED BLOOD COUNT 4.35 x10^6/uL (4.30-5.70); RED CELL DISTRIBUTION WIDTH 14.7 % (11.5-14.5); WHITE BLOOD COUNT 7.3 x10^3/uL (4.0-11.0)
--- NOTE | 2020-04-20 14:47 | EKG ---
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
--- NOTE | 2020-04-20 15:08 | RAD ---
PORTABLE CHEST 1V History: Reason: cp / Spl. Instructions: / History: Comparison: July 10, 2019 Findings: Interstitial thickening bilaterally. Low lung volumes. No pleural effusion. No pneumothorax. Cardiomegaly, unchanged. Right-sided pacemaker. Dilatation of the ascending aorta, unchanged. Chronic ununited left distal clavicular fracture. Impression: 1. Bilateral interstitial thickening, may indicate pulmonary edema or atypical infection. 2. Low lung volumes. Electronically signed by: Yrn Christie DO (04/20/2020 3:05 PM) [facility]
--- NOTE | 2020-04-20 15:59 | PHYS DOC ---
Past Medical History Past Medical History: A-Fib, Alcoholism, Anxiety, CAD, CVA, High Cholesterol, Heart Disease, Hypertension, Hepatitis, [place], Other Additional Past Medical Histor: Vtach, back pain, HERNIA, Past Surgical History: Cholecystectomy, Knee Replacement, Pacemaker, Other Additional Past Surgical Histo: skin graft on elbow, Smoking Status: Current Every Day Smoker Alcohol Use: Sober Drug Use: None General Adult EDM: Chief Complaint: CHEST PAIN HPI: HPI: 59 yo M PMH CAD, HTN, HLD, afib w/ablation and pm, and CVA, presents to the ED via his primary care physician for concern for chest pain, diaphoresis and uncontrolled hypertension. Paperwork also says that patient is needing rehab due to weight gain? Patient states he has not taken his medications in the past 6 months. States this morning he had left-sided nonradiating chest pressure that lasted for about 5 to 10 minutes at 9 AM. States he is felt sweaty and dizzy all day and almost passed out. Denies any cocaine or methamphetamine abuse. States he currently does not have any chest pain but is complaining of midline lumbar back pain where he had a surgery. ROS: Denies associated fever, chills, headache, neck stiffness, cough, sore throat, dyspnea, hemoptysis, unilateral leg swelling, rash, saddle anesthesia, urinary bowel retention or incontinence, nausea, vomiting, syncope, head injury, loss of consciousness, dizziness. Heart Score: HEART Score for Chest Pain: HEART Score for Chest Pain Response (Comments) Value History Moderately Suspicious 1 ECG Nonspecific Repolarizatio 1 Age >45 - < 65 1 Risk Factors >3 Risk Factors or Hx CAD 2 Troponin < Normal Limit 0 Total 5 Risk Factors: Risk Factors: DM, Current or recent (<one month) smoker, HTN, HLP, family history of CAD, obesity. Risk Scores: Score 0 - 3: 2.5% MACE over next 6 weeks - Discharge Home Score 4 - 6: 20.3% MACE over next 6 weeks - Admit for Clinical Observation Score 7 - 10: 72.7% MACE over next 6 weeks - Early Invasive Strategies Allergies: Allergies: Allergies Coded Allergies Type Severity Reaction Last Updated Verified alprazolam Allergy Intermediate 12/13/18 Yes diltiazem Allergy Intermediate HIVES, INTERMITTENTLY 12/13/18 Yes lorazepam Allergy Intermediate halucinations 12/13/18 Yes morphine Allergy Intermediate HIVES, INTERMITTENTLY 12/13/18 Yes Haloperidol Lactate Adverse Reaction Intermediate dystonic reaction 12/13/18 Yes haloperidol Adverse Reaction Intermediate dystonic reaction 12/13/18 Yes tramadol Adverse Reaction Intermediate Hallucinations per nurse 12/13/18 Yes Physical Exam: PE: Constitutional: Unkempt appearance, diaphoretic, hypertensive HENT: Normocephalic, atraumatic, bilateral external ears normal, Eyes: EOMI, conjunctiva normal, no discharge. [] Neck: Normal range of motion, no tenderness, supple, no stridor. [] Cardiovascular:Heart rate regular rhythm, no murmur [] Lungs & Thorax: Bilateral breath sounds clear to auscultation [] Abdomen: Bowel sounds normal, soft, no tenderness, no masses, no pulsatile masses, obese Skin: Warm, dry, no erythema, no rash. [] Back: No tenderness, no CVA tenderness, +vertical scar lumbar midline Extremities: No tenderness, no cyanosis, no clubbing, ROM intact, no edema. [] Neurologic: Alert and oriented X 3, normal motor function, normal sensory function, no focal deficits noted. [] Psychologic: Affect normal, judgement normal, mood normal. [] Current Patient Data: Labs: Laboratory Tests Test 04/20/20 14:20 04/20/20 14:37 Sodium Level 141 mmol/L (136-145) Potassium Level 3.8 mmol/L (3.5-5.1) Chloride Level 106 mmol/L (98-107) Carbon Dioxide Level 27 mmol/L (21-32) Anion Gap 8 (6-14) Blood Urea Nitrogen 25 mg/dL (8-26) Creatinine 1.0 mg/dL (0.7-1.3) Estimated GFR (Cockcroft-Gault) 76.5 BUN/Creatinine Ratio 25 (6-20) H Glucose Level 100 mg/dL (70-99) H Calcium Level 8.7 mg/dL (8.5-10.1) Magnesium Level 2.1 mg/dL (1.8-2.4) Total Bilirubin 0.4 mg/dL (0.2-1.0) Aspartate Amino Transferase (AST) 27 U/L (15-37) Alanine Aminotransferase (ALT) 29 U/L (16-63) Alkaline Phosphatase 100 U/L (46-116) Troponin I Quantitative 0.029 ng/mL (0.000-0.055) Total Protein 7.9 g/dL (6.4-8.2) Albumin 3.8 g/dL (3.4-5.0) Albumin/Globulin Ratio 0.9 (1.0-1.7) L Lipase 91 U/L (73-393) White Blood Count 7.3 x10^3/uL (4.0-11.0) Red Blood Count 4.35 x10^6/uL (4.30-5.70) Hemoglobin 13.5 g/dL (13.0-17.5) Hematocrit 39.1 % (39.0-53.0) Mean Corpuscular Volume 90 fL (79-100) Mean Corpuscular Hemoglobin 31 pg (25-35) Mean Corpuscular Hemoglobin Concent 35 g/dL (31-37) Red Cell Distribution Width 14.7 % (11.5-14.5) H Platelet Count 196 x10^3/uL (140-400) Neutrophils (%) (Auto) 55 % (31-73) Lymphocytes (%) (Auto) 31 % (24-48) Monocytes (%) (Auto) 11 % (0-9) H Eosinophils (%) (Auto) 3 % (0-3) Basophils (%) (Auto) 1 % (0-3) Neutrophils # (Auto) 4.0 x10^3/uL (1.8-7.7) Lymphocytes # (Auto) 2.2 x10^3/uL (1.0-4.8) Monocytes # (Auto) 0.8 x10^3/uL (0.0-1.1) Eosinophils # (Auto) 0.2 x10^3/uL (0.0-0.7) Basophils # (Auto) 0.1 x10^3/uL (0.0-0.2) Laboratory Tests 04/20/20 14:37 Laboratory Tests 04/20/20 14:20 Vital Signs: Vital Signs Date Time Temp Pulse Resp B/P (MAP) Pulse Ox O2 Delivery O2 Flow Rate FiO2 04/20/20 14:03 99.0 72 18 144/74 (97) 92 Room Air 99.0 EKG: EKG: []Wide-complex rhythm at 72 bpm (ventricular paced rhythm), right axis deviation, QRS 156, QTc 468, left bundle branch block, ST segment concavities in 3 and aVF, no ST elevations, no significant change from prior EKG in June 2019 Radiology/Procedures: Radiology/Procedures: []IMAGING REPORT Signed PATIENT: ALYSSA PABLO ACCOUNT: [id number] : 1960 LOCATION: ER AGE: 59 SEX: M EXAM STATUS: REG ER ORD. PHYSICIAN: MONICA FAIR DO REASON: cp PROCEDURE: PORTABLE CHEST 1V PORTABLE CHEST 1V History: Reason: cp / Spl. Instructions: / History: Comparison: July 10, 2019 Findings: Interstitial thickening bilaterally. Low lung volumes. No pleural effusion. No pneumothorax. Cardiomegaly, unchanged. Right-sided pacemaker. Dilatation of the ascending aorta, unchanged. Chronic ununited left distal clavicular fracture. Impression: 1. Bilateral interstitial thickening, may indicate pulmonary edema or atypical infection. 2. Low lung volumes. Electronically signed by: Yrn Christie DO (04/20/2020 3:05 PM) [facility] DICTATED and SIGNED BY: YRN CHRISTIE DO DATE: 04/20/20 1505 IMAGING REPORT Signed PATIENT: ALYSSA PABLO ACCOUNT: [id number] : 1960 LOCATION: [address] [place] [address] AGE: 59 SEX: M EXAM STATUS: ADM IN ORD. PHYSICIAN: MONICA FAIR DO REASON: R/O DISSECTION, CHEST PAIN, KNOWN AOTIC ANEURYSM PROCEDURE: CT ANGIO CHEST ABD PELVIS Exam: CT of chest, abdomen and pelvis without and with contrast INDICATION: Chest pain, known aortic aneurysm TECHNIQUE: Sequential axial images through the chest, abdomen and pelvis obtained before and after the administration of 90 mL of Omni 350 IV contrast. Sagittal and coronal reformatted images were reconstructed from the axial data and reviewed. 3-D reformatted images were reconstructed from the axial data and reviewed. Comparisons: CT chest 07/08/2019 FINDINGS: Visualized portions of the thyroid are unremarkable. No enlarged mediastinal lymph nodes are identified. Heart is mildly enlarged. Pacer is noted with leads terminating the right atrium, ventricle and coronary sinus. Ascending aorta is mildly dilated measuring 4.0 cm in diameter unchanged compared to the prior exam. No evidence for dissection or intramural hematoma. Pulmonary artery is not enlarged. Airways are patent. Mild bronchial wall thickening is noted. No suspicious lung nodules are identified. No consolidation or pneumothorax. No pleural effusion or thickening. Evaluation of the abdominal organs is limited secondary to arterial phase of the exam. Liver, spleen, pancreas, and adrenals are unremarkable. Gallbladder surgically absent. No perinephric inflammation or hydronephrosis. There is a nonobstructing 2 mm calculus at the lower pole of the right kidney. No ureteral calculi are identified. Bladder is distended and appears thin-walled. Prostate is not enlarged. There are a few scattered diverticula noted in the sigmoid colon without evidence of acute diverticulitis. Remainder of the large and small bowel are unremarkable. Appendix is normal. There is a small fat-containing umbilical hernia. No obstruction. No free intra-abdominal air or fluid. Abdominal aorta has a normal course and caliber. Arterial vasculature is patent. No enlarged intra-abdominal lymph nodes are identified. No suspicious osseous lesions or acute fractures. IMPRESSION: 1. No evidence for dissection or intramural hematoma of the aorta. There remains a mildly dilated ascending aorta measuring up to 4 cm, not significantly changed from prior exam when remeasured in similar dimensions. 2. Mild bronchial wall thickening can be seen in the setting of bronchitis. 3. A nonobstructing 2 mm calculus at the right kidney. 4. Small fat-containing umbilical hernia. 5. Scattered diverticula without evidence of acute diverticulitis. Exposure: One or more of the following in the visualized dose reduction techniques were utilized for this examination: 1. Automated exposure control 2. Adjustment of the MA and/or KV according to patient size 3. Use of iterative of reconstructive technique Electronically signed by: Florecita Santamaria MD (04/20/2020 6:32 PM) [id number] DICTATED and SIGNED BY: FLORECITA SANTAMARIA MD DATE: 04/20/201831 Course & Med Decision Making: Course & Med Decision Making Pertinent Labs and Imaging studies reviewed. (See chart for details) Concern for chest pain in a moderate risk patient with a known thoracic aortic aneurysm. Patient very difficult in the ED and is refusing any further medical work-up including serial troponins, CTA chest (would not allow us to obtain adequate IV access). Pt has well documented drug seeking for "oxycodone" and even after offering him this medication, states he'd rather go home drink whiskey. Pt frequently changes his mind after I advised him he should be ad mitted-troponin is 0.29, heart score 5. Pt with significant relief in ed after 1 sl nitro and bp improved. At time of shift change pt agrees with plan for admission-pt admitted to Dr. An. EMR was reviewed and patient was admitted in June 2019 for chest pain evaluation-stable 4.4cm thoracic aneurysm at that time. Was uncooperative with the stress test in 2016. Last cardiac cath was in 2013. I have spoken with the patient and/or caregivers. I have explained the patient's condition, diagnosis and treatment plan based on the information available to me at this time. I have answered the patient's and/or caregivers questions and answered any concerns. The patient and/or caregivers have as good an understanding of the patient's diagnosis, condition and treatment plan as can be expected at this point. The patient has been stabilized within the capability of the emergency department. The patient will be transported for further care and management or will be moved to an observation or inpatient service. I have communicated with the staff or medical practitioner taking over this patient's care. Leonard Disclaimer: Draghomero Disclaimer: This electronic medical record was generated, in whole or in part, using a voice recognition dictation system. Departure Departure Impression: Primary Impression: Chest pain Additional Impression: Uncontrolled hypertension Disposition: ADMITTED INPATIENT Admitting Physician: CURTIS (Dr. An) Condition: STABLE Referrals: ELENA TRAORE (PCP) Patient Instructions: Chest Pain (Nonspecific), Hypertension Justicifation of Admission Dx: Justifications for Admission: Justification of Admission Dx: Yes Angina: [facility] MONICA FAIR DO Apr 20, 2020 15:59
[2020-04-20] MEDS ORDERED: HYDROcodone/APAP 7.5/325MG 1 TAB TABLET PO ONE (17:15)
[2020-04-20] MEDS: NITROGLYCERIN SUBLINGUAL 0.4 MG BOTTLE OF 25. SL PRN ×2 (17:19→17:47)
[2020-04-20] MEDS ORDERED: oxyCODONE IR 5 MG TABLET PO ONE (17:45)
[2020-04-20] MEDS ORDERED: IOHEXOL 350 MG/ML 100 ML VIAL. IV ONE (18:00)
[2020-04-20] MEDS ORDERED: CONTRAST GIVEN. MC PRN (18:00)
--- NOTE | 2020-04-20 18:05 | PDOC1 ---
History and Physical Date of Service: DOS: DATE: 04/20/20 TIME: 18:02 Chief Complaint: Chief Complain: Back pain and chest pressure History of Present Illness: HPI: Patient is a 59-year-old male with past medical history of atrial fibrillation, EtOH use, anxiety, CAD, CVA, dyslipidemia, and a known 4.4 cm thoracic aneurysm who presents to the ED from his doctor's office today because of chest disc omfort and back pain. Per the patient he reports that for the past 2 months he has had intermittent chest pressure increased flatulence, dizziness, and some dyspnea. Patient states that he also has reported dark red stools. Chest pain is described as pressure-like and radiates towards his neck 7 out of 10 and associated with lower back pain. Denies nausea vomiting, shortness of breath, abdominal pain, lower extremity weakness, dysuria, or fevers. Patient does not wear mask in public however he does not think that he was exposed to any COVID. Past Medical/Surgical History: PMH/PSH: Past Medical History: A-Fib, Alcoholism, Anxiety, CAD, CVA, High Cholesterol, Heart Disease, Hypertension, Hepatitis, RI, HERNIA, Past Surgical History: Cholecystectomy, Knee Replacement, Pacemaker, skin graft on elbow, Allergies: Allergies: Coded Allergies: alprazolam (Verified Allergy, Intermediate, 12/13/18) HALUCINATIONS diltiazem (Verified Allergy, Intermediate, HIVES, INTERMITTENTLY, 12/13/18) lorazepam (Verified Allergy, Intermediate, halucinations, 12/13/18) patients states has tolerated valium in the past morphine (Verified Allergy, Intermediate, HIVES, INTERMITTENTLY, 12/13/18) takes LORTAB at home, tolerates DILAUDID also. Haloperidol Lactate (Verified Adverse Reaction, Intermediate, dystonic reaction, 12/13/18) "Jaw comes out of socket" haloperidol (Verified Adverse Reaction, Intermediate, dystonic reaction, 12/13/18) "Jaw comes out of socket" tramadol (Verified Adverse Reaction, Intermediate, Hallucinations per nurse, 12/13/18) Family History: Family History: Reviewed and none reported Social History: Social History: Smoking Status: Current Every Day Smoker Alcohol Use: Sober Drug Use: None Current Medications: Current Medications Current Medications Acetaminophen/ Hydrocodone Bitart (Lortab 7.5/325) 1 tab 1X ONCE PO ; Start 04/20/20 at 17:15; Stop 04/20/20 at 17:16; Status DC Nitroglycerin (Nitrostat) 0.4 mg PRN Q5MIN PRN SL CHEST PAIN Last administered on 04/20/20at 17:47; Start 04/20/20 at 17:15 Oxycodone HCl (Roxicodone) 10 mg 1X ONCE PO Last administered on 04/20/20at 17:45; Start 04/20/20 at 17:45; Stop 04/20/20 at 17:46; Status DC Iohexol (Omnipaque 350 Mg/ml) 90 ml 1X ONCE IV ; Start 04/20/20 at 18:00; Stop 04/20/20 at 18:01; Status DC Info (CONTRAST GIVEN -- Rx MONITORING) 1 each PRN DAILY PRN MC SEE COMMENTS; Start 04/20/20 at 18:00; Stop 04/22/20 at 17:59 Active Scripts Active Bactrim Ds Tablet (Sulfamethoxazole/Trimethoprim) 1 Each Tablet 1 Tab PO BID 10 Days Cephalexin 500 Mg Tablet 1 Tab PO TID Pepcid (Famotidine) 20 Mg Tablet 20 Mg PO BID Levsin-Sl (Hyoscyamine Sulfate) 0.125 Mg Tab.subl 1-2 Tab SL PRN Q4HRS PRN Ondansetron Odt (Ondansetron) 4 Mg Tab.rapdis 1 Tab PO PRN Q6-8HRS PRN Prednisone 50 Mg Tablet 50 Mg PO DAILY 5 Days Culturelle (Lactobacillus Rhamnosus Gg) 1 Each Cap.sprink 1 Cap PO BID 10 Days Geodon (Ziprasidone Hcl) 20 Mg Capsule 20 Mg PO BID 30 Days Doxycycline Hyclate 100 Mg Tablet 100 Mg PO BID 10 Days Losartan-Hctz 100-25 Mg Tab (Losartan/Hydrochlorothiazide) 1 Each Tablet 1 Tab PO DAILY Reported Ventolin Hfa Inhaler (Albuterol Sulfate) 18 Gm Hfa.aer.ad 2 Puff INH Q4HRS NITROGLYCERIN SubLingual (Nitroglycerin) 0.4 Mg Tab.subl 0.4 Mg SL PRN Q5MIN PRN Chantix (Varenicline Tartrate) 1 Mg Tablet 1 Mg Oxycodone Hcl Immed.release (Oxycodone Hcl) 10 Mg Tablet 1 Tab PO TID Gabapentin 400 Mg Capsule 400 Mg Diclofenac Sodium 75 Mg Tablet. 75 Carisoprodol 350 Mg Tablet 350 Mg Loratadine 10 Mg Tablet 10 Mg Advair 250-50 Diskus (Fluticasone/Salmeterol) 1 Each Disk.w.dev 1 Puff IH BID Chantix (Varenicline Tartrate) 0.5 Mg Tablet 0.5 Mg PO DIRECTED 0.5 MG PO DAILY X3 DAY, 0.5 MG PO BID X4 DAY, 1 MG PO BID UNTIL END OF TREATMENT Atorvastatin Calcium 80 Mg Tablet 1 Tab PO DAILY Coreg (Carvedilol) 25 Mg Tablet 1 Tab PO DAILY Losartan Potassium 50 Mg Tablet 50 Mg PO DAILY ROS: Review of Systems Review of System REVIEW OF SYSTEMS: GENERAL: Denies weakness SKIN: No bruising, hair changes or rashes. EYES: No blurred, double or loss of vision. NOSE AND THROAT: No history of nosebleeds, hoarseness or sore throat. HEART: No history of palpitations, chest pain or shortness of breath on exertion. LUNGS: Denies cough, hemoptysis, wheezing or shortness of breath. GASTROINTESTINAL: Denies changes in appetite, nausea, vomiting, diarrhea or constipation. GENITOURINARY: No history of frequency, urgency, hesitancy or nocturia. NEUROLOGIC: Denies history of numbness, tingling, or tremor. PSYCHIATRIC: No history of panic, anxiety or depression. ENDOCRINE: No history of heat or cold intolerance, polyuria or polydipsia. EXTREMITIES: Denies joint pain, pain on walking or stiffness. Physical Exam: Vital Signs: Vital Signs Date Time Temp Pulse Resp B/P (MAP) Pulse Ox O2 Delivery O2 Flow Rate FiO2 04/20/20 17:47 172/93 04/20/20 14:03 99.0 72 18 92 Room Air 99.0 Physcial Exam: GEN: Minimal distress. Alert and oriented HEENT: Normal cephalic, atraumatic, external auditory canals are patent EYES: Extraocular muscles are intact, pupil are equally round and reactive to light and accommodation MUSCULOSKELETAL: Well developed , well nourished, good range of motion ENDOCRINE: No thyromegaly was palpated LYMPHATICS: No cervical chain or axillary nodes were noted HEMATOPOIETIC: No bruising NECK: Supple, no JVD, no thyromegaly was noted LUNGS: Clear to auscultation in all lung bear without rhonchi or wheezing HEART: RRR, S!, S2 present. Peripheral pulses intact, no obvious murmurs n oted ABDOMEN: Soft, nontender. Positive bowel sounds, no organomegaly, normal bowel sounds EXTREMITIES: Without clubbing, cyanosis, or edema. Pedal pulses intact. Negative Homans sign NEUROLOGIC: Normal speech and tone. A&O x 3, moves all extremities, no obvious focal deficits PSYCHIATRIC: Normal affect, normal mood. Stable Back/skin right lower lumbar back pain VASCULAR: Good capillary refill, neurovascular bundle appears to be intact Labs: Labs: Laboratory Tests Test 04/20/20 14:20 04/20/20 14:37 Sodium Level 141 mmol/L (136-145) Potassium Level 3.8 mmol/L (3.5-5.1) Chloride Level 106 mmol/L (98-107) Carbon Dioxide Level 27 mmol/L (21-32) Anion Gap 8 (6-14) Blood Urea Nitrogen 25 mg/dL (8-26) Creatinine 1.0 mg/dL (0.7-1.3) Estimated GFR (Cockcroft-Gault) 76.5 BUN/Creatinine Ratio 25 (6-20) Glucose Level 100 mg/dL (70-99) Calcium Level 8.7 mg/dL (8.5-10.1) Magnesium Level 2.1 mg/dL (1.8-2.4) Total Bilirubin 0.4 mg/dL (0.2-1.0) Aspartate Amino Transf (AST/SGOT) 27 U/L (15-37) Alanine Aminotransferase (ALT/SGPT) 29 U/L (16-63) Alkaline Phosphatase 100 U/L (46-116) Troponin I Quantitative 0.029 ng/mL (0.000-0.055) Total Protein 7.9 g/dL (6.4-8.2) Albumin 3.8 g/dL (3.4-5.0) Albumin/Globulin Ratio 0.9 (1.0-1.7) Lipase 91 U/L (73-393) White Blood Count 7.3 x10^3/uL (4.0-11.0) Red Blood Count 4.35 x10^6/uL (4.30-5.70) Hemoglobin 13.5 g/dL (13.0-17.5) Hematocrit 39.1 % (39.0-53.0) Mean Corpuscular Volume 90 fL (79-100) Mean Corpuscular Hemoglobin 31 pg (25-35) Mean Corpuscular Hemoglobin Concent 35 g/dL (31-37) Red Cell Distribution Width 14.7 % (11.5-14.5) Platelet Count 196 x10^3/uL (140-400) Neutrophils (%) (Auto) 55 % (31-73) Lymphocytes (%) (Auto) 31 % (24-48) Monocytes (%) (Auto) 11 % (0-9) Eosinophils (%) (Auto) 3 % (0-3) Basophils (%) (Auto) 1 % (0-3) Neutrophils # (Auto) 4.0 x10^3/uL (1.8-7.7) Lymphocytes # (Auto) 2.2 x10^3/uL (1.0-4.8) Monocytes # (Auto) 0.8 x10^3/uL (0.0-1.1) Eosinophils # (Auto) 0.2 x10^3/uL (0.0-0.7) Basophils # (Auto) 0.1 x10^3/uL (0.0-0.2) Laboratory Tests Test 04/20/20 14:20 04/20/20 14:37 Sodium Level 141 mmol/L (136-145) Potassium Level 3.8 mmol/L (3.5-5.1) Chloride Level 106 mmol/L (98-107) Carbon Dioxide Level 27 mmol/L (21-32) Anion Gap 8 (6-14) Blood Urea Nitrogen 25 mg/dL (8-26) Creatinine 1.0 mg/dL (0.7-1.3) Estimated GFR (Cockcroft-Gault) 76.5 BUN/Creatinine Ratio 25 (6-20) Glucose Level 100 mg/dL (70-99) Calcium Level 8.7 mg/dL (8.5-10.1) Magnesium Level 2.1 mg/dL (1.8-2.4) Total Bilirubin 0.4 mg/dL (0.2-1.0) Aspartate Amino Transf (AST/SGOT) 27 U/L (15-37) Alanine Aminotransferase (ALT/SGPT) 29 U/L (16-63) Alkaline Phosphatase 100 U/L (46-116) Troponin I Quantitative 0.029 ng/mL (0.000-0.055) Total Protein 7.9 g/dL (6.4-8.2) Albumin 3.8 g/dL (3.4-5.0) Albumin/Globulin Ratio 0.9 (1.0-1.7) Lipase 91 U/L (73-393) White Blood Count 7.3 x10^3/uL (4.0-11.0) Red Blood Count 4.35 x10^6/uL (4.30-5.70) Hemoglobin 13.5 g/dL (13.0-17.5) Hematocrit 39.1 % (39.0-53.0) Mean Corpuscular Volume 90 fL (79-100) Mean Corpuscular Hemoglobin 31 pg (25-35) Mean Corpuscular Hemoglobin Concent 35 g/dL (31-37) Red Cell Distribution Width 14.7 % (11.5-14.5) Platelet Count 196 x10^3/uL (140-400) Neutrophils (%) (Auto) 55 % (31-73) Lymphocytes (%) (Auto) 31 % (24-48) Monocytes (%) (Auto) 11 % (0-9) Eosinophils (%) (Auto) 3 % (0-3) Basophils (%) (Auto) 1 % (0-3) Neutrophils # (Auto) 4.0 x10^3/uL (1.8-7.7) Lymphocytes # (Auto) 2.2 x10^3/uL (1.0-4.8) Monocytes # (Auto) 0.8 x10^3/uL (0.0-1.1) Eosinophils # (Auto) 0.2 x10^3/uL (0.0-0.7) Basophils # (Auto) 0.1 x10^3/uL (0.0-0.2) Images: Images CT of the abdomen chest and pelvis IMPRESSION: 1. No evidence for dissection or intramural hematoma of the aorta. There remains a mildly dilated ascending aorta measuring up to 4 cm, not significantly changed from prior exam when remeasured in similar dimensions. 2. Mild bronchial wall thickening can be seen in the setting of bronchitis. 3. A nonobstructing 2 mm calculus at the right kidney. 4. Small fat-containing umbilical hernia. 5. Scattered diverticula without evidence of acute diverticulitis. Assessment/Plan Assessment/Plan Chest pain concerning for unstable angina Hypertension CAD Chronic back pain due to history of lumbar fusion Thoracic aneurysm ISIDRA = 5 EKG unrevealing Troponin 0.029 Continue aspirin Cardiology consulted for predischarge stress testing or left heart cath Continue nitroglycerin as needed for pain Continue beta-cinthia if blood pressures allow Continue high intensity statins IV morphine as needed Consider Lovenox Maintain O2 sats between 88 to 95% Trend troponins Repeat EKG in the a.m. Continue telemetry monitoring Monitor for electrolyte abnormalities Avoid NSAIDs PABLO HARTMAN MD Apr 20, 2020 18:05
--- NOTE | 2020-04-20 18:35 | RAD ---
Exam: CT of chest, abdomen and pelvis without and with contrast INDICATION: Chest pain, known aortic aneurysm TECHNIQUE: Sequential axial images through the chest, abdomen and pelvis obtained before and after the administration of 90 mL of Omni 350 IV contrast. Sagittal and coronal reformatted images were reconstructed from the axial data and reviewed. 3-D reformatted images were reconstructed from the axial data and reviewed. Comparisons: CT chest 07/08/2019 FINDINGS: Visualized portions of the thyroid are unremarkable. No enlarged mediastinal lymph nodes are identified. Heart is mildly enlarged. Pacer is noted with leads terminating the right atrium, ventricle and coronary sinus. Ascending aorta is mildly dilated measuring 4.0 cm in diameter unchanged compared to the prior exam. No evidence for dissection or intramural hematoma. Pulmonary artery is not enlarged. Airways are patent. Mild bronchial wall thickening is noted. No suspicious lung nodules are identified. No consolidation or pneumothorax. No pleural effusion or thickening. Evaluation of the abdominal organs is limited secondary to arterial phase of the exam. Liver, spleen, pancreas, and adrenals are unremarkable. Gallbladder surgically absent. No perinephric inflammation or hydronephrosis. There is a nonobstructing 2 mm calculus at the lower pole of the right kidney. No ureteral calculi are identified. Bladder is distended and appears thin-walled. Prostate is not enlarged. There are a few scattered diverticula noted in the sigmoid colon without evidence of acute diverticulitis. Remainder of the large and small bowel are unremarkable. Appendix is normal. There is a small fat-containing umbilical hernia. No obstruction. No free intra-abdominal air or fluid. Abdominal aorta has a normal course and caliber. Arterial vasculature is patent. No enlarged intra-abdominal lymph nodes are identified. No suspicious osseous lesions or acute fractures. IMPRESSION: 1. No evidence for dissection or intramural hematoma of the aorta. There remains a mildly dilated ascending aorta measuring up to 4 cm, not significantly changed from prior exam when remeasured in similar dimensions. 2. Mild bronchial wall thickening can be seen in the setting of bronchitis. 3. A nonobstructing 2 mm calculus at the right kidney. 4. Small fat-containing umbilical hernia. 5. Scattered diverticula without evidence of acute diverticulitis. Exposure: One or more of the following in the visualized dose reduction techniques were utilized for this examination: 1. Automated exposure control 2. Adjustment of the MA and/or KV according to patient size 3. Use of iterative of reconstructive technique Electronically signed by: Florecita Willingham MD (04/20/2020 6:32 PM) [id number]
--- NOTE | 2020-04-20 19:30 | NUR ---
The patient, ALYSSA PABLO, 59 y/o, M admitted by PABLO HARTMAN MD, was given written information regarding hospital policies, unit procedures and contact persons. PT STATES NOTHING HAS CHANGED SINCE HIS LAST ADMISSION. WENT OVER HIS HOME MEDS. USED HISTORY IN COMPUTER. PT [facility]UMPED [facility] [employer] AND WAS HALF WAY TO THE PANTRY WHEN HE WAS ASKED TO STAY IN HIS ROOM DUE TO COVID VIRUS PRECAUTIONS. Valuables were checked and DOCUMENTED IN THE EMR. PICTURE OF WOUND ON RIGHT ELBOW PLACED IN THE CHART. LCRN
[2020-04-20 20:00] VITALS: BP 112/89
[2020-04-20] MEDS ORDERED: ONDANSETRON ODT 4 MG TAB.RAPDIS. PO PRN (20:30)
[2020-04-20] MEDS ORDERED: NITROGLYCERIN SUBLINGUAL 0.4 MG BOTTLE OF 25. SL PRN (20:30)
[2020-04-20] MEDS ORDERED: LABETALOL 20 MG/4 ML DISP.SYRIN. IVP PRN (20:30)
--- NOTE | 2020-04-20 20:44 | NUR ---
pt refused lab draws. lcrn
[2020-04-20] MEDS ORDERED: ASPIRIN 325 MG TABLET PO ONE (21:00)
[2020-04-20] MEDS: ATORVASTATIN CALCIUM 40 MG TABLET. PO SCH (21:02)
[2020-04-20] MEDS: ZIPRASIDONE 20 MG CAPSULE PO SCH (21:02)
[2020-04-20] MEDS: CARVEDILOL 12.5 MG TABLET. PO SCH (21:02)
[2020-04-20] MEDS: FAMOTIDINE 20 MG TABLET. PO SCH (21:03)
[2020-04-20] MEDS: GABAPENTIN 400 MG CAPSULE. PO SCH (21:03)
[2020-04-20] MEDS: oxyCODONE IR 5 MG TABLET PO SCH (21:03)
[2020-04-20] MEDS: ENOXAPARIN 40 MG/0.4 ML SYRINGE. SQ SCH (21:04)
[2020-04-20 23:20] VITALS: BP 115/77
[2020-04-21] MEDS ORDERED: ALBUTEROL SULFATE 2.5 MG/3 ML NEBU. NEB SCH
[2020-04-21] MEDS ORDERED: NON FORMULARY ITEM (Albuterol Sulfate (Ventolin Hfa Inhaler) 2 PUFF) INH SCH
[2020-04-21 03:50] VITALS: BP 142/100
[2020-04-21 07:00] VITALS: BP 144/92
[2020-04-21] MEDS: ALBUTEROL SULFATE 2.5 MG/3 ML NEBU. NEB SCH ×3 (08:00→16:00)
[2020-04-21] MEDS: oxyCODONE IR 5 MG TABLET PO SCH ×3 (08:49→20:03)
[2020-04-21] MEDS: CARVEDILOL 12.5 MG TABLET. PO SCH ×2 (08:49→17:52)
[2020-04-21] MEDS: ASPIRIN 325 MG TABLET PO SCH (08:49)
[2020-04-21] MEDS: LOSARTAN POTASSIUM 50 MG TABLET. PO SCH (08:50)
[2020-04-21] MEDS: FAMOTIDINE 20 MG TABLET. PO SCH ×2 (08:51→20:03)
[2020-04-21] MEDS: GABAPENTIN 400 MG CAPSULE. PO SCH ×2 (08:56→20:11)
[2020-04-21] MEDS: ZIPRASIDONE 20 MG CAPSULE PO SCH ×2 (08:56→20:10)
--- NOTE | 2020-04-21 10:57 | NUR ---
SS following for discharge planning. SS reviewed pt chart and discussed with pt RN. Pt is from home and is currently on room air. Pt has had frequent admissions. Discharge plan is to home when medically ready. SS will continue to follow for discharge planning.
[2020-04-21 11:00] VITALS: BP 135/82
--- NOTE | 2020-04-21 12:00 | PDOC2 ---
CARDIAC CONSULT DATE OF CONSULT Date of Consult DATE: 04/21/20 TIME: 11:23 REASON FOR CONSULT Reason for Consult: Chest pain REFERRING PHYSICIAN Referring Physician: Juve SOURCE Source: Chart review, Patient HISTORY OF PRESENT ILLNESS HISTORY OF PRESENT ILLNESS This is a 59 yo male admitted for complains of abdominal pain. No chest pain per se but reports of occasional palpitations. He points to his epigastric region when discussing about discomfort and described it as bloating, pressure that was nonradiating and no SOA per se and no symptoms of vomiting. No recent falls or injury. He lives in [place] with family and spent the day with hs friend yesterday due to upcoming Dr. schmitt. He does however felt intermittent dizziness and feels his heart skips at times. He was just at [facility] 2-3 weeks ago and appears to have been evaluated by GI based on what he told me about potentially being treated for his Hep C. He follows typically with [facility] cardiology but has not followed up with them recently but his device was remotely check by then in February 2002. It is unclear why he was exactly at [facility] since his explanation was somewhat vague and only describing about cirrhosis. He has not been taking any medications at least in the last 2 weeks but unclear what he actually was taking prior to that. It appears that he is noncompliant with his treatments and at this time denies utilizing ETOH and meth and quit tob acco a week ago. No hx of PUD but did described black and sometimes red stool that occurred about 2 weeks ago and reported that he still intermittently have this. Again presently his main compliant is his abdomen and not the chest. He also has been having nonproductive cough and has some wheeze but no SOA. PAST MEDICAL HISTORY Past Medical History Cardiovascular: AFIB, HTN, HLP, CAD (nonobstructive), vasovagal syncope, NICM Pulmonary: Asthma, COPD Neurology: CVA GI: Constipation, GERD Heme/Onc: anemia Hepatobiliary: Hepatitis C, reported cirrhosis Psych: Anxiety, Addictions, Depression, Antisocial personality disorder Musculoskeletal: low back pain, Osteoarthritis, right arm necrotizing fascitis Rheumatologic: No pertinent hx Infectious disease: No pertinent hx Renal/: Benign prostatic enlarg. 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, Appendectomy, Cholecystectomy, Hernia Repair, Total knee replacement, RA I & D, RFA ablation 2013, Successful cardiac RFA in 2014 for AFIB, right elbow wound grafting, lumbar fusion FAMILY HISTORY Family History: Diabetes, Heart Disease SOCIAL HISTORY Smoke: <1 pack per day (hx of fredrick use but denies) ALCOHOL: other (hx of heavy use) Drugs: Other Lives: with Family CURRENT MEDICATIONS CURRENT MEDICATIONS Current Medications Medications (Trade) Dose Ordered Sig/Alan Route PRN Reason Start Time Stop Time Status Last Admin Dose Admin Nitroglycerin (Nitrostat) 0.4 mg PRN Q5MIN PRN SL CHEST PAIN 04/20/20 17:15 04/20/20 20:35 DC 04/20/20 17:47 Oxycodone HCl (Roxicodone) 10 mg 1X ONCE PO 04/20/20 17:45 04/20/20 17:46 DC 04/20/20 17:45 Iohexol (Omnipaque 350 Mg/ml) 90 ml 1X ONCE IV 04/20/20 18:00 04/20/20 18:01 DC 04/20/20 18:16 Famotidine (Pepcid) 20 mg BID PO 04/20/20 21:00 04/21/20 08:51 Gabapentin (Neurontin) 400 mg BID PO 04/20/20 21:00 04/20/20 21:03 Losartan Potassium (Cozaar) 50 mg DAILY PO 04/21/20 09:00 04/21/20 08:50 Ziprasidone (Geodon) 20 mg BID PO 04/20/20 21:00 04/20/20 21:02 Atorvastatin Calcium (Lipitor) 80 mg QHS PO 04/20/20 21:00 04/20/20 21:02 Carvedilol (Coreg) 25 mg BIDWMEALS PO 04/20/20 21:00 04/21/20 08:49 Oxycodone HCl (Roxicodone) 10 mg TID PO 04/20/20 21:00 04/21/20 08:49 Enoxaparin Sodium (Lovenox 40mg Syringe) 40 mg Q24H SQ 04/20/20 21:00 04/20/20 21:04 Labetalol HCl (Normodyne Iv Push) 20 mg PRN Q2HR PRN IVP HYPERTENSION 04/20/20 20:30 04/21/20 06:14 Aspirin (Farnaz Aspirin) 325 mg DAILYWBKFT PO 8/25/20 08:00 04/21/20 08:49 Aspirin (Farnaz Aspirin) 325 mg 1X ONCE PO 04/20/20 21:00 04/20/20 21:01 DC 04/20/20 21:03 ALLERGIES ALLERGIES: Coded Allergies: alprazolam (Verified Allergy, Intermediate, 12/13/18) HALUCINATIONS diltiazem (Verified Allergy, Intermediate, HIVES, INTERMITTENTLY, 12/13/18) lorazepam (Verified Allergy, Intermediate, halucinations, 12/13/18) patients states has tolerated valium in the past morphine (Verified Allergy, Intermediate, HIVES, INTERMITTENTLY, 12/13/18) takes LORTAB at home, tolerates DILAUDID also. Haloperidol Lactate (Verified Adverse Reaction, Intermediate, dystonic reaction, 12/13/18) "Jaw comes out of socket" haloperidol (Verified Adverse Reaction, Intermediate, dystonic reaction, 12/13/18) "Jaw comes out of socket" tramadol (Verified Adverse Reaction, Intermediate, Hallucinations per nurse, 12/13/18) ROS Review of System 14 point ROS evaluated with pertinent positive noted per HPI PHYSICAL EXAM General: Alert, Oriented X3, Cooperative, No acute distress HEENT: Atraumatic, Mucous membr. moist/pink Lungs: Other (esxpiratory wheez) Heart: Regular rate (BiV pacing), Other (distant heart sounds) Abdomen: Soft, Other (no palpable mass, obese) Skin: No rashes Neuro: Normal speech, Sensation intact Psych/Mental Status: Mental status NL, Other (irritable) MUSCULOSKELETAL: Osteoarthritic changes both hands VITALS/I&O VITALS/I&O: Vital Signs Date Time Temp Pulse Resp B/P (MAP) Pulse Ox O2 Delivery O2 Flow Rate FiO2 04/21/20 08:50 75 04/21/20 07:57 95 Room Air 04/21/20 07:00 97.5 20 144/92 (109) 97.5 I & O 04/20/20 04/20/20 04/21/20 15:00 23:00 07:00 Intake Total 840 ml Balance 840 ml LABS Lab: Laboratory Tests Test 04/20/20 14:20 04/20/20 14:37 04/20/20 17:30 04/20/20 21:40 Sodium Level 141 mmol/L (136-145) Potassium Level 3.8 mmol/L (3.5-5.1) Chloride Level 106 mmol/L (98-107) Carbon Dioxide Level 27 mmol/L (21-32) Anion Gap 8 (6-14) Blood Urea Nitrogen 25 mg/dL (8-26) Creatinine 1.0 mg/dL (0.7-1.3) Estimated GFR (Cockcroft-Gault) 76.5 BUN/Creatinine Ratio 25 (6-20) H Glucose Level 100 mg/dL (70-99) H Calcium Level 8.7 mg/dL (8.5-10.1) Magnesium Level 2.1 mg/dL (1.8-2.4) Total Bilirubin 0.4 mg/dL (0.2-1.0) Aspartate Amino Transferase (AST) 27 U/L (15-37) Alanine Aminotransferase (ALT) 29 U/L (16-63) Alkaline Phosphatase 100 U/L (46-116) Troponin I Quantitative 0.029 ng/mL (0.000-0.055) 0.035 ng/mL (0.000-0.055) 0.033 ng/mL (0.000-0.055) Total Protein 7.9 g/dL (6.4-8.2) Albumin 3.8 g/dL (3.4-5.0) Albumin/Globulin Ratio 0.9 (1.0-1.7) L Lipase 91 U/L (73-393) White Blood Count 7.3 x10^3/uL (4.0-11.0) Red Blood Count 4.35 x10^6/uL (4.30-5.70) Hemoglobin 13.5 g/dL (13.0-17.5) Hematocrit 39.1 % (39.0-53.0) Mean Corpuscular Volume 90 fL (79-100) Mean Corpuscular Hemoglobin 31 pg (25-35) Mean Corpuscular Hemoglobin Concent 35 g/dL (31-37) Red Cell Distribution Width 14.7 % (11.5-14.5) H Platelet Count 196 x10^3/uL (140-400) Neutrophils (%) (Auto) 55 % (31-73) Lymphocytes (%) (Auto) 31 % (24-48) Monocytes (%) (Auto) 11 % (0-9) H Eosinophils (%) (Auto) 3 % (0-3) Basophils (%) (Auto) 1 % (0-3) Neutrophils # (Auto) 4.0 x10^3/uL (1.8-7.7) Lymphocytes # (Auto) 2.2 x10^3/uL (1.0-4.8) Monocytes # (Auto) 0.8 x10^3/uL (0.0-1.1) Eosinophils # (Auto) 0.2 x10^3/uL (0.0-0.7) Basophils # (Auto) 0.1 x10^3/uL (0.0-0.2) Test 04/21/20 08:57 SS-Toj-A-Type Natriuretic Peptide 542 pg/mL (0-124) H Laboratory Tests 04/20/20 14:37 Laboratory Tests 04/20/20 14:20 ASSESSMENT/PLAN ASSESSMENT/PLAN 1. Atypical chest pain: more from abdominal pain, likely GI in etiology 2. ?Recent GI bleed: reported black/red stool intermittent 3. AECOPD with continue tobaccoism: tried to quit tobacco 1 week ago 4. Hx of meth and ETOH use: denies 5. HTN:labile episodes, now controlled. 6. HLP 7. 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 Paced rhythm. stable from 02/27/2020 interrogation. 99% bi v pacing 8. PAFIB: BiV pacing, treated with RFA in 2014, no anticoagulation 9. CAD: unclear details, nonobstructive per chart review. 10. Noncompliance 11. Hx of hepC/cirrhosis 12. Antisocial personality disorder 13. Hx of NICM: compensated Recommendations 1. TTE today. UDS. Interrogate device. Doubt ACS with stable EKG and normal trops. Anticipate DC today. 2. Pt appears to be significantly noncompliant. Discussed compliance. 3. Lipid panel. 4. Smoking cessation 5. ECASA if low suspicion of GI bleed. Recommend BB, statin at least and if BP is not controlled well the ARB addition as noted from previous med list. Difficult to further and sustain treatment due to significant noncompliance and personality issues. 6. Encouraged to follow up with [facility] cardiology where he had extensive cardiac workup. Given his cardiac hx would consider outpt ischemic eval if none recent and will defer this to GIULIANO seymour significant issues with TTE and interrogation. FLOR MELCHOR DIRECT CARE STAFFER Apr 21, 2020 11:59
[2020-04-21 12:22] LABS: CHOLESTEROL/HDL RATIO 4.4
[2020-04-21 15:00] VITALS: BP 144/104
--- NOTE | 2020-04-21 15:34 | PDOC ---
PROGRESS NOTES Date of Service: DATE: 04/21/20 TIME: 15:28 Chief Complaint Chief Complaint Assessment/Plan Chest pain concerning for unstable angina Hypertension CAD Chronic back pain due to history of lumbar fusion Thoracic aneurysm A-Fib, History of Alcoholism, Anxiety, CAD, CVA with no evident residual deficits History of dyslipidemia Essential Hypertension, History of Hepatitis C ISIDRA = 5 EKG unrevealing Troponin 0.029 Continue aspirin patient wont be able to have work up today since he had breakfast and had coffee, I advised him not to have coffee in case we would need to do further cardiac work up, he ignored the recommendation and drank coffee this morning shortly after my visit. Continue nitroglycerin as needed for pain Continue beta-cinthia if blood pressures allow Continue high intensity statins IV morphine as needed Consider Lovenox Maintain O2 sats between 88 to 95% troponin noted follow recommendations by cardiology Continue telemetry monitoring Monitor for electrolyte abnormalities Avoid NSAIDs History of Present Illness History of Present Illness History of Present Illness: HPI: Patient is a 59-year-old male with past medical history of atrial fibrillation, EtOH use, anxiety, CAD, CVA, dyslipidemia, and a known 4.4 cm thoracic aneurysm who presents to the ED from his doctor's office today because of chest discomfort and back pain. Per the patient he reports that for the past 2 months he has had intermittent chest pressure increased flatulence, dizziness, and some dyspnea. Patient states that he also has reported dark red stools. Chest pain is described as pressure-like and radiates towards his neck 7 out of 10 and associated with lower back pain. Denies nausea vomiting, shortness of breath, abdominal pain, lower extremity weakness, dysuria, or fevers. Patient does not wear mask in public however he does not think that he was exposed to any COVID. Past Medical/Surgical History: PMH/PSH: Past Medical History: A-Fib, Alcoholism, Anxiety, CAD, CVA, High Cholesterol, Heart Disease, Hypertension, Hepatitis, [place], HERNIA, Past Surgical History: Cholecystectomy, Knee Replacement, Pacemaker, skin graft on elbow, 04/21/2020 patient will be evaluated by cardiology later in the day, discussed with cardiology [employer] REPRESENTATIVE, patient threatening to "arpit everybody". Patient quite agitated and a very poor historian, seems he has a secondary gain intentions with his demeanor. Vitals Vitals Vital Signs Date Time Temp Pulse Resp B/P (MAP) Pulse Ox O2 Delivery O2 Flow Rate FiO2 04/21/20 11:00 99.1 79 20 135/82 (99) 95 Room Air 99.1 Physical Exam General: Alert, Oriented X3, Cooperative, No acute distress Heart: Regular rate (BiV pacing), Other (distant heart sounds) Lungs: Clear, Other Abdomen: Soft, Other (no palpable mass, obese) Skin: No rashes Labs LABS Laboratory Tests Test 04/20/20 17:30 04/20/20 21:40 04/21/20 08:57 Troponin I Quantitative 0.035 ng/mL (0.000-0.055) 0.033 ng/mL (0.000-0.055) IH-Hpu-X-Type Natriuretic Peptide 542 pg/mL (0-124) Triglycerides Level 67 mg/dL (0-150) Cholesterol Level 195 mg/dL (0-200) LDL Cholesterol, Calculated 138 mg/dL (0-100) VLDL Cholesterol, Calculated 13 mg/dL (0-40) Non-HDL Cholesterol Calculated 151 mg/dL (0-129) HDL Cholesterol 44 mg/dL (40-60) Cholesterol/HDL Ratio 4.4 Assessment and Plan Assessmemt and Plan Problems Medical Problems: (1) Chest pain Status: Acute (2) Uncontrolled hypertension Status: Acute Comment Review of Relevant I have reviewed the following items mercedez (where applicable) has been applied. Labs Laboratory Tests Test 04/20/20 14:20 04/20/20 14:37 04/20/20 17:30 04/20/20 21:40 Sodium Level 141 mmol/L (136-145) Potassium Level 3.8 mmol/L (3.5-5.1) Chloride Level 106 mmol/L (98-107) Carbon Dioxide Level 27 mmol/L (21-32) Anion Gap 8 (6-14) Blood Urea Nitrogen 25 mg/dL (8-26) Creatinine 1.0 mg/dL (0.7-1.3) Estimated GFR (Cockcroft-Gault) 76.5 BUN/Creatinine Ratio 25 (6-20) Glucose Level 100 mg/dL (70-99) Calcium Level 8.7 mg/dL (8.5-10.1) Magnesium Level 2.1 mg/dL (1.8-2.4) Total Bilirubin 0.4 mg/dL (0.2-1.0) Aspartate Amino Transf (AST/SGOT) 27 U/L (15-37) Alanine Aminotransferase (ALT/SGPT) 29 U/L (16-63) Alkaline Phosphatase 100 U/L (46-116) Troponin I Quantitative 0.029 ng/mL (0.000-0.055) 0.035 ng/mL (0.000-0.055) 0.033 ng/mL (0.000-0.055) Total Protein 7.9 g/dL (6.4-8.2) Albumin 3.8 g/dL (3.4-5.0) Albumin/Globulin Ratio 0.9 (1.0-1.7) Lipase 91 U/L (73-393) White Blood Count 7.3 x10^3/uL (4.0-11.0) Red Blood Count 4.35 x10^6/uL (4.30-5.70) Hemoglobin 13.5 g/dL (13.0-17.5) Hematocrit 39.1 % (39.0-53.0) Mean Corpuscular Volume 90 fL (79-100) Mean Corpuscular Hemoglobin 31 pg (25-35) Mean Corpuscular Hemoglobin Concent 35 g/dL (31-37) Red Cell Distribution Width 14.7 % (11.5-14.5) Platelet Count 196 x10^3/uL (140-400) Neutrophils (%) (Auto) 55 % (31-73) Lymphocytes (%) (Auto) 31 % (24-48) Monocytes (%) (Auto) 11 % (0-9) Eosinophils (%) (Auto) 3 % (0-3) Basophils (%) (Auto) 1 % (0-3) Neutrophils # (Auto) 4.0 x10^3/uL (1.8-7.7) Lymphocytes # (Auto) 2.2 x10^3/uL (1.0-4.8) Monocytes # (Auto) 0.8 x10^3/uL (0.0-1.1) Eosinophils # (Auto) 0.2 x10^3/uL (0.0-0.7) Basophils # (Auto) 0.1 x10^3/uL (0.0-0.2) Test 04/21/20 08:57 TV-Slq-L-Type Natriuretic Peptide 542 pg/mL (0-124) Triglycerides Level 67 mg/dL (0-150) Cholesterol Level 195 mg/dL (0-200) LDL Cholesterol, Calculated 138 mg/dL (0-100) VLDL Cholesterol, Calculated 13 mg/dL (0-40) Non-HDL Cholesterol Calculated 151 mg/dL (0-129) HDL Cholesterol 44 mg/dL (40-60) Cholesterol/HDL Ratio 4.4 Laboratory Tests Test 04/20/20 17:30 04/20/20 21:40 04/21/20 08:57 Troponin I Quantitative 0.035 ng/mL (0.000-0.055) 0.033 ng/mL (0.000-0.055) HU-Dlr-U-Type Natriuretic Peptide 542 pg/mL (0-124) Triglycerides Level 67 mg/dL (0-150) Cholesterol Level 195 mg/dL (0-200) LDL Cholesterol, Calculated 138 mg/dL (0-100) VLDL Cholesterol, Calculated 13 mg/dL (0-40) Non-HDL Cholesterol Calculated 151 mg/dL (0-129) HDL Cholesterol 44 mg/dL (40-60) Cholesterol/HDL Ratio 4.4 Medications Current Medications Acetaminophen/ Hydrocodone Bitart (Lortab 7.5/325) 1 tab 1X ONCE PO ; Start 04/20/20 at 17:15; Stop 04/20/20 at 17:16; Status DC Nitroglycerin (Nitrostat) 0.4 mg PRN Q5MIN PRN SL CHEST PAIN Last administered on 04/20/20at 17:47; Start 04/20/20 at 17:15; Stop 04/20/20 at 20:35; Status DC Oxycodone HCl (Roxicodone) 10 mg 1X ONCE PO Last administered on 04/20/20at 17:45; Start 04/20/20 at 17:45; Stop 04/20/20 at 17:46; Status DC Iohexol (Omnipaque 350 Mg/ml) 90 ml 1X ONCE IV Last administered on 04/20/20at 18:16; Start 04/20/20 at 18:00; Stop 04/20/20 at 18:01; Status DC Info (CONTRAST GIVEN -- Rx MONITORING) 1 each PRN DAILY PRN MC SEE COMMENTS; Start 04/20/20 at 18:00; Stop 04/22/20 at 17:59 Famotidine (Pepcid) 20 mg BID PO Last administered on 04/21/20 08:51; Start 04/20/20 at 21:00 Gabapentin (Neurontin) 400 mg BID PO Last administered on 04/20/20 21:03; Start 04/20/20 at 21:00 Losartan Potassium (Cozaar) 50 mg DAILY PO Last administered on 04/21/20 08:50; Start 04/21/20 at 09:00 Nitroglycerin (Nitrostat) 0.4 mg PRN Q5MIN PRN SL CHEST PAIN; Start 04/20/20 at 20:30 Ondansetron HCl (Zofran Odt) 4 mg PRN Q6HRS PRN PO NAUSEA; Start 04/20/20 at 20:30 Ziprasidone (Geodon) 20 mg BID PO Last administered on 04/20/20 21:02; Start 04/20/20 at 21:00 Non-Formulary Medication (Albuterol Sulfate (Ventolin Hfa Inhaler)) 2 puff Q4HRS INH ; Start 04/21/20 at 00:00; Status UNV Atorvastatin Calcium (Lipitor) 80 mg QHS PO Last administered on 04/20/20 21:02; Start 04/20/20 at 21:00 Carvedilol (Coreg) 25 mg BIDWMEALS PO Last administered on 04/21/20 08:49; Start 04/20/20 at 21:00 Oxycodone HCl (Roxicodone) 10 mg TID PO Last administered on 04/21/20 08:49; Start 04/20/20 at 21:00 Enoxaparin Sodium (Lovenox 40mg Syringe) 40 mg Q24H SQ Last administered on 04/20/20 21:04; Start 04/20/20 at 21:00 Labetalol HCl (Normodyne Iv Push) 20 mg PRN Q2HR PRN IVP HYPERTENSION Last administered on 04/21/20 06:14; Start 04/20/20 at 20:30 Aspirin (Farnaz Aspirin) 325 mg DAILYWBKFT PO Last administered on 04/21/20 08:49; Start 04/21/20 at 08:00 Aspirin (Farnaz Aspirin) 325 mg 1X ONCE PO Last administered on 04/20/20at 21:03; Start 04/20/20 at 21:00; Stop 04/20/20 at 21:01; Status DC Albuterol Sulfate (Ventolin Neb Soln) 2.5 mg Q4HRS NEB ; Start 04/21/20 at 00:00; Stop 04/20/20 at 21:21; Status DC Albuterol Sulfate (Ventolin Neb Soln) 2.5 mg RTQID NEB ; Start 04/21/20 at 08:00 Active Scripts Active Bactrim Ds Tablet (Sulfamethoxazole/Trimethoprim) 1 Each Tablet 1 Tab PO BID 10 Days Cephalexin 500 Mg Tablet 1 Tab PO TID Pepcid (Famotidine) 20 Mg Tablet 20 Mg PO BID Levsin-Sl (Hyoscyamine Sulfate) 0.125 Mg Tab.subl 1-2 Tab SL PRN Q4HRS PRN Ondansetron Odt (Ondansetron) 4 Mg Tab.rapdis 1 Tab PO PRN Q6-8HRS PRN Prednisone 50 Mg Tablet 50 Mg PO DAILY 5 Days Culturelle (Lactobacillus Rhamnosus Gg) 1 Each Cap.sprink 1 Cap PO BID 10 Days Geodon (Ziprasidone Hcl) 20 Mg Capsule 20 Mg PO BID 30 Days Doxycycline Hyclate 100 Mg Tablet 100 Mg PO BID 10 Days Losartan-Hctz 100-25 Mg Tab (Losartan/Hydrochlorothiazide) 1 Each Tablet 1 Tab PO DAILY Reported Ventolin Hfa Inhaler (Albuterol Sulfate) 18 Gm Hfa.aer.ad 2 Puff INH Q4HRS NITROGLYCERIN SubLingual (Nitroglycerin) 0.4 Mg Tab.subl 0.4 Mg SL PRN Q5MIN PRN Chantix (Varenicline Tartrate) 1 Mg Tablet 1 Mg Oxycodone Hcl Immed.release (Oxycodone Hcl) 10 Mg Tablet 1 Tab PO TID Gabapentin 400 Mg Capsule 400 Mg Diclofenac Sodium 75 Mg Tablet.dr 75 Carisoprodol 350 Mg Tablet 350 Mg Loratadine 10 Mg Tablet 10 Mg Advair 250-50 Diskus (Fluticasone/Salmeterol) 1 Each Disk.w.dev 1 Puff IH BID Chantix (Varenicline Tartrate) 0.5 Mg Tablet 0.5 Mg PO DIRECTED 0.5 MG PO DAILY X3 DAY, 0.5 MG PO BID X4 DAY, 1 MG PO BID UNTIL END OF TREATMENT Atorvastatin Calcium 80 Mg Tablet 1 Tab PO DAILY Coreg (Carvedilol) 25 Mg Tablet 1 Tab PO DAILY Losartan Potassium 50 Mg Tablet 50 Mg PO DAILY Vitals/I & O Vital Sign - Last 24 Hours 04/20/20 04/20/20 04/20/20 04/20/20 16:09 16:39 17:13 17:19 Pulse 72 77 72 B/P (MAP) 177/106 (129) 175/95 (121) 181/91 (121) 186/119 04/20/20 04/20/20 04/20/20 04/20/20 17:29 17:36 17:39 17:46 Pulse 74 74 74 77 B/P (MAP) 186/119 (141) 151/88 (109) 172/93 (119) 160/88 (112) 04/20/20 04/20/20 04/20/20 04/20/20 17:47 17:51 20:00 20:00 Temp 97.8 97.8 Pulse 78 77 Resp 22 B/P (MAP) 172/93 146/84 (104) 112/89 (97) Pulse Ox 97 O2 Delivery Room Air Room Air 04/20/20 04/20/20 04/21/20 04/21/20 21:02 23:20 03:50 06:14 Temp 97.6 98.1 97.6 98.1 Pulse 77 81 71 71 Resp 22 22 B/P (MAP) 112/89 115/77 (90) 142/100 (114) 142/100 Pulse Ox 94 94 O2 Delivery Room Air Room Air 04/21/20 04/21/20 04/21/20 04/21/20 07:00 07:55 07:57 08:49 Temp 97.5 97.5 Pulse 73 75 Resp 20 B/P (MAP) 144/92 (109) Pulse Ox 99 95 O2 Delivery Room Air Room Air Room Air 04/21/20 04/21/20 08:50 11:00 Temp 99.1 99.1 Pulse 75 79 Resp 20 B/P (MAP) 135/82 (99) Pulse Ox 95 O2 Delivery Room Air Intake and Output 8/24/20 8/24/20 8/25/20 15:00 23:00 07:00 Intake Total 840 ml Balance 840 ml Justicifation of Admission Dx: Justifications for Admission: Justification of Admission Dx: Yes Angina: Symp at Rest PRISCILLA SNIDER MD Apr 21, 2020 15:34
[2020-04-21 15:59] LABS: AMPHETAMINE/METHAMPHETAMINE NEG (NEG); BARBITURATES NEG (NEG); BENZODIAZEPINES NEG (NEG); CANNABINOIDS NEG (NEG); COCAINE NEG (NEG); METHADONE NEG (NEG); OPIATES POS (NEG); PHENCYCLIDINE NEG (NEG)
[2020-04-21 16:14] LABS: FECAL OB PT NEGATIVE (NEG)
--- NOTE | 2020-04-21 17:02 | NUR ---
Wound Care Wound Type/Assessment: Consult to eval and treat wound to R elbow. Pt has a history of Necrotizing fasciitis to his RFA starting 2 years ago. The wound is now isolated to the elbow and pt believes it will never heal. Wound cleansed and measured, admission photo present on chart. See detailed assessment. Pt declined a head to toe assessment stating he had no other wounds. Treatment Recommendations/Plan: R elbow: Cleanse with wound bobbin cleaner and pat dry. Cover wound bed with xeroform and ABD. Wrap with kerlix and tape. Change every 2-3 days. Education provided: Educated on keeping wound clean, nutrition, and frequent position changes to avoid further skin breakdown. Offloading surface/device: NA Follow up 04/29
[2020-04-21] MEDS ORDERED: ALBUTEROL SULFATE 2.5 MG/3 ML NEBU. NEB PRN (18:15)
--- NOTE | 2020-04-21 18:27 | NUR ---
Patient refused ECHO. Abby said ok to discharge per cardiology since patient is refusing testing. Paged Dr. Enriquez did not call back. Abby said he would call Dr. enriquez, no orders received.
[2020-04-21 19:05] VITALS: BP 127/92
--- NOTE | 2020-04-21 19:16 | NUR ---
Day nurse received phone call from Cardiology MANAGER [employer] to interrogate pacemaker however pacemaker has been interrogated today. Will continue to monitor.
[2020-04-21] MEDS: ENOXAPARIN 40 MG/0.4 ML SYRINGE. SQ SCH (20:04)
[2020-04-21] MEDS: ATORVASTATIN CALCIUM 40 MG TABLET. PO SCH (20:04)
--- NOTE | 2020-04-21 20:11 | NUR ---
Pt states he does not take his gabapentin or geodon.
[2020-04-21] MEDS: NICOTINE POLACRILEX 2MG GUM PACKAGE of 12. BC PRN (22:23)
[2020-04-21 23:25] VITALS: BP 147/105
[2020-04-22] MEDS ORDERED: METHYL SALICYLATE/MENTHOL TOPICAL CREAM 57GM TUBE. TP PRN
--- NOTE | 2020-04-22 01:24 | NUR ---
Pt with complaints of left leg pain. Pt states it feels like it is in the bone. Pt was stating maybe he has a tumor. Pt informed that he could possibly have a leg cramp, or it could be neuropathy. Pt states no I know what that feels like and this is something else. Pt states wanting the Physician right away and needs a scan on his leg. Pt informed of Physician needing to assess during his rounds and Physician will decide what to order. Pt informed to try to elevate his extremity and not to massage his leg. No signs of DVT noted. Pt also is currently on lovenox. Pt has been ambulating to bathroom during the noc and this is the first time that he complained. Applied pain cream to his extremity and also his lower back. Will continue to monitor.
[2020-04-22 03:20] VITALS: BP 155/98
[2020-04-22] MEDS: NICOTINE POLACRILEX 2MG GUM PACKAGE of 12. BC PRN (06:34)
[2020-04-22 07:00] VITALS: BP 160/92
[2020-04-22] MEDS: ASPIRIN 325 MG TABLET PO SCH (08:00)
[2020-04-22] MEDS: CARVEDILOL 12.5 MG TABLET. PO SCH (08:08)
[2020-04-22] MEDS: LOSARTAN POTASSIUM 50 MG TABLET. PO SCH (08:08)
[2020-04-22] MEDS: FAMOTIDINE 20 MG TABLET. PO SCH (08:08)
[2020-04-22] MEDS: oxyCODONE IR 5 MG TABLET PO SCH ×2 (08:10→14:36)
[2020-04-22] MEDS: ZIPRASIDONE 20 MG CAPSULE PO SCH (09:00)
[2020-04-22] MEDS: GABAPENTIN 400 MG CAPSULE. PO SCH (09:00)
--- NOTE | 2020-04-22 10:56 | PDOC ---
CARDIO Progress Notes Date and Time Date of Service 04/22/20 Time of Evaluation 1050 Subjective Subjective: Other (c/o LLE pain. ) Vitals Vitals Vital Signs Date Time Temp Pulse Resp B/P (MAP) Pulse Ox O2 Delivery O2 Flow Rate FiO2 04/22/20 08:10 18 97 Room Air 04/22/20 08:08 78 155/98 04/22/20 07:00 97.9 97.9 Weight Weight [ ] Input and Output Intake and Output Intake and Output 04/22/20 07:00 Intake Total 2440 ml Balance 2440 ml Intake Oral 2440 ml # Voids 4 # Bowel Movements 3 Laboratory Labs Laboratory Tests Test 04/21/20 15:00 Stool Occult Blood Negative (NEG) Urine Opiates Screen Pos (NEG) Urine Methadone Screen Neg (NEG) Urine Barbiturates Neg (NEG) Urine Phencyclidine Screen Neg (NEG) Urine Amphetamine/Methamphetamine Neg (NEG) Urine Benzodiazepines Screen Neg (NEG) Urine Cocaine Screen Neg (NEG) Urine Cannabinoids Screen Neg (NEG) Urine Ethyl Alcohol Neg (NEG) Physical Exam HEENT: Neck Supple W Full Motion Chest: Symmetric LUNGS: Other (diminished ) Heart: other (BiV pacing, distant heart tones ) Abdomen: Soft N/T Extremities: No Edema Neurology: alert, oriented, follow commands, other (agitated ) Assessment Assessment 1. Atypical chest pain: more from abdominal pain, likely GI in etiology. Refused JOSE L 2. ?Recent GI bleed: reported black/red stool intermittent 3. AECOPD with continue tobaccoism: 4. Hx of meth and ETOH use: denies 5. HTN:labile episodes, now controlled. 6. HLP 7. [employer] FOOD-P in situ: [employer]. Paced rhythm. Interrogation with normal device f unction. AT/AF < 0.1%. 8. PAFIB: BiV pacing, treated with RFA in 2014, no anticoagulation 9. CAD: unclear details, nonobstructive per chart review. 10. Noncompliance 11. Hx of hepC/cirrhosis 12. Antisocial personality disorder 13. Hx of NICM: compensated Recommendations Secondary prevention Continue ASA, statin, BB, and ARB Okay to discharge from a CV standpoint Follow up with [facility] cardiology. Justicifation of Admission Dx: Justifications for Admission: Justification of Admission Dx: Yes Angina: Symp at Rest EDWARD CASTILLO APRN Apr 22, 2020 10:56
[2020-04-22 11:00] VITALS: BP 169/100
--- NOTE | 2020-04-22 11:05 | NUR ---
Mr. Porter refused to take his AM Aspirin, Gabapentin, and Geodon stating that he does not take capsules or aspirin. I asked him why? He pulled his phone out of his pocket and started going through photos of his medications. I saw the above meds in those picture but he denied currently taking them. He is also digging into his wound to his right elbow removing and replacing the bandage. I tried to encourage him to leave it alone to prevent infection but be denied tampering with it.
--- NOTE | 2020-04-22 13:06 | PDOC ---
PROGRESS NOTES Date of Service: DATE: 04/22/20 TIME: 13:00 Chief Complaint Chief Complaint Assessment/Plan Chest pain concerning for unstable angina Hypertension CAD Chronic back pain due to history of lumbar fusion Thoracic aneurysm A-Fib, History of Alcoholism, Anxiety, CAD, CVA with no evident residual deficits History of dyslipidemia Essential Hypertension, History of Hepatitis C ISIDRA = 5 EKG unrevealing Troponin 0.029 Continue aspirin patient wont be able to have work up today since he had breakfast and had coffee, I advised him not to have coffee in case we would need to do further cardiac work up, he ignored the recommendation and drank coffee this morning shortly after my visit. 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 Patient quite agitated and a very poor historian, seems he has a secondary gain intentions with his demeanor. 04/22/2020 Patient currently denies chest pain, although he does state that he feels like his heart is been a "just stopped". Patient admits to history of drug use, and states that his current symptoms feel similar to when he was on drugs. He is agreeable to TTE. Discussed with patient that plan to discharge barring TTE results. Discussed that he may require some new medications or medication adjustments, and patient already states that he will not be compliant with any additional medications. Vitals Vitals Vital Signs Date Time Temp Pulse Resp B/P (MAP) Pulse Ox O2 Delivery O2 Flow Rate FiO2 04/22/20 11:00 98.2 95 20 169/100 (123) 92 Room Air 98.2 Physical Exam General: Alert, Oriented X3, Cooperative, No acute distress Heart: Regular rate (BiV pacing), Other (distant heart sounds) Lungs: Clear, Other Abdomen: Soft, Other (no palpable mass, obese) Skin: No rashes Labs LABS Laboratory Tests Test 04/21/20 15:00 Stool Occult Blood Negative (NEG) Urine Opiates Screen Pos (NEG) Urine Methadone Screen Neg (NEG) Urine Barbiturates Neg (NEG) Urine Phencyclidine Screen Neg (NEG) Urine Amphetamine/Methamphetamine Neg (NEG) Urine Benzodiazepines Screen Neg (NEG) Urine Cocaine Screen Neg (NEG) Urine Cannabinoids Screen Neg (NEG) Urine Ethyl Alcohol Neg (NEG) Review of Systems Review of Systems Lower back pain. Denies chest pain, denies shortness of breath, denies fever. Assessment and Plan Assessmemt and Plan Problems Medical Problems: (1) Chest pain Status: Acute (2) Uncontrolled hypertension Status: Acute Comment Review of Relevant I have reviewed the following items mercedez (where applicable) has been applied. Labs Laboratory Tests Test 04/20/20 14:20 04/20/20 14:37 04/20/20 17:30 04/20/20 21:40 Sodium Level 141 mmol/L (136-145) Potassium Level 3.8 mmol/L (3.5-5.1) Chloride Level 106 mmol/L (98-107) Carbon Dioxide Level 27 mmol/L (21-32) Anion Gap 8 (6-14) Blood Urea Nitrogen 25 mg/dL (8-26) Creatinine 1.0 mg/dL (0.7-1.3) Estimated GFR (Cockcroft-Gault) 76.5 BUN/Creatinine Ratio 25 (6-20) Glucose Level 100 mg/dL (70-99) Calcium Level 8.7 mg/dL (8.5-10.1) Magnesium Level 2.1 mg/dL (1.8-2.4) Total Bilirubin 0.4 mg/dL (0.2-1.0) Aspartate Amino Transf (AST/SGOT) 27 U/L (15-37) Alanine Aminotransferase (ALT/SGPT) 29 U/L (16-63) Alkaline Phosphatase 100 U/L (46-116) Troponin I Quantitative 0.029 ng/mL (0.000-0.055) 0.035 ng/mL (0.000-0.055) 0.033 ng/mL (0.000-0.055) Total Protein 7.9 g/dL (6.4-8.2) Albumin 3.8 g/dL (3.4-5.0) Albumin/Globulin Ratio 0.9 (1.0-1.7) Lipase 91 U/L (73-393) White Blood Count 7.3 x10^3/uL (4.0-11.0) Red Blood Count 4.35 x10^6/uL (4.30-5.70) Hemoglobin 13.5 g/dL (13.0-17.5) Hematocrit 39.1 % (39.0-53.0) Mean Corpuscular Volume 90 fL (79-100) Mean Corpuscular Hemoglobin 31 pg (25-35) Mean Corpuscular Hemoglobin Concent 35 g/dL (31-37) Red Cell Distribution Width 14.7 % (11.5-14.5) Platelet Count 196 x10^3/uL (140-400) Neutrophils (%) (Auto) 55 % (31-73) Lymphocytes (%) (Auto) 31 % (24-48) Monocytes (%) (Auto) 11 % (0-9) Eosinophils (%) (Auto) 3 % (0-3) Basophils (%) (Auto) 1 % (0-3) Neutrophils # (Auto) 4.0 x10^3/uL (1.8-7.7) Lymphocytes # (Auto) 2.2 x10^3/uL (1.0-4.8) Monocytes # (Auto) 0.8 x10^3/uL (0.0-1.1) Eosinophils # (Auto) 0.2 x10^3/uL (0.0-0.7) Basophils # (Auto) 0.1 x10^3/uL (0.0-0.2) Test 04/21/20 08:57 04/21/20 15:00 TX-Moy-O-Type Natriuretic Peptide 542 pg/mL (0-124) Triglycerides Level 67 mg/dL (0-150) Cholesterol Level 195 mg/dL (0-200) LDL Cholesterol, Calculated 138 mg/dL (0-100) VLDL Cholesterol, Calculated 13 mg/dL (0-40) Non-HDL Cholesterol Calculated 151 mg/dL (0-129) HDL Cholesterol 44 mg/dL (40-60) Cholesterol/HDL Ratio 4.4 Stool Occult Blood Negative (NEG) Urine Opiates Screen Pos (NEG) Urine Methadone Screen Neg (NEG) Urine Barbiturates Neg (NEG) Urine Phencyclidine Screen Neg (NEG) Urine Amphetamine/Methamphetamine Neg (NEG) Urine Benzodiazepines Screen Neg (NEG) Urine Cocaine Screen Neg (NEG) Urine Cannabinoids Screen Neg (NEG) Urine Ethyl Alcohol Neg (NEG) Laboratory Tests Test 04/21/20 15:00 Stool Occult Blood Negative (NEG) Urine Opiates Screen Pos (NEG) Urine Methadone Screen Neg (NEG) Urine Barbiturates Neg (NEG) Urine Phencyclidine Screen Neg (NEG) Urine Amphetamine/Methamphetamine Neg (NEG) Urine Benzodiazepines Screen Neg (NEG) Urine Cocaine Screen Neg (NEG) Urine Cannabinoids Screen Neg (NEG) Urine Ethyl Alcohol Neg (NEG) Medications Current Medications Acetaminophen/ Hydrocodone Bitart (Lortab 7.5/325) 1 tab 1X ONCE PO ; Start 04/20/20 at 17:15; Stop 04/20/20 at 17:16; Status DC Nitroglycerin (Nitrostat) 0.4 mg PRN Q5MIN PRN SL CHEST PAIN Last administered on 04/20/20at 17:47; Start 04/20/20 at 17:15; Stop 04/20/20 at 20:35; Status DC Oxycodone HCl (Roxicodone) 10 mg 1X ONCE PO Last administered on 04/20/20at 17:45; Start 04/20/20 at 17:45; Stop 04/20/20 at 17:46; Status DC Iohexol (Omnipaque 350 Mg/ml) 90 ml 1X ONCE IV Last administered on 04/20/20at 18:16; Start 04/20/20 at 18:00; Stop 04/20/20 at 18:01; Status DC Info (CONTRAST GIVEN -- Rx MONITORING) 1 each PRN DAILY PRN MC SEE COMMENTS; Start 04/20/20 at 18:00; Stop 04/22/20 at 17:59 Famotidine (Pepcid) 20 mg BID PO Last administered on 04/22/20at 08:08; Start 04/20/20 at 21:00 Gabapentin (Neurontin) 400 mg BID PO Last administered on 04/20/20at 21:03; Start 04/20/20 at 21:00 Losartan Potassium (Cozaar) 50 mg DAILY PO Last administered on 04/22/20at 08:08; Start 04/21/20 at 09:00 Nitroglycerin (Nitrostat) 0.4 mg PRN Q5MIN PRN SL CHEST PAIN; Start 04/20/20 at 20:30 Ondansetron HCl (Zofran Odt) 4 mg PRN Q6HRS PRN PO NAUSEA; Start 04/20/20 at 20:30 Ziprasidone (Geodon) 20 mg BID PO Last administered on 04/20/20at 21:02; Start 04/20/20 at 21:00 Non-Formulary Medication (Albuterol Sulfate (Ventolin Hfa Inhaler)) 2 puff Q4HRS INH ; Start 04/21/20 at 00:00; Status UNV Atorvastatin Calcium (Lipitor) 80 mg QHS PO Last administered on 04/21/20at 20:04; Start 04/20/20 at 21:00 Carvedilol (Coreg) 25 mg BIDWMEALS PO Last administered on 04/22/20at 08:08; Start 04/20/20 at 21:00 Oxycodone HCl (Roxicodone) 10 mg TID PO Last administered on 04/22/20at 08:10; Start 04/20/20 at 21:00 Enoxaparin Sodium (Lovenox 40mg Syringe) 40 mg Q24H SQ Last administered on 04/21/20at 20:04; Start 04/20/20 at 21:00 Labetalol HCl (Normodyne Iv Push) 20 mg PRN Q2HR PRN IVP HYPERTENSION Last administered on 04/21/20at 06:14; Start 04/20/20 at 20:30 Aspirin (Liveroof [place] Aspirin) 325 mg DAILYWBKFT PO Last administered on 04/21/20at 08:49; Start 04/21/20 at 08:00 Aspirin (Liveroof [place] Aspirin) 325 mg 1X ONCE PO Last administered on 04/20/20at 21:03; Start 04/20/20 at 21:00; Stop 04/20/20 at 21:01; Status DC Albuterol Sulfate (Ventolin Neb Soln) 2.5 mg Q4HRS NEB ; Start 04/21/20 at 00:00; Stop 04/20/20 at 21:21; Status DC Albuterol Sulfate (Ventolin Neb Soln) 2.5 mg RTQID NEB ; Start 04/21/20 at 08:00; Stop 04/21/20 at 18:11; Status DC Albuterol Sulfate (Ventolin Neb Soln) 2.5 mg PRN Q4HRS PRN NEB SHORTNESS OF BREATH; Start 04/21/20 at 18:15 Nicotine Polacrilex (Nicorette Gum) 1 each PRN Q1HR PRN BC SMOKING CESSATION Last administered on 04/22/20at 06:34; Start 04/21/20 at 22:00 Menthol/Methyl Salicylate (Bengay Greaseless Cream) 1 kitty PRN QID PRN TP MUSCLE PAIN Last administered on 04/22/20at 01:01; Start 04/22/20 at 00:00 Active Scripts Active Bactrim Ds Tablet (Sulfamethoxazole/Trimethoprim) 1 Each Tablet 1 Tab PO BID 10 Days Cephalexin 500 Mg Tablet 1 Tab PO TID Pepcid (Famotidine) 20 Mg Tablet 20 Mg PO BID Levsin-Sl (Hyoscyamine Sulfate) 0.125 Mg Tab.subl 1-2 Tab SL PRN Q4HRS PRN Ondansetron Odt (Ondansetron) 4 Mg Tab.rapdis 1 Tab PO PRN Q6-8HRS PRN Prednisone 50 Mg Tablet 50 Mg PO DAILY 5 Days Culturelle (Lactobacillus Rhamnosus Gg) 1 Each Cap.sprink 1 Cap PO BID 10 Days Geodon (Ziprasidone Hcl) 20 Mg Capsule 20 Mg PO BID 30 Days Doxycycline Hyclate 100 Mg Tablet 100 Mg PO BID 10 Days Losartan-Hctz 100-25 Mg Tab (Losartan/Hydrochlorothiazide) 1 Each Tablet 1 Tab PO DAILY Reported Ventolin Hfa Inhaler (Albuterol Sulfate) 18 Gm Hfa.aer.ad 2 Puff INH Q4HRS NITROGLYCERIN SubLingual (Nitroglycerin) 0.4 Mg Tab.subl 0.4 Mg SL PRN Q5MIN PRN Chantix (Varenicline Tartrate) 1 Mg Tablet 1 Mg Oxycodone Hcl Immed.release (Oxycodone Hcl) 10 Mg Tablet 1 Tab PO TID Gabapentin 400 Mg Capsule 400 Mg Diclofenac Sodium 75 Mg Tablet.dr 75 Carisoprodol 350 Mg Tablet 350 Mg Loratadine 10 Mg Tablet 10 Mg Advair 250-50 Diskus (Fluticasone/Salmeterol) 1 Each Disk.w.dev 1 Puff IH BID Chantix (Varenicline Tartrate) 0.5 Mg Tablet 0.5 Mg PO DIRECTED 0.5 MG PO DAILY X3 DAY, 0.5 MG PO BID X4 DAY, 1 MG PO BID UNTIL END OF TREATMENT Atorvastatin Calcium 80 Mg Tablet 1 Tab PO DAILY Coreg (Carvedilol) 25 Mg Tablet 1 Tab PO DAILY Losartan Potassium 50 Mg Tablet 50 Mg PO DAILY Vitals/I & O Vital Sign - Last 24 Hours 04/21/20 04/21/20 04/21/20 04/21/20 15:00 17:52 19:05 20:00 Temp 98.0 97.8 98.0 97.8 Pulse 76 85 77 Resp 20 22 B/P (MAP) 144/104 (117) 127/92 (104) Pulse Ox 96 93 O2 Delivery Room Air Room Air Room Air 04/21/20 04/21/20 04/21/20 04/22/20 20:03 21:03 23:25 03:20 Temp 98.1 97.6 98.1 97.6 Pulse 74 78 Resp 22 20 B/P (MAP) 147/105 (119) 155/98 (117) Pulse Ox 94 97 O2 Delivery Room Air Room Air Room Air Room Air 04/22/20 04/22/20 04/22/20 04/22/20 07:00 08:00 08:08 08:08 Temp 97.9 97.9 Pulse 69 78 78 Resp 20 B/P (MAP) 160/92 (114) 155/98 155/98 Pulse Ox 97 O2 Delivery Room Air Room Air 04/22/20 04/22/20 08:10 11:00 Temp 98.2 98.2 Pulse 95 Resp 18 20 B/P (MAP) 169/100 (123) Pulse Ox 97 92 O2 Delivery Room Air Room Air Intake and Output 04/21/20 04/21/20 04/22/20 15:00 23:00 07:00 Intake Total 720 ml 880 ml 840 ml Balance 720 ml 880 ml 840 ml Justicifation of Admission Dx: Justifications for Admission: Justification of Admission Dx: Yes Angina: [facility] LILIA COSTA MD Apr 22, 2020 13:06
--- NOTE | 2020-04-22 14:56 | CARD ---
MR#: [id number] Date of Study: 04/22/2020 Ordering Physician: EDWARD CASTILLO, Referring Physician: EDWARD CASTILLO, Tech: Gia Mead APPROVED REPORT EXAM: Two-dimensional and M-mode echocardiogram with Doppler and color Doppler. Other Information Quality : FairHR: 70bpm Technically limited study due to body habitus. INDICATION Cardiomyopathy 2D DIMENSIONS Left Atrium(2D)3.4 (1.6-4.0cm)IVSd1.3 (0.7-1.1cm) Aortic Root(2D)3.3 (2.0-3.7cm)LVDd6.5 (3.9-5.9cm) LVOT Diameter2.0 (1.8-2.4cm)PWd1.4 (0.7-1.1cm) LVDs5.0 (2.5-4.0cm)FS (%) 23.5 % SV100.6 mlLVEF(%)45.9 (>50%) Aortic Valve AoV Peak Chris.178.2cm/sAoV VTI35.4cm AO Peak GR.12.7mmHgLVOT Peak Chris.136.4cm/s AO Mean GR.7mmHgAVA (VMAX)2.37cm2 Mitral Valve MV E Nfxpkriy65.3cm/sMV E Peak Gr.4mmHg MV DECEL [id number] A Ypedskkm64.0cm/s MV E Mean Gr.2mmHgE/A Ratio0.8 Pulmonary Valve PV Peak Hkgrxyvm44.0cm/s Tricuspid Valve TR P. Zzvgmslk520mh/sRAP LSQORMNV5nvRl TR Peak Gr.26leVyOHLV06juGw LEFT VENTRICLE The Left Ventricle is moderately dilated. There is moderate concentric left ventricular hypertrophy. The left ventricular systolic function is moderately impaired. The Ejection Fraction is 30-35%. Septa l motion consistent with conduction abnormality. Transmitral Doppler flow pattern is Grade I-abnormal relaxation pattern. RIGHT VENTRICLE The right ventricle is mildly dilated. There is normal right ventricular wall thickness. The right ve ntricular systolic function is normal. ATRIA The left atrium is borderline dilated. The right atrium is mildly dilated. The interatrial septum is intact with no evidence for an atrial septal defect or patent foramen ovale as noted on 2-D or Dopple r imaging. AORTIC VALVE The aortic valve is not well visualized. Doppler and Color Flow revealed no significant aortic regurg itation. There is no significant aortic valvular stenosis. Calculated aortic valve area is 2.7 cm2 wi th maximum pressure gradient of 13 mmHg and mean pressure gradient of 7 mmHg. MITRAL VALVE The mitral valve is normal in structure and function. There is no evidence of mitral valve prolapse. There is no mitral valve stenosis. Doppler and Color Flow revealed no mitral valve regurgitation note d. TRICUSPID VALVE The tricuspid valve is not well visualized. Doppler and Color Flow revealed trace tricuspid valve reg urgitation noted with an estimated PAP of 19 mmHg. There is no tricuspid valve stenosis. PULMONIC VALVE The pulmonic valve is not well visualized. Doppler and Color Flow revealed no pulmonic valvular regur gitation. GREAT VESSELS The aortic root is normal in size. The IVC is normal in size and collapses >50% with inspiration. PERICARDIAL EFFUSION There is no evidence of significant pericardial effusion. Critical Notification Critical Value: No <Conclusion> The left ventricular systolic function is moderately impaired. The Ejection Fraction is 30-35%. Transmitral Doppler flow pattern is Grade I-abnormal relaxation pattern. Pacer wire noted RA/RV. Trace tricuspid valve regurgitation noted with an estimated PAP of 19 mmHg. There is no evidence of significant pericardial effusion. Signed by : Tin Cabral, Electronically Approved : 04/22/2020 14:55:41
[2020-04-22 15:00] VITALS: BP 152/102
--- NOTE | 2020-04-22 15:50 | PDOC3 ---
Discharge Summary Visit Information Date of Admission: Apr 20, 2020 Date of Discharge: Apr 22, 2020 Final Diagnosis Problems Medical Problems: (1) Chest pain Status: Acute (2) Uncontrolled hypertension Status: Acute Brief Hospital Course Allergies Allergies Coded Allergies Type Severity Reaction Last Updated Verified alprazolam Allergy Intermediate 12/13/18 Yes diltiazem Allergy Intermediate HIVES, INTERMITTENTLY 12/13/18 Yes lorazepam Allergy Intermediate halucinations 12/13/18 Yes morphine Allergy Intermediate HIVES, INTERMITTENTLY 12/13/18 Yes Haloperidol Lactate Adverse Reaction Intermediate dystonic reaction 12/13/18 Yes haloperidol Adverse Reaction Intermediate dystonic reaction 12/13/18 Yes tramadol Adverse Reaction Intermediate Hallucinations per nurse 12/13/18 Yes Vital Signs Vital Signs Date Time Temp Pulse Resp B/P (MAP) Pulse Ox O2 Delivery O2 Flow Rate FiO2 04/22/20 15:00 97.9 86 20 152/102 (119) 92 Room Air 97.9 Lab Results Laboratory Tests Test 04/20/20 17:30 04/20/20 21:40 04/21/20 08:57 04/21/20 15:00 Troponin I Quantitative 0.035 ng/mL (0.000-0.055) 0.033 ng/mL (0.000-0.055) FQ-Wqy-G-Type Natriuretic Peptide 542 pg/mL (0-124) Triglycerides Level 67 mg/dL (0-150) Cholesterol Level 195 mg/dL (0-200) LDL Cholesterol, Calculated 138 mg/dL (0-100) VLDL Cholesterol, Calculated 13 mg/dL (0-40) Non-HDL Cholesterol Calculated 151 mg/dL (0-129) HDL Cholesterol 44 mg/dL (40-60) Cholesterol/HDL Ratio 4.4 Stool Occult Blood Negative (NEG) Urine Opiates Screen Pos (NEG) Urine Methadone Screen Neg (NEG) Urine Barbiturates Neg (NEG) Urine Phencyclidine Screen Neg (NEG) Urine Amphetamine/Methamphetamine Neg (NEG) Urine Benzodiazepines Screen Neg (NEG) Urine Cocaine Screen Neg (NEG) Urine Cannabinoids Screen Neg (NEG) Urine Ethyl Alcohol Neg (NEG) Brief Hospital Course Mr. Porter is a 59 old male who presented with chest atypical chest pain. No acute EKG changes and no elevated troponin. Echocardiogram for LV function, and recommended medical management. His home COPD medications were continued. Discussed tobacco cessation. Apparently followed at . History of medication noncompliance, and we discussed his prognosis would only worsen if his noncompliance continued. Discharge on beta-cinthia, DYLON, statin. Discussed more medications to further optimize patient's cardiac function, and he states he would not be compliant with any new medications. Discharge Information Condition at Discharge: Stable Follow Up: Weeks Disposition/Orders: D/C to Home Scheduled Albuterol Sulfate (Ventolin Hfa Inhaler) 18 Gm Hfa.aer.ad, 2 PUFF INH Q4HRS for FOR ASTHMA, Ref 0 (Reported) Entered as Reported by: GRACIE LOWERY RN on 07/10/192122 Last Action: Converted on 04/20/202031 by PABLO HARTMAN MD Atorvastatin Calcium (Atorvastatin Calcium) 80 Mg Tablet, 1 TAB PO DAILY, #30 Ref 5 (Reported) Entered as Reported by: ULYSSES GUTHRIE on 03/01/172021 Last Action: Converted on 04/20/202031 by PABLO HARTMAN MD Carvedilol (Coreg) 25 Mg Tablet, 1 TAB PO DAILY, #60 Ref 5 (Reported) Entered as Reported by: ULYSSES GUTHRIE on 03/01/172021 Last Action: Converted on 04/20/202031 by PABLO HARTMAN MD Cephalexin (Cephalexin) 500 Mg Tablet, 1 TAB PO TID, #30 Prescribed by: Yesica Weller APRN on 09/08/192107 Doxycycline Hyclate (Doxycycline Hyclate) 100 Mg Tablet, 100 MG PO BID for abscess for 10 Days, #20 Prescribed by: JOSE CHACON MD on 08/09/18 1107 Famotidine (Pepcid) 20 Mg Tablet, 20 MG PO BID, #20 Prescribed by: DEBRA MORATAYA D.O. on 03/13/19 0030 Last Action: Continued on 04/20/202031 by PABLO HARTMAN MD Fluticasone/Salmeterol (Advair 250-50 Diskus) 1 Each Disk.w.dev, 1 PUFF IH BID, #3 Ref 3 (Reported) Entered as Reported by: Maximus Dyer RN on 09/17/17 0712 Lactobacillus Rhamnosus Gg (Culturelle) 1 Each Cap.sprink, 1 CAP PO BID for diarrhea for 10 Days, #20 Prescribed by: JOSE CHACON MD on 08/09/187 Losartan Potassium (Losartan Potassium) 50 Mg Tablet, 50 MG PO DAILY, (Reported) Entered as Reported by: ULYSSES GUTHRIE on 03/01/172021 Last Action: Continued on 04/20/202031 by PABLO HARTMAN MD Losartan/Hydrochlorothiazide (Losartan-Hctz 100-25 Mg Tab) 1 Each Tablet, 1 TAB PO DAILY, #10 Ref 0 Prescribed by: EMERALD MCFARLAND D.O. on 04/11/18 1340 Oxycodone Hcl (Oxycodone Hcl Immed.release) 10 Mg Tablet, 1 TAB PO TID, #90 (Reported) Entered as Reported by: ABIODUN SCHULTE on 11/10/17 1211 Last Action: Converted on 04/20/202031 by PABLO HARTMAN MD Prednisone (Prednisone) 50 Mg Tablet, 50 MG PO DAILY for 5 Days, #5 Prescribed by: EMERALD MCFARLAND D.O. on 10/09/18 0821 Sulfamethoxazole/Trimethoprim (Bactrim Ds Tablet) 1 Each Tablet, 1 TAB PO BID for 10 Days, #20 Ref 0 Prescribed by: Yesica Weller APRN on 09/08/192107 Last Action: HELD on 04/20/202031 by PABLO HARTMAN MD Varenicline Tartrate (Chantix) 0.5 Mg Tablet, 0.5 MG PO DIRECTED, (Reported) 0.5 MG PO DAILY X3 DAY, 0.5 MG PO BID X4 DAY, 1 MG PO BID UNTIL END OF TREATMENT Entered as Reported by: Maximus Dyer RN on 09/16/172007 Ziprasidone Hcl (Geodon) 20 Mg Capsule, 20 MG PO BID for agitation for 30 Days, #60 Prescribed by: JOSE CHACON MD on 08/09/181106 Last Action: Continued on 04/20/202031 by PABLO HARTMAN MD Scheduled PRN Hyoscyamine Sulfate (Levsin-Sl) 0.125 Mg Tab.subl, 1-2 TAB SL PRN Q4HRS PRN for PAIN, #20 Prescribed by: DEBRA MORATAYA D.O. on 03/13/19 0030 Nitroglycerin (NITROGLYCERIN SubLingual) 0.4 Mg Tab.subl, 0.4 MG SL PRN Q5MIN PRN for CHEST PAIN, (Reported) Entered as Reported by: MAITE CARPENTER RN on 07/10/19 1729 Last Action: Continued on 04/20/202031 by PABLO HARTMAN MD Ondansetron (Ondansetron Odt) 4 Mg Tab.rapdis, 1 TAB PO PRN Q6-8HRS PRN for NAUSEA, #16 Prescribed by: DEBRA MORATAYA D.O. on 03/13/19 0030 Last Action: Continued on 04/20/202031 by PABLO HARTMAN MD Miscellaneous Medications Carisoprodol (Carisoprodol) 350 Mg Tablet, 350 MG, (Reported) Entered as Reported by: ABIODUN SCHULTE on 11/10/171210 Diclofenac Sodium (Diclofenac Sodium) 75 Mg Tablet.dr 75, (Reported) Entered as Reported by: ABIODUN SCHULTE on 11/10/17 121 Gabapentin (Gabapentin) 400 Mg Capsule, 400 MG, (Reported) Entered as Reported by: ABIODUN SCHULTE on 11/10/17 121 Last Action: Continued on 04/20/202031 by PABLO HARTMAN MD Loratadine (Loratadine) 10 Mg Tablet, 10 MG, (Reported) Entered as Reported by: ABIODUN SCHULTE on 11/10/171210 Varenicline Tartrate (Chantix) 1 Mg Tablet, 1 MG, (Reported) Entered as Reported by: ABIODUN SCHULTE on 11/10/17 1517 Patient Instructions Patient Instructions Patient instructed to take all medications as prescribed, including recent antibiotics. Discussed close follow-up with PCP. Justicifation of Admission Dx: Justifications for Admission: Justification of Admission Dx: Yes Angina: [facility] LILIA COSTA MD Apr 22, 2020 15:50
--- NOTE | 2020-04-22 17:00 | NUR ---
Discharge Note: ALYSSA PABLO Discharge instructions and discharge home medications reviewed with Patient and a copy given. All questions have been answered and understanding verbalized. The following instructions and handouts were given: chest pain Discontinued iv line and catheter intact. Patient discharged to home with self-care via z-trip.
== END 2020-04-22 16:42 | disposition home or self-care (01) | DRG 392 ==
LOC: ER 14:03 → 2 SOUTH 16:05
PROVIDERS: ADMIT Internal Medicine; ATTEND Internal Medicine
PROC: 4B02XSZ Measurement of Cardiac Pacemaker, External Approach (ICD-10-PCS; principal; 2020-04-21)
DX: K21.9 Gastro-esophageal reflux disease without esophagitis (principal); J44.1 Chronic obstructive pulmonary disease with (acute) exacerbation; I42.8 Other cardiomyopathies; I10 Essential (primary) hypertension; F32.9 Major depressive disorder, single episode, unspecified; I25.10 Atherosclerotic heart disease of native coronary artery without angina pectoris; F41.9 Anxiety disorder, unspecified; E78.00 Pure hypercholesterolemia, unspecified; E78.5 Hyperlipidemia, unspecified; K42.9 Umbilical hernia without obstruction or gangrene; G89.29 Other chronic pain; I71.2 Thoracic aortic aneurysm, without rupture; I48.0 Paroxysmal atrial fibrillation; K74.60 Unspecified cirrhosis of liver; F60.2 Antisocial personality disorder; F17.210 Nicotine dependence, cigarettes, uncomplicated; Z96.659 Presence of unspecified artificial knee joint; Z95.0 Presence of cardiac pacemaker; Z98.1 Arthrodesis status; Z86.19 Personal history of other infectious and parasitic diseases; Z91.19 Patient's noncompliance with other medical treatment and regimen; Z91.14 Patient's other noncompliance with medication regimen; Z88.5 Allergy status to narcotic agent; I25.2 Old myocardial infarction; Z90.49 Acquired absence of other specified parts of digestive tract; Z88.8 Allergy status to other drugs, medicaments and biological substances; Z86.73 Personal history of transient ischemic attack (TIA), and cerebral infarction without residual deficits
CPT/HCPCS: 36415; 71045; 71275; 74174; 80053; 80061; 80307; 82274; 83690; 83735; 83880; 84484; 85025; 93005; 93306; 94760; 99285; J1650; J3490; Q9967; G0378